=== PATIENT | male | born 1935 | race Caucasian/White ===

== ENCOUNTER 2017-09-22 09:40 | Inpatient (IN) | payer MEDICARE, OTHER ==
[2017-09-22 11:13] LABS: ABSOLUTE EOSINOPHILS # (AUTO) 0.2 10^3/uL (0.0-0.6); ABSOLUTE LYMPHOCYTES (AUTO) 0.9 10^3/uL (0.5-4.7); ABSOLUTE MONOCYTES (AUTO) 0.9 10^3/uL (0.1-1.4); ABSOLUTE NEUT (AUTO) 7.3 10^3/uL (1.7-8.2); BASOPHILS % (AUTO) 0.3 % (0-2); HEMATOCRIT 43.8 % (37.9-51.0); HEMOGLOBIN 14.4 g/dL (13.5-17.0); LYMPHOCYTES % (AUTO) 9.2 % (13-45); MEAN CORPUSCULAR HEMOGLOBIN 28.2 pg (27.0-33.4); MEAN CORPUSCULAR HGB CONC 32.8 g/dL (32.0-36.0); MEAN CORPUSCULAR VOLUME 86 fl (80-97); PLATELET COUNT 162 10^3/uL (150-450); RED CELL DISTRIBUTION WIDTH 15.6 % (11.5-14.0); SEGMENTED NEUTROPHILS % (AUTO) 78.5 % (42-78); TOTAL CELLS COUNTED % (AUTO) 100 %; WHITE BLOOD COUNT 9.3 10^3/uL (4.0-10.5)
--- NOTE | 2017-09-22 11:26 | RADIOLOGY REPORT (SQ) ---
EXAM DESCRIPTION: CT HEAD WITHOUT COMPLETED DATE/TIME: 09/22/2017 11:02 am REASON FOR STUDY: fall COMPARISON: None. TECHNIQUE: Axial images acquired through the brain without intravenous contrast. Images reviewed wi th bone, brain and subdural windows. Images stored on PACS. All CT scanners at this facility use dose modulation, iterative reconstruction, and/or weight based d osing when appropriate to reduce radiation dose to as low as reasonably achievable (ALARA). [facility]: Dose Right [facility]: CareDose [facility]: Dose Right [facility]: Teradose 4D [facility]: [place] RADIATION DOSE: CT Rad equipment meets quality standard of care and radiation dose reduction techniq ues were employed. CTDIvol: 64.6 mGy. DLP: 1163 mGy-cm. mGy. LIMITATIONS: None. FINDINGS: VENTRICLES: Normal size and contour. CEREBRUM: No masses. No hemorrhage. No midline shift. No evidence for acute infarction. Normal gra y/white matter differentiation. No areas of low density in the white matter. CEREBELLUM: No masses. No hemorrhage. No alteration of density. No evidence for acute infarction. EXTRAAXIAL SPACES: No fluid collections. No masses. ORBITS AND GLOBE: No intra- or extraconal masses. Post bilateral cataract surgery. CALVARIUM: No fracture. PARANASAL SINUSES: No fluid or mucosal thickening. SOFT TISSUES: No mass or hematoma. OTHER: No other significant finding. IMPRESSION: NORMAL BRAIN CT WITHOUT CONTRAST. EVIDENCE OF ACUTE STROKE: NO. COMMENT: Quality ID # [id number]: Final reports with documentation of one or more dose reduction techniques (e.g., Automated exposure control, adjustment of the mA and/or kV according to patient size, use of iterative reconstruction technique) TECHNICAL DOCUMENTATION: JOB ID: [id number] [employer]- All Rights Reserved
--- NOTE | 2017-09-22 11:28 | RADIOLOGY REPORT (SQ) ---
EXAM DESCRIPTION: CHEST PA/LAT COMPLETED DATE/TIME: 09/22/2017 11:20 am REASON FOR STUDY: fall COMPARISON: Chest films 02/21/2015, 03/05/2016 EXAM PARAMETERS: NUMBER OF VIEWS: two views TECHNIQUE: Digital Frontal and Lateral radiographic views of the chest acquired. RADIATION DOSE: NA LIMITATIONS: none FINDINGS: LUNGS AND PLEURA: No acute infiltrates. No pleural effusion. No pneumothorax. Stable pleural thickening over the left lower lateral chest. MEDIASTINUM AND HILAR STRUCTURES: No masses or contour abnormalities. Aortic stent graft anchors are present at the aortic root and near the great vessel origins. HEART AND VASCULAR STRUCTURES: Heart normal size. No evidence for failure. BONES: No acute findings. HARDWARE: None in the chest. OTHER: No other significant finding. IMPRESSION: No acute findings TECHNICAL DOCUMENTATION: JOB ID: [id number] [employer]- All Rights Reserved
[2017-09-22 11:29] LABS: ALANINE AMINOTRANSFERASE 24 U/L (21-72); ALBUMIN 3.4 g/dL (3.5-5.0); ALKALINE PHOSPHATASE 112 U/L (38-126); ANION GAP 11 (5-19); ASPARTATE AMINO TRANSFERASE 21 U/L (17-59); BILIRUBIN,DIRECT 0.3 mg/dL (0.0-0.4); BILIRUBIN,TOTAL 0.4 mg/dL (0.2-1.3); BLOOD UREA NITROGEN 58 mg/dL (7-20); CALCIUM 8.7 mg/dL (8.4-10.2); CARBON DIOXIDE 26 mmol/L (22-30); CHLORIDE 104 mmol/L (98-107); GLUCOSE 150 mg/dL (75-110); POTASSIUM 4.6 mmol/L (3.6-5.0); SODIUM 141.3 mmol/L (137-145)
--- NOTE | 2017-09-22 11:30 | RADIOLOGY REPORT (SQ) ---
EXAM DESCRIPTION: L SPINE WHOLE COMPLETED DATE/TIME: 09/22/2017 11:20 am REASON FOR STUDY: fall COMPARISON: Lumbar spine films 05/31/2016, 04/19/2016, 03/15/2016 NUMBER OF VIEWS: Five views including obliques. TECHNIQUE: AP, lateral, oblique, and sacral radiographic images acquired of the lumbar spine. LIMITATIONS: None. FINDINGS: MINERALIZATION: Osteopenic SEGMENTATION: Normal. No transitional anatomy. ALIGNMENT: 50% anterolisthesis of L5 over S1 VERTEBRAE: Maintained height. No fracture or worrisome bone lesion. DISCS: High-grade disc space loss of height at L5-S1 POSTERIOR ELEMENTS: Bilateral spondylolysis at L5 HARDWARE: None in the spine. Old ventral hernia repair periumbilical region PARASPINAL SOFT TISSUES: Normal. PELVIS: Not included in the field of view OTHER: No other significant finding. IMPRESSION: 50% anterolisthesis of L5 over S1, similar compared to prior studies. No acute fracture TECHNICAL DOCUMENTATION: JOB ID: [id number] [employer]- All Rights Reserved
[2017-09-22] MEDS ORDERED: NORMAL SALINE 1000 ML 1,000 ML IV ONE (12:40)
--- NOTE | 2017-09-22 12:58 | ER Document Report ---
ED General - General Chief Complaint: Fall Stated Complaint: FALL/BACK PAIN Time Seen by Provider: 09/22/17 09:52 Mode of Arrival: Medic Information source: Patient Notes: 81-year-old male presents with complaints of his. Patient notes every time he bends over or stands up he falls over. Patient denies any numbness or weakness admits to low back pain Patient has a history of COPD notes productive cough for the past 3 days with shortness of breath he is not on oxygen at home TRAVEL OUTSIDE OF THE [place] IN LAST 30 DAYS: No - HPI Onset: Other Onset/Duration: Sudden Quality of pain: Achy Severity: Mild Pain Level: 1 Associated symptoms: Productive cough, Shortness of breath, Weakness Exacerbated by: Standing Relieved by: Denies Similar symptoms previously: No Recently seen / treated by doctor: No - Related Data Allergies/Adverse Reactions: No Known Allergies Allergy (Verified 09/22/17 10:11) Home Medications: Current Home Medications Aspirin [Aspirin EC] 81 mg PO DAILY 09/22/17 [History] Citalopram Hydrobromide [Citalopram HBr] 10 mg PO DAILY 09/22/17 [History] Cyanocobalamin (Vitamin B-12) [Vitamin B-12 1000 mcg Tablet] 1,000 mcg PO DAILY 09/22/17 [History] Docusate Sodium [Colace 100 mg Capsule] 100 mg PO BID 09/22/17 [History] Finasteride [Proscar 5 mg Tablet] 5 mg PO DAILY 09/22/17 [History] Gabapentin [Neurontin 300 mg Capsule] 300 mg PO Q6 09/22/17 [History] Hydrocodone Bit/Acetaminophen [Hydrocodon-Acetaminophen 5-325] 1 tab PO Q6HP PRN 09/22/17 [History] Insulin Detemir [Levemir Flextouch] 34 unit SUBCUT BID 09/22/17 [History] Lisinopril [Prinivil 40 mg Tablet] 40 mg PO DAILY 09/22/17 [History] Metoprolol Succinate [Toprol XL 100 mg Tablet] 100 mg PO DAILY 09/22/17 [History ] Pantoprazole Sodium [Protonix] 40 mg PO DAILY 09/22/17 [History] Tamsulosin HCl [Flomax 0.4 mg Cap.sr] 0.4 mg PO BID 09/22/17 [History] Warfarin Sodium [Coumadin 4 mg Tablet] 8 mg PO MOTUWETHFR@0 09/22/17 [History ] Warfarin Sodium [Coumadin] 6 mg PO SUSA@0 09/22/17 [History] Past Medical History - Social History Smoking Status: Former Smoker Cigarette use (# per day): No Chew tobacco use (# tins/day): No Smoking Education Provided: No Frequency of alcohol use: None Drug Abuse: None Family History: Reviewed & Not Pertinent Patient has suicidal ideation: No Patient has homicidal ideation: No - Past Medical History Cardiac Medical History: Reports: Hx Atrial Fibrillation - coumadin, Hx Coronary Artery Disease, Hx Hypercholesterolemia, Hx Hypertension Pulmonary Medical History: Reports: Hx Bronchitis, Hx COPD, Hx Pneumonia Endocrine Medical History: Reports: Hx Diabetes Mellitus Type 2 Renal/ Medical History: Reports: Hx Benign Prostatic Hyperplasia. Denies: Hx Peritoneal Dialysis GI Medical History: Reports: Hx Gastroesophageal Reflux Disease Psychiatric Medical History: Denies: Hx Depression Past Surgical History: Reports: Hx Appendectomy, Hx Cardiac Catheterization, Hx Genitourinary Surgery - TURP, Hx Orthopedic Surgery - R Shoulder, Hx Tonsillectomy, Hx Vascular Surgery - AAA - Immunizations Hx Diphtheria, Pertussis, Tetanus Vaccination: Yes Hx Pneumococcal Vaccination: 09/15/12 Review of Systems - Review of Systems Notes: REVIEW OF SYSTEMS: CONSTITUTIONAL : Denies fever, chills, or sweats. Denies recent illness. EENT: Denies eye, ear, throat, or mouth pain or symptoms. Denies nasal or sinus congestion or discharge. Denies throat, tongue, or mouth swelling or difficulty swallowing. CARDIOVASCULAR: Denies chest pain. Denies palpitations or racing or irregular heart beat. Denies ankle edema. RESPIRATORY: Admits to cough GASTROINTESTINAL: Admits to back pain GENITOURINARY: Denies difficulty urinating, painful urination, burning, frequency, blood in urine, or discharge. MUSCULOSKELETAL: Denies back or neck pain or stiffness. Denies joint pain or swelling. SKIN: Denies rash, lesions or sores. HEMATOLOGIC : Denies easy bruising or bleeding. LYMPHATIC: Denies swollen, enlarged glands. NEUROLOGICAL: Admits to multiple full PSYCHIATRIC: Denies anxiety or stress. Denies depression, suicidal ideation, or homicidal ideation. ALL OTHER SYSTEMS REVIEWED AND NEGATIVE. Dictation was performed using [employer] recognition software PHYSICAL EXAMINATION: GENERAL: Well-appearing, well-nourished and in no acute distress. HEAD: Atraumatic, normocephalic. EYES: Pupils equal round and reactive to light, extraocular movements intact, sclera anicteric, conjunctiva are normal. ENT: Nares patent, oropharynx clear without exudates. Moist mucous membranes. NECK: Normal range of motion, supple without lymphadenopathy LUNGS: Coarse wheezing all throughout HEART: Regular rate and rhythm without murmurs ABDOMEN: Soft, nontender, nondistended abdomen. No guarding, no rebound. No masses appreciated. Musculoskeletal: Normal range of motion, no pitting or edema. No cyanosis. NEUROLOGICAL: Cranial nerves grossly intact. Normal speech, normal gait. Normal sensory, motor exams PSYCH: Normal mood, normal affect. SKIN: Multiple superficial abrasions bilateral knees Physical Exam - Vital signs Vitals: Temp Pulse Resp BP Pulse Ox 98.1 F 86 22 H 95/66 L 89 L 09/22/17 10:02 09/22/17 10:02 09/22/17 10:02 09/22/17 10:02 09/22/17 10:02 Course - Re-evaluation Re-evalutation: 09/22/17 12:57 Patient is noted to be in acute renal failure, creatinine is 2.15, I believe his multiple falls are due to dehydration, urinalysis is pending, his is also here and had recent diagnosis of the flu and was recently treated. I expect admission for the patient 09/22/17 19:19 Patient has been placed on nasal cannula as he continues to become hypoxic in the emergency department - Vital Signs Vital signs: Temp Pulse Resp BP Pulse Ox 98.1 F 86 18 106/75 94 09/22/17 10:02 09/22/17 10:02 09/22/17 18:01 09/22/17 18:01 09/22/17 18:01 - Laboratory Result Diagrams: 09/22/17 10:55 09/22/17 10:55 Laboratory results interpreted by me: 09/22/17 09/22/17 09/22/17 10:55 10:55 10:55 RDW 15.6 H Seg Neutrophils % 78.5 H Lymphocytes % 9.2 L PT INR APTT BUN 58 H Creatinine 2.14 H Est GFR ( Amer) 36 L Est GFR (Non-Af Amer) 30 L Glucose 150 H Magnesium 2.5 H Total Protein 6.0 L Albumin 3.4 L 09/22/17 10:55 RDW Seg Neutrophils % Lymphocytes % PT 66.0 H* INR 7.46 H* APTT 107.9 H BUN Creatinine Est GFR ( Amer) Est GFR (Non-Af Amer) Glucose Magnesium Total Protein Albumin - Diagnostic Test Radiology reviewed: Image reviewed, Reports reviewed Critical Care Note - Critical Care Note Total time excluding time spent on procedures (mins): 33 Comments: 33 minutes of critical care time spent in direct contact evaluating and reevaluating the patient, treating symptoms, reviewing labs and studies and speaking with family and consultants excluding any procedures Discharge - Discharge Clinical Impression: Hypoxemia Acute renal failure Qualifiers: Acute renal failure type: unspecified Qualified Code(s): N17.9 - Acute kidney failure, unspecified Falls Qualifiers: Encounter type: initial encounter Qualified Code(s): W19.XXXA - Unspecified fall, initial encounter Condition: Stable Disposition: ADMITTED INPATIENT Admitting Provider: Hospitalist Unit Admitted: Telemetry
[2017-09-22] MEDS ORDERED: LEVALBUTEROL HCL NEB 0.63 MG/3 ML AMPUL NEB PRN (13:20)
[2017-09-22] MEDS ORDERED: ONDANSETRON HCL INJ/PF 4 MG/2 ML SDV IV PRN (13:20)
[2017-09-22] MEDS ORDERED: NORMAL SALINE 1000 ML 1,000 ML IV PRN (13:20)
[2017-09-22] MEDS ORDERED: ONDANSETRON 4 MG TAB.RAPDIS PO PRN (13:20)
[2017-09-22 13:32] LABS: APPEARANCE,URINE CLEAR; BILIRUBIN,URINE NEGATIVE (NEGATIVE); COLOR,URINE YELLOW; GLUCOSE, URINE NEGATIVE (NEGATIVE); KETONES,URINE NEGATIVE (NEGATIVE); LEUKOCYTE ESTERASE,URINE NEGATIVE (NEGATIVE); NITRITE,URINE NEGATIVE (NEGATIVE); PROTEIN,URINE NEGATIVE (NEGATIVE); URINE SPECIFIC GRAVITY 1.019; UROBILINOGEN,URINE NEGATIVE mg/dL (<2.0)
[2017-09-22 13:57] LABS: PARTIAL THROMBOPLASTIN TIME 107.9 SEC (23.5-35.8)
[2017-09-22 13:58] LABS: A TYPE INFLUENZA AG NEGATIVE (NEGATIVE); B INFLUENZA AG NEGATIVE (NEGATIVE)
[2017-09-22 14:19] LABS: MAGNESIUM 2.5 mg/dL (1.6-2.3); PHOSPHORUS 3.8 mg/dL (2.5-4.5)
[2017-09-22 14:28] LABS: INTERNATIONAL RATION (INR) 7.46
--- NOTE | 2017-09-22 16:44 | EKG REPORT ---
SEVERITY:- OTHERWISE NORMAL ECG - SINUS RHYTHM LOW VOLTAGE IN FRONTAL LEADS : Confirmed by: Pako Ribeiro MD 22-Sep-2017 16:44:06
[2017-09-22] MEDS ORDERED: GLUCAGON,HUMAN RECOMB 1 MG INJ IM PRN (16:57)
[2017-09-22] MEDS ORDERED: DEXTROSE 40% GEL 15 GM TUBE PO PRN ×2 (16:57)
[2017-09-22] MEDS ORDERED: DEXTROSE 50%-WATER 25 GM/50 ML DISP.SYRIN IV PRN ×2 (16:57)
--- NOTE | 2017-09-22 17:22 | PDOC H&P ---
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 His was recently diagnosed with Influenza and was treated for it. No chest pain or dyspnea. Both his eyes have been red and itchy. Past Medical History Cardiac Medical History: Reports: Atrial Fibrillation - coumadin, Coronary Artery Disease, Hyperlipidema, Hypertension Pulmonary Medical History: Reports: Bronchitis, Chronic Obstructive Pulmonary Disease (COPD), Pneumonia Endocrine Medical History: Reports: Diabetes Mellitus Type 2 GI Medical History: Reports: Gastroesophageal Reflux Disease Psychiatric Medical History: Denies: Depression Past Surgical History Past Surgical History: Reports: Appendectomy, Cardiac Catheterization, Orthopedic Surgery - R Shoulder, Tonsillectomy, Vascular Surgery - AAA Social History Information Source: Patient Lives with: Spouse/Significant other Smoking Status: Former Smoker Frequency of Alcohol Use: None - Advance Directive Resuscitation Status: Full Code Family History Family History: Hypertension Parental Family History Reviewed: Yes Children Family History Reviewed: Yes Sibling(s) Family History Reviewed.: Yes Medication/Allergy Home Medications: Aspirin [Aspirin EC] 81 mg PO DAILY 09/22/17 Citalopram Hydrobromide [Citalopram HBr] 10 mg PO DAILY 09/22/17 Cyanocobalamin (Vitamin B-12) [Vitamin B-12 1000 mcg Tablet] 1,000 mcg PO DAILY 09/22/17 Docusate Sodium [Colace 100 mg Capsule] 100 mg PO BID 09/22/17 Finasteride [Proscar 5 mg Tablet] 5 mg PO DAILY 09/22/17 Gabapentin [Neurontin 300 mg Capsule] 300 mg PO Q6 09/22/17 Hydrocodone Bit/Acetaminophen [Hydrocodon-Acetaminophen 5-325] 1 tab PO Q6HP PRN 09/22/17 Insulin Detemir [Levemir Flextouch] 34 unit SUBCUT BID 09/22/17 Lisinopril [Prinivil 40 mg Tablet] 40 mg PO DAILY 09/22/17 Metoprolol Succinate [Toprol XL 100 mg Tablet] 100 mg PO DAILY 09/22/17 Pantoprazole Sodium [Protonix] 40 mg PO DAILY 09/22/17 Tamsulosin HCl [Flomax 0.4 mg Cap.sr] 0.4 mg PO BID 09/22/17 Warfarin Sodium [Coumadin 4 mg Tablet] 8 mg PO MOTUWETHFR@2200 09/22/17 Warfarin Sodium [Coumadin] 6 mg PO SUSA@2200 09/22/17 Allergies/Adverse Reactions: No Known Allergies Allergy (Verified 09/22/17 10:11) Review of Systems Constitutional: PRESENT: as per HPI. ABSENT: fever(s), headache(s) Eyes: PRESENT: other - itchy, red, discharge. ABSENT: visual disturbances Nose, Mouth, and Throat: PRESENT: sore throat Cardiovascular: ABSENT: chest pain, palpitations Respiratory: PRESENT: cough, sputum Gastrointestinal: ABSENT: coffee ground emesis, diarrhea, heartburn, nausea, vomiting Genitourinary: ABSENT: dysuria Musculoskeletal: ABSENT: deformity Integumentary: ABSENT: lesions Physical Exam Vital Signs: Temp Pulse Resp BP Pulse Ox 98.1 F 86 21 H 127/56 H 92 09/22/17 10:02 09/22/17 10:02 09/22/17 13:03 09/22/17 13:03 09/22/17 13:03 General appearance: PRESENT: no acute distress Eye exam: PRESENT: conjunctival injection, conjunctiva pink. ABSENT: scleral icterus Ear exam: PRESENT: normal external ear exam Mouth exam: PRESENT: moist Throat exam: PRESENT: post pharyngeal erythema Neck exam: ABSENT: JVD, tracheal deviation Respiratory exam: PRESENT: rhonchi, unlabored. ABSENT: accessory muscle use, crackles, wheezes Cardiovascular exam: PRESENT: RRR. ABSENT: tachycardia Pulses: PRESENT: normal carotid pulses GI/Abdominal exam: PRESENT: normal bowel sounds, soft. ABSENT: guarding, tenderness Rectal exam: PRESENT: deferred Neurological exam: PRESENT: alert, awake, oriented to person, oriented to place , oriented to time, oriented to situation Psychiatric exam: PRESENT: appropriate affect Results EKG Comments: NSR, normal QTc Impressions: Chest X-Ray 09/22/17 10:37 IMPRESSION: No acute findings Head CT 09/22/17 10:37 IMPRESSION: NORMAL BRAIN CT WITHOUT CONTRAST. EVIDENCE OF ACUTE STROKE: NO. Lumbar Spine X-Ray 09/22/17 10:37 IMPRESSION: 50% anterolisthesis of L5 over S1, similar compared to prior studies. No acute fracture Status: Image reviewed by me Assessment & Plan - Diagnosis (1) Acute bronchitis Is this a current diagnosis for this admission?: Yes Plan: Possible pneumonia. Start Levaquin. Would benefit from a repeat Chest Xray once hydrated. Flu screen negative but started on Tamiflu due to high incidence of false negatives and positive contact. Will get serum Influenza titers. Nebs prn (2) Acute renal failure Is this a current diagnosis for this admission?: Yes Plan: Hold HALIMA inhibitor. IV fluids. Monitor renal function and urine output. (3) Conjunctivitis Qualifiers: Conjunctivitis type: acute Is this a current diagnosis for this admission?: Yes Plan: Antibiotic eye drops (4) History of pulmonary embolism Is this a current diagnosis for this admission?: Yes (5) Coagulopathy Is this a current diagnosis for this admission?: Yes Plan: Coumadin on hold, no active bleeding. (6) Falls Is this a current diagnosis for this admission?: Yes Plan: Fall precautions, PT eval (7) Diabetes mellitus Qualifiers: Diabetes mellitus type: type 2 Is this a current diagnosis for this admission?: Yes Plan: Diabetic diet and Insulin sliding scale. Long acting insulin to be restarted according to POC glucose - Time Time Spent: 50 to 70 Minutes - Inpatient Certification Based on my medical assessment, after consideration of the patient's comorbidities, presenting symptoms, or acuity I expect that the services needed warrant INPATIENT care.: Yes Medical Necessity: Significant Comorbidiites Make Outpatient Treatment Too Risky , Need For IV Fluids, Need for IV Antibiotics, Risk of Complication if Not Cared For in Hospital - Plan Summary Plan Summary: Full Code.
[2017-09-22] MEDS ORDERED: LEVOFLOXACIN 500 MG/D5W RTU 500 MG/100 ML RTUPB IV ONE (18:00)
[2017-09-22] MEDS ORDERED: DOCUSATE SODIUM 100 MG CAPSULE PO SCH (18:00)
[2017-09-22 19:21] LABS: PROTHROMBIN TIME 62.6 SEC (11.4-15.4)
[2017-09-22 19:22] LABS: INTERNATIONAL RATION (INR) 6.96
[2017-09-22] MEDS: GABAPENTIN 300 MG CAPSULE PO SCH ×2 (21:35→23:31)
[2017-09-22] MEDS: TAMSULOSIN HCL 0.4 MG CAP.SR.24H PO SCH (21:35)
[2017-09-22] MEDS: FINASTERIDE 5 MG TABLET PO SCH (21:35)
[2017-09-22] MEDS: TOBRAMYCIN SULFATE/DEXAMETH OPH OINTMENT 3.5 GM OU SCH (21:38)
[2017-09-22] MEDS: INSULIN LISPRO 100 UNIT/ML 3 ML VIAL SUBCUT PRN (21:39)
[2017-09-22] MEDS: OSELTAMIVIR PHOSPHATE 75 MG CAPSULE PO SCH (22:45)
[2017-09-22] MEDS: TOBRAMYCIN SULFATE/DEXAMETH OPH SUSP 2.5 ML OU SCH (23:31)
[2017-09-23] MEDS: HYDROCODONE/ACETAMINOPHEN 5-325 MG TABLET PO PRN ×3 (05:10→21:37)
[2017-09-23] MEDS: GABAPENTIN 300 MG CAPSULE PO SCH ×4 (05:10→23:38)
[2017-09-23] MEDS: LANSOPRAZOLE 15 MG TAB.RAP.DR PO SCH (05:10)
[2017-09-23] MEDS: TOBRAMYCIN SULFATE/DEXAMETH OPH SUSP 2.5 ML OU SCH ×4 (05:10→23:39)
[2017-09-23] MEDS: [UNRECOGNIZED DRUG - OTHER] PO SCH (06:03)
[2017-09-23 06:04] LABS: ABSOLUTE BASOPHILS # (AUTO) 0.1 10^3/uL (0.0-0.2); ABSOLUTE EOSINOPHILS # (AUTO) 0.1 10^3/uL (0.0-0.6); ABSOLUTE LYMPHOCYTES (AUTO) 0.8 10^3/uL (0.5-4.7); ABSOLUTE MONOCYTES (AUTO) 0.9 10^3/uL (0.1-1.4); BASOPHILS % (AUTO) 0.7 % (0-2); EOSINOPHILS % (AUTO) 1.5 % (0-6); HEMATOCRIT 43.7 % (37.9-51.0); HEMOGLOBIN 14.3 g/dL (13.5-17.0); LYMPHOCYTES % (AUTO) 8.9 % (13-45); MEAN CORPUSCULAR HEMOGLOBIN 27.9 pg (27.0-33.4); MEAN CORPUSCULAR HGB CONC 32.6 g/dL (32.0-36.0); MEAN CORPUSCULAR VOLUME 85 fl (80-97); MONOCYTES % (AUTO) 10.3 % (3-13); PLATELET COUNT 140 10^3/uL (150-450); RED BLOOD COUNT 5.12 10^6/uL (4.35-5.55); RED CELL DISTRIBUTION WIDTH 15.2 % (11.5-14.0); SEGMENTED NEUTROPHILS % (AUTO) 78.6 % (42-78); TOTAL CELLS COUNTED % (AUTO) 100 %; WHITE BLOOD COUNT 8.9 10^3/uL (4.0-10.5)
[2017-09-23 06:17] LABS: ALANINE AMINOTRANSFERASE 25 U/L (21-72); ALBUMIN 3.5 g/dL (3.5-5.0); ALKALINE PHOSPHATASE 119 U/L (38-126); ANION GAP 14 (5-19); ASPARTATE AMINO TRANSFERASE 23 U/L (17-59); BILIRUBIN,DIRECT 0.3 mg/dL (0.0-0.4); BILIRUBIN,TOTAL 0.6 mg/dL (0.2-1.3); BLOOD UREA NITROGEN 40 mg/dL (7-20); CALCIUM 8.5 mg/dL (8.4-10.2); CARBON DIOXIDE 21 mmol/L (22-30); CHLORIDE 107 mmol/L (98-107); GLUCOSE 194 mg/dL (75-110); MAGNESIUM 2.1 mg/dL (1.6-2.3); PHOSPHORUS 2.2 mg/dL (2.5-4.5); POTASSIUM 5.3 mmol/L (3.6-5.0); SODIUM 141.7 mmol/L (137-145); TOTAL PROTEIN 6.1 g/dL (6.3-8.2)
[2017-09-23] MEDS ORDERED: (PENDING PHARMACY ID) (Citalopram Hydrobromide [Citalopram Hbr] 10 MG) PO SCH (10:00)
[2017-09-23] MEDS: METOPROLOL SUCCINATE 50 MG TAB.SR.24H PO SCH (10:17)
[2017-09-23] MEDS: DOCUSATE SODIUM 100 MG CAPSULE PO SCH (10:18)
[2017-09-23] MEDS: CITALOPRAM HYDROBROMIDE 20 MG TABLET PO SCH (10:18)
[2017-09-23] MEDS: TAMSULOSIN HCL 0.4 MG CAP.SR.24H PO SCH ×2 (10:19→18:06)
[2017-09-23] MEDS: OSELTAMIVIR PHOSPHATE 75 MG CAPSULE PO SCH ×2 (10:19→18:06)
[2017-09-23] MEDS: INSULIN LISPRO 100 UNIT/ML 3 ML VIAL SUBCUT PRN ×3 (10:27→21:37)
[2017-09-23] MEDS: ACETAMINOPHEN 325 MG TABLET PO PRN ×3 (10:28→23:38)
[2017-09-23] MEDS ORDERED: LEVOFLOXACIN 250 MG/D5W RTU 250 MG/50 ML RTUPB IV SCH (18:00)
--- NOTE | 2017-09-23 18:01 | PDOC PROGRESS REPORT ---
Subjective Progress Note for:: 09/23/17 Subjective:: Pt states that his breathing is better. Reason For Visit: DEHYDRATION POSSIBLE FLU,FALLS,WEAKNESS,ARF Physical Exam Vital Signs: Temp Pulse Resp BP Pulse Ox 98.0 F 74 20 123/65 93 09/23/17 16:17 09/23/17 16:17 09/23/17 16:17 09/23/17 16:17 09/23/17 16:17 Intake & Output 09/22/17 09/23/17 09/24/17 06:59 06:59 06:59 Intake Total 1506 473 Output Total 1200 575 Balance 306 -102 Weight 114.4 kg General appearance: PRESENT: no acute distress, well-developed, well-nourished Head exam: PRESENT: atraumatic, normocephalic Eye exam: PRESENT: conjunctiva pink, EOMI. ABSENT: scleral icterus Ear exam: PRESENT: normal external ear exam Mouth exam: PRESENT: moist, tongue midline Neck exam: ABSENT: carotid bruit, JVD, lymphadenopathy, thyromegaly Respiratory exam: PRESENT: other - diminished at bases, + Fair air movement, No wheezing. Cardiovascular exam: PRESENT: RRR. ABSENT: diastolic murmur, rubs, systolic murmur Pulses: PRESENT: normal dorsalis pedis pul Vascular exam: PRESENT: normal capillary refill GI/Abdominal exam: PRESENT: normal bowel sounds, soft. ABSENT: distended, guarding, mass, organolmegaly, rebound, tenderness Rectal exam: PRESENT: deferred Extremities exam: PRESENT: full ROM. ABSENT: calf tenderness, clubbing, pedal edema Musculoskeletal exam: PRESENT: full ROM Neurological exam: PRESENT: alert, awake, oriented to person, oriented to place , oriented to time, oriented to situation, CN II-XII grossly intact. ABSENT: motor sensory deficit Psychiatric exam: PRESENT: appropriate affect, normal mood. ABSENT: homicidal ideation, suicidal ideation Skin exam: PRESENT: dry, intact, warm. ABSENT: cyanosis, rash Results Laboratory Results: 09/23/17 05:40 09/23/17 05:40 09/23/17 09/23/17 09/23/17 05:40 05:40 05:40 WBC 8.9 RBC 5.12 Hgb 14.3 Hct 43.7 MCV 85 MCH 27.9 MCHC 32.6 RDW 15.2 H Plt Count 140 L Seg Neutrophils % 78.6 H Lymphocytes % 8.9 L Monocytes % 10.3 Eosinophils % 1.5 Basophils % 0.7 Absolute Neutrophils 7.0 Absolute Lymphocytes 0.8 Absolute Monocytes 0.9 Absolute Eosinophils 0.1 Absolute Basophils 0.1 Sodium 141.7 Potassium 5.3 H Chloride 107 Carbon Dioxide 21 L Anion Gap 14 BUN 40 H Creatinine 1.30 H Est GFR ( Amer) > 60 Est GFR (Non-Af Amer) 53 L Glucose 194 H Calcium 8.5 Phosphorus 2.2 L Magnesium 2.1 Total Bilirubin 0.6 AST 23 ALT 25 Alkaline Phosphatase 119 Total Protein 6.1 L Albumin 3.5 TSH 0.04 L 09/23/17 05:40 NT-Pro-B Natriuret Pep 1860 H Impressions: Chest X-Ray 09/22/17 10:37 IMPRESSION: No acute findings Head CT 09/22/17 10:37 IMPRESSION: NORMAL BRAIN CT WITHOUT CONTRAST. EVIDENCE OF ACUTE STROKE: NO. Lumbar Spine X-Ray 09/22/17 10:37 IMPRESSION: 50% anterolisthesis of L5 over S1, similar compared to prior studies. No acute fracture Assessment & Plan - Diagnosis (1) Acute bronchitis Is this a current diagnosis for this admission?: Yes Plan: will continue current treatment. (2) Acute renal failure Qualifiers: Acute renal failure type: unspecified Qualified Code(s): N17.9 - Acute kidney failure, unspecified Is this a current diagnosis for this admission?: Yes Plan: Resolved. Will discontinue IVFs. (3) Conjunctivitis Qualifiers: Conjunctivitis type: acute Is this a current diagnosis for this admission?: Yes Plan: Will continue Tobramycin/Dexamethason. (4) Falls Qualifiers: Encounter type: initial encounter Qualified Code(s): W19.XXXA - Unspecified fall, initial encounter Is this a current diagnosis for this admission?: Yes Plan: PT/OT (5) History of pulmonary embolism Is this a current diagnosis for this admission?: Yes Plan: Supportive care. (6) Diabetes mellitus Qualifiers: Diabetes mellitus type: type 2 Is this a current diagnosis for this admission?: Yes Plan: SSI (7) Flu Is this a current diagnosis for this admission?: Yes Plan: Flu proph: Tamiflu. Pt's was diagnosed with the Flu. - Time Time Spent with patient: 15-24 minutes
[2017-09-23] MEDS: FINASTERIDE 5 MG TABLET PO SCH (18:06)
--- NOTE | 2017-09-23 19:43 | XCELERA REPORT ---
[address] [address] Transthoracic Echocardiogram Report Name: CHRISTINA SANDERS JR Age: 81 yrs Gender: Male : 1935 Patient Status: Inpatient Patient Location: [address] [place] [address] Study Date: 09/23/2017 11:06 AM Height: 71 in Weight: 253 lb BSA: 2.3 m2 Procedure: A complete two-dimensional transthoracic echocardiogram was performed (2D, M-mode, spectral and color flow Doppler). The study was technically difficult with many images being suboptimal in quality. Reason For Study: Syncope, severe Ordering Physician: MARCUS DIAZ Performed By: Debbie Currie Interpretation Summary The study was technically difficult with many images being suboptimal in quality. The left ventricular ejection fraction is normal. There is mild concentric left ventricular hypertrophy. The left ventricle is grossly normal size. Doppler measurements suggest pseudonormalized left ventricular relaxation, which is associated with grade II/IV or mild to moderate diastolic dysfunction Wall motion cannot be accurately commented on, but no definite regional wall motion abnormalities noted. The right ventricle is mildly dilated. The right ventricular systolic function is normal. Borderline left atrial enlargement. The right atrium is mild to moderately dilated. There is a trace to mild amount of mitral regurgitation There is no mitral valve stenosis. There is a trace amount of aortic regurgitation There is mild aortic stenosis There is a trace or physiologic amount of tricuspid regurgitation Tricuspid regurgitation jet envelope not well defined to measure RV systolic pressure accurately. The aortic root is not well visualized. The inferior vena cava appeared normal and decreased > 50% with respiration (RAP 5-10 mmHg) There is no pericardial effusion. MMode/2D Measurements & Calculations RVDd: 3.2 cm LVIDd: 4.1 cm FS: 35.1 % Ao root diam: 2.6 cm IVSd: 1.2 cm LVIDs: 2.6 cm EDV(Teich): 72.6 ml LVPWd: 1.2 cm ESV(Teich): 25.5 ml Ao root area: 5.2 cm2 EF(Teich): 64.9 % LVOT diam: 2.0 cm LVOT area: 3.3 cm2 Doppler Measurements & Calculations MV E max meño: MV dec slope: Ao V2 max: LV V1 max P.1 cm/sec 507.6 cm/sec2 252.3 cm/sec 4.2 mmHg MV A max meño: MV dec time: Ao max PG: LV V1 mean P.9 cm/sec 0.31 sec 25.5 mmHg 1.9 mmHg MV E/A: 0.83 Ao V2 mean: LV V1 max: 176.0 cm/sec 102.5 cm/sec Ao mean PG: LV V1 mean: 13.8 mmHg 64.3 cm/sec Ao V2 VTI: 48.9 cmLV V1 VTI: TJ(I,D): 1.5 cm2 22.3 cm TJ(V,D): 1.3 cm2 SV(LVOT): 72.7 ml PA V2 max: 116.4 cm/sec PA max P.4 mmHg Left Ventricle The left ventricle is grossly normal size. There is mild concentric left ventricular hypertrophy. The left ventricular ejection fraction is normal. Doppler measurements suggest pseudonormalized left ventricular relaxation, which is associated with grade II/IV or mild to moderate diastolic dysfunction. Wall motion cannot be accurately commented on, but no definite regional wall motion abnormalities noted. Right Ventricle The right ventricle is mildly dilated. There is normal right ventricular wall thickness. The right ventricular systolic function is normal. Atria The right atrium is mild to moderately dilated. Borderline left atrial enlargement. Interarterial septum not well visualized and not well dopplered. Cannot comment on ASD/PFO presence. Mitral Valve There is mild to moderate mitral annular calcification. There is no mitral valve stenosis. There is a trace to mild amount of mitral regurgitation. Aortic Valve There is mild aortic stenosis. There is a trace amount of aortic regurgitation. There is a bioprosthetic aortic valve. Tricuspid Valve The tricuspid valve is not well visualized secondary to technical limitations. There is no tricuspid stenosis. There is a trace or physiologic amount of tricuspid regurgitation. Tricuspid regurgitation jet envelope not well defined to measure RV systolic pressure accurately. Pulmonic Valve The pulmonic valve is not well visualized. Great Vessels The aortic root is not well visualized. The inferior vena cava appeared normal and decreased > 50% with respiration (RAP 5-10 mmHg). Effusions There is no pericardial effusion. : JOE January Bandar Cote
[2017-09-23] MEDS: TOBRAMYCIN SULFATE/DEXAMETH OPH OINTMENT 3.5 GM OU SCH (21:45)
[2017-09-23 21:51] LABS: ANION GAP 9 (5-19); BLOOD UREA NITROGEN 34 mg/dL (7-20); CALCIUM 8.8 mg/dL (8.4-10.2); CARBON DIOXIDE 22 mmol/L (22-30); CHLORIDE 110 mmol/L (98-107); GLUCOSE 211 mg/dL (75-110); POTASSIUM 4.8 mmol/L (3.6-5.0); SODIUM 141.3 mmol/L (137-145)
[2017-09-23] MEDS ORDERED: HALOPERIDOL LACTATE INJ 5 MG/1 ML VIAL IV ONE (22:15)
[2017-09-24] MEDS: HYDROCODONE/ACETAMINOPHEN 5-325 MG TABLET PO PRN ×4 (03:30→23:30)
[2017-09-24 05:07] LABS: ABSOLUTE BASOPHILS # (AUTO) 0.1 10^3/uL (0.0-0.2); ABSOLUTE EOSINOPHILS # (AUTO) 0.3 10^3/uL (0.0-0.6); ABSOLUTE LYMPHOCYTES (AUTO) 1.3 10^3/uL (0.5-4.7); ABSOLUTE MONOCYTES (AUTO) 0.9 10^3/uL (0.1-1.4); ABSOLUTE NEUT (AUTO) 5.6 10^3/uL (1.7-8.2); BASOPHILS % (AUTO) 0.7 % (0-2); EOSINOPHILS % (AUTO) 3.2 % (0-6); HEMATOCRIT 40.3 % (37.9-51.0); HEMOGLOBIN 13.2 g/dL (13.5-17.0); LYMPHOCYTES % (AUTO) 15.5 % (13-45); MEAN CORPUSCULAR HEMOGLOBIN 27.8 pg (27.0-33.4); MEAN CORPUSCULAR HGB CONC 32.7 g/dL (32.0-36.0); MEAN CORPUSCULAR VOLUME 85 fl (80-97); MONOCYTES % (AUTO) 10.8 % (3-13); PLATELET COUNT 147 10^3/uL (150-450); RED BLOOD COUNT 4.74 10^6/uL (4.35-5.55); RED CELL DISTRIBUTION WIDTH 15.6 % (11.5-14.0); SEGMENTED NEUTROPHILS % (AUTO) 69.8 % (42-78); TOTAL CELLS COUNTED % (AUTO) 100 %; WHITE BLOOD COUNT 8.1 10^3/uL (4.0-10.5)
[2017-09-24 05:21] LABS: ANION GAP 11 (5-19); BLOOD UREA NITROGEN 28 mg/dL (7-20); CALCIUM 8.7 mg/dL (8.4-10.2); CARBON DIOXIDE 21 mmol/L (22-30); CHLORIDE 109 mmol/L (98-107); GLUCOSE 150 mg/dL (75-110); POTASSIUM 4.5 mmol/L (3.6-5.0); SODIUM 141.4 mmol/L (137-145)
[2017-09-24] MEDS: TOBRAMYCIN SULFATE/DEXAMETH OPH SUSP 2.5 ML OU SCH ×4 (05:31→17:34)
[2017-09-24] MEDS: LANSOPRAZOLE 15 MG TAB.RAP.DR PO SCH (05:31)
[2017-09-24] MEDS: GABAPENTIN 300 MG CAPSULE PO SCH ×4 (05:31→23:25)
[2017-09-24] MEDS: [UNRECOGNIZED DRUG - OTHER] PO SCH (05:31)
[2017-09-24] MEDS: METOPROLOL SUCCINATE 50 MG TAB.SR.24H PO SCH (09:22)
[2017-09-24] MEDS: CITALOPRAM HYDROBROMIDE 20 MG TABLET PO SCH (09:23)
[2017-09-24] MEDS: OSELTAMIVIR PHOSPHATE 75 MG CAPSULE PO SCH ×2 (09:23→17:38)
[2017-09-24] MEDS: TAMSULOSIN HCL 0.4 MG CAP.SR.24H PO SCH ×2 (09:25→17:33)
[2017-09-24] MEDS: DOCUSATE SODIUM 100 MG CAPSULE PO SCH (09:25)
[2017-09-24] MEDS ORDERED: METOPROLOL SUCCINATE 50 MG TAB.SR.24H PO ONE (14:35)
--- NOTE | 2017-09-24 14:36 | PDOC PROGRESS REPORT ---
Subjective Progress Note for:: 09/24/17 Subjective:: Pt states that he is feeling better. Pt states that he has been up urinating. Reason For Visit: DEHYDRATION POSSIBLE FLU,FALLS,WEAKNESS,ARF Physical Exam Vital Signs: Temp Pulse Resp BP Pulse Ox 98.6 F 84 18 159/96 H 94 09/24/17 11:55 09/24/17 13:45 09/24/17 13:45 09/24/17 11:55 09/24/17 13:45 Intake & Output 09/23/17 09/24/17 09/25/17 06:59 06:59 06:59 Intake Total 1506 4197 712 Output Total 1200 1375 250 Balance 306 2822 462 Weight 114.4 kg 115.1 kg General appearance: PRESENT: no acute distress, well-developed, well-nourished Head exam: PRESENT: atraumatic, normocephalic Eye exam: PRESENT: conjunctiva pink, EOMI. ABSENT: scleral icterus Ear exam: PRESENT: normal external ear exam Mouth exam: PRESENT: moist, tongue midline Neck exam: ABSENT: carotid bruit, JVD, lymphadenopathy, thyromegaly Respiratory exam: PRESENT: clear to auscultation dionisio. ABSENT: rales, rhonchi, wheezes Cardiovascular exam: PRESENT: irregular rhythm, tachycardia Pulses: PRESENT: normal dorsalis pedis pul Vascular exam: PRESENT: normal capillary refill GI/Abdominal exam: PRESENT: normal bowel sounds, soft. ABSENT: distended, guarding, mass, organolmegaly, rebound, tenderness Rectal exam: PRESENT: deferred Extremities exam: PRESENT: full ROM. ABSENT: calf tenderness, clubbing, pedal edema Musculoskeletal exam: PRESENT: full ROM Neurological exam: PRESENT: alert, awake, oriented to person, oriented to place , oriented to time, oriented to situation, CN II-XII grossly intact. ABSENT: motor sensory deficit Psychiatric exam: PRESENT: appropriate affect, normal mood. ABSENT: homicidal ideation, suicidal ideation Skin exam: PRESENT: dry, intact, warm. ABSENT: cyanosis, rash Results Laboratory Results: 09/24/17 04:34 09/24/17 04:34 09/23/17 09/23/17 09/24/17 21:25 21:25 04:34 WBC 8.1 RBC 4.74 Hgb 13.2 L Hct 40.3 MCV 85 MCH 27.8 MCHC 32.7 RDW 15.6 H Plt Count 147 L Seg Neutrophils % 69.8 Lymphocytes % 15.5 Monocytes % 10.8 Eosinophils % 3.2 Basophils % 0.7 Absolute Neutrophils 5.6 Absolute Lymphocytes 1.3 Absolute Monocytes 0.9 Absolute Eosinophils 0.3 Absolute Basophils 0.1 Sodium 141.3 Potassium 4.8 Chloride 110 H Carbon Dioxide 22 Anion Gap 9 BUN 34 H Creatinine 1.12 Est GFR ( Amer) > 60 Est GFR (Non-Af Amer) > 60 Glucose 211 H Calcium 8.8 Magnesium 2.0 Free T4 1.16 09/24/17 04:34 WBC RBC Hgb Hct MCV MCH MCHC RDW Plt Count Seg Neutrophils % Lymphocytes % Monocytes % Eosinophils % Basophils % Absolute Neutrophils Absolute Lymphocytes Absolute Monocytes Absolute Eosinophils Absolute Basophils Sodium 141.4 Potassium 4.5 Chloride 109 H Carbon Dioxide 21 L Anion Gap 11 BUN 28 H Creatinine 0.94 Est GFR ( Amer) > 60 Est GFR (Non-Af Amer) > 60 Glucose 150 H Calcium 8.7 Magnesium Free T4 09/23/17 05:40 NT-Pro-B Natriuret Pep 1860 H Impressions: Chest X-Ray 09/22/17 10:37 IMPRESSION: No acute findings Head CT 09/22/17 10:37 IMPRESSION: NORMAL BRAIN CT WITHOUT CONTRAST. EVIDENCE OF ACUTE STROKE: NO. Lumbar Spine X-Ray 09/22/17 10:37 IMPRESSION: 50% anterolisthesis of L5 over S1, similar compared to prior studies. No acute fracture Assessment & Plan - Diagnosis (1) Supratherapeutic INR Is this a current diagnosis for this admission?: Yes Plan: Coumadin held. INR ordered. Will continue to follow. No evidence of active bleeding. (2) Acute bronchitis Is this a current diagnosis for this admission?: Yes Plan: We will discontinue Levaquin. Chest x-ray does not demonstrate any evidence of infiltrate. Patient's was positive for flu and patient currently being treated for flu. Will repeat chest x-ray in a.m. (3) Acute renal failure Qualifiers: Acute renal failure type: unspecified Qualified Code(s): N17.9 - Acute kidney failure, unspecified Is this a current diagnosis for this admission?: Yes Plan: Resolved patient's renal function is back to baseline. We will discontinue IV fluids. (4) Conjunctivitis Qualifiers: Conjunctivitis type: acute Is this a current diagnosis for this admission?: Yes Plan: Will continue Tobramycin/Dexamethason. (5) Falls Qualifiers: Encounter type: initial encounter Qualified Code(s): W19.XXXA - Unspecified fall, initial encounter Is this a current diagnosis for this admission?: Yes Plan: PT/OT (6) History of pulmonary embolism Is this a current diagnosis for this admission?: Yes Plan: Supportive care. (7) Diabetes mellitus Qualifiers: Diabetes mellitus type: type 2 Is this a current diagnosis for this admission?: Yes Plan: SSI (8) Flu Is this a current diagnosis for this admission?: Yes Plan: Flu proph: Tamiflu. Pt's was diagnosed with the Flu. (9) Atrial fibrillation Qualifiers: Atrial fibrillation type: chronic Qualified Code(s): I48.2 - Chronic atrial fibrillation Is this a current diagnosis for this admission?: Yes Plan: Will increase metoprolol succinate to 150 mg PO qdaily. - Time Time Spent with patient: 15-24 minutes Anticipated discharge: Home
[2017-09-24 14:43] LABS: INTERNATIONAL RATION (INR) 2.73
[2017-09-24 14:44] LABS: PROTHROMBIN TIME 30.3 SEC (11.4-15.4)
--- NOTE | 2017-09-24 16:48 | RADIOLOGY REPORT (SQ) ---
EXAM DESCRIPTION: CHEST PA/LAT COMPLETED DATE/TIME: 09/24/2017 4:22 pm REASON FOR STUDY: cough COMPARISON: 09/22/2017. TECHNIQUE: Frontal and lateral radiographic views of the chest acquired. NUMBER OF VIEWS: Two view. LIMITATIONS: None. FINDINGS: LUNGS AND PLEURA: Mild areas of suspected scarring. Similar appearance to prior. No over t developing failure or pneumonia suggested. Postoperative changes related to the aorta. MEDIASTINUM AND HILAR STRUCTURES: Stable. HEART AND VASCULAR STRUCTURES: Heart normal size. No evidence for failure. BONES: No acute findings. HARDWARE: None in the chest. OTHER: No other significant finding. Two-view chest. IMPRESSION: Stable chest without acute cardiopulmonary disease suggested. TECHNICAL DOCUMENTATION: JOB ID: [id number] [employer]- All Rights Reserved
[2017-09-24] MEDS: INSULIN LISPRO 100 UNIT/ML 3 ML VIAL SUBCUT PRN ×2 (17:33→23:25)
[2017-09-24] MEDS: FINASTERIDE 5 MG TABLET PO SCH (17:34)
[2017-09-24] MEDS: TOBRAMYCIN SULFATE/DEXAMETH OPH OINTMENT 3.5 GM OU SCH (22:00)
[2017-09-25] MEDS: TOBRAMYCIN SULFATE/DEXAMETH OPH OINTMENT 3.5 GM OU SCH (04:05)
[2017-09-25] MEDS: HYDROCODONE/ACETAMINOPHEN 5-325 MG TABLET PO PRN (06:27)
[2017-09-25] MEDS: GABAPENTIN 300 MG CAPSULE PO SCH ×2 (06:28→13:06)
[2017-09-25] MEDS: LANSOPRAZOLE 15 MG TAB.RAP.DR PO SCH (06:28)
[2017-09-25 06:41] LABS: ABSOLUTE EOSINOPHILS # (AUTO) 0.2 10^3/uL (0.0-0.6); ABSOLUTE LYMPHOCYTES (AUTO) 1.4 10^3/uL (0.5-4.7); ABSOLUTE MONOCYTES (AUTO) 0.8 10^3/uL (0.1-1.4); ABSOLUTE NEUT (AUTO) 5.8 10^3/uL (1.7-8.2); BASOPHILS % (AUTO) 0.5 % (0-2); EOSINOPHILS % (AUTO) 2.7 % (0-6); HEMATOCRIT 40.9 % (37.9-51.0); HEMOGLOBIN 13.6 g/dL (13.5-17.0); LYMPHOCYTES % (AUTO) 16.7 % (13-45); MEAN CORPUSCULAR HGB CONC 33.3 g/dL (32.0-36.0); MEAN CORPUSCULAR VOLUME 84 fl (80-97); MONOCYTES % (AUTO) 9.2 % (3-13); PLATELET COUNT 170 10^3/uL (150-450); RED BLOOD COUNT 4.85 10^6/uL (4.35-5.55); RED CELL DISTRIBUTION WIDTH 15.3 % (11.5-14.0); SEGMENTED NEUTROPHILS % (AUTO) 70.9 % (42-78); TOTAL CELLS COUNTED % (AUTO) 100 %; WHITE BLOOD COUNT 8.2 10^3/uL (4.0-10.5)
[2017-09-25 06:52] LABS: ALANINE AMINOTRANSFERASE 22 U/L (21-72); ALKALINE PHOSPHATASE 114 U/L (38-126); ANION GAP 9 (5-19); ASPARTATE AMINO TRANSFERASE 16 U/L (17-59); BILIRUBIN,DIRECT 0.2 mg/dL (0.0-0.4); BILIRUBIN,TOTAL 0.7 mg/dL (0.2-1.3); BLOOD UREA NITROGEN 19 mg/dL (7-20); CARBON DIOXIDE 25 mmol/L (22-30); CHLORIDE 106 mmol/L (98-107); GLUCOSE 149 mg/dL (75-110); POTASSIUM 4.8 mmol/L (3.6-5.0); SODIUM 139.8 mmol/L (137-145); TOTAL PROTEIN 5.4 g/dL (6.3-8.2)
[2017-09-25] MEDS: [UNRECOGNIZED DRUG - OTHER] PO SCH (08:46)
[2017-09-25] MEDS: TOBRAMYCIN SULFATE/DEXAMETH OPH SUSP 2.5 ML OU SCH ×2 (08:52→13:07)
[2017-09-25] MEDS ORDERED: METOPROLOL SUCCINATE 50 MG TAB.SR.24H PO SCH (10:00)
[2017-09-25] MEDS: TAMSULOSIN HCL 0.4 MG CAP.SR.24H PO SCH (10:56)
[2017-09-25] MEDS: CITALOPRAM HYDROBROMIDE 20 MG TABLET PO SCH (10:57)
[2017-09-25] MEDS: DOCUSATE SODIUM 100 MG CAPSULE PO SCH (10:57)
[2017-09-25] MEDS: OSELTAMIVIR PHOSPHATE 75 MG CAPSULE PO SCH (11:02)
[2017-09-25 13:49] LABS: INTERNATIONAL RATION (INR) 1.97; PROTHROMBIN TIME 23.5 SEC (11.4-15.4)
[2017-09-25 13:50] VITALS: BP 148/67
--- NOTE | 2017-09-25 19:07 | PDOC DISCHARGE SUMMARY ---
General - Admit/Disc Date/PCP Admission Date/Primary Care Provider: 09/22/17 13:39 MISTY SANDERS MD Discharge Date: 09/25/17 - Discharge Diagnosis (1) Supratherapeutic INR Is this a current diagnosis for this admission?: Yes Summary: Resolved. (2) Acute bronchitis Is this a current diagnosis for this admission?: Yes Summary: Patient was initially placed on Levaquin but completed treatment dose here. Patient's was positive for the flu and patient was empirically treated for flu. 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 Patient's renal function is back to baseline. (4) Conjunctivitis Is this a current diagnosis for this admission?: Yes Summary: Patient will continue with current treatment. (5) Falls Is this a current diagnosis for this admission?: Yes Summary: Patient work with physical therapy PT and has done well. Patient will have home health for PT OT (6) History of pulmonary embolism Is this a current diagnosis for this admission?: Yes Summary: no additional treatment needed. (7) Diabetes mellitus Is this a current diagnosis for this admission?: Yes Summary: Continue home regimen (8) Flu Is this a current diagnosis for this admission?: Yes Summary: We will continue current treatment. (9) Atrial fibrillation Is this a current diagnosis for this admission?: Yes Summary: Patient's metoprolol dose was increased for better rate control. - Additional Information Resuscitation Status: Full Code Prescriptions: Metoprolol Succinate [Toprol Xl 50 mg Tab.sr] 150 mg PO DAILY #180 tab.sr.24h Oseltamivir Phosphate [Tamiflu 75 mg Capsule] 75 mg PO BID #4 capsule Home Medications: Aspirin [Aspirin EC] 81 mg PO DAILY 09/22/17 Citalopram Hydrobromide [Citalopram HBr] 10 mg PO DAILY 09/22/17 Cyanocobalamin (Vitamin B-12) [Vitamin B-12 1000 mcg Tablet] 1,000 mcg PO DAILY 09/22/17 Docusate Sodium [Colace 100 mg Capsule] 100 mg PO BID 09/22/17 Finasteride [Proscar 5 mg Tablet] 5 mg PO DAILY 09/22/17 Gabapentin [Neurontin 300 mg Capsule] 300 mg PO Q6 09/22/17 Hydrocodone Bit/Acetaminophen [Hydrocodon-Acetaminophen 5-325] 1 tab PO Q6HP PRN 09/22/17 Insulin Detemir [Levemir Flextouch] 34 unit SUBCUT BID 09/22/17 Lisinopril [Prinivil 40 mg Tablet] 40 mg PO DAILY 09/22/17 Pantoprazole Sodium [Protonix] 40 mg PO DAILY 09/22/17 Tamsulosin HCl [Flomax 0.4 mg Cap.sr] 0.4 mg PO BID 09/22/17 Warfarin Sodium [Coumadin 4 mg Tablet] 8 mg PO MOTUWETHFR@0 09/22/17 Warfarin Sodium [Coumadin] 6 mg PO SUSA@219909/22/17 Metoprolol Succinate [Toprol Xl 50 mg Tab.sr] 150 mg PO DAILY #180 tab.sr.24h Oseltamivir Phosphate [Tamiflu 75 mg Capsule] 75 mg PO BID #4 capsule 09/25/17 History of Present Illness Patient complains of: Fall History of Present Illness: CHRISTINA SANDERS JR is a 81 year old male resents to our facility after falling at home. Patient reported that he felt weak. Patient also reported that he had a sore throat runny nose and cough. Patient reported that his was treated for flu Hospital Course Hospital Course: Patient is 81-year-old gentleman was admitted to our facility for acute bronchitis. Patient was empirically treated for flu due to his being positive for flu. Patient was given breathing treatments and started on antibiotics however patient demonstrated significant improvement throughout hospitalization. Patient's antibiotics were discontinued. Patient was noted to develop A. fib with RVR and therefore patient's metoprolol dose was increased to 150 mg p.o. twice daily. Patient's rate was better controlled and heart rate at time of discharge was ranging in the 70s to low 80s. Patient worked with PT OT and demonstrated stable gait. However patient was arranged for home health with PT OT. Physical Exam Vital Signs: Temp Pulse Resp BP Pulse Ox 98.2 F 78 18 148/67 H 93 09/25/17 13:43 09/25/17 13:43 09/25/17 13:43 09/25/17 13:43 09/25/17 13:43 Intake & Output 09/24/17 09/25/17 09/26/17 06:59 06:59 06:59 Intake Total 4197 2039 Output Total 1375 1525 Balance 2822 514 Weight 115.1 kg 114 kg General appearance: PRESENT: no acute distress, well-developed, well-nourished Head exam: PRESENT: atraumatic, normocephalic Eye exam: PRESENT: conjunctiva pink, EOMI. ABSENT: scleral icterus Ear exam: PRESENT: normal external ear exam Mouth exam: PRESENT: moist, tongue midline Neck exam: ABSENT: carotid bruit, JVD, lymphadenopathy, thyromegaly Respiratory exam: PRESENT: accessory muscle use, rhonchi. ABSENT: rales, wheezes Cardiovascular exam: PRESENT: irregular rhythm. ABSENT: diastolic murmur, rubs , systolic murmur Pulses: PRESENT: normal dorsalis pedis pul Vascular exam: PRESENT: normal capillary refill GI/Abdominal exam: PRESENT: normal bowel sounds, soft. ABSENT: distended, guarding, mass, organolmegaly, rebound, tenderness Rectal exam: PRESENT: deferred Extremities exam: PRESENT: full ROM. ABSENT: calf tenderness, clubbing, pedal edema Musculoskeletal exam: PRESENT: full ROM Neurological exam: PRESENT: alert, awake, oriented to person, oriented to place , oriented to time, oriented to situation, CN II-XII grossly intact. ABSENT: motor sensory deficit Psychiatric exam: PRESENT: appropriate affect, normal mood. ABSENT: homicidal ideation, suicidal ideation Skin exam: PRESENT: dry, intact, warm. ABSENT: cyanosis, rash Results Laboratory Results: 09/25/17 05:44 09/25/17 05:44 09/25/17 09/25/17 05:44 05:44 WBC 8.2 RBC 4.85 Hgb 13.6 Hct 40.9 MCV 84 MCH 28.0 MCHC 33.3 RDW 15.3 H Plt Count 170 Seg Neutrophils % 70.9 Lymphocytes % 16.7 Monocytes % 9.2 Eosinophils % 2.7 Basophils % 0.5 Absolute Neutrophils 5.8 Absolute Lymphocytes 1.4 Absolute Monocytes 0.8 Absolute Eosinophils 0.2 Absolute Basophils 0.0 Sodium 139.8 Potassium 4.8 Chloride 106 Carbon Dioxide 25 Anion Gap 9 BUN 19 Creatinine 0.87 Est GFR ( Amer) > 60 Est GFR (Non-Af Amer) > 60 Glucose 149 H Calcium 9.0 Total Bilirubin 0.7 AST 16 L ALT 22 Alkaline Phosphatase 114 Total Protein 5.4 L Albumin 3.0 L 09/23/17 05:40 NT-Pro-B Natriuret Pep 1860 H Impressions: Head CT 09/22/17 10:37 IMPRESSION: NORMAL BRAIN CT WITHOUT CONTRAST. EVIDENCE OF ACUTE STROKE: NO. Lumbar Spine X-Ray 09/22/17 10:37 IMPRESSION: 50% anterolisthesis of L5 over S1, similar compared to prior studies. No acute fracture Chest X-Ray 09/24/17 00:00 IMPRESSION: Stable chest without acute cardiopulmonary disease suggested. Plan Time Spent: Greater than 30 Minutes - 34 mins
[2017-09-26 11:26] LABS: INFLUENZA B AB (SERUM) CF 1:16 (Neg:<1:8)
== END 2017-09-25 14:42 | disposition home or self-care (01) | DRG 683 ==
LOC: ER 09:40 → EH 13:39 → 3W 19:59
PROVIDERS: ADMIT Internal Medicine; ATTEND Internal Medicine
DX: N17.9 Acute kidney failure, unspecified (principal); J44.0 Chronic obstructive pulmonary disease with (acute) lower respiratory infection; E86.0 Dehydration; J20.9 Acute bronchitis, unspecified; N18.2 Chronic kidney disease, stage 2 (mild); R79.1 Abnormal coagulation profile; F10.21 Alcohol dependence, in remission; Z86.711 Personal history of pulmonary embolism; I48.91 Unspecified atrial fibrillation; I12.9 Hypertensive chronic kidney disease with stage 1 through stage 4 chronic kidney disease, or unspecified chronic kidney disease; E11.22 Type 2 diabetes mellitus with diabetic chronic kidney disease; E78.5 Hyperlipidemia, unspecified; N40.0 Benign prostatic hyperplasia without lower urinary tract symptoms; I25.10 Atherosclerotic heart disease of native coronary artery without angina pectoris; Z20.828 Contact with and (suspected) exposure to other viral communicable diseases; H10.33 Unspecified acute conjunctivitis, bilateral; K21.9 Gastro-esophageal reflux disease without esophagitis; Z91.81 History of falling; Z79.02 Long term (current) use of antithrombotics/antiplatelets; Z87.891 Personal history of nicotine dependence; Z82.49 Family history of ischemic heart disease and other diseases of the circulatory system; Z79.4 Long term (current) use of insulin; Z95.2 Presence of prosthetic heart valve
CPT/HCPCS: 36415; 70450; 71046; 72110; 80048; 80053; 81001; 82962; 83036; 83735; 83880; 84100; 84439; 84443; 85025; 85610; 85730; 86710; 87040; 87804; 93005; 93010; 93306; 96360; 99291; G8978-GP; G8979-GP; G8987-GO; G8988-GO; G8989-GO; J1815; J1956; J3490; J7030

== ENCOUNTER 2017-12-10 10:47 | Emergency (ER) | payer MEDICARE, OTHER ==
[2017-12-10] MEDS ORDERED: ASPIRIN 81 MG TABLET, CHEWABLE PO ONE ×2 (12:02→17:38)
--- NOTE | 2017-12-10 12:05 | ER Document Report ---
ED General - General TRAVEL OUTSIDE OF THE [place] IN LAST 30 DAYS: No - HPI Onset: Just prior to arrival <PRUDENCE GARCIA - Last Filed: 12/10/17 16:12> <SHAY KLEIN - Last Filed: 12/10/17 21:24> <CLARISSA MEYERS - Last Filed: 12/11/17 06:13> <ADAMS JONES - Last Filed: 12/11/17 09:33> <SOPHY GARCIA - Last Filed: 12/11/17 14:55> - General Chief Complaint: Other Stated Complaint: HEART CONCERN Time Seen by Provider: 12/10/17 11:08 Notes: History of complain-82 years old male with a history of coronary artery disease , status post stent. As well as aortic valvotomy. Uncontrolled diabetes, presents today with general malaise and episode of diffuse sweating and weakness which kind of subsided by the time he came to the ER. Denies any precordial pain left arm numbness tingling sensation nausea vomiting palpitation or diaphoresis. REVIEW OF SYSTEMS: CONSTITUTIONAL : Denies fever, chills, or sweats. Denies recent illness. EENT: Denies eye, ear, throat, or mouth pain or symptoms. Denies nasal or sinus congestion or discharge. Denies throat, tongue, or mouth swelling or difficulty swallowing. CARDIOVASCULAR: Denies chest pain. Denies palpitations or racing or irregular heart beat. Denies ankle edema. RESPIRATORY: Denies cough, cold, or chest congestion. Denies shortness of breath, difficulty breathing, or wheezing. GASTROINTESTINAL: Denies abdominal pain or distention. Denies nausea, vomiting , or diarrhea. Denies blood in vomitus, stools, or per rectum. Denies black, tarry stools. Denies constipation. GENITOURINARY: Denies difficulty urinating, painful urination, burning, frequency, blood in urine, or discharge. MUSCULOSKELETAL: Denies back or neck pain or stiffness. Denies joint pain or swelling. SKIN: Denies rash, lesions or sores. HEMATOLOGIC : Denies easy bruising or bleeding. LYMPHATIC: Denies swollen, enlarged glands. NEUROLOGICAL: Denies confusion or altered mental status. Denies passing out or loss of consciousness. Denies dizziness or lightheadedness. Denies headache. Denies weakness or paralysis or loss of use of either side. Denies problems with gait or speech. Denies sensory loss, numbness, or tingling. Denies seizures. PSYCHIATRIC: Denies anxiety or stress. Denies depression, suicidal ideation, or homicidal ideation. ALL OTHER SYSTEMS REVIEWED AND NEGATIVE. Dictation was performed using [employer] voice recognition software PHYSICAL EXAMINATION: GENERAL: Well-appearing, well-nourished and in no acute distress. HEAD: Atraumatic, normocephalic. EYES: Pupils equal round and reactive to light, extraocular movements intact, sclera anicteric, conjunctiva are normal. ENT: Nares patent, oropharynx clear without exudates. Moist mucous membranes. NECK: Normal range of motion, supple without lymphadenopathy LUNGS: Breath sounds clear to auscultation bilaterally and equal. No wheezes rales or rhonchi. HEART: Regular rate and rhythm without murmurs ABDOMEN: Soft, nontender, nondistended abdomen. No guarding, no rebound. No masses appreciated. Musculoskeletal: Normal range of motion, no pitting or edema. No cyanosis. NEUROLOGICAL: Cranial nerves grossly intact. Normal speech, normal gait. Normal sensory, motor exams PSYCH: Normal mood, normal affect. SKIN: Warm, Dry, normal turgor, no rashes or lesions noted. (PRUDENCE GARCIA) - Related Data Allergies/Adverse Reactions: No Known Allergies Allergy (Verified 12/10/17 11:05) Past Medical History - Social History Smoking Status: Never Smoker Chew tobacco use (# tins/day): No Frequency of alcohol use: None Drug Abuse: None Family History: Reviewed & Not Pertinent Patient has suicidal ideation: No Patient has homicidal ideation: No - Past Medical History Cardiac Medical History: Reports: Hx Atrial Fibrillation - coumadin, Hx Coronary Artery Disease, Hx Hypercholesterolemia, Hx Hypertension Pulmonary Medical History: Reports: Hx Bronchitis, Hx COPD, Hx Pneumonia Endocrine Medical History: Reports: Hx Diabetes Mellitus Type 2 Renal/ Medical History: Reports: Hx Benign Prostatic Hyperplasia. Denies: Hx Peritoneal Dialysis GI Medical History: Reports: Hx Gastroesophageal Reflux Disease Psychiatric Medical History: Denies: Hx Depression Past Surgical History: Reports: Hx Appendectomy, Hx Cardiac Catheterization, Hx Genitourinary Surgery - TURP, Hx Orthopedic Surgery - R Shoulder, Hx Tonsillectomy, Hx Vascular Surgery - AAA - Immunizations Hx Diphtheria, Pertussis, Tetanus Vaccination: Yes Hx Pneumococcal Vaccination: 09/15/12 <FAWNPonchoPRUDENCE - Last Filed: 12/10/17 16:12> Review of Systems <SANYA GARCIANELY - Last Filed: 12/10/17 16:12> <SHAY KLEIN - Last Filed: 12/10/17 21:24> <CLARISSA MEYERS - Last Filed: 12/11/17 06:13> <ADAMS JONES - Last Filed: 12/11/17 09:33> <SOPHY GARCIA - Last Filed: 12/11/17 14:55> - Review of Systems Notes: As per history of complain (ANAISAIAHPonchoKAIISAIAH) - Vital signs Vitals: Resp Pulse Ox 19 96 12/10/17 10:54 12/10/17 10:54 Course - Laboratory Result Diagrams: 12/10/17 12:45 12/10/17 12:45 - Diagnostic Test Radiology reviewed: Reports reviewed - Chest x-ray reported by radiologist as unremarkable - EKG Interpretation by [facility] EKG shows normal: Sinus rhythm Rate: Normal Rhythm: NSR - Normal sinus rhythm at the rate of 98 bpm normal axis no acute ST elevation ST depression T-wave inversion noted. Normal cardiogram <SANYA GARCIAFANISAIAH - Last Filed: 12/10/17 16:12> - Laboratory Result Diagrams: 12/10/17 12:45 12/10/17 12:45 <SHAY KLEIN - Last Filed: 12/10/17 21:24> - Laboratory Result Diagrams: 12/10/17 12:45 12/10/17 12:45 <CLARISSA MEYERS - Last Filed: 12/11/17 06:13> - Laboratory Result Diagrams: 12/10/17 12:45 12/10/17 12:45 <ADAMS JONES - Last Filed: 12/11/17 09:33> - Laboratory Result Diagrams: 12/10/17 12:45 12/10/17 12:45 <SOPHY GARCIA - Last Filed: 12/11/17 14:55> - Re-evaluation Re-evalutation: 12/10/17 18:54 Took over the patient after noticing a troponin rise. Consulted Dr. Bhat from [facility], discussed administering the patient 25 mg of Metoprolol and 80 mg of Lipitor per her request. The patient has already been given aspirin, we will not give heparin due to the INR levels levels being therapeutic. (SHAY KLEIN) 12/11/17 06:13 I reevaluated the patient. He continues to have no pain and says he feels well. I have noticed that his blood pressure started to creep up. I have ordered hydrochlorothiazide for him to have this morning to help stabilize his blood pressure. I have informed the nurse of this so she can given medication. Patient continues to be medically stable for transfer. (CLARISSA MEYERS) Patient continues to be asymptomatic in the emergency department denies any chest pain or shortness of breath at this time. Awaiting transfer to [facility] for further level of care. 12/10/17 23:13 12/10/17 23:46 We discussed case with transfer center. Patient is currently on a waiting list at this time. Patient is asymptomatic in the emergency department. She states if patient were to develop into STEMI that they would have immediate except as otherwise patient is to be transferred likely tomorrow morning. Patient does have therapeutic INR at this time. I asked discussed case with metal engraver that is nutrition assistant pending conversation at this time. 12/10/17 23:[address] Summers at [facility]. ([employer] nutrition assistant, part of team accepting patient) He stated that after 2 troponins unless patient is symptomatic there is no further troponins that are necessary. He agreed that patient is therapeutic with his warfarin and should continue his daily warfarin regimen otherwise no need for further anti-coagulation. He also stated that aspirin one time that is already been provided is all as needed. He recommended if patient were to become asymptomatic then at that time he would need a repeat EKG to ensure no STEMI otherwise not necessary to repeat EKGs if patient remains asymptomatic. He also recommended metoprolol 25 mg once a day as well as 80 mg of Lipitor daily. Patient is already on 100 mg of Lopressor will continue his daily regiment as well as increase his 40 mg a day of Lipitor to 80 mg at this time. Transfer is still pending at this time. 12/11/17 00:09 (ADAMS JONES) 12/11/17 14:54 Patient's course throughout the day has been essentially unremarkable. Remains pain-free. Most of his home medications have been reordered. He is on a diabetic diet, is receiving his basal home insulin. I did speak with [facility] transfer line who indicated the patient is the first on the list for transfer and the expected discharges to happen in the early afternoon with bed availability soon thereafter. (SOPHY GARCIA) - Vital Signs Vital signs: Temp Pulse Resp BP Pulse Ox 98.1 F 21 H 188/122 H 94 12/11/17 07:04 12/11/17 12:53 12/11/17 12:53 12/11/17 12:53 - Laboratory Laboratory results interpreted by me: 12/10/17 12/10/17 12/10/17 12:45 12:45 17:49 RBC 5.66 H RDW 15.8 H PT 32.2 H APTT 38.9 H Glucose 224 H POC Glucose Total Protein 5.9 L Albumin 3.3 L 12/11/17 12/11/17 11:10 13:11 RBC RDW PT APTT Glucose POC Glucose 247 H 233 H Total Protein Albumin Discharge <PRUDENCE GARCIA - Last Filed: 12/10/17 16:12> <SHAY KLEIN - Last Filed: 12/10/17 21:24> <CLARISSA MEYERS - Last Filed: 12/11/17 06:13> <ADAMS JONES - Last Filed: 12/11/17 09:33> <SOPHY GARCIA - Last Filed: 12/11/17 14:55> - Discharge Clinical Impression: NSTEMI (non-ST elevated myocardial infarction) Condition: Fair Disposition: Tertiary-Other Scribe Attestation: 12/11/17 09:34 I personally performed the services described in the documentation, reviewed and edited the documentation which was dictated to the scribe in my presence, and it accurately records my words and actions. (ADAMS JONES) Scribe Documentation - Scribe Written by Scribe:: Isabella Lerner, 12/10/2017 09:25 acting as scribe for :: Ramses <SHAY KLEIN - Last Filed: 12/10/17 21:24>
--- NOTE | 2017-12-10 12:40 | RADIOLOGY REPORT (SQ) ---
EXAM DESCRIPTION: CHEST SINGLE VIEW COMPLETED DATE/TIME: 12/10/2017 12:24 pm REASON FOR STUDY: Chest pain COMPARISON: Chest films 09/24/2017, 09/22/2017 CT chest 05/12/2014 EXAM PARAMETERS: NUMBER OF VIEWS: One view. TECHNIQUE: Single frontal radiographic view of the chest acquired. RADIATION DOSE: NA LIMITATIONS: AP lordotic portable film FINDINGS: LUNGS AND PLEURA: No acute infiltrates. No pleural effusion. No pneumothorax. Upper lob es are hyperlucent from obstructive disease. Stable left lateral pleural thickening MEDIASTINUM AND HILAR STRUCTURES: No masses. Contour normal. HEART AND VASCULAR STRUCTURES: Short segment proximal descending thoracic aorta stent graft BONES: No acute findings. HARDWARE: None in the chest. OTHER: No other significant finding. IMPRESSION: No acute changes TECHNICAL DOCUMENTATION: JOB ID: [id number] [employer]- All Rights Reserved Reading location - IP/workstation name: [email or web address]
[2017-12-10 12:56] LABS: ABSOLUTE EOSINOPHILS # (AUTO) 0.2 10^3/uL (0.0-0.6); ABSOLUTE LYMPHOCYTES (AUTO) 1.2 10^3/uL (0.5-4.7); ABSOLUTE MONOCYTES (AUTO) 0.6 10^3/uL (0.1-1.4); ABSOLUTE NEUT (AUTO) 6.5 10^3/uL (1.7-8.2); BASOPHILS % (AUTO) 0.5 % (0-2); HEMATOCRIT 48.2 % (37.9-51.0); HEMOGLOBIN 15.7 g/dL (13.5-17.0); LYMPHOCYTES % (AUTO) 14.2 % (13-45); MEAN CORPUSCULAR HEMOGLOBIN 27.7 pg (27.0-33.4); MEAN CORPUSCULAR HGB CONC 32.5 g/dL (32.0-36.0); MEAN CORPUSCULAR VOLUME 85 fl (80-97); MONOCYTES % (AUTO) 6.8 % (3-13); PLATELET COUNT 169 10^3/uL (150-450); RED BLOOD COUNT 5.66 10^6/uL (4.35-5.55); RED CELL DISTRIBUTION WIDTH 15.8 % (11.5-14.0); SEGMENTED NEUTROPHILS % (AUTO) 76.5 % (42-78); TOTAL CELLS COUNTED % (AUTO) 100 %; WHITE BLOOD COUNT 8.4 10^3/uL (4.0-10.5)
[2017-12-10 13:25] LABS: ALANINE AMINOTRANSFERASE 29 U/L (21-72); ALBUMIN 3.3 g/dL (3.5-5.0); ALKALINE PHOSPHATASE 93 U/L (38-126); ANION GAP 9 (5-19); ASPARTATE AMINO TRANSFERASE 18 U/L (17-59); BILIRUBIN,DIRECT 0.3 mg/dL (0.0-0.4); BILIRUBIN,TOTAL 0.5 mg/dL (0.2-1.3); BLOOD UREA NITROGEN 20 mg/dL (7-20); CARBON DIOXIDE 27 mmol/L (22-30); CHLORIDE 107 mmol/L (98-107); CREATINE KINASE 83 U/L (55-170); GLUCOSE 224 mg/dL (75-110); POTASSIUM 4.1 mmol/L (3.6-5.0); SODIUM 142.6 mmol/L (137-145); TOTAL PROTEIN 5.9 g/dL (6.3-8.2)
[2017-12-10 13:35] LABS: CREATINE KINASE MB 3.46 ng/mL (<4.55); TROPONIN I 0.27 ng/mL
--- NOTE | 2017-12-10 14:35 | EKG REPORT ---
SEVERITY:- OTHERWISE NORMAL ECG - SINUS TACHYCARDIA ATRIAL PREMATURE COMPLEX : Confirmed by: Pako Ribeiro MD 10-Dec-2017 14:35:00
[2017-12-10 18:24] LABS: INTERNATIONAL RATION (INR) 2.96; PARTIAL THROMBOPLASTIN TIME 38.9 SEC (23.5-35.8); PROTHROMBIN TIME 32.2 SEC (11.4-15.4)
[2017-12-10] MEDS ORDERED: ATORVASTATIN CALCIUM 80 MG TABLET PO ONE (18:50)
[2017-12-10] MEDS ORDERED: METOPROLOL TARTRATE 25 MG TABLET PO ONE (18:51)
[2017-12-11] MEDS ORDERED: WARFARIN SODIUM 3 MG TABLET PO SCH
[2017-12-11] MEDS ORDERED: WARFARIN SODIUM 3 MG TABLET ONE (01:25)
[2017-12-11] MEDS ORDERED: HYDROCHLOROTHIAZIDE 25 MG TABLET PO ONE (06:12)
--- NOTE | 2017-12-11 07:45 | EKG REPORT ---
SEVERITY:- NORMAL ECG - SINUS RHYTHM : Confirmed by: Pako Ribeiro MD 11-Dec-2017 07:44:06
[2017-12-11] MEDS ORDERED: LISINOPRIL 10 MG TABLET PO SCH (12:00)
[2017-12-11] MEDS ORDERED: METOPROLOL SUCCINATE 50 MG TAB.SR.24H PO SCH (12:00)
[2017-12-11] MEDS ORDERED: POTASSIUM CHLORIDE 10 MEQ TABLET.SA PO SCH (12:00)
[2017-12-11] MEDS ORDERED: ASPIRIN 81 MG TABLET, ENT COATED PO SCH (12:00)
[2017-12-11] MEDS: INSULIN LISPRO 100 UNIT/ML 3 ML VIAL SUBCUT SCH ×2 (12:10→16:32)
[2017-12-11] MEDS: GABAPENTIN 300 MG CAPSULE PO SCH ×2 (13:34→18:05)
[2017-12-11] MEDS ORDERED: HYDROCODONE/ACETAMINOPHEN 5-325 MG TABLET PO SCH (14:15)
[2017-12-11] MEDS ORDERED: FINASTERIDE 5 MG TABLET PO SCH (18:00)
[2017-12-11] MEDS ORDERED: LANSOPRAZOLE 30 MG TAB.RAP.DR PO SCH (18:00)
[2017-12-11] MEDS ORDERED: FLUTICASONE/SALMETEROL DISKUS 250-50 MCG/DOSE IH SCH (18:00)
[2017-12-11] MEDS ORDERED: TAMSULOSIN HCL 0.4 MG CAP.SR.24H PO SCH ×2 (18:00→22:00)
[2017-12-11 18:50] VITALS: BP 141/70
[2017-12-11] MEDS ORDERED: ATORVASTATIN CALCIUM 80 MG TABLET PO SCH (22:00)
[2017-12-12] MEDS ORDERED: LANSOPRAZOLE 30 MG TAB.RAP.DR PO SCH (06:00)
[2017-12-12] MEDS ORDERED: INSULIN DETEMIR 100 UNIT/ML 3 ML PEN SUBCUT SCH (08:00)
== END 2017-12-11 18:21 | disposition short-term general hospital (02) ==
LOC: ER 10:47
DX: I21.4 Non-ST elevation (NSTEMI) myocardial infarction (principal); R53.81 Other malaise; R61 Generalized hyperhidrosis; E11.9 Type 2 diabetes mellitus without complications; R53.1 Weakness; I48.91 Unspecified atrial fibrillation; Z79.01 Long term (current) use of anticoagulants; I25.10 Atherosclerotic heart disease of native coronary artery without angina pectoris; I10 Essential (primary) hypertension; J44.9 Chronic obstructive pulmonary disease, unspecified; Z79.4 Long term (current) use of insulin
CPT/HCPCS: 93005; 36415; 82553; 82962; 82550; 85025; 85610; 85730; 80053; 84484; 71045; 93010; A9270 ×11; J1815; J3490

== ENCOUNTER 2018-04-30 14:00 | Emergency (ER) | payer MEDICARE ==
--- NOTE | 2018-04-30 14:20 | ER Document Report ---
ED Fall - General Information source: Patient TRAVEL OUTSIDE OF THE [place] IN LAST 30 DAYS: No <SHANNON BAUM - Last Filed: 05/01/18 00:21> <ANNE MARIE STEWART - Last Filed: 05/01/18 00:26> - General Stated Complaint: FALL/KNEE PAIN Time Seen by Provider: 04/30/18 14:06 Notes: 82 y.o male with COPD, HTN, DM, Afib, GERD and benign prostatic hyperplasia presents to the ED s/p fall yesterday with an injury to his RT knee. Pt is on Warfarin. [place] where people had to help him back up. Pt denies any hit to the head during the fall and denies any dizziness since the fall. Pt also notes an injury to his LT elbow but denies any pain with movement to his LUE. Pt denies being able to walk and bear weight to his RLE since the fall due to his knee feeling as if it were to give out. Pt's PCP is Dr. Franklyn Brown. He reports a recent cardiac ablation on 04/14/[address] Holden at [facility]. He denies any hx of HLD. (SHANNON BAUM) - Related data Allergies/Adverse Reactions: No Known Allergies Allergy (Verified 12/10/17 11:05) Past Medical History - General Information source: Patient - Social History Smoking Status: Never Smoker Chew tobacco use (# tins/day): No Frequency of alcohol use: None Drug Abuse: None Family History: Reviewed & Not Pertinent - Past Medical History Cardiac Medical History: Reports: Hx Atrial Fibrillation - coumadin, Hx Coronary Artery Disease, Hx Hypercholesterolemia, Hx Hypertension Pulmonary Medical History: Reports: Hx Bronchitis, Hx COPD, Hx Pneumonia Endocrine Medical History: Reports: Hx Diabetes Mellitus Type 2 Renal/ Medical History: Reports: Hx Benign Prostatic Hyperplasia. Denies: Hx Peritoneal Dialysis GI Medical History: Reports: Hx Gastroesophageal Reflux Disease Past Surgical History: Reports: Hx Appendectomy, Hx Cardiac Catheterization, Hx Genitourinary Surgery - TURP, Hx Orthopedic Surgery - R Shoulder, Hx Tonsillectomy, Hx Vascular Surgery - AAA - Immunizations Hx Diphtheria, Pertussis, Tetanus Vaccination: Yes Hx Pneumococcal Vaccination: 09/15/12 <SHANNON BAUM - Last Filed: 05/01/18 00:21> Review of Systems - Review of Systems Constitutional: No symptoms reported EENT: No symptoms reported Cardiovascular: No symptoms reported Respiratory: No symptoms reported Gastrointestinal: No symptoms reported Genitourinary: No symptoms reported Male Genitourinary: No symptoms reported Musculoskeletal: See HPI, Other - RT knee pain Skin: See HPI, Other - abrasion to LT elbow and RT knee Hematologic/Lymphatic: No symptoms reported Neurological/Psychological: See HPI, Other - denies hit to head or any dizziness since fall -: Yes All other systems reviewed and negative <SHANNON BAUM - Last Filed: 05/01/18 00:21> Physical Exam <SHANNON BAUM - Last Filed: 05/01/18 00:21> <ANNE MARIE STEWART - Last Filed: 05/01/18 00:26> - Vital signs Vitals: Resp Pulse Ox 19 92 04/30/18 14:16 04/30/18 14:16 - Notes Notes: PHYSICAL EXAM GENERAL: Alert, interacts well. No acute distress. HEAD: Normocephalic, atraumatic. EYES: Pupils equal, round, and reactive to light. Extraocular movements intact. ENT: Oral mucosa moist, tongue midline. NECK: Full range of motion. Supple. Trachea midline. LUNGS: Clear to auscultation bilaterally, no wheezes, rales, or rhonchi. No respiratory distress. HEART: Regular rate and rhythm. No murmurs, gallops, or rubs. ABDOMEN: Soft, non-tender. Non-distended. Bowel sounds present in all 4 quadrants. No guarding, rebound, or rigidity. EXTREMITIES: LUE including the LT elbow with full ROM. 4 inch abrasion to the LT olecranon and just above the olecranon with swollen bursa. Tender to palpation on the LT olecranon, non tender laterally. 5/5 muscle strength to the LUE. No ecchymosis to RT foot, 2+ pitting edema up to just below the knee. No tenderness to RT hip. RT knee tender to palpate. RT knee grossly swollen just above and over the top of patella, ecchymotic over the patella. non tender to the popliteal fossa. No medial or lateral ligamentous laxity. Negative posterior and anterior drawer test. Small amount of crepitus when knee is flexed. No tenderness along joint line medially or laterally but area around the patella is very swollen and taut. Radial and dorsalis pedis pulses 2/4 bilaterally. Pt moves all other extremities spontaneously. No cyanosis. NEUROLOGICAL: Alert and oriented x3. Normal speech. Neurovascularly intact. PSYCH: Normal affect, normal mood. SKIN: Warm, dry. (SHANNON BAUM) Course <SHANNON BAUM - Last Filed: 05/01/18 00:21> <ANNE MARIE STEWART - Last Filed: 05/01/18 00:26> - Re-evaluation Re-evalutation: 04/30/18 15:11 No indication for x-ray of the elbow as he is minimally tender and has full range of motion and full strength. Right knee has a transverse nondisplaced patellar fracture on x-ray. Discussed with Dr. quiroz, he should call the office for follow-up tomorrow, agrees with placing him on crutches and in a knee immobilizer. Already has [facility], discharged home. (ANNE MARIE STEWART) - Vital Signs Vital signs: Temp Pulse Resp BP Pulse Ox 98.0 F 89 17 124/80 90 L 04/30/18 16:30 04/30/18 16:30 04/30/18 16:30 04/30/18 16:30 04/30/18 16:30 Procedures - Immobilization Right Knee Pre-Proc Neuro Vasc Exam: Normal Immobilizer type: Knee immobilizer Performed by: PCT Post-Proc Neuro Vasc Exam: Normal, Unchanged from pre-exam Alignment checked and good: Yes <ANNE MARIE STEWART - Last Filed: 05/01/18 00:26> Discharge <SHANNON BAUM - Last Filed: 05/01/18 00:21> <ANNE MARIE STEWART - Last Filed: 05/01/18 00:26> - Discharge Clinical Impression: Patellar fracture Qualifiers: Encounter type: initial encounter Fracture type: closed Fracture morphology: transverse Fracture alignment: nondisplaced Laterality: right Qualified Code(s) : S82.034A - Nondisplaced transverse fracture of right patella, initial encounter for closed fracture Condition: Stable Disposition: HOME, SELF-CARE Instructions: Fractured Patella ([facility]), Knee Immobilizing Splint ([facility]) Referrals: EDUARDO OCAMPO, [ACTIVE STAFF] - Follow up tomorrow (call tomorrow to arrange follow-up for next week) Scribe Attestation: 05/01/18 00:26 I personally performed the services described in the documentation, reviewed and edited the documentation which was dictated to the scribe in my presence, and it accurately records my words and actions. (ANNE MARIE STEWART) Scribe Documentation - Scribe Written by Isabella:: Isabella Mckeon 04/30/18 1421 acting as scribe for :: Kit <SHANNON BAUM - Last Filed: 05/01/18 00:21>
--- NOTE | 2018-04-30 15:01 | RADIOLOGY REPORT (SQ) ---
EXAM DESCRIPTION: KNEE RIGHT 4 VIEWS COMPLETED DATE/TIME: 04/30/2018 2:50 pm REASON FOR STUDY: fall, swollen COMPARISON: None. NUMBER OF VIEWS: Four views. TECHNIQUE: AP, lateral, and both oblique radiographic images acquired of the right knee. LIMITATIONS: None. FINDINGS: MINERALIZATION: Normal. BONES: Nondisplaced transverse patellar body fracture. No dislocation. No worrisome bone lesions. JOINT: Large effusion. SOFT TISSUES: Moderate soft tissue swelling. No radio-opaque foreign body. OTHER: No other significant finding. IMPRESSION: Nondisplaced transverse patellar body fracture. TECHNICAL DOCUMENTATION: JOB ID: [id number] [employer]- All Rights Reserved Reading location - IP/workstation name: [email or web address]
[2018-04-30 16:49] VITALS: BP 124/80
== END 2018-04-30 16:51 | disposition home or self-care (01) ==
LOC: ER 14:00
DX: S82.034A Nondisplaced transverse fracture of right patella, initial encounter for closed fracture (principal); W01.0XXA Fall on same level from slipping, tripping and stumbling without subsequent striking against object, initial encounter; Y92.481 Parking lot as the place of occurrence of the external cause; J44.9 Chronic obstructive pulmonary disease, unspecified; E11.9 Type 2 diabetes mellitus without complications; I48.91 Unspecified atrial fibrillation; K21.9 Gastro-esophageal reflux disease without esophagitis
CPT/HCPCS: 99284; 73564; L1830

== ENCOUNTER 2019-01-05 01:29 | Emergency (ER) | payer MEDICARE, OTHER ==
--- NOTE | 2019-01-05 01:38 | ER Document Report ---
ED General - General Chief Complaint: Fall Stated Complaint: FALL Time Seen by Provider: 01/05/19 01:38 Primary Care Provider: MISTY SANDERS MD [Primary Care Provider] - Follow up in 3-5 days AYSHA CAPONE MD [ACTIVE STAFF] - Follow up in 3-5 days Notes: Patient is a 83-year-old male with diabetes mellitus that presents to the emergency department for chief complaint of fall and low back pain. Patient states that he got up to go to the bathroom, and was walking towards the bathroom, and his legs seem to give out on him, he felt slightly lightheaded, but did not pass out. He states his legs just gave out. He is on Lovenox currently, for pulmonary embolism treatment which is had in the past. He is adamant that he did not hit his head, he states he landed on his buttocks, and is now complaining of some low back pain. He has had laminectomy surgeries in the past on his lower back. He denies any numbness, tingling or weakness in his lower extremities at this time. Denies any loss of bowel or bladder function, denies any saddle anesthesia or paresthesias. He denies having any chest pain, shortness of breath or difficulty breathing. He currently rates the pain in his lower back as a 2 out of 10 describes as an ache. Past Medical History: Diabetes mellitus, PE, GI bleeding, peptic ulcer disease, aortic stenosis status post TAVR Past Surgical History: Upper endoscopy, TAVR Social History: Denies tobacco, alcohol or drug use. Family History: Reviewed and noncontributory for presenting illness Allergies: Reviewed, see documented allergy list. REVIEW OF SYSTEMS: Other than noted above, the 12 point review of systems was reviewed with the patient and were negative, all pertinent findings are included in the HPI. PHYSICAL EXAMINATION: Vital signs reviewed, nursing noted reviewed. GENERAL: Elderly male, no acute distress HEAD: Atraumatic, normocephalic. EYES: Eyes appear normal, extraocular movements intact, sclera anicteric, conjunctiva are normal. PERRLA ENT: nares patent, oropharynx clear without exudates. Moist mucous membranes. NECK: Normal range of motion, supple without lymphadenopathy, no midline tenderness LUNGS: Breath sounds clear to auscultation bilaterally and equal. No wheezes rales or rhonchi. HEART: Regular rate and rhythm without murmurs ABDOMEN: Soft, nontender, normoactive bowel sounds. No rebound, guarding, or rigidity. No masses appreciated. EXTREMITIES: There is a minor skin abrasion to the right, mild tenderness to palpation, no obvious deformity or crepitus noted, otherwise, good range of motion, no pitting or edema. Back: Mild tenderness to palpation to the paraspinal muscles of the lumbar spine, no step-off or deformity noted to the thoracic or lumbar spine. NEUROLOGICAL: No focal neurological deficits. Moves all extremities spontaneously Motor and sensory grossly intact on exam. PSYCH: Normal mood, normal affect. SKIN: Warm, Dry, normal turgor, no rashes or lesions noted on exposed skin TRAVEL OUTSIDE OF THE [place] IN LAST 30 DAYS: No - Related Data Allergies/Adverse Reactions: No Known Allergies Allergy (Verified 12/10/17 11:05) Past Medical History - Social History Smoking Status: Former Smoker Chew tobacco use (# tins/day): No Frequency of alcohol use: None Drug Abuse: None Family History: Reviewed & Not Pertinent Patient has suicidal ideation: No Patient has homicidal ideation: No - Past Medical History Cardiac Medical History: Reports: Hx Atrial Fibrillation - coumadin, Hx Coronary Artery Disease, Hx Hypercholesterolemia, Hx Hypertension Pulmonary Medical History: Reports: Hx Bronchitis, Hx COPD, Hx Pneumonia Endocrine Medical History: Reports: Hx Diabetes Mellitus Type 2 Renal/ Medical History: Reports: Hx Benign Prostatic Hyperplasia. Denies: Hx Peritoneal Dialysis GI Medical History: Reports: Hx Gastroesophageal Reflux Disease Past Surgical History: Reports: Hx Appendectomy, Hx Cardiac Catheterization, Hx Cardiac Surgery, Hx Genitourinary Surgery - TURP, Hx Orthopedic Surgery - R Shoulder, Hx Tonsillectomy, Hx Vascular Surgery - AAA - Immunizations Hx Diphtheria, Pertussis, Tetanus Vaccination: Yes Hx Pneumococcal Vaccination: 09/15/12 Physical Exam - Vital signs Vitals: Temp Pulse Resp BP 97.5 F 105 H 18 108/54 L 01/05/19 01:33 01/05/19 01:33 01/05/19 01:33 01/05/19 01:33 Course - Re-evaluation Re-evalutation: Patient seen and examined vital signs reviewed. Laboratory data and/or imaging were ordered as appropriate for the patient's presenting symptoms and complaint, with consideration of any critical or life threatening conditions that may be associated with their obtained history and exam as noted above. Patient was treated with Dwarf initially, but was still having some pain, therefore was given IM fentanyl, which did seem to help his pain more, he is still having pain, may repeat evaluation about half hour later, is therefore given additional 50 mcg of IM fentanyl. Patient was noted to have a glucose that was relatively low at 65, which may have led to the patient feeling slightly weak and led to his fall, he was given juice, his glucose did come up quite nicely. His x-rays of his lumbar spine did reveal possible slight endplate compression deformity of L3, I discussed this with the patient and the patient's , as he would not likely be a surgical candidate at this time, giv en its mild degree, and his history of pulmonary embolisms, and requiring to be on anticoagulation for essentially indefinite amount of time. They agreed with this, if mentioned to them the pain control is the main focus, and limiting excessive flexion or extension, they are agreeable to this plan of care, will switch the patient from Dwarf to oxycodone which she has done in the past when he had a prior fracture and has improved him. The patient was re-evaluated and was stable, will help assist the patient get home Evaluation was most consistent with compression fracture of the lumbar spine, fall, hypoglycemia Results were discussed with the patient at this point, after careful considera tion I feel that that patient can be discharged from the emergency department, the patient was educated treatments and reasons to return to the emergency department based on their presumed diagnosis as noted above, they were advised to followup with a primary care physician in 2-3 days. Patient was agreeable to plan of care. *Note is created using voice recognition software and may contain spelling, syntax or grammatical errors. Laboratory 01/05/19 01/05/19 01/05/19 01:48 01:48 01:48 WBC 11.4 H RBC 5.60 H Hgb 15.0 Hct 45.5 MCV 81 MCH 26.8 L MCHC 33.0 RDW 15.7 H Plt Count 248 Total Counted 100 Seg Neutrophils % Not Reportable Seg Neuts % (Manual) 77 Lymphocytes % Not Reportable Lymphocytes % (Manual) 8 L Atypical Lymphs % 5 Monocytes % Not Reportable Monocytes % (Manual) 9 Eosinophils % Not Reportable Eosinophils % (Manual) 1 Basophils % Not Reportable Basophils % (Manual) 0 Absolute Neutrophils Not Reportable Abs Neuts (Manual) 8.8 H Absolute Lymphocytes Not Reportable Abs Lymphs (Manual) 1.5 Absolute Monocytes Not Reportable Abs Monocytes (Manual) 1.0 Absolute Eosinophils Not Reportable Absolute Eos (Manual) 0.1 Absolute Basophils Not Reportable Abs Basophils (Manual) 0.0 Toxic Granulation 1+ Platelet Comment ADEQUATE Poikilocytosis SLIGHT Anisocytosis SLIGHT Tear Drop Cells SLIGHT Ovalocytes SLIGHT PT 23.9 H INR 2.02 Sodium 139.1 Potassium 3.6 Chloride 103 Carbon Dioxide 27 Anion Gap 9 BUN 19 Creatinine 1.02 Est GFR ( Amer) > 60 Est GFR (Non-Af Amer) > 60 Glucose 65 L POC Glucose Calcium 9.7 01/05/19 03:06 WBC RBC Hgb Hct MCV MCH MCHC RDW Plt Count Total Counted Seg Neutrophils % Seg Neuts % (Manual) Lymphocytes % Lymphocytes % (Manual) Atypical Lymphs % Monocytes % Monocytes % (Manual) Eosinophils % Eosinophils % (Manual) Basophils % Basophils % (Manual) Absolute Neutrophils Abs Neuts (Manual) Absolute Lymphocytes Abs Lymphs (Manual) Absolute Monocytes Abs Monocytes (Manual) Absolute Eosinophils Absolute Eos (Manual) Absolute Basophils Abs Basophils (Manual) Toxic Granulation Platelet Comment Poikilocytosis Anisocytosis Tear Drop Cells Ovalocytes PT INR Sodium Potassium Chloride Carbon Dioxide Anion Gap BUN Creatinine Est GFR ( Amer) Est GFR (Non-Af Amer) Glucose POC Glucose 175 H Calcium Lumbar Spine X-Ray 01/05/19 01:45 IMPRESSION: 1. Slight cortical irregularity of the inferior endplate of L3 raising a question of acute fracture, consider CT follow-up. 2. Stable grade 2 spondylolisthesis at L5-S1. - Vital Signs Vital signs: Temp Pulse Resp BP Pulse Ox 97.5 F 105 H 18 108/54 L 01/05/19 01:33 01/05/19 01:33 01/05/19 01:33 01/05/19 01:33 - Laboratory Result Diagrams: 01/05/19 01:48 01/05/19 01:48 Laboratory results interpreted by me: 01/05/19 01/05/19 01/05/19 01:48 01:48 01:48 WBC 11.4 H RBC 5.60 H MCH 26.8 L RDW 15.7 H Lymphocytes % (Manual) 8 L Abs Neuts (Manual) 8.8 H PT 23.9 H Glucose 65 L POC Glucose 01/05/19 03:06 WBC RBC MCH RDW Lymphocytes % (Manual) Abs Neuts (Manual) PT Glucose POC Glucose 175 H Discharge - Discharge Clinical Impression: Compression fracture Fall Qualifiers: Encounter type: initial encounter Qualified Code(s): W19.XXXA - Unspecified fall, initial encounter Back pain Qualifiers: Back pain location: low back pain Chronicity: acute Back pain laterality: bilateral Sciatica presence: unspecified whether sciatica present Qualified Code(s): M54.5 - Low back pain Condition: Stable Disposition: HOME, SELF-CARE Instructions: Compression Fracture of the Spine ([facility]) Additional Instructions: Please stop taking your Dwarf, and you can start taking the Percocet that is been prescribed, to help with your back pain. Please follow-up with your orthopedic surgeon, I do not think you will need surgery, but he may need physical therapy going forward. And they can help you that this up, you can also go through your primary care physician. Prescriptions: Oxycodone HCl/Acetaminophen [Percocet 7.5-325 mg Tablet] 1 each PO Q8H PRN #20 tablet PRN Reason: back pain Referrals: MISTY SANDERS MD [Primary Care Provider] - Follow up in 3-5 days AYSHA CAPONE MD [ACTIVE STAFF] - Follow up in 3-5 days
[2019-01-05] MEDS ORDERED: HYDROCODONE/ACETAMINOPHEN 5-325 MG TABLET PO ONE (01:46)
[2019-01-05 02:11] LABS: HEMATOCRIT 45.5 % (37.9-51.0); MEAN CORPUSCULAR HEMOGLOBIN 26.8 pg (27.0-33.4); MEAN CORPUSCULAR VOLUME 81 fl (80-97); PLATELET COUNT 248 10^3/uL (150-450); RED CELL DISTRIBUTION WIDTH 15.7 % (11.5-14.0); WHITE BLOOD COUNT 11.4 10^3/uL (4.0-10.5)
[2019-01-05 02:22] LABS: ANION GAP 9 (5-19); BLOOD UREA NITROGEN 19 mg/dL (7-20); CALCIUM 9.7 mg/dL (8.4-10.2); CARBON DIOXIDE 27 mmol/L (22-30); CHLORIDE 103 mmol/L (98-107); POTASSIUM 3.6 mmol/L (3.6-5.0); SODIUM 139.1 mmol/L (137-145)
[2019-01-05 02:23] LABS: ABSOLUTE LYMPHOCYTES# (MANUAL) 1.5 10^3/uL (0.5-4.7); ABSOLUTE NEUTROPHILS# (MANUAL) 8.8 10^3/uL (1.7-8.2); BASOPHILS % (MANUAL) 0 % (0-2); EOSINOPHILS % (MANUAL) 1 % (0-6); LYMPHOCYTES % (MANUAL) 8 % (13-45); MONOCYTES % (MANUAL) 9 % (3-13); SEGMENTED NEUTROPHILS % (MAN) 77 % (42-78); TOTAL CELLS COUNTED 100
[2019-01-05 02:24] LABS: GLUCOSE 65 mg/dL (75-110)
[2019-01-05 02:25] LABS: ANISOCYTOSIS SLIGHT; OVALOCYTES SLIGHT; PLATELET COMMENT ADEQUATE; POIKILOCYTOSIS SLIGHT; TEAR DROP CELLS SLIGHT; TOXIC GRANULATION 1+
[2019-01-05] MEDS ORDERED: FENTANYL CITRATE INJ/PF 100 MCG/2 ML AMPUL IM ONE ×2 (02:32→03:28)
[2019-01-05 02:59] LABS: INTERNATIONAL RATION (INR) 2.02; PROTHROMBIN TIME 23.9 SEC (11.4-15.4)
--- NOTE | 2019-01-05 03:17 | RADIOLOGY REPORT (SQ) ---
Lumbar spine five view on 01/05/2019 at 2:01 AM CLINICAL INDICATION: Low back pain after fall COMPARISON: 09/22/2017 FINDINGS: Vascular calcifications are noted. There is again noted grade 2 spondylolisthesis at L5-S1 with retrolisthesis of S1 in relation to L5 that is likely related to bilateral pars defects of L5. Lumbar spine is otherwise well aligned. On one view there is new slight cortical irregularity of the inferior endplate of L3 could represent an acute fracture. Consider CT follow-up. No other evidence of fracture is noted. IMPRESSION: 1. Slight cortical irregularity of the inferior endplate of L3 raising a question of acute fracture, consider CT follow-up. 2. Stable grade 2 spondylolisthesis at L5-S1.
[2019-01-05 04:44] VITALS: BP 110/76
== END 2019-01-05 04:43 | disposition home or self-care (01) ==
LOC: ER 01:29
DX: M48.56XA Collapsed vertebra, not elsewhere classified, lumbar region, initial encounter for fracture (principal); M54.5 Low back pain; W19.XXXA Unspecified fall, initial encounter; I48.91 Unspecified atrial fibrillation; I25.10 Atherosclerotic heart disease of native coronary artery without angina pectoris; E78.00 Pure hypercholesterolemia, unspecified; I10 Essential (primary) hypertension; E11.9 Type 2 diabetes mellitus without complications; J44.9 Chronic obstructive pulmonary disease, unspecified; Z79.01 Long term (current) use of anticoagulants
CPT/HCPCS: 99284; 96372; 36415; 82962; 85025; 85610; 80048; 72110; J3010; A9270

== ENCOUNTER 2019-01-12 07:05 | Inpatient (IN) | payer MEDICARE, OTHER ==
--- NOTE | 2019-01-12 07:22 | ER Document Report ---
ED GI/ - General Stated Complaint: GROIN PAIN Time Seen by Provider: 01/12/19 07:12 Primary Care Provider: MISTY SANDERS MD [Primary Care Provider] - Follow up as needed Notes: 83-year-old male to the emergency department complaining of pain in the right groin area. Radiates down into the right testicle. Patient does not have an appendix. States that he currently has a blood clot and on Coumadin. Pain is been present for the last 2 days but is getting worse. Mostly in the right inguinal area and radiating to the right testicle. Denies any hematuria. TRAVEL OUTSIDE OF THE [place] IN LAST 30 DAYS: No - HPI Patient complains to provider of: Abdominal pain, Groin pain Onset: Yesterday Timing/Duration: Gradual, Constant Quality of pain: Achy Severity at maximum: Moderate Severity in ED: Moderate Pain Level: 3 Location: RLQ, Right testicle Associated symptoms: None - Related Data Allergies/Adverse Reactions: No Known Allergies Allergy (Verified 12/10/17 11:05) Past Medical History - General Information source: Patient - Social History Smoking Status: Never Smoker Frequency of alcohol use: None Drug Abuse: None Family History: Reviewed & Not Pertinent - Past Medical History Cardiac Medical History: Reports: Hx Atrial Fibrillation - coumadin, Hx Coronary Artery Disease, Hx Hypercholesterolemia, Hx Hypertension Pulmonary Medical History: Reports: Hx Bronchitis, Hx COPD, Hx Pneumonia Endocrine Medical History: Reports: Hx Diabetes Mellitus Type 2 Renal/ Medical History: Reports: Hx Benign Prostatic Hyperplasia. Denies: Hx Peritoneal Dialysis GI Medical History: Reports: Hx Gastroesophageal Reflux Disease Past Surgical History: Reports: Hx Appendectomy, Hx Cardiac Catheterization, Hx Cardiac Surgery, Hx Genitourinary Surgery - TURP, Hx Orthopedic Surgery - R Shoulder, Hx Tonsillectomy, Hx Vascular Surgery - AAA - Immunizations Hx Diphtheria, Pertussis, Tetanus Vaccination: Yes Hx Pneumococcal Vaccination: 09/15/12 Review of Systems - Review of Systems Notes: Constitutional: denies: Chills, Diaphoresis, Fever, Malaise, Weakness EENT: denies: Eye discharge, Blurred vision, Tearing, Double vision, Nose congestion, Nose discharge, Throat swelling, Mouth pain Cardiovascular: denies: Palpitations, Heart racing, Orthopnea, Dyspnea, Chest pain Respiratory: denies: Cough, Hurts to breathe, Wheezing, Shortness of breath Gastrointestinal: Complaining of right lower quadrant/right groin pain radiating to testicle. No nausea or vomiting. No diarrhea. No blood in stool. No black tarry stools. Genitourinary: denies: Burning, Dysuria, Discharge, Frequency, Flank pain, Hematuria no pain in the testicles. Pain does seem to radiate from the groin down to the testicle Musculoskeletal: denies: Joint pain, Joint swelling, Muscle pain, Muscle stiffness, back pain Hematologic/Lymphatic: denies: Anemia, Easy bleeding, Easy bruising, Blood clots Neurological/Psychological: denies: Confusion, Dementia, Depression, Loss of consciousness Skin: No lesions, no masses, no skin breakdown, no abscesses Physical Exam - Vital signs Vitals: Pulse Resp BP Pulse Ox 97 18 163/145 H 96 01/12/19 07:19 01/12/19 07:19 01/12/19 07:19 01/12/19 07:19 Interpretation: Normal - General General appearance: Appears well, Alert - HEENT Head: Normocephalic, Atraumatic Eyes: Normal Pupils: PERRL - Respiratory Respiratory status: No respiratory distress Chest status: Nontender Breath sounds: Normal Chest palpation: Normal - Cardiovascular Rhythm: Regular Heart sounds: Normal auscultation Murmur: No - Abdominal Inspection: Normal Distension: No distension Bowel sounds: Normal Tenderness: Tender - Mild tenderness to palpation in the right inguinal region. No palpable hernia. No obvious abdominal wall defect. Organomegaly: No organomegaly - Genitourinary Inspection: Normal Tenderness: Nontender Cremasteric reflex: Normal Scrotum: Normal - Back Back: Normal, Nontender - Extremities General upper extremity: Normal inspection, Nontender, Normal color, Normal ROM, Normal temperature General lower extremity: Normal inspection, Nontender, Normal color, Normal ROM, Normal temperature, Normal weight bearing. No: Thomas's sign - Neurological Neuro grossly intact: Yes Cognition: Normal Orientation: AAOx4 Excel Coma Scale Eye Opening: Spontaneous Excel Coma Scale Verbal: Oriented Excel Coma Scale Motor: Obeys Commands Brian Coma Scale Total: 15 Speech: Normal Motor strength normal: LUE, RUE, LLE, RLE Sensory: Normal - Psychological Associated symptoms: Normal affect, Normal mood - Skin Skin Temperature: Warm Skin Moisture: Dry Skin Color: Normal Course - Re-evaluation Re-evalutation: 01/12/19 10:46 Laboratory 01/12/19 01/12/19 01/12/19 07:45 07:45 07:45 WBC 6.1 RBC 4.91 Hgb 13.2 L Hct 40.3 MCV 82 MCH 26.8 L MCHC 32.6 RDW 16.1 H Plt Count 245 Total Counted 100 Seg Neutrophils % Not Reportable Seg Neuts % (Manual) 70 Lymphocytes % Not Reportable Lymphocytes % (Manual) 15 Atypical Lymphs % 1 Monocytes % Not Reportable Monocytes % (Manual) 7 Eosinophils % Not Reportable Eosinophils % (Manual) 5 Basophils % Not Reportable Basophils % (Manual) 0 Metamyelocytes % 1 H Promyelocytes % 1 H Absolute Neutrophils Not Reportable Abs Neuts (Manual) 4.4 Absolute Lymphocytes Not Reportable Abs Lymphs (Manual) 1.0 Absolute Monocytes Not Reportable Abs Monocytes (Manual) 0.4 Absolute Eosinophils Not Reportable Absolute Eos (Manual) 0.3 Absolute Basophils Not Reportable Abs Basophils (Manual) 0.0 Toxic Vacuolation PRESENT Platelet Comment ADEQUATE Polychromasia 1+ Poikilocytosis SLIGHT Anisocytosis 1+ Tear Drop Cells SLIGHT Ovalocytes SLIGHT PT 35.6 H INR 3.36 APTT 67.7 H Sodium 140.1 Potassium 4.6 Chloride 104 Carbon Dioxide 28 Anion Gap 8 BUN 32 H Creatinine 1.21 Est GFR ( Amer) > 60 Est GFR (Non-Af Amer) 57 L Glucose 247 H Calcium 8.7 Total Bilirubin 0.5 Direct Bilirubin 0.2 Neonat Total Bilirubin Not Reportable Neonat Direct Bilirubin Not Reportable Neonat Indirect Bili Not Reportable AST 20 ALT 20 L Alkaline Phosphatase 119 Total Protein 6.3 Albumin 3.3 L Lipase 543.6 H Urine Color Urine Appearance Urine pH Ur Specific [place] Urine Protein Urine Glucose (UA) Urine Ketones Urine Blood Urine Nitrite Urine Bilirubin Urine Urobilinogen Ur Leukocyte Esterase Urine WBC (Auto) Urine RBC (Auto) U Hyaline Cast (Auto) Squamous Epi Cells Auto Urine Mucus (Auto) Urine Ascorbic Acid 01/12/19 08:25 WBC RBC Hgb Hct MCV MCH MCHC RDW Plt Count Total Counted Seg Neutrophils % Seg Neuts % (Manual) Lymphocytes % Lymphocytes % (Manual) Atypical Lymphs % Monocytes % Monocytes % (Manual) Eosinophils % Eosinophils % (Manual) Basophils % Basophils % (Manual) Metamyelocytes % Promyelocytes % Absolute Neutrophils Abs Neuts (Manual) Absolute Lymphocytes Abs Lymphs (Manual) Absolute Monocytes Abs Monocytes (Manual) Absolute Eosinophils Absolute Eos (Manual) Absolute Basophils Abs Basophils (Manual) Toxic Vacuolation Platelet Comment Polychromasia Poikilocytosis Anisocytosis Tear Drop Cells Ovalocytes PT INR APTT Sodium Potassium Chloride Carbon Dioxide Anion Gap BUN Creatinine Est GFR ( Amer) Est GFR (Non-Af Amer) Glucose Calcium Total Bilirubin Direct Bilirubin Neonat Total Bilirubin Neonat Direct Bilirubin Neonat Indirect Bili AST ALT Alkaline Phosphatase Total Protein Albumin Lipase Urine Color YELLOW Urine Appearance CLEAR Urine pH 5.0 Ur Specific [place] 1.017 Urine Protein NEGATIVE Urine Glucose (UA) >=500 H Urine Ketones NEGATIVE Urine Blood NEGATIVE Urine Nitrite NEGATIVE Urine Bilirubin NEGATIVE Urine Urobilinogen 2.0 H Ur Leukocyte Esterase NEGATIVE Urine WBC (Auto) 0 Urine RBC (Auto) 0 U Hyaline Cast (Auto) 4 Squamous Epi Cells Auto <1 Urine Mucus (Auto) RARE Urine Ascorbic Acid NEGATIVE Abdomen/Pelvis CT 01/12/19 07:21 IMPRESSION: 1. There are low attenuated areas within the right lower lobe pulmonary artery segmental-subsegmental branches, suggesting emboli. The patient has a known history of pulmonary emboli. 2. Acute-subacute compression fracture involving the L3 vertebra, this finding likely correlates to the plain film lumbar spine study dated 01/05/2019. No evidence of retropulsion into the spinal canal. The right psoas muscle is larger in size than the left and is slightly heterogenous in appearance. These findings raise the question of possible right psoas muscle hematoma. Correlation suggested and additional imaging(MRI and or CT Lumbar spine) may be helpful if clinically indicated. 3. Bilateral renal cysts, a few have CT numbers slightly above water range, may represent complex cysts. Correlation with renal ultrasound. 4. 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 5. Additional findings, please see above. This is a very complicated medical patient with a subacute ugly looking fracture at L3 causing a iliopsoas hematoma. Unable to get patient's pain under control and uncomfortable sending home with his elderly . Will consult with medicine for admission to the hospital for pain management and possible anesthesia/pain medicine consult.. Patient more likely would benefit from a kyphoplasty and possible epidural but his INR is too elevated at this time so will need to be consulted as to the best course of action. - Vital Signs Vital signs: Temp Pulse Resp BP Pulse Ox 98.4 F 97 17 149/91 H 87 L 01/12/19 07:57 01/12/19 07:19 01/12/19 10:01 01/12/19 10:01 01/12/19 10:01 - Laboratory Result Diagrams: 01/12/19 07:45 01/12/19 07:45 Laboratory results interpreted by me: 01/12/19 01/12/19 01/12/19 07:45 07:45 07:45 Hgb 13.2 L MCH 26.8 L RDW 16.1 H Metamyelocytes % 1 H Promyelocytes % 1 H PT 35.6 H APTT 67.7 H BUN 32 H Est GFR (Non-Af Amer) 57 L Glucose 247 H ALT 20 L Albumin 3.3 L Lipase 543.6 H Urine Glucose (UA) Urine Urobilinogen 01/12/19 08:25 Hgb MCH RDW Metamyelocytes % Promyelocytes % PT APTT BUN Est GFR (Non-Af Amer) Glucose ALT Albumin Lipase Urine Glucose (UA) >=500 H Urine Urobilinogen 2.0 H Discharge - Discharge Clinical Impression: Intractable pain Compression fracture of L3 vertebra Qualifiers: Encounter type: initial encounter Fracture type: closed Qualified Code(s): S32.030A - Wedge compression fracture of third lumbar vertebra, initial encounter for closed fracture Iliopsoas muscle hematoma Qualifiers: Encounter type: initial encounter Laterality: right Qualified Code(s): S70.11XA - Contusion of right thigh, initial encounter Condition: Good Disposition: ADMITTED INPATIENT Admitting Provider: Kelsie (Hospitalist) Unit Admitted: Telemetry Referrals: MISTY SANDERS MD [Primary Care Provider] - Follow up as needed
[2019-01-12] MEDS ORDERED: KETOROLAC TROMETHAMINE INJ/PF 30 MG/1 ML SDV IV ONE (07:40)
[2019-01-12] MEDS ORDERED: MORPHINE SULFATE 10 MG/ML INJ IV PRN (07:41)
[2019-01-12 08:00] LABS: INTERNATIONAL RATION (INR) 3.36; PROTHROMBIN TIME 35.6 SEC (11.4-15.4)
[2019-01-12 08:02] LABS: PARTIAL THROMBOPLASTIN TIME 67.7 SEC (23.5-35.8)
[2019-01-12 08:09] LABS: HEMATOCRIT 40.3 % (37.9-51.0); HEMOGLOBIN 13.2 g/dL (13.5-17.0); MEAN CORPUSCULAR HEMOGLOBIN 26.8 pg (27.0-33.4); MEAN CORPUSCULAR HGB CONC 32.6 g/dL (32.0-36.0); MEAN CORPUSCULAR VOLUME 82 fl (80-97); PLATELET COUNT 245 10^3/uL (150-450); RED BLOOD COUNT 4.91 10^6/uL (4.35-5.55); RED CELL DISTRIBUTION WIDTH 16.1 % (11.5-14.0); WHITE BLOOD COUNT 6.1 10^3/uL (4.0-10.5)
[2019-01-12 08:12] LABS: ALANINE AMINOTRANSFERASE 20 U/L (21-72); ALBUMIN 3.3 g/dL (3.5-5.0); ALKALINE PHOSPHATASE 119 U/L (38-126); ANION GAP 8 (5-19); ASPARTATE AMINO TRANSFERASE 20 U/L (17-59); BILIRUBIN,DIRECT 0.2 mg/dL (0.0-0.4); BILIRUBIN,TOTAL 0.5 mg/dL (0.2-1.3); BLOOD UREA NITROGEN 32 mg/dL (7-20); CALCIUM 8.7 mg/dL (8.4-10.2); CARBON DIOXIDE 28 mmol/L (22-30); CHLORIDE 104 mmol/L (98-107); GLUCOSE 247 mg/dL (75-110); LIPASE 543.6 U/L (23-300); POTASSIUM 4.6 mmol/L (3.6-5.0); SODIUM 140.1 mmol/L (137-145); TOTAL PROTEIN 6.3 g/dL (6.3-8.2)
[2019-01-12 08:39] LABS: APPEARANCE,URINE CLEAR; BILIRUBIN,URINE NEGATIVE (NEGATIVE); COLOR,URINE YELLOW; GLUCOSE, URINE >=500 mg/dL (NEGATIVE); KETONES,URINE NEGATIVE (NEGATIVE); LEUKOCYTE ESTERASE,URINE NEGATIVE (NEGATIVE); NITRITE,URINE NEGATIVE (NEGATIVE); PROTEIN,URINE NEGATIVE (NEGATIVE); URINE SPECIFIC GRAVITY 1.017
[2019-01-12 08:44] LABS: ABSOLUTE MONOCYTES # (MANUAL) 0.4 10^3/uL (0.1-1.4); ABSOLUTE NEUTROPHILS# (MANUAL) 4.4 10^3/uL (1.7-8.2); BASOPHILS % (MANUAL) 0 % (0-2); EOSINOPHILS % (MANUAL) 5 % (0-6); LYMPHOCYTES % (MANUAL) 15 % (13-45); METAMYELOCYTES % (MANUAL) 1 % (0); MONOCYTES % (MANUAL) 7 % (3-13); SEGMENTED NEUTROPHILS % (MAN) 70 % (42-78); TOTAL CELLS COUNTED 100
[2019-01-12 08:46] LABS: ANISOCYTOSIS 1+; OVALOCYTES SLIGHT; POIKILOCYTOSIS SLIGHT; POLYCHROMASIA 1+; TEAR DROP CELLS SLIGHT; TOXIC VACUOLATION PRESENT
[2019-01-12 08:47] LABS: PLATELET COMMENT ADEQUATE; PROMYELOCYTES % (MANUAL) 1 % (0)
[2019-01-12] MEDS ORDERED: ONDANSETRON HCL INJ/PF 4 MG/2 ML SDV IV ONE (08:47)
--- NOTE | 2019-01-12 10:02 | RADIOLOGY REPORT (SQ) ---
EXAM DESCRIPTION: CT ABD/PELVIS WITH IV ONLY COMPLETED DATE/TIME: 01/12/2019 9:20 am REASON FOR STUDY: right groin pain COMPARISON: Lumbar spine examination dated 01/05/2019. TECHNIQUE: CT scan of the abdomen and pelvis performed using helical scanning technique with dynamic intravenous contrast injection. No oral contrast. Images reviewed with lung, soft tissue, and bone windows. Reconstructed coronal and sagittal MPR images reviewed. Delayed images for evaluation of the urinary system also acquired. All images stored on PACS. All CT scanners at this facility use dose modulation, iterative reconstruction, and/or weight based d osing when appropriate to reduce radiation dose to as low as reasonably achievable (ALARA). [facility]: Dose Right [facility]: CareDose [facility]: Dose Right [facility]: Teradose 4D [facility]: Food52 CONTRAST TYPE AND DOSE: contrast/concentration: Isovue 350.00 mg/ml; Total Contrast Delivered: 100.0 ml; Total Saline Delivered: 70.0 ml RENAL FUNCTION: Cyst. A few of the cysts have CT numbers slightly above water range which may be on a low BUN=19 RADIATION DOSE: CT Rad equipment meets quality standard of care and radiation dose reduction techniq ues were employed. CTDIvol: 18.9 - 20.4 mGy. DLP: 2203 mGy-cm.. LIMITATIONS: None. FINDINGS: LOWER CHEST: Low attenuated areas are suggested in the right lower lobe segmental -subseg mental pulmonary artery suggesting pulmonary emboli. The patient has a known history of pulmonary em boli. Emphysematous changes in the visualized lungs and scarring/ fibrosis in the lower lobes. LIVER: Normal size. No masses. No dilated ducts. The hepatic and portal veins are patent. SPLEEN: Normal size. No focal lesions. PANCREAS: No masses. No significant calcifications. No adjacent inflammation or peripancreatic fluid collections. Pancreatic duct not dilated. GALLBLADDER: No identified stones by CT criteria. No inflammatory changes to suggest cholecystitis. ADRENAL GLANDS: No significant masses or asymmetry. RIGHT KIDNEY AND URETER: Right renal cysts, a few have CT numbers slightly above water range and may represent complex cysts. Lobulated contour to the right kidney may be related to prior inflammatory changes versus lobulation. No significant calcifications. No hydronephrosis or hydroureter. LEFT KIDNEY AND URETER: Left renal cysts. A 1.4 cm hypoattenuated lesion medial aspect of the mid l ower pole of the kidney, with CT numbers slightly above water range, may represent a complex cyst. L obulated contour to the left kidney, may be related prior inflammatory changes versus lobulatio n. No significant calcifications. No hydronephrosis or hydroureter. AORTA AND VESSELS: Atherosclerotic changes involving the abdominal aorta and branch vessels. Mild l ow attenuated its soft tissue density at the aortic bifurcation an adjacent to the right common iliac artery maybe related to chronic dissection with atherosclerotic changes, and or possible post surgic al changes. 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 RETROPERITONEUM: No retroperitoneal adenopathy, hemorrhage or masses. BOWEL AND PERITONEAL CAVITY: No masses or inflammatory changes. No free fluid or peritoneal masses. APPENDIX: Prior appendectomy. PELVIS: No mass. No free fluid. Normal bladder. ABDOMINAL WALL: Prior ventral abdominal wall hernia repair to the right of the midline. Small fat c ontaining umbilical hernia. BONES: Compression fracture involving the L3 vertebra, these findings may be related to acute-subacu te fracture. No evidence of retropulsion into the spinal canal. The right psoas muscle is is slight ly heterogenous in appearance and larger in size than the left. Considerations for these findings in cludes hematoma. Mild linear soft tissue stranding in the adjacent subcutaneous tissues may be on an inflammatory basis. Grade 2-3 anterolisthesis of L5 on S1. 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 Post surgical changes also i dentified at L5-S1 and bone graft changes left iliac bone. OTHER: A 2.5 cm nodule in the anterior subcutaneous tissues of the right mid lower abdomen, in the v icinity of the prior hernia repair. These findings may be related to post surgical changes. IMPRESSION: 1. There are low attenuated areas within the right lower lobe pulmonary artery segmenta l-subsegmental branches, suggesting emboli. The patient has a known history of pulmonary emboli. 2. Acute-subacute compression fracture involving the L3 vertebra, this finding likely correlates to the plain film lumbar spine study dated 01/05/2019. No evidence of retropulsion into the spinal canal . The right psoas muscle is larger in size than the left and is slightly heterogenous in appearance. These findings raise the question of possible right psoas muscle hematoma. Correlation suggested a nd additional imaging(MRI and or CT Lumbar spine) may be helpful if clinically indicated. 3. Bilateral renal cysts, a few have CT numbers slightly above water range, may represent complex cy sts. Correlation with renal ultrasound. 4. 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 5. Additional findings, please see above. COMMENT: 1. The results of this examination were discussed with emergency department provider on at 09:49 hours. TECHNICAL DOCUMENTATION: JOB ID: [id number] Quality ID # [id number]: Final reports with documentation of one or more dose reduction techniques (e.g., Au tomated exposure control, adjustment of the mA and/or kV according to patient size, use of iterative reconstruction technique) 2010 [employer]- All Rights Reserved Reading location - IP/workstation name: [email or web address]
[2019-01-12] MEDS ORDERED: HYDROMORPHONE HCL INJ/PF 2 MG/ML AMPULE IV ONE (10:44)
[2019-01-12] MEDS ORDERED: DEXTROSE 40% GEL 15 GM TUBE PO PRN ×2 (12:30)
[2019-01-12] MEDS ORDERED: DEXTROSE 50%-WATER 25 GM/50 ML DISP.SYRIN IV PRN ×2 (12:30)
[2019-01-12] MEDS ORDERED: GLUCAGON,HUMAN RECOMB 1 MG INJ IM PRN (12:30)
[2019-01-12] MEDS: HYDROMORPHONE HCL INJ/PF 2 MG/ML AMPULE IV PRN (15:42)
[2019-01-12] MEDS: SUCRALFATE 1 GM TABLET PO SCH ×2 (17:42→22:41)
[2019-01-12] MEDS: INSULIN LISPRO 100 UNIT/ML 3 ML VIAL SUBCUT SCH (18:59)
[2019-01-12] MEDS: GABAPENTIN 300 MG CAPSULE PO SCH (18:59)
[2019-01-12] MEDS: DOCUSATE SODIUM 100 MG CAPSULE PO SCH (18:59)
[2019-01-12] MEDS: INSULIN REG, HUMAN 100 UNIT/ML 3 ML VIAL (PYX) SUBCUT SCH ×2 (18:59→22:41)
[2019-01-12] MEDS: OXYCODONE-ACETAMINOPHEN 5-325 MG TABLET PO PRN (22:40)
[2019-01-13] MEDS: GABAPENTIN 300 MG CAPSULE PO SCH ×4 (03:33→17:56)
--- NOTE | 2019-01-13 07:02 | PDOC H&P ---
History of Present Illness Admission Date/PCP: 01/12/19 11:04 MISTY SANDERS MD Patient complains of: Acute worsening of back pain radiating to the right groin History of Present Illness: CHRISTINA SANDERS JR is a 83 year old male Past Medical History Cardiac Medical History: Reports: Atrial Fibrillation - coumadin, Coronary Artery Disease, Hyperlipidema, Hypertension Pulmonary Medical History: Reports: Bronchitis, Chronic Obstructive Pulmonary Disease (COPD), Pneumonia Neurological Medical History: Reports: Other - Diabetic neuropathy Endocrine Medical History: Reports: Diabetes Mellitus Type 2 Renal/ Medical History: Reports: Other - Renal cysts Renal/ History Note: Prostatic hypertrophy GI Medical History: Reports: Gastroesophageal Reflux Disease Psychiatric Medical History: Reports: Depression Hematology: Reports: Other - Coagulopathy with numerous DVTs/PEs Past Surgical History Past Surgical History: Reports: Appendectomy, Cardiac Catheterization, Orthopedic Surgery - R Shoulder, Tonsillectomy, Vascular Surgery - AAA Social History Information Source: Patient - And spouse Lives with: Spouse/Significant other Smoking Status: Never Smoker Frequency of Alcohol Use: None Hx Recreational Drug Use: No Hx Prescription Drug Abuse: No - Advance Directive Resuscitation Status: Do Not Resuscitate Surrogate healthcare decision maker:: The patient has a living well. He believes that is on record at [facility]. Family History Parental Family History Reviewed: Yes Children Family History Reviewed: Yes Sibling(s) Family History Reviewed.: Yes Medication/Allergy Home Medications: Cyanocobalamin (Vitamin B-12) [Vitamin B-12] 1,000 mcg PO DAILY 12/11/17 Docusate Sodium 100 mg PO Q12 12/11/17 Ergocalciferol (Vitamin D2) [Vitamin D2] 50,000 unit PO TH 12/11/17 Exenatide Microspheres [Bydureon Pen] 2 mg SQ FR 12/11/17 Finasteride 5 mg PO DAILY 12/11/17 Gabapentin 300 mg PO QID 12/11/17 Insulin Aspart [Novolog Flexpen] 18 unit SUBCUT TID 12/11/17 Insulin Detemir [Levemir Flextouch] 46 unit SQ QAM 12/11/17 Magnesium Oxide [Magnesium] 400 mg PO DAILY 12/11/17 Pantoprazole Sodium 40 mg PO DAILY 12/11/17 Tamsulosin HCl [Flomax 0.4 mg Cap.sr] 0.4 mg PO DAILY 12/11/17 Insulin Detemir [Levemir] 39 unit SQ QPM 01/12/19 Warfarin Sodium [Coumadin 3 mg Tablet] 3 mg PO ASDIR PRN 01/12/19 Warfarin Sodium [Coumadin] 6 mg PO DAILY 01/12/19 Allergies/Adverse Reactions: No Known Allergies Allergy (Verified 12/10/17 11:05) Review of Systems Constitutional: PRESENT: as per HPI Eyes: ABSENT: visual disturbances Ears: ABSENT: hearing changes Nose, Mouth, and Throat: ABSENT: mouth pain, sore throat Cardiovascular: PRESENT: edema - Mild. ABSENT: chest pain, palpitations Respiratory: ABSENT: cough, dyspnea, hemoptysis Gastrointestinal: PRESENT: nausea. ABSENT: abdominal pain, coffee ground emesis, constipation, diarrhea, hematemesis, hematochezia, melena Genitourinary: ABSENT: dysuria, hematuria Musculoskeletal: PRESENT: back pain Integumentary: ABSENT: diaphoresis, lesions, rash Neurological: PRESENT: abnormal gait - Secondary to pain. ABSENT: confusion, focal weakness, syncope, tingling, vertigo Psychiatric: ABSENT: anxiety, depression, hallucinations Endocrine: ABSENT: cold intolerance, heat intolerance Physical Exam Vital Signs: Temp Pulse Resp BP Pulse Ox 98.4 F 97 25 H 159/103 H 87 L 01/12/19 07:57 01/12/19 07:19 01/12/19 11:01 01/12/19 11:01 01/12/19 11:01 Intake & Output 01/11/19 01/12/19 01/13/19 06:59 06:59 06:59 Weight 109.09 kg General appearance: PRESENT: cooperative, severe distress - Moderate to severe pain, well-developed Eye exam: PRESENT: conjunctiva pink, EOMI. ABSENT: scleral icterus Ear exam: PRESENT: normal external ear exam Mouth exam: PRESENT: dry mucosa, tongue midline Neck exam: ABSENT: carotid bruit, JVD, lymphadenopathy Respiratory exam: PRESENT: chest wall tenderness, symmetrical, unlabored. ABSE NT: accessory muscle use, rales, rhonchi, wheezes Cardiovascular exam: PRESENT: RRR, +S1, +S2 Pulses: PRESENT: normal radial pulses, normal dorsalis pedis pul GI/Abdominal exam: PRESENT: normal bowel sounds, soft. ABSENT: distended, guarding, tenderness Rectal exam: PRESENT: deferred Gentrourinary exam: ABSENT: erythema, scrotal swelling Extremities exam: PRESENT: pedal edema. ABSENT: calf tenderness Musculoskeletal exam: PRESENT: normal inspection Neurological exam: PRESENT: alert, awake, oriented to person, oriented to place, oriented to time, oriented to situation, CN II-XII grossly intact Psychiatric exam: PRESENT: appropriate affect - Affect reflects his discomfort. ABSENT: agitated, anxious Focused psych exam: ABSENT: delusional, restlessness Skin exam: ABSENT: normal color - Chronic lower extremity pigment deposition from edema Results Laboratory Results: 01/12/19 07:45 01/12/19 07:45 01/12/19 01/12/19 01/12/19 07:45 07:45 08:25 WBC 6.1 RBC 4.91 Hgb 13.2 L Hct 40.3 MCV 82 MCH 26.8 L MCHC 32.6 RDW 16.1 H Plt Count 245 Seg Neutrophils % Not Reportable Lymphocytes % Not Reportable Monocytes % Not Reportable Eosinophils % Not Reportable Basophils % Not Reportable Absolute Neutrophils Not Reportable Absolute Lymphocytes Not Reportable Absolute Monocytes Not Reportable Absolute Eosinophils Not Reportable Absolute Basophils Not Reportable Sodium 140.1 Potassium 4.6 Chloride 104 Carbon Dioxide 28 Anion Gap 8 BUN 32 H Creatinine 1.21 Est GFR ( Amer) > 60 Est GFR (Non-Af Amer) 57 L Glucose 247 H Calcium 8.7 Total Bilirubin 0.5 AST 20 ALT 20 L Alkaline Phosphatase 119 Total Protein 6.3 Albumin 3.3 L Lipase 543.6 H Urine Color YELLOW Urine Appearance CLEAR Urine pH 5.0 Ur Specific [place] 1.017 Urine Protein NEGATIVE Urine Glucose (UA) >=500 H Urine Ketones NEGATIVE Urine Blood NEGATIVE Urine Nitrite NEGATIVE Ur Leukocyte Esterase NEGATIVE Urine WBC (Auto) 0 Urine RBC (Auto) 0 Impressions: Abdomen/Pelvis CT 01/12/19 07:21 IMPRESSION: 1. There are low attenuated areas within the right lower lobe pulmonary artery segmental-subsegmental branches, suggesting emboli. The patient has a known history of pulmonary emboli. 2. Acute-subacute compression fracture involving the L3 vertebra, this finding likely correlates to the plain film lumbar spine study dated 01/05/2019. No evidence of retropulsion into the spinal canal. The right psoas muscle is larger in size than the left and is slightly heterogenous in appearance. These findings raise the question of possible right psoas muscle hematoma. Correlation suggested and additional imaging(MRI and or CT Lumbar spine) may be helpful if clinically indicated. 3. Bilateral renal cysts, a few have CT numbers slightly above water range, may represent complex cysts. Correlation with renal ultrasound. 4. 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 5. Additional findings, please see above. Assessment and Plan - Diagnosis (1) Compression fracture of L3 vertebra Qualifiers: Encounter type: initial encounter Fracture type: closed Qualified C ode(s): S32.030A - Wedge compression fracture of third lumbar vertebra, initial encounter for closed fracture Is this a current diagnosis for this admission?: Yes Plan: The patient was diagnosed with an L3 compression fracture on January 05. He is now having pain radiating into the right groin. He is likely having nerve compression from the compression fracture versus psoas muscle swelling from the hematoma. He already has an appointment with his orthopedist next week. Unfortunately he has a loop recorder in place and so he would not be a candidate for an MRI study. For now we will use oral and IV pain medications. I an ticipate discharged home with pain management until he sees his orthopedist. (2) Iliopsoas muscle hematoma Qualifiers: Encounter type: initial encounter Laterality: right Qualified Code(s): S70.11XA - Contusion of right thigh, initial encounter Is this a current diagnosis for this admission?: Yes Plan: The patient is on warfarin for hypercoagulable state with multiple DVTs/PEs in the past. He most recently was diagnosed December 25 with another PE. This makes 6 episodes. His INR was supratherapeutic and we will hold his warfarin because of the hematoma. He did have a CT scan with contrast yesterday and so a repeat this morning would be hard on the kidneys. We will watch his hemoglobin to see if in fact there is increased loss from hematoma formation. (3) Intractable pain Is this a current diagnosis for this admission?: Yes Plan: This is more likely from the compression fracture although the combination of the psoas muscle hematoma and compression fracture with radiating pain are both considerable etiologies. Pain management as above. I will refrain from a pain management consultation at this point as he is scheduled to see his orthopedist. (4) Diabetes mellitus Qualifiers: Diabetes mellitus type: type 2 Diabetes mellitus complication status: with neurologic complications Is this a current diagnosis for this admission?: Yes Plan: His appetite has been poor. I will leave his Lantus unchanged (he uses Levemir at home) and he also takes bydureon injections every Friday. He was taking a fixed dose of NovoLog with meals however his appetite is poor and so we will substitute a sliding scale instead. (5) History of pulmonary embolism Is this a current diagnosis for this admission?: Yes Plan: He has been worked up for his hypercoagulable state. I did explain that we need to hold the warfarin at least until we are confident there is no more bleeding into the psoas muscle. This should be a few days. We will check an INR as well. (6) Diabetic neuropathy associated with type 2 diabetes mellitus Qualifiers: Diabetes mellitus complication detail: diabetic polyneuropathy Qualified Code(s): E11.42 - Type 2 diabetes mellitus with diabetic polyneuropathy Is this a current diagnosis for this admission?: Yes Plan: Continue gabapentin at this time. - Time Time Spent with patient: 70 minutes Time Spent with patient: 35 or more minutes Medications reviewed and adjusted accordingly: Yes Anticipated discharge: Home Within: within 48 hours
[2019-01-13] MEDS ORDERED: INSULIN GLARGINE,HUM.REC.ANLOG 1,000 UNIT/10 ML VIAL SUBCUT SCH ×2 (08:00→18:30)
[2019-01-13] MEDS ORDERED: INSULIN DETEMIR 46 UNIT SQ SCH (08:15)
[2019-01-13] MEDS: PANTOPRAZOLE SODIUM 40 MG TABLET.DR PO SCH (08:17)
[2019-01-13] MEDS: TAMSULOSIN HCL 0.4 MG CAP.SR.24H PO SCH (08:24)
[2019-01-13] MEDS: SUCRALFATE 1 GM TABLET PO SCH ×4 (08:24→21:46)
[2019-01-13] MEDS: INSULIN REG, HUMAN 100 UNIT/ML 3 ML VIAL (PYX) SUBCUT SCH ×4 (08:24→21:48)
[2019-01-13] MEDS: INSULIN LISPRO 100 UNIT/ML 3 ML VIAL SUBCUT SCH ×4 (08:25→19:25)
[2019-01-13] MEDS: HYDROMORPHONE HCL INJ/PF 2 MG/ML AMPULE IV PRN (08:36)
[2019-01-13 08:48] LABS: ABSOLUTE EOSINOPHILS # (AUTO) 0.1 10^3/uL (0.0-0.6); ABSOLUTE LYMPHOCYTES (AUTO) 1.1 10^3/uL (0.5-4.7); ABSOLUTE MONOCYTES (AUTO) 0.8 10^3/uL (0.1-1.4); ABSOLUTE NEUT (AUTO) 7.2 10^3/uL (1.7-8.2); BASOPHILS % (AUTO) 0.4 % (0-2); HEMATOCRIT 40.5 % (37.9-51.0); HEMOGLOBIN 13.1 g/dL (13.5-17.0); LYMPHOCYTES % (AUTO) 12.2 % (13-45); MEAN CORPUSCULAR HEMOGLOBIN 26.7 pg (27.0-33.4); MEAN CORPUSCULAR HGB CONC 32.4 g/dL (32.0-36.0); MEAN CORPUSCULAR VOLUME 83 fl (80-97); MONOCYTES % (AUTO) 8.9 % (3-13); PLATELET COUNT 267 10^3/uL (150-450); RED CELL DISTRIBUTION WIDTH 16.1 % (11.5-14.0); SEGMENTED NEUTROPHILS % (AUTO) 77.5 % (42-78); TOTAL CELLS COUNTED % (AUTO) 100 %; WHITE BLOOD COUNT 9.3 10^3/uL (4.0-10.5)
[2019-01-13 08:58] LABS: INTERNATIONAL RATION (INR) 3.15; PROTHROMBIN TIME 33.8 SEC (11.4-15.4)
[2019-01-13 09:12] LABS: ALANINE AMINOTRANSFERASE 17 U/L (21-72); ALBUMIN 3.3 g/dL (3.5-5.0); ALKALINE PHOSPHATASE 136 U/L (38-126); ANION GAP 12 (5-19); ASPARTATE AMINO TRANSFERASE 14 U/L (17-59); BILIRUBIN,DIRECT 0.3 mg/dL (0.0-0.4); BILIRUBIN,TOTAL 0.8 mg/dL (0.2-1.3); BLOOD UREA NITROGEN 25 mg/dL (7-20); CALCIUM 9.1 mg/dL (8.4-10.2); CARBON DIOXIDE 27 mmol/L (22-30); CHLORIDE 102 mmol/L (98-107); GLUCOSE 177 mg/dL (75-110); POTASSIUM 4.9 mmol/L (3.6-5.0); SODIUM 140.8 mmol/L (137-145); TOTAL PROTEIN 5.9 g/dL (6.3-8.2)
[2019-01-13] MEDS: INSULIN GLARGINE,HUM.REC.ANLOG 1,000 UNIT/10 ML VIAL SUBCUT SCH ×2 (09:21→17:51)
[2019-01-13] MEDS ORDERED: TAMSULOSIN HCL 0.4 MG CAP.SR.24H PO SCH (10:00)
[2019-01-13] MEDS ORDERED: (PENDING PHARMACY ID) (Magnesium Oxide [Magnesium] 400 MG) PO SCH (10:00)
[2019-01-13] MEDS ORDERED: INSULIN ASPART 18 UNIT SUBCUT SCH (10:00)
[2019-01-13] MEDS ORDERED: DOCUSATE SODIUM 100 MG CAPSULE PO SCH (10:00)
[2019-01-13] MEDS ORDERED: GABAPENTIN 300 MG CAPSULE PO SCH (10:00)
[2019-01-13] MEDS ORDERED: PANTOPRAZOLE SODIUM 40 MG TABLET.DR PO SCH (10:00)
[2019-01-13] MEDS ORDERED: FINASTERIDE 5 MG TABLET PO SCH (10:00)
[2019-01-13] MEDS: DOCUSATE SODIUM 100 MG CAPSULE PO SCH ×2 (10:01→17:56)
[2019-01-13] MEDS: FINASTERIDE 5 MG TABLET PO SCH (10:01)
[2019-01-13] MEDS: MAGNESIUM OXIDE 400 MG TABLET PO SCH (10:01)
[2019-01-13] MEDS: ESCITALOPRAM OXALATE 10 MG TABLET PO SCH (10:01)
[2019-01-13] MEDS: CYANOCOBALAMIN (VITAMIN B-12) 1,000 MCG TABLET PO SCH (10:01)
[2019-01-13] MEDS: OXYCODONE-ACETAMINOPHEN 5-325 MG TABLET PO PRN ×3 (10:12→21:47)
--- NOTE | 2019-01-13 11:10 | Physician Advisory Note ---
Physician Advisor ProgressNote .: [facility] I have reviewed [facility] medical record for this patient. Physician Advisor Statement: Status: Medicare pt w/intractable pain from L3 comp fx + ileopsoas hematoma on coumadin that is supratherapeutic. Appropriately started as Obs. - Has needed IV morphine x1 & prn IV Dilaudid 2x so far since arrival, on top of Percocets prn. After 1MN of hospital care, pt still over-anticoag'd (high risk for cont'd bleeding) tho' Hgb essentially same so far. - If pt continuing to need ongoing hospital level care & monitoring for 2nd MN tonight, can document reasons & approp'ly change to Inpt status. THx, CK
[2019-01-13] MEDS ORDERED: DIPHENHYDRAMINE HCL 50 MG/ML VIAL IV PRN (13:08)
--- NOTE | 2019-01-13 13:08 | PDOC PROGRESS REPORT ---
Subjective Progress Note for:: 01/13/19 Subjective:: 83-year-old male with multiple medical problems including atrial fibrillation, pulmonary embolism, back surgeries admitted for excruciating pain secondary to a L3 compression fracture and so he has muscle bleed. INR is 3.35 the time of admission Coumadin on hold. Repeat PT/INR this morning is 3.15. Patient is still complaining of severe pain. He has difficulty coming out of the bed. Physical therapy done the recommendation is patient may need to go to a rehab facility to gain his strength back. As per the family is not coming out of the bed for the last several days. Pain scale at the time of examination 4 x 10. He is requiring Dilaudid and p.o. Percocet on as-needed basis. Reason For Visit: INTRACTIBLE BACK PAIN FROM ILIOPSOAS HEMATOMA Physical Exam Vital Signs: Temp Pulse Resp BP Pulse Ox 98.6 F 59 L 17 100/41 L 95 01/13/19 08:34 01/13/19 08:34 01/13/19 08:34 01/13/19 08:34 01/13/19 08:34 Intake & Output 01/12/19 01/13/19 01/14/19 06:59 06:59 06:59 Intake Total 240 Output Total 200 Balance 40 Weight 111.9 kg General appearance: PRESENT: severe distress, well-developed Head exam: PRESENT: atraumatic Eye exam: PRESENT: PERRLA Mouth exam: PRESENT: moist, tongue midline Teeth exam: PRESENT: poor dentation Respiratory exam: PRESENT: clear to auscultation dionisio. ABSENT: rales, rhonchi, wheezes Cardiovascular exam: PRESENT: irregular rhythm, tachycardia GI/Abdominal exam: PRESENT: normal bowel sounds, soft. ABSENT: distended, guarding, mass, organolmegaly, rebound, tenderness Rectal exam: PRESENT: deferred Extremities exam: PRESENT: full ROM. ABSENT: calf tenderness, clubbing, pedal edema Neurological exam: PRESENT: alert, awake, oriented to person, oriented to place, oriented to time, oriented to situation, CN II-XII grossly intact. ABSENT: motor sensory deficit Psychiatric exam: PRESENT: appropriate affect, normal mood. ABSENT: homicidal ideation, suicidal ideation Results Laboratory Results: 01/13/19 07:59 01/13/19 07:59 01/13/19 01/13/1901/13/19 07:59 07:59 07:59 WBC 9.3 RBC 4.90 Hgb 13.1 L Hct 40.5 MCV 83 MCH 26.7 L MCHC 32.4 RDW 16.1 H Plt Count 267 Seg Neutrophils % 77.5 Lymphocytes % 12.2 L Monocytes % 8.9 Eosinophils % 1.0 Basophils % 0.4 Absolute Neutrophils 7.2 Absolute Lymphocytes 1.1 Absolute Monocytes 0.8 Absolute Eosinophils 0.1 Absolute Basophils 0.0 Sodium 140.8 Potassium 4.9 Chloride 102 Carbon Dioxide 27 Anion Gap 12 BUN 25 H Creatinine 1.11 Est GFR ( Amer) > 60 Est GFR (Non-Af Amer) > 60 Glucose 177 H Calcium 9.1 Magnesium 2.2 Total Bilirubin 0.8 AST 14 L ALT 17 L Alkaline Phosphatase 136 H Total Protein 5.9 L Albumin 3.3 L Lipase 287.7 Impressions: Abdomen/Pelvis CT 01/12/19 07:21 IMPRESSION: 1. There are low attenuated areas within the right lower lobe pulmonary artery segmental-subsegmental branches, suggesting emboli. The patient has a known history of pulmonary emboli. 2. Acute-subacute compression fracture involving the L3 vertebra, this finding likely correlates to the plain film lumbar spine study dated 01/05/2019. No evidence of retropulsion into the spinal canal. The right psoas muscle is larger in size than the left and is slightly heterogenous in appearance. These findings raise the question of possible right psoas muscle hematoma. Correlation suggested and additional imaging(MRI and or CT Lumbar spine) may be helpful if clinically indicated. 3. Bilateral renal cysts, a few have CT numbers slightly above water range, may represent complex cysts. Correlation with renal ultrasound. 4. 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 5. Additional findings, please see above. Assessment and Plan - Diagnosis (1) Compression fracture of L3 vertebra Qualifiers: Encounter type: initial encounter Fracture type: closed Qualified Code(s): S32.030A - Wedge compression fracture of third lumbar vertebra, initial encounter for closed fracture Is this a current diagnosis for this admission?: Yes Plan: The patient was diagnosed with an L3 compression fracture on January 05. He is now having pain radiating into the right groin. He is likely having nerve compression from the compression fracture versus psoas muscle swelling from the hematoma. He already has an appointment with his orthopedist next week. Unfortunately he has a loop recorder in place and so he would not be a candidate for an MRI study. For now we will use oral and IV pain medications. I anticipate discharged home with pain management until he sees his orthopedist. 01/13/2019-patient is admitted with L3 comfort and fracture and severe pain. Pain is radiating down the right groin. CT scan also found to have psoas muscle bleed. INR is 3.15. Will check PT/INR tomorrow. to Continue IV Dilaudid and p.o. Percocet. Physical therapy consult was done the recommendation is patient may need to go to a rehab facility. admission status was changed from observation to inpatient. (2) Diabetic neuropathy associated with type 2 diabetes mellitus Qualifiers: Diabetes mellitus complication detail: diabetic polyneuropathy Qualified Code(s): E11.42 - Type 2 diabetes mellitus with diabetic polyneuropathy Is this a current diagnosis for this admission?: Yes Plan: Continue gabapentin at this time. 01/13/2019-patient's latest blood sugar is 177. Patient has type 2 diabetes mellitus. On insulin sliding scale. For diabetic neuropathy is receiving gabapentin. Still complaining of pain in both lower legs. 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 He most recently was diagnosed December 25 with another PE. This makes 6 episodes. His INR was supratherapeutic and we will hold his warfarin because of the hematoma. He did have a CT scan with contrast yesterday and so a repeat this morning would be hard on the kidneys. We will watch his hemoglobin to see if in fact there is increased loss from hematoma formation. 01/13/2019-patient's INR is 3.35 and admission found to have so he has muscle bleed repeat INR today is 3.15 to hold Coumadin for tonight and recheck PT/INR tomorrow. hemoGlobin is stable around 13. (4) Intractable pain Is this a current diagnosis for this admission?: Yes Plan: This is more likely from the compression fracture although the combination of the psoas muscle hematoma and compression fracture with radiating pain are both considerable etiologies. Pain management as above. I will refrain from a pain management consultation at this point as he is scheduled to see his orthopedist. 01/13/2019-patient is severe pain pain scale according to him is 4 to 6 x 10 now most likely secondary to C3 compression fracture as well as muscle bleed he is also complaining of radiation of the pain in to the rt groin. (5) Atrial fibrillation Qualifiers: Atrial fibrillation type: chronic Qualified Code(s): I48.2 - Chronic atrial fibrillation Is this a current diagnosis for this admission?: No Plan: 01/13/2019-patient has history of atrial fibrillation on Coumadin which was on hold INR today is 3.15 to recheck PT/INR tomorrow. (6) History of pulmonary embolism Is this a current diagnosis for this admission?: Yes Plan: He has been worked up for his hypercoagulable state. I did explain that we need to hold the warfarin at least until we are confident there is no more bleeding into the psoas muscle. This should be a few days. We will check an INR as well. 01/13/2019-patient is given the history of a has 6 pulmonary embolisms before. INR is 3.15 which is going to be hold today to recheck check PT/INR tomorrow. - Time Time Spent with patient: 25-34 minutes Medications reviewed and adjusted accordingly: Yes Anticipated discharge: SNF - Inpatient Certification Based on my medical assessment, after consideration of the patient's comorbidities, presenting symptoms, or acuity I expect that the services needed warrant INPATIENT care.: Yes I certify that my determination is in accordance with my understanding of Medicare's requirements for reasonable and necessary INPATIENT services [42 CFR 412.3e].: Yes
[2019-01-13] MEDS ORDERED: INSULIN DETEMIR SQ SCH (18:00)
[2019-01-14] MEDS: GABAPENTIN 300 MG CAPSULE PO SCH ×5 (04:45→23:44)
[2019-01-14] MEDS: OXYCODONE-ACETAMINOPHEN 5-325 MG TABLET PO PRN ×3 (04:46→17:12)
[2019-01-14 05:25] LABS: ABSOLUTE EOSINOPHILS # (AUTO) 0.3 10^3/uL (0.0-0.6); ABSOLUTE LYMPHOCYTES (AUTO) 1.3 10^3/uL (0.5-4.7); ABSOLUTE MONOCYTES (AUTO) 0.8 10^3/uL (0.1-1.4); ABSOLUTE NEUT (AUTO) 5.6 10^3/uL (1.7-8.2); BASOPHILS % (AUTO) 0.5 % (0-2); EOSINOPHILS % (AUTO) 3.7 % (0-6); HEMATOCRIT 36.3 % (37.9-51.0); MEAN CORPUSCULAR HGB CONC 32.9 g/dL (32.0-36.0); MEAN CORPUSCULAR VOLUME 82 fl (80-97); MONOCYTES % (AUTO) 10.4 % (3-13); PLATELET COUNT 231 10^3/uL (150-450); RED BLOOD COUNT 4.42 10^6/uL (4.35-5.55); RED CELL DISTRIBUTION WIDTH 15.5 % (11.5-14.0); SEGMENTED NEUTROPHILS % (AUTO) 69.4 % (42-78); TOTAL CELLS COUNTED % (AUTO) 100 %; WHITE BLOOD COUNT 8.1 10^3/uL (4.0-10.5)
[2019-01-14 05:31] LABS: INTERNATIONAL RATION (INR) 3.03; PROTHROMBIN TIME 32.8 SEC (11.4-15.4)
[2019-01-14 05:46] LABS: ALANINE AMINOTRANSFERASE 16 U/L (21-72); ALKALINE PHOSPHATASE 128 U/L (38-126); ANION GAP 11 (5-19); ASPARTATE AMINO TRANSFERASE 25 U/L (17-59); BILIRUBIN,DIRECT 0.3 mg/dL (0.0-0.4); BILIRUBIN,TOTAL 0.6 mg/dL (0.2-1.3); BLOOD UREA NITROGEN 35 mg/dL (7-20); CALCIUM 8.7 mg/dL (8.4-10.2); CARBON DIOXIDE 26 mmol/L (22-30); CHLORIDE 99 mmol/L (98-107); GLUCOSE 180 mg/dL (75-110); POTASSIUM 4.9 mmol/L (3.6-5.0); SODIUM 135.6 mmol/L (137-145); TOTAL PROTEIN 5.7 g/dL (6.3-8.2)
[2019-01-14] MEDS: PANTOPRAZOLE SODIUM 40 MG TABLET.DR PO SCH (06:37)
[2019-01-14] MEDS ORDERED: INSULIN GLARGINE,HUM.REC.ANLOG 1,000 UNIT/10 ML VIAL SUBCUT SCH (08:00)
[2019-01-14] MEDS: TAMSULOSIN HCL 0.4 MG CAP.SR.24H PO SCH (08:21)
[2019-01-14] MEDS: INSULIN LISPRO 100 UNIT/ML 3 ML VIAL SUBCUT SCH ×3 (08:21→17:09)
[2019-01-14] MEDS: SUCRALFATE 1 GM TABLET PO SCH ×4 (08:21→21:17)
[2019-01-14] MEDS: INSULIN REG, HUMAN 100 UNIT/ML 3 ML VIAL (PYX) SUBCUT SCH ×4 (08:22→21:50)
[2019-01-14] MEDS: HYDROMORPHONE HCL INJ/PF 2 MG/ML AMPULE IV PRN ×2 (08:30→12:39)
[2019-01-14] MEDS: MAGNESIUM OXIDE 400 MG TABLET PO SCH (10:04)
[2019-01-14] MEDS: DOCUSATE SODIUM 100 MG CAPSULE PO SCH ×2 (10:05→17:12)
[2019-01-14] MEDS: ESCITALOPRAM OXALATE 10 MG TABLET PO SCH (10:05)
[2019-01-14] MEDS: CYANOCOBALAMIN (VITAMIN B-12) 1,000 MCG TABLET PO SCH (10:05)
[2019-01-14] MEDS: ERGOCALCIFEROL (VITAMIN D2) 50000 UNIT (1.25 MG) CAPSULE PO SCH (10:05)
[2019-01-14] MEDS: FINASTERIDE 5 MG TABLET PO SCH (10:05)
--- NOTE | 2019-01-14 11:51 | PDOC PROGRESS REPORT ---
Subjective Progress Note for:: 01/14/19 Subjective:: 83-year-old male with multiple medical problems including atrial fibrillation, pulmonary embolism, back surgeries admitted for excruciating pain secondary to a L3 compression fracture and so he has muscle bleed. INR is 3.35 the time of admission Coumadin on hold. Repeat PT/INR this morning is 3.15. Patient is still complaining of severe pain. He has difficulty coming out of the bed. Physical therapy done the recommendation is patient may need to go to a rehab facility to gain his strength back. As per the family is not coming out of the bed for the last several days. Pain scale at the time of examination 4 x 10. He is requiring Dilaudid and p.o. Percocet on as-needed basis. 01/[id number]-tuid-old male admitted for severe back pain intractable back pain recently found to have L3 compression fracture he still in severe pain he has difficulty in getting out of the bed ambulating PT consult OT consult was requested states she cannot take care of him at home right now they prefer him to go to a rehab facility for further management once he got his strength back plan is to go home from there. No acute events in the last 24 hours. Patient is afebrile. Reason For Visit: 13 COMPRESSION FRACTURE AND PSOAS MUSCLE HEMATOMA Physical Exam Vital Signs: Temp Pulse Resp BP Pulse Ox 97.7 F 107 H 18 114/89 H 95 01/14/19 07:48 01/14/19 07:48 01/14/19 07:48 01/14/19 07:48 01/14/19 07:48 Intake & Output 01/13/19 01/14/19 01/15/19 06:59 06:59 06:59 Intake Total 240 1570 Output Total 200 1390 Balance 40 180 Weight 111.9 kg 112.2 kg General appearance: PRESENT: mild distress, well-developed Head exam: PRESENT: atraumatic Eye exam: PRESENT: PERRLA Mouth exam: PRESENT: moist, tongue midline Neck exam: ABSENT: carotid bruit, JVD, lymphadenopathy, thyromegaly Respiratory exam: PRESENT: decreased breath sounds Cardiovascular exam: PRESENT: irregular rhythm, systolic murmur, tachycardia GI/Abdominal exam: PRESENT: normal bowel sounds, soft. ABSENT: distended, guarding, mass, organolmegaly, rebound, tenderness Rectal exam: PRESENT: deferred Extremities exam: PRESENT: full ROM. ABSENT: calf tenderness, clubbing, pedal edema Neurological exam: PRESENT: alert, awake, oriented to person, oriented to place, oriented to time, oriented to situation, CN II-XII grossly intact. ABSENT: motor sensory deficit Psychiatric exam: PRESENT: appropriate affect, normal mood. ABSENT: homicidal ideation, suicidal ideation Results Laboratory Results: 01/14/19 05:00 01/14/19 05:00 01/14/19 01/14/19 05:00 05:00 WBC 8.1 RBC 4.42 Hgb 12.0 L Hct 36.3 L MCV 82 MCH 27.0 MCHC 32.9 RDW 15.5 H Plt Count 231 Seg Neutrophils % 69.4 Lymphocytes % 16.0 Monocytes % 10.4 Eosinophils % 3.7 Basophils % 0.5 Absolute Neutrophils 5.6 Absolute Lymphocytes 1.3 Absolute Monocytes 0.8 Absolute Eosinophils 0.3 Absolute Basophils 0.0 Sodium 135.6 L Potassium 4.9 Chloride 99 Carbon Dioxide 26 Anion Gap 11 BUN 35 H Creatinine 1.51 H Est GFR ( Amer) 54 L Est GFR (Non-Af Amer) 44 L Glucose 180 H Calcium 8.7 Magnesium 2.3 Total Bilirubin 0.6 AST 25 ALT 16 L Alkaline Phosphatase 128 H Total Protein 5.7 L Albumin 3.0 L Impressions: Abdomen/Pelvis CT 01/12/19 07:21 IMPRESSION: 1. There are low attenuated areas within the right lower lobe pulmonary artery segmental-subsegmental branches, suggesting emboli. The patient has a known history of pulmonary emboli. 2. Acute-subacute compression fracture involving the L3 vertebra, this finding likely correlates to the plain film lumbar spine study dated 01/05/2019. No evidence of retropulsion into the spinal canal. The right psoas muscle is larger in size than the left and is slightly heterogenous in appearance. These findings raise the question of possible right psoas muscle hematoma. Correlation suggested and additional imaging(MRI and or CT Lumbar spine) may be helpful if clinically indicated. 3. Bilateral renal cysts, a few have CT numbers slightly above water range, may represent complex cysts. Correlation with renal ultrasound. 4. 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 5. Additional findings, please see above. Assessment and Plan - Diagnosis (1) Compression fracture of L3 vertebra Qualifiers: Encounter type: initial encounter Fracture type: closed Qualified Co de(s): S32.030A - Wedge compression fracture of third lumbar vertebra, initial encounter for closed fracture Is this a current diagnosis for this admission?: Yes Plan: The patient was diagnosed with an L3 compression fracture on January 05. He is now having pain radiating into the right groin. He is likely having nerve compression from the compression fracture versus psoas muscle swelling from the hematoma. He already has an appointment with his orthopedist next week. Unfortunately he has a loop recorder in place and so he would not be a candidate for an MRI study. For now we will use oral and IV pain medications. I ant dominic discharged home with pain management until he sees his orthopedist. 01/13/2019-patient is admitted with L3 comPRESSION fracture and severe pain. Pain is radiating down the right groin. CT scan also found to have psoas muscle bleed. INR is 3.15. Will check PT/INR tomorrow. to Continue IV Dilaudid and p.o. Percocet. Physical therapy consult was done the recommendation is patient may need to go to a rehab facility. admission status was changed from observation to inpatient. 01/[id number]-qgwy-old male with multiple medical problems admitted for L3 compression fracture associated with severe pain. He followed up with pain management as an outpatient the recommendation is conservative management. Patient has pain scale 5/10 today, difficulty in getting out of the bed and maintaining his balance and inability to walk. PT OT consult was requested social services coordinator consult was requested for placement. (2) Diabetic neuropathy associated with type 2 diabetes mellitus Qualifiers: Diabetes mellitus complication detail: diabetic polyneuropathy Qualified Code(s): E11.42 - Type 2 diabetes mellitus with diabetic polyneuropathy Is this a current diagnosis for this admission?: Yes Plan: Continue gabapentin at this time. 01/13/2019-patient's latest blood sugar is 177. Patient has type 2 diabetes mellitus. On insulin sliding scale. For diabetic neuropathy is receiving gabapentin. Still complaining of pain in both lower legs. 01/14/2019-patient latest blood sugar is 171. History of type 2 diabetes mellitus. He is on insulin sliding scale before meals and at bedtime. Receiving gabapentin for diabetic peripheral neuropathy. 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 He most recently was diagnosed December 25 with another PE. This makes 6 episodes. His INR was supratherapeutic and we will hold his warfarin because of the hematoma. He did have a CT scan with contrast yesterday and so a repeat this morning would be hard on the kidneys. We will watch his hemoglobin to see if in fact there is increased loss from hematoma formation. 01/13/2019-patient's INR is 3.35 and admission found to have so he has muscle bleed repeat INR today is 3.15 to hold Coumadin for tonight and recheck PT/INR tomorrow. hemoGlobin is stable around 13. 01/14/2019-patient admitted with soleus muscle hematoma. Acute blood loss anemia is unlikely. Hemoglobin today is 12. INR today is 3.03. Coumadin is on hold. TO Check PT/INR tomorrow again. (4) Intractable pain Is this a current diagnosis for this admission?: Yes Plan: This is more likely from the compression fracture although the combination of the psoas muscle hematoma and compression fracture with radiating pain are both considerable etiologies. Pain management as above. I will refrain from a pain management consultation at this point as he is scheduled to see his orthopedist. 01/13/2019-patient is severe pain pain scale according to him is 4 to 6 x 10 now most likely secondary to C3 compression fracture as well as muscle bleed he is also complaining of radiation of the pain in to the rt groin. 01/14/2019-patient has intractable pain is receiving IV Dilaudid and p.o. Percocet on as-needed basis pain scale this morning is 4 - 5 / 10. Worsening pain with mobility. Patient benefits from placement in rehab. (5) Atrial fibrillation Qualifiers: Atrial fibrillation type: chronic Qualified Code(s): I48.2 - Chronic atrial fibrillation Is this a current diagnosis for this admission?: No Plan: 01/13/2019-patient has history of atrial fibrillation on Coumadin which was on hold INR today is 3.15 to recheck PT/INR tomorrow. 01/14/2019-patient has history of atrial fibrillation on Coumadin. INR today is 3.03. To hold Coumadin for today and to recheck PT/INR tomorrow. If the INR is between 2-3 plan is to restart on Coumadin. (6) History of pulmonary embolism Is this a current diagnosis for this admission?: Yes (7) Obesity (BMI 30.0-34.9) Is this a current diagnosis for this admission?: No Plan: 01/14/2019-patient BMI is more than 33. Diet exercise weight loss discussed with the patient. Dietary consult was requested. - Time Time Spent with patient: 15-24 minutes Medications reviewed and adjusted accordingly: Yes Anticipated discharge: SNF
[2019-01-14] MEDS: INSULIN GLARGINE,HUM.REC.ANLOG 1,000 UNIT/10 ML VIAL SUBCUT SCH (17:10)
[2019-01-15] MEDS: GABAPENTIN 300 MG CAPSULE PO SCH ×3 (05:18→17:15)
[2019-01-15] MEDS: PANTOPRAZOLE SODIUM 40 MG TABLET.DR PO SCH (05:18)
[2019-01-15 05:33] LABS: ABSOLUTE EOSINOPHILS # (AUTO) 0.4 10^3/uL (0.0-0.6); ABSOLUTE LYMPHOCYTES (AUTO) 0.7 10^3/uL (0.5-4.7); ABSOLUTE MONOCYTES (AUTO) 0.8 10^3/uL (0.1-1.4); ABSOLUTE NEUT (AUTO) 6.1 10^3/uL (1.7-8.2); BASOPHILS % (AUTO) 0.4 % (0-2); EOSINOPHILS % (AUTO) 4.7 % (0-6); HEMATOCRIT 37.6 % (37.9-51.0); HEMOGLOBIN 12.2 g/dL (13.5-17.0); LYMPHOCYTES % (AUTO) 8.9 % (13-45); MEAN CORPUSCULAR HEMOGLOBIN 26.9 pg (27.0-33.4); MEAN CORPUSCULAR HGB CONC 32.5 g/dL (32.0-36.0); MEAN CORPUSCULAR VOLUME 83 fl (80-97); MONOCYTES % (AUTO) 10.3 % (3-13); PLATELET COUNT 249 10^3/uL (150-450); RED BLOOD COUNT 4.54 10^6/uL (4.35-5.55); RED CELL DISTRIBUTION WIDTH 15.4 % (11.5-14.0); SEGMENTED NEUTROPHILS % (AUTO) 75.7 % (42-78); TOTAL CELLS COUNTED % (AUTO) 100 %; WHITE BLOOD COUNT 8.1 10^3/uL (4.0-10.5)
[2019-01-15 05:45] LABS: INTERNATIONAL RATION (INR) 1.65; PROTHROMBIN TIME 20.3 SEC (11.4-15.4)
[2019-01-15 05:53] LABS: ALANINE AMINOTRANSFERASE 22 U/L (21-72); ALBUMIN 3.3 g/dL (3.5-5.0); ALKALINE PHOSPHATASE 163 U/L (38-126); ANION GAP 9 (5-19); ASPARTATE AMINO TRANSFERASE 24 U/L (17-59); BILIRUBIN,DIRECT 0.4 mg/dL (0.0-0.4); BILIRUBIN,TOTAL 0.6 mg/dL (0.2-1.3); BLOOD UREA NITROGEN 39 mg/dL (7-20); CALCIUM 8.9 mg/dL (8.4-10.2); CARBON DIOXIDE 27 mmol/L (22-30); CHLORIDE 99 mmol/L (98-107); GLUCOSE 202 mg/dL (75-110); POTASSIUM 5.3 mmol/L (3.6-5.0); SODIUM 134.6 mmol/L (137-145); TOTAL PROTEIN 6.1 g/dL (6.3-8.2)
[2019-01-15] MEDS ORDERED: (PENDING PHARMACY ID) (Exenatide Microspheres [Bydureon Pen] 2 MG) SQ SCH (08:05)
[2019-01-15] MEDS: TAMSULOSIN HCL 0.4 MG CAP.SR.24H PO SCH (08:29)
[2019-01-15] MEDS: OXYCODONE-ACETAMINOPHEN 5-325 MG TABLET PO PRN ×3 (08:29→21:21)
[2019-01-15] MEDS: SUCRALFATE 1 GM TABLET PO SCH ×4 (08:30→21:21)
[2019-01-15] MEDS: INSULIN GLARGINE,HUM.REC.ANLOG 1,000 UNIT/10 ML VIAL SUBCUT SCH ×2 (08:30→17:15)
[2019-01-15] MEDS: INSULIN REG, HUMAN 100 UNIT/ML 3 ML VIAL (PYX) SUBCUT SCH ×4 (08:31→22:56)
[2019-01-15] MEDS: INSULIN LISPRO 100 UNIT/ML 3 ML VIAL SUBCUT SCH ×3 (08:31→16:46)
[2019-01-15] MEDS: ESCITALOPRAM OXALATE 10 MG TABLET PO SCH (10:29)
[2019-01-15] MEDS: MAGNESIUM OXIDE 400 MG TABLET PO SCH (10:29)
[2019-01-15] MEDS: HYDROMORPHONE HCL INJ/PF 2 MG/ML AMPULE IV PRN ×2 (10:29→22:59)
[2019-01-15] MEDS: FINASTERIDE 5 MG TABLET PO SCH (10:29)
[2019-01-15] MEDS: DOCUSATE SODIUM 100 MG CAPSULE PO SCH ×2 (10:29→17:15)
[2019-01-15] MEDS: CYANOCOBALAMIN (VITAMIN B-12) 1,000 MCG TABLET PO SCH (10:29)
[2019-01-15] MEDS ORDERED: SODIUM POLYSTYRENE SULFONATE 15 GM/60 ML PO ONE (12:00)
[2019-01-16] MEDS: GABAPENTIN 300 MG CAPSULE PO SCH ×5 (00:29→23:05)
[2019-01-16 05:08] LABS: HEMATOCRIT 35.2 % (37.9-51.0); HEMOGLOBIN 11.4 g/dL (13.5-17.0); MEAN CORPUSCULAR HEMOGLOBIN 26.8 pg (27.0-33.4); MEAN CORPUSCULAR HGB CONC 32.5 g/dL (32.0-36.0); MEAN CORPUSCULAR VOLUME 82 fl (80-97); PLATELET COUNT 240 10^3/uL (150-450); RED BLOOD COUNT 4.28 10^6/uL (4.35-5.55); RED CELL DISTRIBUTION WIDTH 15.4 % (11.5-14.0); WHITE BLOOD COUNT 7.5 10^3/uL (4.0-10.5)
[2019-01-16 05:28] LABS: ALANINE AMINOTRANSFERASE 17 U/L (21-72); ALKALINE PHOSPHATASE 157 U/L (38-126); ANION GAP 9 (5-19); ASPARTATE AMINO TRANSFERASE 20 U/L (17-59); BILIRUBIN,DIRECT 0.3 mg/dL (0.0-0.4); BILIRUBIN,TOTAL 0.6 mg/dL (0.2-1.3); BLOOD UREA NITROGEN 40 mg/dL (7-20); CALCIUM 8.4 mg/dL (8.4-10.2); CARBON DIOXIDE 29 mmol/L (22-30); CHLORIDE 100 mmol/L (98-107); GLUCOSE 162 mg/dL (75-110); POTASSIUM 4.4 mmol/L (3.6-5.0); SODIUM 138.3 mmol/L (137-145); TOTAL PROTEIN 5.7 g/dL (6.3-8.2)
[2019-01-16] MEDS: PANTOPRAZOLE SODIUM 40 MG TABLET.DR PO SCH (05:46)
[2019-01-16] MEDS: OXYCODONE-ACETAMINOPHEN 5-325 MG TABLET PO PRN ×2 (05:46→23:05)
[2019-01-16 06:16] LABS: ABSOLUTE MONOCYTES # (MANUAL) 0.3 10^3/uL (0.1-1.4); ABSOLUTE NEUTROPHILS# (MANUAL) 5.7 10^3/uL (1.7-8.2); BASOPHILS % (MANUAL) 0 % (0-2); EOSINOPHILS % (MANUAL) 7 % (0-6); LYMPHOCYTES % (MANUAL) 13 % (13-45); MONOCYTES % (MANUAL) 4 % (3-13); SEGMENTED NEUTROPHILS % (MAN) 76 % (42-78); TOTAL CELLS COUNTED 100
[2019-01-16 06:17] LABS: ANISOCYTOSIS 1+; POIKILOCYTOSIS 1+; TOXIC GRANULATION SLIGHT
[2019-01-16 06:18] LABS: OVALOCYTES 1+; PLATELET COMMENT ADEQUATE; TEAR DROP CELLS SLIGHT
[2019-01-16] MEDS: INSULIN REG, HUMAN 100 UNIT/ML 3 ML VIAL (PYX) SUBCUT SCH ×4 (08:03→23:07)
[2019-01-16] MEDS: INSULIN LISPRO 100 UNIT/ML 3 ML VIAL SUBCUT SCH ×3 (08:59→17:04)
[2019-01-16] MEDS: CYANOCOBALAMIN (VITAMIN B-12) 1,000 MCG TABLET PO SCH (09:05)
[2019-01-16] MEDS: DOCUSATE SODIUM 100 MG CAPSULE PO SCH ×2 (09:05→17:10)
[2019-01-16] MEDS: ESCITALOPRAM OXALATE 10 MG TABLET PO SCH (09:05)
[2019-01-16] MEDS: FINASTERIDE 5 MG TABLET PO SCH (09:06)
[2019-01-16] MEDS: MAGNESIUM OXIDE 400 MG TABLET PO SCH (09:06)
[2019-01-16] MEDS: SUCRALFATE 1 GM TABLET PO SCH ×4 (09:06→23:05)
[2019-01-16] MEDS: INSULIN GLARGINE,HUM.REC.ANLOG 1,000 UNIT/10 ML VIAL SUBCUT SCH ×2 (09:06→18:13)
[2019-01-16] MEDS: TAMSULOSIN HCL 0.4 MG CAP.SR.24H PO SCH (09:06)
[2019-01-16] MEDS: HYDROMORPHONE HCL INJ/PF 2 MG/ML AMPULE IV PRN (10:41)
--- NOTE | 2019-01-16 11:45 | PDOC PROGRESS REPORT ---
Subjective Progress Note for:: 01/16/19 Subjective:: 83-year-old male with multiple medical problems including atrial fibrillation, pulmonary embolism, back surgeries admitted for excruciating pain secondary to a L3 compression fracture and so he has muscle bleed. INR is 3.35 the time of admission Coumadin on hold. Repeat PT/INR this morning is 3.15. Patient is still complaining of severe pain. He has difficulty coming out of the bed. Physical therapy done the recommendation is patient may need to go to a rehab facility to gain his strength back. As per the family is not coming out of the bed for the last several days. Pain scale at the time of examination 4 x 10. He is requiring Dilaudid and p.o. Percocet on as-needed basis. 01/14/[id number]-xayr-old male admitted for severe back pain intractable back pain recently found to have L3 compression fracture he still in severe pain he has difficulty in getting out of the bed ambulating PT consult OT consult was requested states she cannot take care of him at home right now they prefer him to go to a rehab facility for further management once he got his strength back plan is to go home from there. No acute events in the last 24 hours. Patient is afebrile. 01/16/2019-patient is comfortably in the bed eating sandwich. No complaints. Patient is waiting for placement. Reason For Visit: 13 COMPRESSION FRACTURE AND PSOAS MUSCLE HEMATOMA Physical Exam Vital Signs: Temp Pulse Resp BP Pulse Ox 98.1 F 89 18 131/68 H 93 01/16/19 08:56 01/16/19 08:56 01/16/19 08:56 01/16/19 08:56 01/16/19 08:56 Intake & Output 01/15/19 01/16/19 01/17/19 06:59 06:59 06:59 Intake Total 753 909 Output Total 550 200 Balance 203 709 Weight 113.2 kg 113.6 kg General appearance: PRESENT: no acute distress, obese Head exam: PRESENT: atraumatic Eye exam: PRESENT: PERRLA Teeth exam: PRESENT: poor dentation Neck exam: ABSENT: carotid bruit, JVD, lymphadenopathy, thyromegaly Respiratory exam: PRESENT: decreased breath sounds Cardiovascular exam: PRESENT: irregular rhythm, systolic murmur, tachycardia GI/Abdominal exam: PRESENT: normal bowel sounds, soft. ABSENT: distended, guarding, mass, organolmegaly, rebound, tenderness Rectal exam: PRESENT: deferred Extremities exam: PRESENT: full ROM. ABSENT: calf tenderness, clubbing, pedal edema Neurological exam: PRESENT: alert, awake, oriented to person, oriented to place, oriented to time, oriented to situation, CN II-XII grossly intact. ABSENT: motor sensory deficit Psychiatric exam: PRESENT: appropriate affect, normal mood. ABSENT: homicidal ideation, suicidal ideation Results Laboratory Results: 01/16/19 04:03 01/16/19 04:03 01/16/19 01/16/19 04:03 04:03 WBC 7.5 RBC 4.28 L Hgb 11.4 L Hct 35.2 L MCV 82 MCH 26.8 L MCHC 32.5 RDW 15.4 H Plt Count 240 Seg Neutrophils % Not Reportable Lymphocytes % Not Reportable Monocytes % Not Reportable Eosinophils % Not Reportable Basophils % Not Reportable Absolute Neutrophils Not Reportable Absolute Lymphocytes Not Reportable Absolute Monocytes Not Reportable Absolute Eosinophils Not Reportable Absolute Basophils Not Reportable Sodium 138.3 Potassium 4.4 Chloride 100 Carbon Dioxide 29 Anion Gap 9 BUN 40 H Creatinine 1.61 H Est GFR ( Amer) 50 L Est GFR (Non-Af Amer) 41 L Glucose 162 H Calcium 8.4 Magnesium 2.6 H Total Bilirubin 0.6 AST 20 ALT 17 L Alkaline Phosphatase 157 H Total Protein 5.7 L Albumin 3.0 L Impressions: Abdomen/Pelvis CT 01/12/19 07:21 IMPRESSION: 1. There are low attenuated areas within the right lower lobe pulmonary artery segmental-subsegmental branches, suggesting emboli. The patient has a known history of pulmonary emboli. 2. Acute-subacute compression fracture involving the L3 vertebra, this finding likely correlates to the plain film lumbar spine study dated 01/05/2019. No evidence of retropulsion into the spinal canal. The right psoas muscle is larger in size than the left and is slightly heterogenous in appearance. These findings raise the question of possible right psoas muscle hematoma. Correlation suggested and additional imaging(MRI and or CT Lumbar spine) may be helpful if clinically indicated. 3. Bilateral renal cysts, a few have CT numbers slightly above water range, may represent complex cysts. Correlation with renal ultrasound. 4. 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 5. Additional findings, please see above. Assessment and Plan - Diagnosis (1) Compression fracture of L3 vertebra Qualifiers: Encounter type: initial encounter Qualified Code(s): S32.030A - Wedge compr ession fracture of third lumbar vertebra, initial encounter for closed fracture Is this a current diagnosis for this admission?: Yes Plan: The patient was diagnosed with an L3 compression fracture on January 05. He is now having pain radiating into the right groin. He is likely having nerve compression from the compression fracture versus psoas muscle swelling from the hematoma. He already has an appointment with his orthopedist next week. Unfortunately he has a loop recorder in place and so he would not be a candidate for an MRI study. For now we will use oral and IV pain medications. I anticipate discharged home with pain management until he sees his orthopedist. 01/13/2019-patient is admitted with L3 comPRESSION fracture and severe pain. Pain is radiating down the right groin. CT scan also found to have psoas muscle bleed. INR is 3.15. Will check PT/INR tomorrow. to Continue IV Dilaudid and p.o. Percocet. Physical therapy consult was done the recommendation is patient may need to go to a rehab facility. admission status was changed from observation to inpatient. 01/14/[id number]-pbxt-old male with multiple medical problems admitted for L3 compression fracture associated with severe pain. He followed up with pain management as an outpatient the recommendation is conservative management. Patient has pain scale 5/10 today, difficulty in getting out of the bed and maintaining his balance and inability to walk. PT OT consult was requested social director consult was requested for placement. 01/16/[id number]-asqa-old male admitted with L3 compression fracture and severe intractable pain. PT consult OT consult was requested consult supply planner was placed waiting for placement. Pain is relatively controlled. (2) Diabetic neuropathy associated with type 2 diabetes mellitus Qualifiers: Diabetes mellitus complication detail: diabetic polyneuropathy Qualified Code(s): E11.42 - Type 2 diabetes mellitus with diabetic polyneuropathy Is this a current diagnosis for this admission?: Yes Plan: Continue gabapentin at this time. 01/13/2019-patient's latest blood sugar is 177. Patient has type 2 diabetes mellitus. On insulin sliding scale. For diabetic neuropathy is receiving salina pentin. Still complaining of pain in both lower legs. 01/14/2019-patient latest blood sugar is 171. History of type 2 diabetes mellitus. He is on insulin sliding scale before meals and at bedtime. Receiving gabapentin for diabetic peripheral neuropathy. 01/16/2019-patient blood sugar today is 139. Stable. Presently on insulin sliding scale. Patient is receiving gabapentin for peripheral neuropathy. 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 He most recently was diagnosed December 25 with another PE. This makes 6 episodes. His INR was supratherapeutic and we will hold his warfarin because of the hematoma. He did have a CT scan with contrast yesterday and so a repeat this morning would be hard on the kidneys. We will watch his hemoglobin to see if in fact there is increased loss from hematoma formation. 01/13/2019-patient's INR is 3.35 and admission found to have so he has muscle bleed repeat INR today is 3.15 to hold Coumadin for tonight and recheck PT/INR tomorrow. hemoGlobin is stable around 13. 01/14/2019-patient admitted with psoas muscle hematoma. Acute blood loss anemia is unlikely. Hemoglobin today is 12. INR today is 3.03. Coumadin is on hold. TO Check PT/INR tomorrow again. 01/15/2019-patient admitted with the sciatic muscle hematoma. Hemoglobin is around 11.4. Stable. INR yesterday is 1.65. Plan to restart on Coumadin from today. (4) Intractable pain Is this a current diagnosis for this admission?: Yes Plan: This is more likely from the compression fracture although the combination of the psoas muscle hematoma and compression fracture with radiating pain are both considerable etiologies. Pain management as above. I will refrain from a pain management consultation at this point as he is scheduled to see his orthopedist. 01/13/2019-patient is severe pain pain scale according to him is 4 to 6 x 10 now most likely secondary to C3 compression fracture as well as muscle bleed he is also complaining of radiation of the pain in to the rt groin. 01/14/2019-patient has intractable pain is receiving IV Dilaudid and p.o. Percocet on as-needed basis pain scale this morning is 4 - 5 / 10. Worsening pain with mobility. Patient benefits from placement in rehab. 01/16/2019-patient is admitted with intractable pain he is receiving as needed IV Dilaudid and p.o. Percocet as needed basis. Plan is to continue the present management. (5) Atrial fibrillation Qualifiers: Atrial fibrillation type: chronic Qualified Code(s): I48.2 - Chronic atrial fibrillation Is this a current diagnosis for this admission?: No Plan: 01/13/2019-patient has history of atrial fibrillation on Coumadin which was on hold INR today is 3.15 to recheck PT/INR tomorrow. 01/14/2019-patient has history of atrial fibrillation on Coumadin. INR today is 3.03. To hold Coumadin for today and to recheck PT/INR tomorrow. If the INR is between 2-3 plan is to restart on Coumadin. 01/16/2019-patient has history of atrial fibrillation on Coumadin INR yesterday is 1.65. Patient is also admitted with psoas muscle hematoma. Plan is to restart on Coumadin at a lower dose. (6) History of pulmonary embolism Is this a current diagnosis for this admission?: Yes Plan: He has been worked up for his hypercoagulable state. I did explain that we need to hold the warfarin at least until we are confident there is no more bleeding into the psoas muscle. This should be a few days. We will check an INR as well. 01/13/2019-patient is given the history of a has 6 pulmonary embolisms before. INR is 3.15 which is going to be hold today to recheck check PT/INR tomorrow. 01/16/2019-patient has history of pulmonary embolism. INR is 1.65. Plan to restart on Coumadin today. To check PT/INR on daily basis. (7) Obesity (BMI 30.0-34.9) Is this a current diagnosis for this admission?: No - Time Time Spent with patient: 25-34 minutes Medications reviewed and adjusted accordingly: Yes Anticipated discharge: SNF
[2019-01-16] MEDS: NORMAL SALINE 1000 ML 1,000 ML IV PRN (11:55)
--- NOTE | 2019-01-16 12:32 | PDOC PROGRESS REPORT ---
Subjective Progress Note for:: 01/15/19 Subjective:: 83-year-old male with multiple medical problems including atrial fibrillation, pulmonary embolism, back surgeries admitted for excruciating pain secondary to a L3 compression fracture and so he has muscle bleed. INR is 3.35 the time of admission Coumadin on hold. Repeat PT/INR this morning is 3.15. Patient is still complaining of severe pain. He has difficulty coming out of the bed. Physical therapy done the recommendation is patient may need to go to a rehab facility to gain his strength back. As per the family is not coming out of the bed for the last several days. Pain scale at the time of examination 4 x 10. He is requiring Dilaudid and p.o. Percocet on as-needed basis. 01/14/[id number]-zxdb-old male admitted for severe back pain intractable back pain recently found to have L3 compression fracture he still in severe pain he has difficulty in getting out of the bed ambulating PT consult OT consult was requested states she cannot take care of him at home right now they prefer him to go to a rehab facility for further management once he got his strength back plan is to go home from there. No acute events in the last 24 hours. Patient is afebrile. 01/15/2019-patient is comfortably in the bed, not in distress, doing well. Reason For Visit: 13 COMPRESSION FRACTURE AND PSOAS MUSCLE HEMATOMA Physical Exam Vital Signs: Temp Pulse Resp BP Pulse Ox 98.1 F 89 18 131/68 H 93 01/16/19 08:56 01/16/19 08:56 01/16/19 08:56 01/16/19 08:56 01/16/19 08:56 Intake & Output 01/15/19 01/16/19 01/17/19 06:59 06:59 06:59 Intake Total 753 909 Output Total 550 200 Balance 203 709 Weight 113.2 kg 113.6 kg General appearance: PRESENT: no acute distress Head exam: PRESENT: atraumatic Eye exam: PRESENT: PERRLA Mouth exam: PRESENT: moist, tongue midline Neck exam: ABSENT: carotid bruit, JVD, lymphadenopathy, thyromegaly Respiratory exam: PRESENT: clear to auscultation dionisio. ABSENT: rales, rhonchi, wheezes Cardiovascular exam: PRESENT: RRR. ABSENT: diastolic murmur, rubs, systolic murmur GI/Abdominal exam: PRESENT: normal bowel sounds, soft. ABSENT: distended, guarding, mass, organolmegaly, rebound, tenderness Rectal exam: PRESENT: deferred Neurological exam: PRESENT: alert, awake, oriented to person, oriented to place, oriented to time, oriented to situation, CN II-XII grossly intact. ABSENT: motor sensory deficit Psychiatric exam: PRESENT: appropriate affect, normal mood. ABSENT: homicidal ideation, suicidal ideation Results Laboratory Results: 01/16/19 04:03 01/16/19 04:03 01/16/19 01/16/19 04:03 04:03 WBC 7.5 RBC 4.28 L Hgb 11.4 L Hct 35.2 L MCV 82 MCH 26.8 L MCHC 32.5 RDW 15.4 H Plt Count 240 Seg Neutrophils % Not Reportable Lymphocytes % Not Reportable Monocytes % Not Reportable Eosinophils % Not Reportable Basophils % Not Reportable Absolute Neutrophils Not Reportable Absolute Lymphocytes Not Reportable Absolute Monocytes Not Reportable Absolute Eosinophils Not Reportable Absolute Basophils Not Reportable Sodium 138.3 Potassium 4.4 Chloride 100 Carbon Dioxide 29 Anion Gap 9 BUN 40 H Creatinine 1.61 H Est GFR ( Amer) 50 L Est GFR (Non-Af Amer) 41 L Glucose 162 H Calcium 8.4 Magnesium 2.6 H Total Bilirubin 0.6 AST 20 ALT 17 L Alkaline Phosphatase 157 H Total Protein 5.7 L Albumin 3.0 L Impressions: Abdomen/Pelvis CT 01/12/19 07:21 IMPRESSION: 1. There are low attenuated areas within the right lower lobe pulmonary artery segmental-subsegmental branches, suggesting emboli. The patient has a known history of pulmonary emboli. 2. Acute-subacute compression fracture involving the L3 vertebra, this finding likely correlates to the plain film lumbar spine study dated 01/05/2019. No evidence of retropulsion into the spinal canal. The right psoas muscle is larger in size than the left and is slightly heterogenous in appearance. These findings raise the question of possible right psoas muscle hematoma. Correlation suggested and additional imaging(MRI and or CT Lumbar spine) may be helpful if clinically indicated. 3. Bilateral renal cysts, a few have CT numbers slightly above water range, may represent complex cysts. Correlation with renal ultrasound. 4. 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 5. Additional findings, please see above. Assessment and Plan - Diagnosis (1) Compression fracture of L3 vertebra Qualifiers: Encounter type: initial encounter Qualified Code(s): S32.030A - Wedge compression fracture of third lumbar vertebra, initial encounter for closed fracture Is this a current diagnosis for this admission?: Yes Plan: The patient was diagnosed with an L3 compression fracture on January 05. He is now having pain radiating into the right groin. He is likely having nerve compression from the compression fracture versus psoas muscle swelling from the hematoma. He already has an appointment with his orthopedist next week. Un fortunately he has a loop recorder in place and so he would not be a candidate for an MRI study. For now we will use oral and IV pain medications. I anticipate discharged home with pain management until he sees his orthopedist. 01/13/2019-patient is admitted with L3 comPRESSION fracture and severe pain. Pain is radiating down the right groin. CT scan also found to have psoas muscle bleed. INR is 3.15. Will check PT/INR tomorrow. to Continue IV Dilaudid and p.o. Percocet. Physical therapy consult was done the recommendation is patient may need to go to a rehab facility. admission status was changed from observation to inpatient. 01/14/[id number]-tcog-old male with multiple medical problems admitted for L3 compression fracture associated with severe pain. He followed up with pain management as an outpatient the recommendation is conservative management. Patient has pain scale 5/10 today, difficulty in getting out of the bed and maintaining his balance and inability to walk. PT OT consult was requested transition social worker consult was requested for placement. 01/15/[id number]-znsa-old male admitted with L3 compression fracture and severe intractable pain. Pain is better controlled. Patient is waiting for placement. (2) Diabetic neuropathy associated with type 2 diabetes mellitus Qualifiers: Diabetes mellitus complication detail: diabetic polyneuropathy Qualified Code(s): E11.42 - Type 2 diabetes mellitus with diabetic polyneuropathy Is this a current diagnosis for this admission?: Yes Plan: Continue gabapentin at this time. 01/13/2019-patient's latest blood sugar is 177. Patient has type 2 diabetes mellitus. On insulin sliding scale. For diabetic neuropathy is receiving gabapentin. Still complaining of pain in both lower legs. 01/14/2019-patient latest blood sugar is 171. History of type 2 diabetes mellitus. He is on insulin sliding scale before meals and at bedtime. Receiving gabapentin for diabetic peripheral neuropathy. 01/15/2019-patient blood sugar today is 110. Stable. Plan is to continue the present management. 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 He most recently was diagnosed December 25 with another PE. This makes 6 episodes. His INR was supratherapeutic and we will hold his warfarin because of the hematoma. He did have a CT scan with contrast yesterday and so a repeat this morning would be hard on the kidneys. We will watch his hemoglobin to see if in fact there is increased loss from hematoma formation. 01/13/2019-patient's INR is 3.35 and admission found to have so he has muscle bleed repeat INR today is 3.15 to hold Coumadin for tonight and recheck PT/INR tomorrow. hemoGlobin is stable around 13. 01/14/2019-patient admitted with psoas muscle hematoma. Acute blood loss anemia is unlikely. Hemoglobin today is 12. INR today is 3.03. Coumadin is on hold. TO Check PT/INR tomorrow again. 01/15/2019-patient admitted with the psoa muscle hematoma. Hemoglobin is around 11.4. Stable. INR 1.65. To check PT/INR tomorrow. Hemoglobin. (4) Intractable pain Is this a current diagnosis for this admission?: Yes Plan: This is more likely from the compression fracture although the combination of the psoas muscle hematoma and compression fracture with radiating pain are both considerable etiologies. Pain management as above. I will refrain from a pain management consultation at this point as he is scheduled to see his orthopedist. 01/13/2019-patient is severe pain pain scale according to him is 4 to 6 x 10 now most likely secondary to C3 compression fracture as well as muscle bleed he is also complaining of radiation of the pain in to the rt groin. 01/14/2019-patient has intractable pain is receiving IV Dilaudid and p.o. Percocet on as-needed basis pain scale this morning is 4 - 5 / 10. Worsening pain with mobility. Patient benefits from placement in rehab. 01/15/2019-patient is admitted with intractable pain he is receiving as needed IV Dilaudid and p.o. Percocet as needed basis. Plan is to continue the present management. (5) Atrial fibrillation Qualifiers: Atrial fibrillation type: chronic Qualified Code(s): I48.2 - Chronic atrial fibrillation Is this a current diagnosis for this admission?: No Plan: 01/13/2019-patient has history of atrial fibrillation on Coumadin which was on hold INR today is 3.15 to recheck PT/INR tomorrow. 01/14/2019-patient has history of atrial fibrillation on Coumadin. INR today is 3.03. To hold Coumadin for today and to recheck PT/INR tomorrow. If the INR is between 2-3 plan is to restart on Coumadin. 01/15/2019-patient has history of atrial fibrillation on Coumadin INR is 1.65. Patient is also admitted with psoas muscle hematoma. (6) History of pulmonary embolism Is this a current diagnosis for this admission?: Yes Plan: He has been worked up for his hypercoagulable state. I did explain that we need to hold the warfarin at least until we are confident there is no more bleeding into the psoas muscle. This should be a few days. We will check an INR as well. 01/13/2019-patient is given the history of a has 6 pulmonary embolisms before. I NR is 3.15 which is going to be hold today to recheck check PT/INR tomorrow. 01/15/2019-patient has history of pulmonary embolism. INR is 1.65. Plan to restart on Coumadin am. To check PT/INR on daily basis. (7) Obesity (BMI 30.0-34.9) Is this a current diagnosis for this admission?: No - Time Time Spent with patient: 25-34 minutes Medications reviewed and adjusted accordingly: Yes Anticipated discharge: SNF
[2019-01-16 12:42] LABS: ABSOLUTE BASOPHILS # (AUTO) 0.1 10^3/uL (0.0-0.2); ABSOLUTE EOSINOPHILS # (AUTO) 0.5 10^3/uL (0.0-0.6); ABSOLUTE LYMPHOCYTES (AUTO) 1.1 10^3/uL (0.5-4.7); ABSOLUTE MONOCYTES (AUTO) 0.7 10^3/uL (0.1-1.4); BASOPHILS % (AUTO) 0.9 % (0-2); EOSINOPHILS % (AUTO) 7.9 % (0-6); HEMATOCRIT 36.2 % (37.9-51.0); HEMOGLOBIN 11.7 g/dL (13.5-17.0); LYMPHOCYTES % (AUTO) 17.7 % (13-45); MEAN CORPUSCULAR HEMOGLOBIN 26.7 pg (27.0-33.4); MEAN CORPUSCULAR HGB CONC 32.4 g/dL (32.0-36.0); MEAN CORPUSCULAR VOLUME 83 fl (80-97); MONOCYTES % (AUTO) 10.9 % (3-13); PLATELET COUNT 236 10^3/uL (150-450); RED BLOOD COUNT 4.39 10^6/uL (4.35-5.55); RED CELL DISTRIBUTION WIDTH 15.6 % (11.5-14.0); SEGMENTED NEUTROPHILS % (AUTO) 62.6 % (42-78); TOTAL CELLS COUNTED % (AUTO) 100 %; WHITE BLOOD COUNT 6.3 10^3/uL (4.0-10.5)
[2019-01-16 12:52] LABS: INTERNATIONAL RATION (INR) 1.22
[2019-01-16 13:02] LABS: ALANINE AMINOTRANSFERASE 24 U/L (21-72); ALKALINE PHOSPHATASE 169 U/L (38-126); ANION GAP 12 (5-19); ASPARTATE AMINO TRANSFERASE 18 U/L (17-59); BILIRUBIN,DIRECT 0.3 mg/dL (0.0-0.4); BILIRUBIN,TOTAL 0.7 mg/dL (0.2-1.3); BLOOD UREA NITROGEN 36 mg/dL (7-20); CALCIUM 8.4 mg/dL (8.4-10.2); CARBON DIOXIDE 27 mmol/L (22-30); CHLORIDE 100 mmol/L (98-107); GLUCOSE 224 mg/dL (75-110); POTASSIUM 4.1 mmol/L (3.6-5.0); TOTAL PROTEIN 5.8 g/dL (6.3-8.2)
[2019-01-16] MEDS: WARFARIN SODIUM 4 MG TABLET PO SCH (23:06)
[2019-01-17] MEDS: HYDROMORPHONE HCL INJ/PF 2 MG/ML AMPULE IV PRN ×3 (01:07→18:44)
[2019-01-17] MEDS: NORMAL SALINE 1000 ML 1,000 ML IV PRN ×2 (01:21→17:03)
[2019-01-17 05:01] LABS: ABSOLUTE EOSINOPHILS # (AUTO) 0.4 10^3/uL (0.0-0.6); ABSOLUTE LYMPHOCYTES (AUTO) 1.1 10^3/uL (0.5-4.7); ABSOLUTE MONOCYTES (AUTO) 0.7 10^3/uL (0.1-1.4); ABSOLUTE NEUT (AUTO) 4.5 10^3/uL (1.7-8.2); BASOPHILS % (AUTO) 0.5 % (0-2); HEMATOCRIT 34.2 % (37.9-51.0); HEMOGLOBIN 10.9 g/dL (13.5-17.0); LYMPHOCYTES % (AUTO) 16.3 % (13-45); MEAN CORPUSCULAR HEMOGLOBIN 26.5 pg (27.0-33.4); MEAN CORPUSCULAR HGB CONC 31.9 g/dL (32.0-36.0); MEAN CORPUSCULAR VOLUME 83 fl (80-97); MONOCYTES % (AUTO) 10.6 % (3-13); PLATELET COUNT 240 10^3/uL (150-450); RED BLOOD COUNT 4.12 10^6/uL (4.35-5.55); RED CELL DISTRIBUTION WIDTH 15.6 % (11.5-14.0); SEGMENTED NEUTROPHILS % (AUTO) 66.6 % (42-78); TOTAL CELLS COUNTED % (AUTO) 100 %; WHITE BLOOD COUNT 6.7 10^3/uL (4.0-10.5)
[2019-01-17 05:06] LABS: PROTHROMBIN TIME 14.7 SEC (11.4-15.4)
[2019-01-17] MEDS: OXYCODONE-ACETAMINOPHEN 5-325 MG TABLET PO PRN ×3 (05:19→22:23)
[2019-01-17] MEDS: GABAPENTIN 300 MG CAPSULE PO SCH ×4 (05:19→23:30)
[2019-01-17] MEDS: PANTOPRAZOLE SODIUM 40 MG TABLET.DR PO SCH (05:19)
[2019-01-17 05:32] LABS: ALANINE AMINOTRANSFERASE 18 U/L (21-72); ALBUMIN 2.6 g/dL (3.5-5.0); ALKALINE PHOSPHATASE 149 U/L (38-126); ANION GAP 7 (5-19); ASPARTATE AMINO TRANSFERASE 14 U/L (17-59); BILIRUBIN,DIRECT 0.2 mg/dL (0.0-0.4); BILIRUBIN,TOTAL 0.4 mg/dL (0.2-1.3); BLOOD UREA NITROGEN 40 mg/dL (7-20); CALCIUM 8.2 mg/dL (8.4-10.2); CARBON DIOXIDE 28 mmol/L (22-30); CHLORIDE 102 mmol/L (98-107); GLUCOSE 326 mg/dL (75-110); POTASSIUM 4.8 mmol/L (3.6-5.0); TOTAL PROTEIN 5.2 g/dL (6.3-8.2)
[2019-01-17] MEDS: INSULIN REG, HUMAN 100 UNIT/ML 3 ML VIAL (PYX) SUBCUT SCH ×4 (08:52→22:24)
[2019-01-17] MEDS: INSULIN GLARGINE,HUM.REC.ANLOG 1,000 UNIT/10 ML VIAL SUBCUT SCH ×2 (08:53→18:43)
[2019-01-17] MEDS: SUCRALFATE 1 GM TABLET PO SCH ×4 (08:53→22:24)
[2019-01-17] MEDS: TAMSULOSIN HCL 0.4 MG CAP.SR.24H PO SCH (08:53)
[2019-01-17] MEDS: INSULIN LISPRO 100 UNIT/ML 3 ML VIAL SUBCUT SCH ×3 (09:15→16:43)
[2019-01-17] MEDS: DOCUSATE SODIUM 100 MG CAPSULE PO SCH ×2 (10:46→17:02)
[2019-01-17] MEDS: FINASTERIDE 5 MG TABLET PO SCH (10:46)
[2019-01-17] MEDS: CYANOCOBALAMIN (VITAMIN B-12) 1,000 MCG TABLET PO SCH (10:46)
[2019-01-17] MEDS: ESCITALOPRAM OXALATE 10 MG TABLET PO SCH (10:46)
[2019-01-17] MEDS: MAGNESIUM OXIDE 400 MG TABLET PO SCH (10:50)
--- NOTE | 2019-01-17 13:57 | PDOC PROGRESS REPORT ---
Subjective Progress Note for:: 01/17/19 Subjective:: 83-year-old male with multiple medical problems including atrial fibrillation, pulmonary embolism, back surgeries admitted for excruciating pain secondary to a L3 compression fracture and so he has muscle bleed. INR is 3.35 the time of admission Coumadin on hold. Repeat PT/INR this morning is 3.15. Patient is still complaining of severe pain. He has difficulty coming out of the bed. Physical therapy done the recommendation is patient may need to go to a rehab facility to gain his strength back. As per the family is not coming out of the bed for the last several days. Pain scale at the time of examination 4 x 10. He is requiring Dilaudid and p.o. Percocet on as-needed basis. 01/14/[id number]-uczy-old male admitted for severe back pain intractable back pain recently found to have L3 compression fracture he still in severe pain he has difficulty in getting out of the bed ambulating PT consult OT consult was requested states she cannot take care of him at home right now they prefer him to go to a rehab facility for further management once he got his strength back plan is to go home from there. No acute events in the last 24 hours. Patient is afebrile. 01/15/2019-patient is comfortably in the bed, not in distress, doing well. 01/17/2019-patient is comfortably in the chair communicating well. Complains of occasional groin pain especially in the right side. No other complaints. Reason For Visit: 13 COMPRESSION FRACTURE AND PSOAS MUSCLE HEMATOMA Physical Exam Vital Signs: Temp Pulse Resp BP Pulse Ox 97.5 F 89 18 171/81 H 99 01/17/19 08:57 01/17/19 08:57 01/17/19 08:57 01/17/19 08:57 01/17/19 08:57 Intake & Output 01/16/19 01/17/19 01/18/19 06:59 06:59 06:59 Intake Total 909 1500 Output Total 200 1050 Balance 709 450 Weight 113.6 kg 110 kg General appearance: PRESENT: no acute distress, morbidly obese Head exam: PRESENT: atraumatic Eye exam: PRESENT: PERRLA Neck exam: ABSENT: carotid bruit, JVD, lymphadenopathy, thyromegaly Respiratory exam: PRESENT: decreased breath sounds Cardiovascular exam: PRESENT: RRR. ABSENT: diastolic murmur, rubs, systolic murmur GI/Abdominal exam: PRESENT: normal bowel sounds, other Rectal exam: PRESENT: deferred Extremities exam: PRESENT: full ROM. ABSENT: calf tenderness, clubbing, pedal edema Neurological exam: PRESENT: alert, awake, oriented to person, oriented to place, oriented to time, oriented to situation, CN II-XII grossly intact. ABSENT: motor sensory deficit Psychiatric exam: PRESENT: appropriate affect, normal mood. ABSENT: homicidal ideation, suicidal ideation Results Laboratory Results: 01/17/19 04:26 01/17/19 04:26 01/17/19 01/17/19 04:26 04:26 WBC 6.7 RBC 4.12 L Hgb 10.9 L Hct 34.2 L MCV 83 MCH 26.5 L MCHC 31.9 L RDW 15.6 H Plt Count 240 Seg Neutrophils % 66.6 Lymphocytes % 16.3 Monocytes % 10.6 Eosinophils % 6.0 Basophils % 0.5 Absolute Neutrophils 4.5 Absolute Lymphocytes 1.1 Absolute Monocytes 0.7 Absolute Eosinophils 0.4 Absolute Basophils 0.0 Sodium 137.0 Potassium 4.8 Chloride 102 Carbon Dioxide 28 Anion Gap 7 BUN 40 H Creatinine 1.40 H Est GFR ( Amer) 59 L Est GFR (Non-Af Amer) 48 L Glucose 326 H Calcium 8.2 L Magnesium 2.5 H Total Bilirubin 0.4 AST 14 L ALT 18 L Alkaline Phosphatase 149 H Total Protein 5.2 L Albumin 2.6 L Impressions: Abdomen/Pelvis CT 01/12/19 07:21 IMPRESSION: 1. There are low attenuated areas within the right lower lobe pulmonary artery segmental-subsegmental branches, suggesting emboli. The patient has a known history of pulmonary emboli. 2. Acute-subacute compression fracture involving the L3 vertebra, this finding likely correlates to the plain film lumbar spine study dated 01/05/2019. No evidence of retropulsion into the spinal canal. The right psoas muscle is larger in size than the left and is slightly heterogenous in appearance. These findings raise the question of possible right psoas muscle hematoma. Correlation suggested and additional imaging(MRI and or CT Lumbar spine) may be helpful if clinically indicated. 3. Bilateral renal cysts, a few have CT numbers slightly above water range, may represent complex cysts. Correlation with renal ultrasound. 4. 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 5. Additional findings, please see above. Assessment and Plan - Diagnosis (1) Compression fracture of L3 vertebra Qualifiers: Encounter type: initial encounter Qualified Code(s): S32.030A - Wedge compression fracture of third lumbar vertebra, initial encounter for closed fracture Is this a current diagnosis for this admission?: Yes Plan: The patient was diagnosed with an L3 compression fracture on January 05. He is now having pain radiating into the right groin. He is likely having nerve compression from the compression fracture versus psoas muscle swelling from the hematoma. He already has an appointment with his orthopedist next week. Unfortunately he has a loop recorder in place and so he would not be a candidate for an MRI study. For now we will use oral and IV pain medications. I anticipate discharged home with pain management until he sees his orthopedist. 01/13/2019-patient is admitted with L3 comPRESSION fracture and severe pain. Pain is radiating down the right groin. CT scan also found to have psoas muscle bleed. INR is 3.15. Will check PT/INR tomorrow. to Continue IV Dilaudid and p.o. Percocet. Physical therapy consult was done the recommendation is patient may need to go to a rehab facility. admission status was changed from observation to inpatient. 01/14/[id number]-yzuy-old male with multiple medical problems admitted for L3 compression fracture associated with severe pain. He followed up with pain m anagement as an outpatient the recommendation is conservative management. Patient has pain scale 5/10 today, difficulty in getting out of the bed and maintaining his balance and inability to walk. PT OT consult was requested family welfare social work professor consult was requested for placement. 01/15/[id number]-uijr-old male admitted with L3 compression fracture and severe intractable pain. Pain is better controlled. Patient is waiting for placement. 01/17/2019-patient is admitted with a pre-compression fracture and intractable pain PT OT consult was requested waiting for bed placement. (2) Diabetic neuropathy associated with type 2 diabetes mellitus Qualifiers: Diabetes mellitus complication detail: diabetic polyneuropathy Qualified Code(s): E11.42 - Type 2 diabetes mellitus with diabetic polyneuropathy Is this a current diagnosis for this admission?: Yes Plan: Continue gabapentin at this time. 01/13/2019-patient's latest blood sugar is 177. Patient has type 2 diabetes mellitus. On insulin sliding scale. For diabetic neuropathy is receiving gabapentin. Still complaining of pain in both lower legs. 01/14/2019-patient latest blood sugar is 171. History of type 2 diabetes m jose. He is on insulin sliding scale before meals and at bedtime. Receiving gabapentin for diabetic peripheral neuropathy. 01/15/2019-patient blood sugar today is 110. Stable. Plan is to continue the present management.\ 01/17/2019-patient blood sugar this morning is 290 he is on lot insulin h emoglobin A1c is 11. Presently on Lantus 30 units twice a day and 15 units of AC. dietary consult was requested diet compliant with medications as discussed. 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 He most recently was diagnosed December 25 with another PE. This makes 6 episodes. His INR was supratherapeutic and we will hold his warfarin because of the hematoma. He did have a CT scan with contrast yesterday and so a repeat this morning would be hard on the kidneys. We will watch his hemoglobin to see if in fact there is increased loss from hematoma formation. 01/13/2019-patient's INR is 3.35 and admission found to have so he has muscle bleed repeat INR today is 3.15 to hold Coumadin for tonight and recheck PT/INR tomorrow. hemoGlobin is stable around 13. 01/14/2019-patient admitted with psoas muscle hematoma. Acute blood loss anemia is unlikely. Hemoglobin today is 12. INR today is 3.03. Coumadin is on hold. TO Check PT/INR tomorrow again. 01/15/2019-patient admitted with the psoa muscle hematoma. Hemoglobin is around 11.4. Stable. INR 1.65. To check PT/INR tomorrow. Hemoglobin. 01/17/2019-patient came in with fast muscle hematoma his INR is elevated at the time of admission INR this morning is 1.1. He was restarted on warfarin 4 mg p.o. nightly. (4) Intractable pain Is this a current diagnosis for this admission?: Yes Plan: This is more likely from the compression fracture although the combination of the psoas muscle hematoma and compression fracture with radiating pain are both considerable etiologies. Pain management as above. I will refrain from a pain management consultation at this point as he is scheduled to see his orthopedist. 01/13/2019-patient is severe pain pain scale according to him is 4 to 6 x 10 now most likely secondary to C3 compression fracture as well as muscle bleed he is also complaining of radiation of the pain in to the rt groin. 01/14/2019-patient has intractable pain is receiving IV Dilaudid and p.o. Percocet on as-needed basis pain scale this morning is 4 - 5 / 10. Worsening pain with mobility. Patient benefits from placement in rehab. 01/15/2019-patient is admitted with intractable pain he is receiving as needed IV Dilaudid and p.o. Percocet as needed basis. Plan is to continue the present management. 01/17/2019-patient admitted with intractable pain receiving IV Dilaudid and Percocet as needed basis. This morning is complaining of pain in the right groin area. Other than that he is doing well. (5) Atrial fibrillation Qualifiers: Atrial fibrillation type: chronic Qualified Code(s): I48.2 - Chronic atrial fibrillation Is this a current diagnosis for this admission?: No Plan: 01/13/2019-patient has history of atrial fibrillation on Coumadin which was on hold INR today is 3.15 to recheck PT/INR tomorrow. 01/14/2019-patient has history of atrial fibrillation on Coumadin. INR today is 3.03. To hold Coumadin for today and to recheck PT/INR tomorrow. If the INR is between 2-3 plan is to restart on Coumadin. 01/15/2019-patient has history of atrial fibrillation on Coumadin INR is 1.65. Patient is also admitted with psoas muscle hematoma. 01/17/2019-patient has history of atrial fibrillation on Coumadin 4 mg p.o. nightly INR today is 1.1. plan to check PT/INR tomorrow. (6) History of pulmonary embolism Is this a current diagnosis for this admission?: Yes (7) Obesity (BMI 30.0-34.9) Is this a current diagnosis for this admission?: No - Time Time Spent with patient: 15-24 minutes Medications reviewed and adjusted accordingly: Yes Anticipated discharge: SNF
[2019-01-17] MEDS: WARFARIN SODIUM 4 MG TABLET PO SCH (22:23)
[2019-01-18] MEDS: NORMAL SALINE 1000 ML 1,000 ML IV PRN (05:55)
[2019-01-18] MEDS: PANTOPRAZOLE SODIUM 40 MG TABLET.DR PO SCH (05:55)
[2019-01-18] MEDS: GABAPENTIN 300 MG CAPSULE PO SCH ×3 (05:55→17:20)
[2019-01-18] MEDS: HYDROMORPHONE HCL INJ/PF 2 MG/ML AMPULE IV PRN (05:55)
[2019-01-18 06:40] LABS: HEMATOCRIT 35.2 % (37.9-51.0); HEMOGLOBIN 11.4 g/dL (13.5-17.0); MEAN CORPUSCULAR HEMOGLOBIN 26.8 pg (27.0-33.4); MEAN CORPUSCULAR HGB CONC 32.5 g/dL (32.0-36.0); MEAN CORPUSCULAR VOLUME 83 fl (80-97); PLATELET COUNT 233 10^3/uL (150-450); RED BLOOD COUNT 4.27 10^6/uL (4.35-5.55); RED CELL DISTRIBUTION WIDTH 15.6 % (11.5-14.0); WHITE BLOOD COUNT 6.7 10^3/uL (4.0-10.5)
[2019-01-18 06:42] LABS: INTERNATIONAL RATION (INR) 1.06; PROTHROMBIN TIME 14.3 SEC (11.4-15.4)
[2019-01-18 06:53] LABS: ALANINE AMINOTRANSFERASE 20 U/L (21-72); ALBUMIN 2.8 g/dL (3.5-5.0); ALKALINE PHOSPHATASE 163 U/L (38-126); ANION GAP 11 (5-19); ASPARTATE AMINO TRANSFERASE 14 U/L (17-59); BILIRUBIN,DIRECT 0.3 mg/dL (0.0-0.4); BILIRUBIN,TOTAL 0.6 mg/dL (0.2-1.3); BLOOD UREA NITROGEN 38 mg/dL (7-20); CALCIUM 8.5 mg/dL (8.4-10.2); CARBON DIOXIDE 28 mmol/L (22-30); CHLORIDE 104 mmol/L (98-107); GLUCOSE 116 mg/dL (75-110); POTASSIUM 4.7 mmol/L (3.6-5.0); SODIUM 142.7 mmol/L (137-145); TOTAL PROTEIN 5.5 g/dL (6.3-8.2)
[2019-01-18 07:08] LABS: ABSOLUTE LYMPHOCYTES# (MANUAL) 1.2 10^3/uL (0.5-4.7); ABSOLUTE MONOCYTES # (MANUAL) 0.4 10^3/uL (0.1-1.4); ABSOLUTE NEUTROPHILS# (MANUAL) 4.5 10^3/uL (1.7-8.2); BASOPHILS % (MANUAL) 1 % (0-2); EOSINOPHILS % (MANUAL) 8 % (0-6); LYMPHOCYTES % (MANUAL) 18 % (13-45); MONOCYTES % (MANUAL) 6 % (3-13); SEGMENTED NEUTROPHILS % (MAN) 64 % (42-78); TOTAL CELLS COUNTED 100
[2019-01-18 07:09] LABS: PLATELET COMMENT ADEQUATE
[2019-01-18 07:11] LABS: ANISOCYTOSIS SLIGHT; HYPOCHROMASIA SLIGHT; POIKILOCYTOSIS SLIGHT; POLYCHROMASIA SLIGHT
[2019-01-18 07:15] LABS: METAMYELOCYTES % (MANUAL) 1 % (0); MYELOCYTES % (MANUAL) 2 % (0)
[2019-01-18] MEDS: INSULIN REG, HUMAN 100 UNIT/ML 3 ML VIAL (PYX) SUBCUT SCH ×4 (08:19→22:44)
[2019-01-18] MEDS: INSULIN LISPRO 100 UNIT/ML 3 ML VIAL SUBCUT SCH ×3 (08:19→17:20)
[2019-01-18 08:51] LABS: APPEARANCE,URINE SLIGHTLY-CLOUDY; BILIRUBIN,URINE NEGATIVE (NEGATIVE); COLOR,URINE YELLOW; GLUCOSE, URINE NEGATIVE (NEGATIVE); KETONES,URINE NEGATIVE (NEGATIVE); LEUKOCYTE ESTERASE,URINE LARGE (NEGATIVE); NITRITE,URINE NEGATIVE (NEGATIVE); PROTEIN,URINE NEGATIVE (NEGATIVE); UROBILINOGEN,URINE NEGATIVE mg/dL (<2.0)
[2019-01-18] MEDS: OXYCODONE-ACETAMINOPHEN 5-325 MG TABLET PO PRN (09:29)
[2019-01-18] MEDS: DOCUSATE SODIUM 100 MG CAPSULE PO SCH ×2 (09:29→17:20)
[2019-01-18] MEDS: TAMSULOSIN HCL 0.4 MG CAP.SR.24H PO SCH (09:30)
[2019-01-18] MEDS: MAGNESIUM OXIDE 400 MG TABLET PO SCH (09:30)
[2019-01-18] MEDS: CYANOCOBALAMIN (VITAMIN B-12) 1,000 MCG TABLET PO SCH (09:30)
[2019-01-18] MEDS: ESCITALOPRAM OXALATE 10 MG TABLET PO SCH (09:30)
[2019-01-18] MEDS: SUCRALFATE 1 GM TABLET PO SCH ×4 (09:30→22:43)
[2019-01-18] MEDS: FINASTERIDE 5 MG TABLET PO SCH (09:30)
[2019-01-18] MEDS: INSULIN GLARGINE,HUM.REC.ANLOG 1,000 UNIT/10 ML VIAL SUBCUT SCH ×2 (09:31→18:43)
[2019-01-18 12:59] LABS: PATH REVIEW PATHOLOGIST REVIEWED
--- NOTE | 2019-01-18 13:25 | PDOC PROGRESS REPORT ---
Subjective Progress Note for:: 01/18/19 Subjective:: 83-year-old male with multiple medical problems including atrial fibrillation, pulmonary embolism, back surgeries admitted for excruciating pain secondary to a L3 compression fracture and so he has muscle bleed. INR is 3.35 the time of admission Coumadin on hold. Repeat PT/INR this morning is 3.15. Patient is still complaining of severe pain. He has difficulty coming out of the bed. Physical therapy done the recommendation is patient may need to go to a rehab facility to gain his strength back. As per the family is not coming out of the bed for the last several days. Pain scale at the time of examination 4 x 10. He is requiring Dilaudid and p.o. Percocet on as-needed basis. 01/14/[id number]-zcux-old male admitted for severe back pain intractable back pain recently found to have L3 compression fracture he still in severe pain he has difficulty in getting out of the bed ambulating PT consult OT consult was requested states she cannot take care of him at home right now they prefer him to go to a rehab facility for further management once he got his strength back plan is to go home from there. No acute events in the last 24 hours. Patient is afebrile. 01/15/2019-patient is comfortably in the bed, not in distress, doing well. 01/17/2019-patient is comfortably in the chair communicating well. Complains of occasional groin pain especially in the right side. No other complaints. 01/18/2019-patient is comfortable in the bed eating his lunch. is saying patient's chest was congested and patient is in mild shortness of breath. No acute events in the last 24 hours patient is afebrile. Waiting for placement. Reason For Visit: 13 COMPRESSION FRACTURE AND PSOAS MUSCLE HEMATOMA Physical Exam Vital Signs: Temp Pulse Resp BP Pulse Ox 97.9 F 87 16 151/81 H 96 01/18/19 07:08 01/18/19 07:08 01/18/19 07:08 01/18/19 07:08 01/18/19 07:08 Intake & Output 01/17/19 01/18/19 01/19/19 06:59 06:59 06:59 Intake Total 1500 2465 Output Total 1050 900 Balance 450 1565 Weight 110 kg 111.2 kg General appearance: PRESENT: no acute distress, obese Head exam: PRESENT: atraumatic Eye exam: PRESENT: PERRLA Mouth exam: PRESENT: moist, tongue midline Neck exam: ABSENT: carotid bruit, JVD, lymphadenopathy, thyromegaly Respiratory exam: PRESENT: accessory muscle use Cardiovascular exam: PRESENT: RRR, tachycardia. ABSENT: diastolic murmur, rubs, systolic murmur GI/Abdominal exam: PRESENT: normal bowel sounds, soft. ABSENT: distended, guarding, mass, organolmegaly, rebound, tenderness Rectal exam: PRESENT: deferred Extremities exam: PRESENT: full ROM. ABSENT: calf tenderness, clubbing, pedal edema Neurological exam: PRESENT: alert, awake, oriented to person, oriented to place, oriented to time, oriented to situation, CN II-XII grossly intact. ABSENT: motor sensory deficit Psychiatric exam: PRESENT: appropriate affect, normal mood. ABSENT: homicidal ideation, suicidal ideation Results Laboratory Results: 01/18/19 06:00 01/18/19 06:00 01/18/19 01/18/19 01/18/19 06:00 06:00 08:35 WBC 6.7 RBC 4.27 L Hgb 11.4 L Hct 35.2 L MCV 83 MCH 26.8 L MCHC 32.5 RDW 15.6 H Plt Count 233 Seg Neutrophils % Not Reportable Lymphocytes % Not Reportable Monocytes % Not Reportable Eosinophils % Not Reportable Basophils % Not Reportable Absolute Neutrophils Not Reportable Absolute Lymphocytes Not Reportable Absolute Monocytes Not Reportable Absolute Eosinophils Not Reportable Absolute Basophils Not Reportable Sodium 142.7 Potassium 4.7 Chloride 104 Carbon Dioxide 28 Anion Gap 11 BUN 38 H Creatinine 1.41 H Est GFR ( Amer) 58 L Est GFR (Non-Af Amer) 48 L Glucose 116 H Calcium 8.5 Magnesium 2.4 H Total Bilirubin 0.6 AST 14 L ALT 20 L Alkaline Phosphatase 163 H Total Protein 5.5 L Albumin 2.8 L Urine Color YELLOW Urine Appearance SLIGHTLY-CLOUDY Urine pH 5.0 Ur Specific [place] 1.010 Urine Protein NEGATIVE Urine Glucose (UA) NEGATIVE Urine Ketones NEGATIVE Urine Blood NEGATIVE Urine Nitrite NEGATIVE Ur Leukocyte Esterase LARGE H Urine WBC (Auto) 30 Urine RBC (Auto) 1 Impressions: Abdomen/Pelvis CT 01/12/19 07:21 IMPRESSION: 1. There are low attenuated areas within the right lower lobe pulmonary artery segmental-subsegmental branches, suggesting emboli. The patient has a known history of pulmonary emboli. 2. Acute-subacute compression fracture involving the L3 vertebra, this finding likely correlates to the plain film lumbar spine study dated 01/05/2019. No evidence of retropulsion into the spinal canal. The right psoas muscle is larger in size than the left and is slightly heterogenous in appearance. These findings raise the question of possible right psoas muscle hematoma. Correlation suggested and additional imaging(MRI and or CT Lumbar spine) may be helpful if clinically indicated. 3. Bilateral renal cysts, a few have CT numbers slightly above water range, may represent complex cysts. Correlation with renal ultrasound. 4. 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 5. Additional findings, please see above. Assessment and Plan - Diagnosis (1) Compression fracture of L3 vertebra Qualifiers: Encounter type: initial encounter Qualified Code(s): S32.030A - Wedge compression fracture of third lumbar vertebra, initial encounter for closed fracture Is this a current diagnosis for this admission?: Yes Plan: The patient was diagnosed with an L3 compression fracture on January 05. He is now having pain radiating into the right groin. He is likely having nerve compression from the compression fracture versus psoas muscle swelling from the hematoma. He already has an appointment with his orthopedist next week. Unfortunately he has a loop recorder in place and so he would not be a candidate for an MRI study. For now we will use oral and IV pain medications. I anticipate discharged home with pain management until he sees his orthopedist. 01/13/2019-patient is admitted with L3 comPRESSION fracture and severe pain. Pain is radiating down the right groin. CT scan also found to have psoas muscle bleed. INR is 3.15. Will check PT/INR tomorrow. to Continue IV Dilaudid and p.o. Percocet. Physical therapy consult was done the recommendation is patient may need to go to a rehab facility. admission status was changed from observ ation to inpatient. 01/14/[id number]-yfgg-old male with multiple medical problems admitted for L3 compre ssion fracture associated with severe pain. He followed up with pain management as an outpatient the recommendation is conservative management. Patient has pain scale 5/10 today, difficulty in getting out of the bed and maintaining his balance and inability to walk. PT OT consult was requested social problems specialist consult was requested for placement. 01/15/[id number]-kyxw-old male admitted with L3 compression fracture and severe intractable pain. Pain is better controlled. Patient is waiting for placement. 01/17/2019-patient is admitted with a pre-compression fracture and intractable pain PT OT consult was requested waiting for bed placement. 01/18/2019-patient admitted with compression fracture of the L3 vertebra. Waiting for placement. PT OT consult was done. (2) Diabetic neuropathy associated with type 2 diabetes mellitus Qualifiers: Diabetes mellitus complication detail: diabetic polyneuropathy Qualified Code(s): E11.42 - Type 2 diabetes mellitus with diabetic polyneuropathy Is this a current diagnosis for this admission?: Yes Plan: Continue gabapentin at this time. 01/13/2019-patient's latest blood sugar is 177. Patient has type 2 diabetes mellitus. On insulin sliding scale. For diabetic neuropathy is receiving gabapentin. Still complaining of pain in both lower legs. 01/14/2019-patient latest blood sugar is 171. History of type 2 diabetes mellitus . He is on insulin sliding scale before meals and at bedtime. Receiving gabapentin for diabetic peripheral neuropathy. 01/15/2019-patient blood sugar today is 110. Stable. Plan is to continue the p resent management.\ 01/17/2019-patient blood sugar this morning is 290 he is on lot insulin hemoglob in A1c is 11. Presently on Lantus 30 units twice a day and 15 units of AC. dietary consult was requested diet compliant with medications as discussed. 01/18/2019-patient became hypoglycemic this morning blood sugar is 60 his morning dose of insulin on hold. Hemoglobin A1c is 11 incompetence with diet was advised dietary consult was also in place. 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 He most recently was diagnosed December 25 with another PE. This makes 6 episodes. His INR was supratherapeutic and we will hold his warfarin because of the hematoma. He did have a CT scan with contrast yesterday and so a repeat this morning would be hard on the kidneys. We will watch his hemoglobin to see if in fact there is increased loss from hematoma formation. 01/13/2019-patient's INR is 3.35 and admission found to have so he has muscle bleed repeat INR today is 3.15 to hold Coumadin for tonight and recheck PT/INR tomorrow. hemoGlobin is stable around 13. 01/14/2019-patient admitted with psoas muscle hematoma. Acute blood loss anemia is unlikely. Hemoglobin today is 12. INR today is 3.03. Coumadin is on hold. TO Check PT/INR tomorrow again. 01/15/2019-patient admitted with the psoa muscle hematoma. Hemoglobin is around 11.4. Stable. INR 1.65. To check PT/INR tomorrow. Hemoglobin. 01/17/2019-patient came in with psoas muscle hematoma his INR is elevated at the time of admission INR this morning is 1.1. He was restarted on warfarin 4 mg p.o. nightly. 01/18/2019-patient admitted with so he has muscle hematoma. He is on Coumadin at home for pulmonary embolism and atrial fibrillation. His INR this morning is 1.06. Presently on Coumadin 4 mg p.o. nightly. Plan is to recheck his PT/INR tomorrow. (4) Intractable pain Is this a current diagnosis for this admission?: Yes Plan: This is more likely from the compression fracture although the combination of the psoas muscle hematoma and compression fracture with radiating pain are both considerable etiologies. Pain management as above. I will refrain from a pain management consultation at this point as he is scheduled to see his orthopedist. 01/13/2019-patient is severe pain pain scale according to him is 4 to 6 x 10 now m ost likely secondary to C3 compression fracture as well as muscle bleed he is also complaining of radiation of the pain in to the rt groin. 01/14/2019-patient has intractable pain is receiving IV Dilaudid and p.o. Percocet on as-needed basis pain scale this morning is 4 - 5 / 10. Worsening pain with mobility. Patient benefits from placement in rehab. 01/15/2019-patient is admitted with intractable pain he is receiving as needed IV Dilaudid and p.o. Percocet as needed basis. Plan is to continue the present management. 01/17/2019-patient admitted with intractable pain receiving IV Dilaudid and Percocet as needed basis. This morning is complaining of pain in the right groin area. Other than that he is doing well. 01/18/2019-patient admitted with intractable pain secondary to L3 compression fracture. Presently on IV Dilaudid on Percocet on as-needed basis. Pain is relatively controlled. Patient is waiting for placement. (5) Atrial fibrillation Qualifiers: Atrial fibrillation type: chronic Qualified Code(s): I48.2 - Chronic atrial fibrillation Is this a current diagnosis for this admission?: No Plan: 01/13/2019-patient has history of atrial fibrillation on Coumadin which was on hold INR today is 3.15 to recheck PT/INR tomorrow. 01/14/2019-patient has history of atrial fibrillation on Coumadin. INR today is 3.03. To hold Coumadin for today and to recheck PT/INR tomorrow. If the INR is between 2-3 plan is to restart on Coumadin. 01/15/2019-patient has history of atrial fibrillation on Coumadin INR is 1.65. Patient is also admitted with psoas muscle hematoma. 01/17/2019-patient has history of atrial fibrillation on Coumadin 4 mg p.o. nightly INR today is 1.1. plan to check PT/INR tomorrow. 01/18/2019-patient has history of atrial fibrillation, pulmonary embolism. Presently on Coumadin 4 mg p.o. nightly and INR is 1.06. To check PT/INR tomorr ow. (6) History of pulmonary embolism Is this a current diagnosis for this admission?: Yes (7) Obesity (BMI 30.0-34.9) Is this a current diagnosis for this admission?: No - Time Time Spent with patient: 25-34 minutes Medications reviewed and adjusted accordingly: Yes Anticipated discharge: SNF
[2019-01-18] MEDS: WARFARIN SODIUM 4 MG TABLET PO SCH (22:44)
[2019-01-19] MEDS: GABAPENTIN 300 MG CAPSULE PO SCH ×5 (00:21→23:33)
[2019-01-19] MEDS: OXYCODONE-ACETAMINOPHEN 5-325 MG TABLET PO PRN ×2 (03:09→13:28)
[2019-01-19] MEDS: PANTOPRAZOLE SODIUM 40 MG TABLET.DR PO SCH (06:22)
[2019-01-19] MEDS: INSULIN REG, HUMAN 100 UNIT/ML 3 ML VIAL (PYX) SUBCUT SCH ×4 (08:47→21:24)
[2019-01-19] MEDS: INSULIN LISPRO 100 UNIT/ML 3 ML VIAL SUBCUT SCH ×3 (08:47→17:41)
[2019-01-19 09:28] LABS: ABSOLUTE BASOPHILS # (AUTO) 0.1 10^3/uL (0.0-0.2); ABSOLUTE EOSINOPHILS # (AUTO) 0.4 10^3/uL (0.0-0.6); ABSOLUTE LYMPHOCYTES (AUTO) 1.3 10^3/uL (0.5-4.7); ABSOLUTE MONOCYTES (AUTO) 0.7 10^3/uL (0.1-1.4); ABSOLUTE NEUT (AUTO) 6.7 10^3/uL (1.7-8.2); BASOPHILS % (AUTO) 1.1 % (0-2); EOSINOPHILS % (AUTO) 4.9 % (0-6); HEMATOCRIT 38.5 % (37.9-51.0); HEMOGLOBIN 12.3 g/dL (13.5-17.0); LYMPHOCYTES % (AUTO) 14.5 % (13-45); MEAN CORPUSCULAR HEMOGLOBIN 26.5 pg (27.0-33.4); MEAN CORPUSCULAR VOLUME 83 fl (80-97); MONOCYTES % (AUTO) 7.3 % (3-13); PLATELET COUNT 233 10^3/uL (150-450); RED BLOOD COUNT 4.64 10^6/uL (4.35-5.55); RED CELL DISTRIBUTION WIDTH 15.4 % (11.5-14.0); SEGMENTED NEUTROPHILS % (AUTO) 72.2 % (42-78); TOTAL CELLS COUNTED % (AUTO) 100 %; WHITE BLOOD COUNT 9.2 10^3/uL (4.0-10.5)
[2019-01-19] MEDS: FINASTERIDE 5 MG TABLET PO SCH (09:31)
[2019-01-19] MEDS: TAMSULOSIN HCL 0.4 MG CAP.SR.24H PO SCH (09:31)
[2019-01-19] MEDS: MAGNESIUM OXIDE 400 MG TABLET PO SCH (09:31)
[2019-01-19] MEDS: ESCITALOPRAM OXALATE 10 MG TABLET PO SCH (09:31)
[2019-01-19] MEDS: SUCRALFATE 1 GM TABLET PO SCH ×4 (09:31→21:24)
[2019-01-19] MEDS: INSULIN GLARGINE,HUM.REC.ANLOG 1,000 UNIT/10 ML VIAL SUBCUT SCH ×2 (09:31→17:35)
[2019-01-19] MEDS: DOCUSATE SODIUM 100 MG CAPSULE PO SCH ×2 (09:31→17:34)
[2019-01-19] MEDS: CYANOCOBALAMIN (VITAMIN B-12) 1,000 MCG TABLET PO SCH (09:31)
[2019-01-19] MEDS: HYDROMORPHONE HCL INJ/PF 2 MG/ML AMPULE IV PRN (09:32)
[2019-01-19 09:56] LABS: ALANINE AMINOTRANSFERASE 23 U/L (21-72); ALBUMIN 3.1 g/dL (3.5-5.0); ALKALINE PHOSPHATASE 200 U/L (38-126); ANION GAP 11 (5-19); ASPARTATE AMINO TRANSFERASE 30 U/L (17-59); BILIRUBIN,DIRECT 0.4 mg/dL (0.0-0.4); BILIRUBIN,TOTAL 0.7 mg/dL (0.2-1.3); BLOOD UREA NITROGEN 40 mg/dL (7-20); CALCIUM 9.1 mg/dL (8.4-10.2); CARBON DIOXIDE 25 mmol/L (22-30); CHLORIDE 106 mmol/L (98-107); GLUCOSE 111 mg/dL (75-110); POTASSIUM 4.6 mmol/L (3.6-5.0); TOTAL PROTEIN 5.9 g/dL (6.3-8.2)
[2019-01-19 10:06] LABS: INTERNATIONAL RATION (INR) 1.07; PROTHROMBIN TIME 14.5 SEC (11.4-15.4)
--- NOTE | 2019-01-19 11:46 | PDOC TRANSFER SUMMARY ---
General - Admit/Disc Date/PCP Admission Date/Primary Care Provider: 01/13/19 12:54 MISTY SANDERS MD Discharge Date: 01/19/19 - Discharge Diagnosis (1) Compression fracture of L3 vertebra Is this a current diagnosis for this admission?: Yes Summary: The patient was diagnosed with an L3 compression fracture on January 05. He is now having pain radiating into the right groin. He is likely having nerve compression from the compression fracture versus psoas muscle swelling from the hematoma. He already has an appointment with his orthopedist next week. Unfortunately he has a loop recorder in place and so he would not be a candidate for an MRI study. For now we will use oral and IV pain medications. I anticipate discharged home with pain management until he sees his orthopedist. 01/13/2019-patient is admitted with L3 comPRESSION fracture and severe pain. Pain is radiating down the right groin. CT scan also found to have psoas muscle bleed. INR is 3.15. Will check PT/INR tomorrow. to Continue IV Dilaudid and p.o. Percocet. Physical therapy consult was done the recommendation is patient may need to go to a rehab facility. admission status was changed from obs ervation to inpatient. 01/14/[id number]-zmpn-old male with multiple medical problems admitted for L3 com pression fracture associated with severe pain. He followed up with pain management as an outpatient the recommendation is conservative management. Patient has pain scale 5/10 today, difficulty in getting out of the bed and maintaining his balance and inability to walk. PT OT consult was requested dialysis social worker consult was requested for placement. 01/15/[id number]-ybsx-old male admitted with L3 compression fracture and severe intractable pain. Pain is better controlled. Patient is waiting for placement. 01/17/2019-patient is admitted with a pre-compression fracture and intractable pain PT OT consult was requested waiting for bed placement. 01/18/2019-patient admitted with compression fracture of the L3 vertebra. Waiting for placement. PT OT consult was done. 01/19/[id number]-qado-old male with multiple medical problems admitted for L3 compression fracture he has this fracture couple of weeks prior to this admission came to the emergency room with severe back pain and pain radiating to the right groin. Pain is relatively well controlled. Because of the pain he has a difficulty in ambulation getting out of the bed getting out of the chair. PT OT consult was done during the hospital stay the recommendation is short-term skilled facility placement. Patient going to [facility] today. (2) Diabetic neuropathy associated with type 2 diabetes mellitus Is this a current diagnosis for this admission?: Yes Summary: Continue gabapentin at this time. 01/13/2019-patient's latest blood sugar is 177. Patient has type 2 diabetes mellitus. On insulin sliding scale. For diabetic neuropathy is receiving gabapentin. Still complaining of pain in both lower legs. 01/14/2019-patient latest blood sugar is 171. History of type 2 diabetes mellitus. He is on insulin sliding scale before meals and at bedtime. Rece iving gabapentin for diabetic peripheral neuropathy. 01/15/2019-patient blood sugar today is 110. Stable. Plan is to continue the present management.\ 01/17/2019-patient blood sugar this morning is 290 he is on lot insulin hemoglobin A1c is 11. Presently on Lantus 30 units twice a day and 15 units of AC. dietary consult was requested diet compliant with medications as discussed. 01/18/2019-patient became hypoglycemic this morning blood sugar is 60 his morning dose of insulin on hold. Hemoglobin A1c is 11 incompetence with diet was advised dietary consult was also in place. 03/2019-patient has history of type 2 diabetes mellitus hemoglobin A1c came back at 11. He has widely fluctuating blood sugars in the hospital. Patient is going to be discharged on insulin sliding scale and Lantus 20 units q am and 30 units q pm and 10 units ac . Dietary consult was provided here in the hospital diet exercise weight loss advised during the hospital stay. (3) Iliopsoas muscle hematoma Is this a current diagnosis for this admission?: Yes Summary: 01/19/2019-patient came in with excruciating pain CT scan at the time of admission she also has muscle hematoma Coumadin was on hold for several days. Coumadin was restarted at lower dose of 4 mg nightly 3 days ago today's INR is 1.07. Recommendation is to check PT/INR twice a week for at least 2 weeks. (4) Intractable pain Is this a current diagnosis for this admission?: Yes Summary: This is more likely from the compression fracture although the combination of the psoas muscle hematoma and compression fracture with radiating pain are both considerable etiologies. Pain management as above. I will refrain from a pain management consultation at this point as he is scheduled to see his orthopedist. 01/13/2019-patient is severe pain pain scale according to him is 4 to 6 x 10 now most likely secondary to C3 compression fracture as well as muscle bleed he is also complaining of radiation of the pain in to the rt groin. 01/14/2019-patient has intractable pain is receiving IV Dilaudid and p.o. Percocet on as-needed basis pain scale this morning is 4 - 5 / 10. Worsening pain with mobility. Patient benefits from placement in rehab. 01/15/2019-patient is admitted with intractable pain he is receiving as needed IV Dilaudid and p.o. Percocet as needed basis. Plan is to continue the present management. 01/17/2019-patient admitted with intractable pain receiving IV Dilaudid and Percocet as needed basis. This morning is complaining of pain in the right groin area. Other than that he is doing well. 01/18/2019-patient admitted with intractable pain secondary to L3 compression fracture. Presently on IV Dilaudid on Percocet on as-needed basis. Pain is relatively controlled. Patient is waiting for placement. 01/19/2019-patient admitted with intractable pain secondary to C3 compression fracture and so he has some muscle hematoma. He is receiving Percocets every 4 as needed for pain. Plan is to continue the pain management to rehab facility. Script was written for Percocets. (5) Atrial fibrillation Is this a current diagnosis for this admission?: No Summary: 01/13/2019-patient has history of atrial fibrillation on Coumadin which was on hold INR today is 3.15 to recheck PT/INR tomorrow. 01/14/2019-patient has history of atrial fibrillation on Coumadin. INR today is 3.03. To hold Coumadin for today and to recheck PT/INR tomorrow. If the INR is between 2-3 plan is to restart on Coumadin. 01/15/2019-patient has history of atrial fibrillation on Coumadin INR is 1.65. Patient is also admitted with psoas muscle hematoma. 01/17/2019-patient has history of atrial fibrillation on Coumadin 4 mg p.o. nightly INR today is 1.1. plan to check PT/INR tomorrow. 01/18/2019-patient has history of atrial fibrillation, pulmonary embolism. Presently on Coumadin 4 mg p.o. nightly and INR is 1.06. To check PT/INR tomorrow. 01/19/2019-patient has history of atrial fibrillation, pulmonary embolism. Presently on Coumadin 4 mg p.o. nightly at bedtime INR this morning is 1.07. Recommendation is to check PT/INR twice a week for the next 2 weeks. (6) History of pulmonary embolism Is this a current diagnosis for this admission?: Yes (7) Obesity (BMI 30.0-34.9) Is this a current diagnosis for this admission?: No - Additional Information Resuscitation Status: Do Not Resuscitate Discharge Diet: Diabetic Discharge Activity: Activity As Tolerated Prescriptions: Oxycodone HCl/Acetaminophen [Percocet 5-325 mg Tablet] 2 tab PO Q4HP PRN #20 tablet PRN Reason: Home Medications: Cyanocobalamin (Vitamin B-12) [Vitamin B-12] 1,000 mcg PO DAILY 12/11/17 Docusate Sodium 100 mg PO Q12 12/11/17 Ergocalciferol (Vitamin D2) [Vitamin D2] 50,000 unit PO TH 12/11/17 Exenatide Microspheres [Bydureon Pen] 2 mg SQ FR 12/11/17 Finasteride 5 mg PO DAILY 12/11/17 Gabapentin 300 mg PO QID 12/11/17 Magnesium Oxide [Magnesium] 400 mg PO DAILY 12/11/17 Tamsulosin HCl [Flomax 0.4 mg Cap.sr] 0.4 mg PO DAILY 12/11/17 Finasteride [Proscar 5 mg Tablet] 5 mg PO DAILY tablet 01/19/19 Insulin Glargine,Hum.rec.anlog [Lantus Insulin 100 Unit/1 ml 10 ml] 20 unit SUBCUT QAM unit 01/19/19 Insulin Glargine,Hum.rec.anlog [Lantus Insulin 100 Unit/1 ml 10 ml] 30 unit SUBCUT QPM unit 01/19/19 Insulin Lispro [Humalog Insulin (Lispro) 100 unit/mL] 10 unit SUBCUT AC unit 01/19/19 Insulin Regular, Human [Humulin R (Reg) Insulin 100 unit/mL] 0 - 12 unit SUBCUT ACHS unit 01/19/19 Oxycodone HCl/Acetaminophen [Percocet 5-325 mg Tablet] 2 tab PO Q4HP PRN #20 tablet 01/19/19 Pantoprazole Sodium [Protonix [address] Tablet] 40 mg PO Q6AM tablet.dr 01/19/19 Sucralfate [Carafate 1 gm Tablet] 1 gm PO ACHS tablet 01/19/19 Tamsulosin HCl [Flomax 0.4 mg Cap.sr] 0.4 mg PO QAM cap.sr.24h 01/19/19 Warfarin Sodium [Coumadin 4 mg Tablet] 4 mg PO QHS tablet 01/19/19 History of Present Illness Admission Date/PCP: 01/13/19 12:54 MISTY SANDERS MD History of Present Illness: CHRISTINA SANDERS JR is a 83 year old male with history of diabetes mellitus, C3 compression fracture, hypertension obesity pulmonary embolism, atrial fibrillation came to the emergency room with excruciating pain in the back radiating to the right groin. During the evaluation found to have serious muscle hematoma. Patient was admitted for pain management and for coagulopathy. During the hospital stay PT OT consult was requested the recommendation is for [facility] facility placement. Physical Exam Vital Signs: Temp Pulse Resp BP Pulse Ox 98.0 F 104 H 18 139/94 H 90 L 01/19/19 08:15 01/19/19 08:15 01/19/19 08:15 01/19/19 08:15 01/19/19 08:15 Intake & Output 01/18/19 01/19/19 01/20/19 06:59 06:59 06:59 Intake Total 2465 948 Output Total 900 Balance 1565 948 Weight 111.2 kg General appearance: PRESENT: no acute distress, obese Head exam: PRESENT: atraumatic Eye exam: PRESENT: PERRLA Mouth exam: PRESENT: moist, tongue midline Teeth exam: PRESENT: poor dentation Neck exam: ABSENT: carotid bruit, JVD, lymphadenopathy, thyromegaly Respiratory exam: PRESENT: clear to auscultation dionisio. ABSENT: rales, rhonchi, wheezes Cardiovascular exam: PRESENT: irregular rhythm, systolic murmur, tachycardia GI/Abdominal exam: PRESENT: normal bowel sounds, soft. ABSENT: distended, guarding, mass, organolmegaly, rebound, tenderness Rectal exam: PRESENT: deferred Extremities exam: PRESENT: full ROM. ABSENT: calf tenderness, clubbing, pedal edema Neurological exam: PRESENT: alert, awake, oriented to person, oriented to place, oriented to time, oriented to situation, CN II-XII grossly intact. ABSENT: motor sensory deficit Psychiatric exam: PRESENT: appropriate affect, normal mood. ABSENT: homicidal ideation, suicidal ideation Results Laboratory Results: 01/19/19 08:43 01/19/19 08:43 01/19/19 01/19/19 08:43 08:43 WBC 9.2 RBC 4.64 Hgb 12.3 L Hct 38.5 MCV 83 MCH 26.5 L MCHC 32.0 RDW 15.4 H Plt Count 233 Seg Neutrophils % 72.2 Lymphocytes % 14.5 Monocytes % 7.3 Eosinophils % 4.9 Basophils % 1.1 Absolute Neutrophils 6.7 Absolute Lymphocytes 1.3 Absolute Monocytes 0.7 Absolute Eosinophils 0.4 Absolute Basophils 0.1 Sodium 142.0 Potassium 4.6 Chloride 106 Carbon Dioxide 25 Anion Gap 11 BUN 40 H Creatinine 1.31 H Est GFR ( Amer) > 60 Est GFR (Non-Af Amer) 52 L Glucose 111 H Calcium 9.1 Magnesium 2.4 H Total Bilirubin 0.7 AST 30 ALT 23 Alkaline Phosphatase 200 H Total Protein 5.9 L Albumin 3.1 L Impressions: Abdomen/Pelvis CT 01/12/19 07:21 IMPRESSION: 1. There are low attenuated areas within the right lower lobe pulmonary artery segmental-subsegmental branches, suggesting emboli. The patient has a known history of pulmonary emboli. 2. Acute-subacute compression fracture involving the L3 vertebra, this finding likely correlates to the plain film lumbar spine study dated 01/05/2019. No evidence of retropulsion into the spinal canal. The right psoas muscle is larger in size than the left and is slightly heterogenous in appearance. These findings raise the question of possible right psoas muscle hematoma. Isha elation suggested and additional imaging(MRI and or CT Lumbar spine) may be helpful if clinically indicated. 3. Bilateral renal cysts, a few have CT numbers slightly above water range, may represent complex cysts. Correlation with renal ultrasound. 4. 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 5. Additional findings, please see above. Transfer Plan - Time Spent with Patient Time spent with patient: Greater than 30 Minutes Qualifiers - * PATIENT BEING DISCHARGED WITH ANY OF THE FOLLOWING DIAGNOSIS: No VTE patient discharged on overlapping Therapy?: No Acute Heart Failure Is this a Heart Failure Patient?: No Plan Discharge Plan: Patient is going to [facility] today. Time Spent: Greater than 30 Minutes
[2019-01-19] MEDS ORDERED: FUROSEMIDE INJ/PF 40 MG/4 ML SDV ONE (19:01)
[2019-01-19] MEDS ORDERED: METOPROLOL TARTRATE PF/INJ 5 MG/5 ML SDV IV ONE (19:55)
[2019-01-19] MEDS ORDERED: ENOXAPARIN SODIUM INJ 100 MG/1 ML DISP.SYRIN SUBCUT ONE (20:00)
[2019-01-19] MEDS ORDERED: FUROSEMIDE INJ/PF 40 MG/4 ML SDV IV ONE (20:00)
[2019-01-19 20:24] LABS: ANION GAP 12 (5-19); BLOOD UREA NITROGEN 46 mg/dL (7-20); CALCIUM 9.3 mg/dL (8.4-10.2); CARBON DIOXIDE 25 mmol/L (22-30); CHLORIDE 105 mmol/L (98-107); GLUCOSE 252 mg/dL (75-110); POTASSIUM 4.3 mmol/L (3.6-5.0); SODIUM 141.9 mmol/L (137-145)
[2019-01-19 20:34] LABS: CREATINE KINASE MB 1.71 ng/mL (<4.55); TROPONIN I 0.055 ng/mL
[2019-01-19] MEDS: WARFARIN SODIUM 4 MG TABLET PO SCH (21:24)
[2019-01-19] MEDS: METOPROLOL TARTRATE PF/INJ 5 MG/5 ML SDV IV PRN (21:24)
--- NOTE | 2019-01-19 22:12 | RADIOLOGY REPORT (SQ) ---
EXAM DESCRIPTION: CT CHEST ANGIOGRAPHY WITHOUT THEN WITH IV CONTRAST COMPLETED DATE/TME: 01/19/2019 00:00 CLINICAL HISTORY: 83 years, Male, shortnss of breath COMPARISON: 05/12/2014 CTA TECHNIQUE: 675 Images stored on PACS. All CT scanners at this facility use dose modulation, iterative reconstruction, and/or weight based dosing when appropriate to reduce radiation dose to as low as reasonably achievable (ALARA). Axial images with coronal and sagittal MIPS reconstructions [facility]: Dose Right [facility]: CareDose [facility]: Dose Right [facility]: Teradose 4D [facility]: [employer] LIMITATIONS: None. FINDINGS: Stable enlargement of the thyroid gland. Filling defect associated with left upper and left lower lobe arterial segments consistent with pulmonary embolus. While portions of the lower filling defect in the left lung base are chronic, other findings are new.. No large or central pulmonary most. There is also filling defect involving right lower lobe secondary arterial branches. Negative for thoracic aortic aneurysm or dissection. No mediastinal or hilar adenopathy. Coronary artery calcification. Limited evaluation of the upper abdomen is unremarkable. Osseous structures are grossly intact. No pneumothorax. Moderate emphysematous changes. Nodular density in the right upper lobe/apex, measuring 9.1 mm. This could reflect scarring. Neoplasm is not excluded. Minor subsegmental atelectasis in each lung base, with stable areas of bronchiectasis in the posterior right lung base and adjacent pleural thickening.. IMPRESSION: Findings positive for pulmonary emboli, as above. Emboli associated with left lower lobe arterial segments are chronic, however new areas of filling defect/new PE involving left upper lobe and right lower lobe segments. No large or central pulmonary most. Stable emphysematous changes. Stable bronchiectasis right lung base. New spiculated nodule in the right upper lobe/apex for which neoplasm is not excluded. Consider further assessment with PET/CT. TECHNICAL DOCUMENTATION: Quality ID # [id number]: Final reports with documentation of one or more dose reduction techniques (e.g., Automated exposure control, adjustment of the mA and/or kV according to patient size, use of iterative reconstruction technique) copyright 2010 [employer]- All Rights Reserved
[2019-01-19] MEDS: ACETAMINOPHEN 325 MG TABLET PO PRN (23:34)
[2019-01-20 02:34] LABS: CREATINE KINASE MB 2.61 ng/mL (<4.55); TROPONIN I 0.472 ng/mL
[2019-01-20] MEDS ORDERED: ASPIRIN 325 MG TABLET, ENT COATED PO ONE (03:10)
[2019-01-20] MEDS ORDERED: ASPIRIN 325 MG TABLET PO ONE (03:15)
[2019-01-20] MEDS: GABAPENTIN 300 MG CAPSULE PO SCH ×4 (05:26→23:00)
[2019-01-20] MEDS: PANTOPRAZOLE SODIUM 40 MG TABLET.DR PO SCH (05:26)
[2019-01-20 07:39] LABS: HEMATOCRIT 35.9 % (37.9-51.0); HEMOGLOBIN 11.6 g/dL (13.5-17.0); MEAN CORPUSCULAR HEMOGLOBIN 26.7 pg (27.0-33.4); MEAN CORPUSCULAR HGB CONC 32.3 g/dL (32.0-36.0); MEAN CORPUSCULAR VOLUME 83 fl (80-97); PLATELET COUNT 217 10^3/uL (150-450); RED BLOOD COUNT 4.34 10^6/uL (4.35-5.55); RED CELL DISTRIBUTION WIDTH 15.9 % (11.5-14.0); WHITE BLOOD COUNT 8.8 10^3/uL (4.0-10.5)
[2019-01-20 07:50] LABS: INTERNATIONAL RATION (INR) 1.08; PROTHROMBIN TIME 14.6 SEC (11.4-15.4)
[2019-01-20] MEDS: INSULIN REG, HUMAN 100 UNIT/ML 3 ML VIAL (PYX) SUBCUT SCH ×4 (08:00→21:53)
[2019-01-20 08:09] LABS: ALANINE AMINOTRANSFERASE 20 U/L (21-72); ALKALINE PHOSPHATASE 210 U/L (38-126); ANION GAP 10 (5-19); ASPARTATE AMINO TRANSFERASE 24 U/L (17-59); BILIRUBIN,DIRECT 0.3 mg/dL (0.0-0.4); BILIRUBIN,TOTAL 0.6 mg/dL (0.2-1.3); BLOOD UREA NITROGEN 49 mg/dL (7-20); CARBON DIOXIDE 26 mmol/L (22-30); CHLORIDE 107 mmol/L (98-107); CREATINE KINASE 232 U/L (55-170); GLUCOSE 130 mg/dL (75-110); SODIUM 143.4 mmol/L (137-145); TOTAL PROTEIN 5.7 g/dL (6.3-8.2)
[2019-01-20 08:14] LABS: CREATINE KINASE MB 2.97 ng/mL (<4.55)
[2019-01-20 08:27] LABS: TROPONIN I 0.732 ng/mL
[2019-01-20 08:31] LABS: ABSOLUTE LYMPHOCYTES# (MANUAL) 1.1 10^3/uL (0.5-4.7); ABSOLUTE MONOCYTES # (MANUAL) 0.3 10^3/uL (0.1-1.4); BASOPHILS % (MANUAL) 0 % (0-2); EOSINOPHILS % (MANUAL) 5 % (0-6); LYMPHOCYTES % (MANUAL) 7 % (13-45); MONOCYTES % (MANUAL) 3 % (3-13); SEGMENTED NEUTROPHILS % (MAN) 80 % (42-78); TOTAL CELLS COUNTED 100
[2019-01-20] MEDS: LEVALBUTEROL HCL NEB 1.25 MG/3 ML AMPUL NEB PRN (08:48)
[2019-01-20 08:49] LABS: OVALOCYTES SLIGHT; PLATELET COMMENT ADEQUATE; POLYCHROMASIA SLIGHT
[2019-01-20] MEDS: SUCRALFATE 1 GM TABLET PO SCH ×4 (08:52→21:14)
[2019-01-20] MEDS: INSULIN GLARGINE,HUM.REC.ANLOG 1,000 UNIT/10 ML VIAL SUBCUT SCH ×2 (08:52→19:28)
[2019-01-20] MEDS: TAMSULOSIN HCL 0.4 MG CAP.SR.24H PO SCH (08:52)
[2019-01-20] MEDS: INSULIN LISPRO 100 UNIT/ML 3 ML VIAL SUBCUT SCH ×3 (08:53→16:04)
[2019-01-20] MEDS: ACETAMINOPHEN 325 MG TABLET PO PRN (08:58)
--- NOTE | 2019-01-20 09:27 | EKG REPORT ---
SEVERITY:- ABNORMAL ECG - SINUS RHYTHM ABNRM R PROG, CONSIDER ASMI OR LEAD PLACEMENT : Confirmed by: Angie Vera MD 20-Jan-2019 09:26:43
[2019-01-20] MEDS: DOCUSATE SODIUM 100 MG CAPSULE PO SCH ×2 (10:13→18:14)
[2019-01-20] MEDS: ESCITALOPRAM OXALATE 10 MG TABLET PO SCH (10:13)
[2019-01-20] MEDS: FINASTERIDE 5 MG TABLET PO SCH (10:13)
[2019-01-20] MEDS: CYANOCOBALAMIN (VITAMIN B-12) 1,000 MCG TABLET PO SCH (10:13)
[2019-01-20] MEDS: ENOXAPARIN SODIUM INJ 120 MG/0.8 ML DISP.SYRIN SUBCUT SCH ×2 (10:14→21:14)
[2019-01-20] MEDS: HYDROCODONE/ACETAMINOPHEN 7.5-325 MG TABLET PO PRN ×2 (13:16→18:13)
--- NOTE | 2019-01-20 16:54 | PDOC PROGRESS REPORT ---
Subjective Progress Note for:: 01/20/19 Subjective:: The patient is an 83-year-old male with a complicated past medical history including atrial fibrillation, hypercoagulable state, multiple pulmonary embolisms, aortic aneurysm status post repair, heart valve replacement, COPD, INOCENCIA, insulin-dependent diabetes mellitus, diastolic CHF, hypertension, and back pain related to he recent L3 compression fracture who was admitted who was admitted 01/12/2019 for intractable back pain with plans to be discharged to SNF 01/19/2019. Unfortunately, while preparing to discharge via ambulance service he was found to be in acute respiratory failure with hypoxia. Follow-up CTA of the chest demonstrated new left-sided pulmonary embolus. Patient is seen on afternoon rounds while his is present. He was found resting in bed comfortably on supplemental oxygen via nasal cannula at 5 L/min. He is not normally home O2 dependent. Patient's reports that he received pain medication proximally 45 minutes ago and is now sound asleep; she requests that I do not wake him. She provided a review of the patient's past medical history and recent HPI. She reports that the ultimate goal is for the patient to receive adequate pain control, physical therapy at SNF, and then return to home where he lives independently with her. At baseline, patient ambulates with a walker has periods of slight forgetfulness but no true concerns for dementia, and is independent of ADLs. ROS is limited secondary to patient's participation. All of the patient's 's questions were answered to the best my ability. She was encouraged to ask nursing to contact me should the patient waking wish to see me today. No concerns per nursing. Reason For Visit: 13 COMPRESSION FRACTURE AND PSOAS MUSCLE HEMATOMA Physical Exam Vital Signs: Temp Pulse Resp BP Pulse Ox 97.4 F 109 H 22 H 99/64 L 96 01/20/19 14:38 01/20/19 14:38 01/20/19 14:38 01/20/19 14:38 01/20/19 14:38 Intake & Output 01/19/19 01/20/19 01/21/19 06:59 06:59 06:59 Intake Total 948 240 Output Total 0 Balance 948 240 Weight 115 kg General appearance: PRESENT: no acute distress, obese, well-developed, well-nourished Head exam: PRESENT: atraumatic, normocephalic Eye exam: PRESENT: conjunctiva pink, EOMI, PERRLA. ABSENT: scleral icterus Ear exam: PRESENT: normal external ear exam Mouth exam: PRESENT: moist, tongue midline Neck exam: ABSENT: carotid bruit, JVD, lymphadenopathy, thyromegaly Respiratory exam: PRESENT: decreased breath sounds - bibasilar, rhonchi, symmetrical, unlabored. ABSENT: rales, wheezes Cardiovascular exam: PRESENT: RRR, +S1, +S2, systolic murmur. ABSENT: diastolic murmur, rubs Pulses: PRESENT: normal dorsalis pedis pul Vascular exam: PRESENT: normal capillary refill GI/Abdominal exam: PRESENT: normal bowel sounds, soft. ABSENT: distended, guarding, mass, organolmegaly, rebound, tenderness Rectal exam: PRESENT: deferred Extremities exam: PRESENT: full ROM, tenderness - lumbar back pain. ABSENT: calf tenderness, clubbing, pedal edema Neurological exam: PRESENT: other - Sleeping soundly; pt's asks not to wake Skin exam: PRESENT: dry, intact, warm. ABSENT: cyanosis, rash Results Laboratory Results: 01/20/19 06:35 01/20/19 06:35 01/19/19 01/20/19 01/20/19 19:45 06:35 06:35 WBC 8.8 RBC 4.34 L Hgb 11.6 L Hct 35.9 L MCV 83 MCH 26.7 L MCHC 32.3 RDW 15.9 H Plt Count 217 Seg Neutrophils % Not Reportable Lymphocytes % Not Reportable Monocytes % Not Reportable Eosinophils % Not Reportable Basophils % Not Reportable Absolute Neutrophils Not Reportable Absolute Lymphocytes Not Reportable Absolute Monocytes Not Reportable Absolute Eosinophils Not Reportable Absolute Basophils Not Reportable Sodium 141.9 143.4 Potassium 4.3 5.0 Chloride 105 107 Carbon Dioxide 25 26 Anion Gap 12 10 BUN 46 H 49 H Creatinine 1.61 H 1.64 H Est GFR ( Amer) 50 L 49 L Est GFR (Non-Af Amer) 41 L 40 L Glucose 252 H 130 H Calcium 9.3 9.0 Magnesium 2.5 H 2.5 H Total Bilirubin 0.6 AST 24 ALT 20 L Alkaline Phosphatase 210 H Total Protein 5.7 L Albumin 3.0 L 01/19/19 01/19/19 01/20/19 19:45 19:45 01:40 Creatine Kinase 394 H 279 H CK-MB (CK-2) 1.71 Troponin I 0.055 NT-Pro-B Natriuret Pep 857 H 01/20/19 01/20/19 01/20/19 01:40 06:35 06:35 Creatine Kinase 232 H CK-MB (CK-2) 2.61 2.97 Troponin I 0.472 0.732 NT-Pro-B Natriuret Pep Impressions: Abdomen/Pelvis CT 01/12/19 07:21 IMPRESSION: 1. There are low attenuated areas within the right lower lobe pulmonary artery segmental-subsegmental branches, suggesting emboli. The patient has a known history of pulmonary emboli. 2. Acute-subacute compression fracture involving the L3 vertebra, this finding likely correlates to the plain film lumbar spine study dated 01/05/2019. No evidence of retropulsion into the spinal canal. The right psoas muscle is larger in size than the left and is slightly heterogenous in appearance. These findings raise the question of possible right psoas muscle hematoma. Correlation suggested and additional imaging(MRI and or CT Lumbar spine) may be helpful if clinically indicated. 3. Bilateral renal cysts, a few have CT numbers slightly above water range, may represent complex cysts. Correlation with renal ultrasound. 4. 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 5. Additional findings, please see above. Chest/Abdomen CTA 01/19/19 00:00 IMPRESSION: Findings positive for pulmonary emboli, as above. Emboli associated with left lower lobe arterial segments are chronic, however new areas of filling defect/new PE involving left upper lobe and right lower lobe segments. No large or central pulmonary most. Stable emphysematous changes. Stable bronchiectasis right lung base. New spiculated nodule in the right upper lobe/apex for which neoplasm is not excluded. Consider further assessment with PET/CT. TECHNICAL DOCUMENTATION: Quality ID # [id number]: Final reports with documentation of one or more dose reduction techniques (e.g., Automated exposure control, adjustment of the mA and/or kV according to patient size, use of iterative reconstruction technique) copyright 2010 [employer]- All Rights Reserved Assessment and Plan - Diagnosis (1) Acute and chronic respiratory failure with hypoxia Is this a current diagnosis for this admission?: Yes Plan: Multifactorial; primarily related to pulmonary embolus in setting of COPD and INOCENCIA. Patient's reports the patient was diagnosed with pulmonary embolus ap proximately 1 week prior to admission. CTA chest (01/19/2019) demonstrates acute and subacute pulmonary embolus; stable emphysema changes, stable bronchiectasis of the right lung base, and a new spicu lated nodule to the right upper lobe/apex for which neoplasm cannot be excluded. The patient is upgraded to CU on continuous cardiac telemetry. He is provided supplemental oxygen as needed to maintain saturation >89%. He declines BiPAP support secondary to severe claustrophobia. He is provided scheduled and as needed nebulizer treatments. Incentive spirometer and flutter valve to bedside. (2) Pulmonary embolism Qualifiers: Chronicity: acute Is this a current diagnosis for this admission?: Yes Plan: The patient utilizes Coumadin therapy chronically for atrial fibrillation and history of pulmonary embolus. Unfortunately, upon admission he was found to have a psoas muscle hematoma and supratherapeutic INR. His Coumadin was placed on hold at that time. At discharge, his Coumadin was resumed; however, prior to leaving the building the patient developed acute respiratory failure with hypoxia and was found to have a new left upper and lower pulmonary embolus. He is placed on full dose Lovenox twice daily for bridge therapy. Concurrent Coumadin; currently 4 mg nightly. PT/INR daily. The patient's reports that they have had stream difficulty in obtaining therapeutic INR. She reports that he has had full hematology work-up in the past and has been told he is not a candidate for Eliquis/Xarelto (r/t heart valve). Remaining management as above. (3) COPD (chronic obstructive pulmonary disease) Qualifiers: COPD type: unspecified COPD Qualified Code(s): J44.9 - Chronic obstructive pulmonary disease, unspecified Is this a current diagnosis for this admission?: Yes Plan: Not in exacerbation at this time. Patient's reports Hx. of COPD. CTA Chest confirms chronic emphysematous changes. No indications for in antibiotics or steroid therapy at this time. Remaining management as above. (4) Subtherapeutic anticoagulation Is this a current diagnosis for this admission?: Yes Plan: Patient's INR is currently 1.08. On admission he had a supratherapeutic INR of 3.36 with psoas muscle hematoma. His coumadin was placed on hold and resumed yesterday. Unfortunately, he developed an acute PE. Patient is placed on Lovenox with bridge to therapeutic Coumadin. Continue Coumadin 4 mg nightly. Daily PT/INR. We will continue to adjust Coumadin necessary to reach therapeutic goal 2-3 (5) Atrial fibrillation Qualifiers: Atrial fibrillation type: chronic Qualified Code(s): I48.2 - Chronic atrial fibrillation Is this a current diagnosis for this admission?: Yes Plan: Patient with history PAF. EKG demonstrates he is currently in sinus rhythm. Lovenox/Coumadin as above. Does not require rate/rhythm control medications (not on home beta yaneth or calcium channel) (6) GERD (gastroesophageal reflux disease) Is this a current diagnosis for this admission?: Yes Plan: Continue home dose Protonix and Carafate. (7) Diabetes Qualifiers: Diabetes mellitus mcfp insulin use: with mcfp use Diabetes mellitus complication detail: with nephropathy Is this a current diagnosis for this admission?: Yes Plan: Consistent carb diet. Lantus 20 units in the morning, 30 units every afternoon. Humalog 10 units with meals. Accu-Cheks before meals and at bedtime with Humalog for sliding scale coverage. Hypoglycemia protocol. (8) Compression fracture of L3 vertebra Qualifiers: Encounter type: initial encounter Is this a current diagnosis for this admission?: Yes Plan: The patient was diagnosed with an L3 compression fracture on January 05. He is now having pain radiating into the right leg. Found to have psoas muscle hematoma. Continue home dose [place]. Nonpharmacological interventions for pain (repositioning, heat). We will consult Dr. Tam. PT/OT consultation. (9) Iliopsoas muscle hematoma Qualifiers: Encounter type: initial encounter Laterality: right Qualified Code(s): S70.11XA - Contusion of right thigh, initial encounter Is this a current diagnosis for this admission?: Yes Plan: Patient was admitted with psoas muscle hematoma. He also was noted to have a supratherapeutic INR and so his Coumadin therapy was placed on hold. Have resumed Coumadin secondary to recurrent pulmonary embolus. Home dose [place], nonpharmacological interventions for comfort. Dr. Tam is consulted. (10) Intractable pain Is this a current diagnosis for this admission?: Yes Plan: T [place] and Tylenol for discomfort. Nonpharmacological interventions. [facility] pain management is consulted. (11) Obesity (BMI 30.0-34.9) Is this a current diagnosis for this admission?: No Plan: Cardiac/consistent carb diet. Dietary discretion is advised. (12) DEYVI (acute kidney injury) Is this a current diagnosis for this admission?: Yes Plan: The patient was admitted with a creatinine of 1.21; elevated to 1.64 today. BUN is increased from 25-49. He is noted to be somewhat tachycardic and hypotensive today (heart rate 109, blood pressure 99/64); of note he does have a new pulmonary embolus. Patient's weight is increased from 109 kg to 115. Unfortunately, urine output is not well documented. We will provide gentle IV fluids. Monitor closely for evidence of fluid volume overload. Avoid nephrotoxic medications as able. Daily chemistries. (13) Elevated troponin Is this a current diagnosis for this admission?: Yes Plan: Discussed w/ Dr. Hendricks today; elevated troponin is secondary to demand ischemia. EKG demonstrated NSR w/o ST segment changes. Patient is chest pain free. Continue to monitor on cardiac telemetry. Anticoagulation as above. Monitor for evidence of acute CHF exacerbation - Time Time Spent with patient: 35 or more minutes Medications reviewed and adjusted accordingly: Yes Anticipated discharge: SNF - Bed offer at [facility] Within: within 72 hours - Inpatient Certification Based on my medical assessment, after consideration of the patient's comorbidities, presenting symptoms, or acuity I expect that the services needed warrant INPATIENT care.: Yes I certify that my determination is in accordance with my understanding of Medicare's requirements for reasonable and necessary INPATIENT services [42 CFR 412.3e].: Yes Medical Necessity: Failure to Improve With Outpatient Therapy, Significant Comorbidiites Make Outpatient Treatment Too Risky, Need Close Monitoring Due to Risk of Patient Decompensation, Need For IV Fluids, Need For Continuous Telemetry Monitoring, Need for Pain Control, Risk of Complication if Not Cared For in Hospital
[2019-01-20] MEDS: NORMAL SALINE 1000 ML 1,000 ML IV PRN (18:14)
[2019-01-20] MEDS: MAGNESIUM OXIDE 400 MG TABLET PO SCH (19:28)
[2019-01-20] MEDS: IPRATROPIUM/ALBUTEROL 0.5-2.5 MG/3 ML AMPUL NEB SCH (20:15)
[2019-01-20] MEDS: WARFARIN SODIUM 4 MG TABLET PO SCH (21:14)
[2019-01-21] MEDS: NORMAL SALINE 1000 ML 1,000 ML IV PRN ×3 (02:11→17:43)
[2019-01-21] MEDS: HYDROCODONE/ACETAMINOPHEN 7.5-325 MG TABLET PO PRN ×3 (03:16→16:16)
[2019-01-21] MEDS: PANTOPRAZOLE SODIUM 40 MG TABLET.DR PO SCH (05:11)
[2019-01-21] MEDS: GABAPENTIN 300 MG CAPSULE PO SCH ×4 (05:11→23:30)
[2019-01-21] MEDS: IPRATROPIUM/ALBUTEROL 0.5-2.5 MG/3 ML AMPUL NEB SCH ×2 (08:17→20:43)
[2019-01-21] MEDS: INSULIN REG, HUMAN 100 UNIT/ML 3 ML VIAL (PYX) SUBCUT SCH ×4 (09:08→21:10)
[2019-01-21] MEDS: ENOXAPARIN SODIUM INJ 120 MG/0.8 ML DISP.SYRIN SUBCUT SCH ×2 (09:18→21:10)
[2019-01-21] MEDS: SUCRALFATE 1 GM TABLET PO SCH ×4 (09:19→21:10)
[2019-01-21] MEDS: ESCITALOPRAM OXALATE 10 MG TABLET PO SCH (09:19)
[2019-01-21] MEDS: DOCUSATE SODIUM 100 MG CAPSULE PO SCH ×2 (09:19→17:48)
[2019-01-21] MEDS: TAMSULOSIN HCL 0.4 MG CAP.SR.24H PO SCH (09:19)
[2019-01-21] MEDS: MAGNESIUM OXIDE 400 MG TABLET PO SCH (09:20)
[2019-01-21] MEDS: ERGOCALCIFEROL (VITAMIN D2) 50000 UNIT (1.25 MG) CAPSULE PO SCH (09:20)
[2019-01-21] MEDS: CYANOCOBALAMIN (VITAMIN B-12) 1,000 MCG TABLET PO SCH (09:20)
[2019-01-21] MEDS: FINASTERIDE 5 MG TABLET PO SCH (09:20)
[2019-01-21] MEDS: INSULIN LISPRO 100 UNIT/ML 3 ML VIAL SUBCUT SCH ×3 (09:21→16:16)
[2019-01-21] MEDS: INSULIN GLARGINE,HUM.REC.ANLOG 1,000 UNIT/10 ML VIAL SUBCUT SCH ×2 (09:21→17:47)
[2019-01-21] MEDS: LIDOCAINE 5% (700 MG) TRANSDERMAL ADH..PATCH TP SCH (11:04)
[2019-01-21 11:53] LABS: HEMATOCRIT 35.6 % (37.9-51.0); HEMOGLOBIN 11.4 g/dL (13.5-17.0); MEAN CORPUSCULAR HEMOGLOBIN 26.5 pg (27.0-33.4); MEAN CORPUSCULAR HGB CONC 31.9 g/dL (32.0-36.0); MEAN CORPUSCULAR VOLUME 83 fl (80-97); PLATELET COUNT 227 10^3/uL (150-450); RED BLOOD COUNT 4.28 10^6/uL (4.35-5.55); RED CELL DISTRIBUTION WIDTH 15.9 % (11.5-14.0); WHITE BLOOD COUNT 10.3 10^3/uL (4.0-10.5)
[2019-01-21 11:57] LABS: PROTHROMBIN TIME 17.9 SEC (11.4-15.4)
[2019-01-21 12:12] LABS: ANION GAP 10 (5-19); BLOOD UREA NITROGEN 56 mg/dL (7-20); CALCIUM 8.6 mg/dL (8.4-10.2); CARBON DIOXIDE 24 mmol/L (22-30); CHLORIDE 107 mmol/L (98-107); GLUCOSE 195 mg/dL (75-110); POTASSIUM 4.6 mmol/L (3.6-5.0); SODIUM 141.1 mmol/L (137-145)
--- NOTE | 2019-01-21 15:46 | PDOC PROGRESS REPORT ---
Subjective Progress Note for:: 01/21/19 Subjective:: The patient is an 83-year-old male with a complicated past medical history including atrial fibrillation, hypercoagulable state, multiple pulmonary embolisms, aortic aneurysm status post repair, heart valve replacement, COPD, INOCENCIA, insulin-dependent diabetes mellitus, diastolic CHF, hypertension, and back pain related to he recent L3 compression fracture who was admitted who was admitted 01/12/2019 for intractable back pain with plans to be discharged to SNF 01/19/2019. Unfortunately, while preparing to discharge via ambulance service he was found to be in acute respiratory failure with hypoxia. Follow-up CTA of the chest demonstrated new left-sided pulmonary embolus. Patient is seen on morning rounds. He is noted to be awake, alert and orientated to self, place, and situation. He was found resting in bed comfortably on supplemental oxygen via nasal cannula at 5 L/min. He is not normally home O2 dependent. He reports that his pain is well controlled at present; received [place] about 40 minutes ago. He has no other questions or concerns at this time. ROS is limited secondary to patient's participation. He denies fever, chills, chest pain, palpitations, orthopnea, cough, abdominal pain, nausea vomiting and diarrhea. He does endorse slight dyspnea while at rest and occasional wheezing. No concerns per nursing. Reason For Visit: 13 COMPRESSION FRACTURE AND PSOAS MUSCLE HEMATOMA Physical Exam Vital Signs: Temp Pulse Resp BP Pulse Ox 98.0 F 110 H 18 101/74 92 01/21/19 11:33 01/21/19 11:33 01/21/19 11:33 01/21/19 11:33 01/21/19 11:33 Intake & Output 01/20/19 01/21/19 01/22/19 06:59 06:59 06:59 Intake Total 240 2362 919 Output Total 0 Balance 240 2362 919 Weight 115 kg 117.6 kg General appearance: PRESENT: no acute distress, hard of hearing, obese, well- developed, well-nourished Head exam: PRESENT: atraumatic, normocephalic Eye exam: PRESENT: conjunctiva pink, EOMI, PERRLA. ABSENT: scleral icterus Mouth exam: PRESENT: moist, tongue midline Neck exam: ABSENT: carotid bruit, JVD, lymphadenopathy, thyromegaly Respiratory exam: PRESENT: decreased breath sounds - Bibasilar, symmetrical, unlabored, wheezes - Slight right-sided expiratory wheeze. ABSENT: rales, rhonchi Cardiovascular exam: PRESENT: RRR, +S1, +S2, systolic murmur. ABSENT: diastolic murmur, rubs Pulses: PRESENT: normal dorsalis pedis pul Vascular exam: PRESENT: normal capillary refill GI/Abdominal exam: PRESENT: normal bowel sounds, soft. ABSENT: distended, guarding, mass, organolmegaly, rebound, tenderness Rectal exam: PRESENT: deferred Extremities exam: PRESENT: full ROM. ABSENT: calf tenderness, clubbing, pedal edema Musculoskeletal exam: PRESENT: tenderness - Lumbar back pain Neurological exam: PRESENT: alert, awake, oriented to person, oriented to place, oriented to situation, CN II-XII grossly intact. ABSENT: motor sensory deficit Psychiatric exam: PRESENT: appropriate affect, normal mood. ABSENT: homicidal ideation, suicidal ideation Skin exam: PRESENT: dry, intact, warm. ABSENT: cyanosis, rash Results Laboratory Results: 01/21/19 11:23 01/21/19 11:23 01/21/19 01/21/19 11:23 11:23 WBC 10.3 RBC 4.28 L Hgb 11.4 L Hct 35.6 L MCV 83 MCH 26.5 L MCHC 31.9 L RDW 15.9 H Plt Count 227 Sodium 141.1 Potassium 4.6 Chloride 107 Carbon Dioxide 24 Anion Gap 10 BUN 56 H Creatinine 1.83 H Est GFR ( Amer) 43 L Est GFR (Non-Af Amer) 36 L Glucose 195 H Calcium 8.6 01/19/19 01/19/19 01/20/19 19:45 19:45 01:40 Creatine Kinase 394 H 279 H CK-MB (CK-2) 1.71 Troponin I 0.055 NT-Pro-B Natriuret Pep 857 H 01/20/19 01/20/19 01/20/19 01:40 06:35 06:35 Creatine Kinase 232 H CK-MB (CK-2) 2.61 2.97 Troponin I 0.472 0.732 NT-Pro-B Natriuret Pep Impressions: Abdomen/Pelvis CT 01/12/19 07:21 IMPRESSION: 1. There are low attenuated areas within the right lower lobe pulmonary artery segmental-subsegmental branches, suggesting emboli. The patient has a known history of pulmonary emboli. 2. Acute-subacute compression fracture involving the L3 vertebra, this finding likely correlates to the plain film lumbar spine study dated 01/05/2019. No evidence of retropulsion into the spinal canal. The right psoas muscle is larger in size than the left and is slightly heterogenous in appearance. These findings raise the question of possible right psoas muscle hematoma. Correlat ion suggested and additional imaging(MRI and or CT Lumbar spine) may be helpful if clinically indicated. 3. Bilateral renal cysts, a few have CT numbers slightly above water range, may represent complex cysts. Correlation with renal ultrasound. 4. 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 5. Additional findings, please see above. Chest/Abdomen CTA 01/19/19 00:00 IMPRESSION: Findings positive for pulmonary emboli, as above. Emboli associated with left lower lobe arterial segments are chronic, however new areas of filling defect/new PE involving left upper lobe and right lower lobe segments. No large or central pulmonary most. Stable emphysematous changes. Stable bronchiectasis right lung base. New spiculated nodule in the right upper lobe/apex for which neoplasm is not excluded. Consider further assessment with PET/CT. TECHNICAL DOCUMENTATION: Quality ID # [id number]: Final reports with documentation of one or more dose reduction techniques (e.g., Automated exposure control, adjustment of the mA and/or kV according to patient size, use of iterative reconstruction technique) copyright 2011 [employer]- All Rights Reserved Assessment and Plan - Diagnosis (1) Acute and chronic respiratory failure with hypoxia Is this a current diagnosis for this admission?: Yes Plan: Multifactorial; primarily related to pulmonary embolus in setting of COPD and INOCENCIA. Patient's reports the patient was diagnosed with pulmonary embolus approximately 1 week prior to admission. CTA chest (01/19/2019) demonstrates acute and subacute pulmonary embolus; stable emphysema changes, stable bronchiectasis of the right lung base, and a new spiculated nodule to the right upper lobe/apex for which neoplasm cannot be excl uded. The patient is upgraded to IMCU on continuous cardiac telemetry. He is provided supplemental oxygen as needed to maintain saturation >89%. He declines BiPAP support secondary to severe claustrophobia. He is provided scheduled and as needed nebulizer treatments. Incentive spirometer and flutter valve to bedside. (2) Pulmonary embolism Qualifiers: Chronicity: acute Is this a current diagnosis for this admission?: Yes Plan: The patient utilizes Coumadin therapy chronically for atrial fibrillation and history of pulmonary embolus. Unfortunately, upon admission he was found to have a psoas muscle hematoma and supratherapeutic INR. His Coumadin was placed on hold at that time. At discharge, his Coumadin was resumed; however, prior to leaving the building the patient developed acute respiratory failure with hypoxia and was found to have a new left upper and lower pulmonary embolus. He is placed on full dose Lovenox twice daily for bridge therapy. Concurrent Coumadin; currently 4 mg nightly. PT/INR daily. The patient's reports that they have had stream difficulty in obtaining th erapeutic INR. She reports that he has had full hematology work-up in the past and has been told he is not a candidate for Eliquis/Xarelto (r/t heart valve). Remaining management as above. (3) COPD (chronic obstructive pulmonary disease) Qualifiers: COPD type: unspecified COPD Qualified Code(s): J44.9 - Chronic obstructive pulmonary disease, unspecified Is this a current diagnosis for this admission?: Yes Plan: Not in exacerbation at this time. Patient's reports Hx. of COPD. CTA Chest confirms chronic emphysematous changes. No indications for in antibiotics or steroid therapy at this time. Remaining management as above. (4) Subtherapeutic anticoagulation Is this a current diagnosis for this admission?: Yes Plan: INR 1.08-> 1.40 On admission he had a supratherapeutic INR of 3.36 with psoas muscle hematoma. His coumadin was placed on hold and resumed 01/19/19. Unfortunately, he developed an acute PE. Patient is placed on Lovenox with bridge to therapeutic Coumadin. Continue Coumadin 4 mg nightly. Daily PT/INR. We will continue to adjust Coumadin necessary to reach therapeutic goal 2-3 (5) Atrial fibrillation Qualifiers: Atrial fibrillation type: chronic Qualified Code(s): I48.2 - Chronic atrial fibrillation Is this a current diagnosis for this admission?: Yes Plan: Patient with history PAF. EKG demonstrates he is currently in sinus rhythm. Lovenox/Coumadin as above. Does not require rate/rhythm control medications (not on home beta yaneth or c alcium channel) (6) GERD (gastroesophageal reflux disease) Is this a current diagnosis for this admission?: Yes Plan: Continue home dose Protonix and Carafate. (7) Diabetes Qualifiers: Diabetes mellitus alf insulin use: with alf use Diabetes mellitus complication detail: with nephropathy Is this a current diagnosis for this admission?: Yes Plan: Consistent carb diet. Lantus 20 units in the morning, 30 units every afternoon. Humalog 10 units with meals. Accu-Cheks before meals and at bedtime with Humalog for sliding scale coverage. Hypoglycemia protocol. (8) Compression fracture of L3 vertebra Qualifiers: Encounter type: initial encounter Is this a current diagnosis for this admission?: Yes Plan: The patient was diagnosed with an L3 compression fracture on January 05. He is now having pain radiating into the right leg. Found to have psoas muscle hematoma. Continue home dose [place]. Nonpharmacological interventions for pain (repositioning, heat). Consult pain managment; discussed with Dr. Cuellar today. Unfortunately, the patient's chronic anticoagulation and frequent PEs precludes him from kyphoplasty. Recommended continued conservative management with [place], Tylenol, and Lidoderm patches. PT/OT consultation. (9) Iliopsoas muscle hematoma Qualifiers: Encounter type: initial encounter Laterality: right Qualified Code(s): S70.11XA - Contusion of right thigh, initial encounter Is this a current diagnosis for this admission?: Yes Plan: Patient was admitted with psoas muscle hematoma. He also was noted to have a supratherapeutic INR and so his Coumadin therapy was placed on hold. Have resumed Coumadin secondary to recurrent pulmonary embolus. Home dose [place], nonpharmacological interventions for comfort. Pain management consulted; recommend conservative management with [place], Tylenol, heat, Lidoderm patches. (10) Intractable pain Is this a current diagnosis for this admission?: Yes Plan: [place] and Tylenol for discomfort. Trial Lidoderm patches. Nonpharmacological interventions. [place] pain management is consulted. (11) Obesity (BMI 30.0-34.9) Is this a current diagnosis for this admission?: No Plan: Cardiac/consistent carb diet. Dietary discretion is advised. (12) DEYVI (acute kidney injury) Is this a current diagnosis for this admission?: Yes Plan: The patient was admitted with a creatinine of 1.21; elevated to 1.83 today. BUN is increased from 25-56. He is noted to be somewhat tachycardic and hypotensive today (heart rate 109, blood pressure 99/64); of note he does have a new pulmonary embolus. Patient's weight is increased from 109 kg to 115. Unfortunately, urine output is not well documented. We will provide gentle IV fluids. Monitor closely for evidence of fluid volume overload. Avoid nephrotoxic medications as able. Daily weights and strict I&O's. Daily chemistries. (13) Elevated troponin Is this a current diagnosis for this admission?: Yes Plan: Discussed w/ Dr. Hendricks today; elevated troponin is secondary to demand ischemia. EKG demonstrated NSR w/o ST segment changes. Patient is chest pain free. Continue to monitor on cardiac telemetry. Anticoagulation as above. Monitor for evidence of acute CHF exacerbation - Time Time Spent with patient: 25-34 minutes Medications reviewed and adjusted accordingly: Yes Anticipated discharge: SNF Within: within 72 hours
[2019-01-21] MEDS: WARFARIN SODIUM 4 MG TABLET PO SCH (21:10)
[2019-01-21] MEDS: PHARMACY COMMUNICATION ORDER MC SCH (21:11)
[2019-01-21] MEDS ORDERED: DILTIAZEM HCL INJ 25 MG/5 ML VIAL ONE (23:48)
[2019-01-21] MEDS ORDERED: DILTIAZEM HCL/D5W 125 MG/125 ML RTUINJ IV ONE (23:51)
[2019-01-22] MEDS ORDERED: DILTIAZEM HCL/D5W 125 MG/125 ML RTUINJ IV PRN (00:07)
[2019-01-22] MEDS ORDERED: DILTIAZEM HCL INJ 25 MG/5 ML VIAL IV ONE (00:15)
[2019-01-22] MEDS ORDERED: NORMAL SALINE 1000 ML 1,000 ML IV ONE (00:15)
[2019-01-22] MEDS: HYDROCODONE/ACETAMINOPHEN 7.5-325 MG TABLET PO PRN ×2 (00:44→08:37)
[2019-01-22] MEDS: METOPROLOL TARTRATE PF/INJ 5 MG/5 ML SDV IV PRN (00:56)
[2019-01-22] MEDS: NORMAL SALINE 1000 ML 1,000 ML IV PRN (01:03)
[2019-01-22] MEDS: GABAPENTIN 300 MG CAPSULE PO SCH ×4 (05:19→23:56)
[2019-01-22] MEDS: PANTOPRAZOLE SODIUM 40 MG TABLET.DR PO SCH (05:19)
[2019-01-22 07:20] LABS: HEMATOCRIT 34.7 % (37.9-51.0); MEAN CORPUSCULAR HEMOGLOBIN 26.6 pg (27.0-33.4); MEAN CORPUSCULAR HGB CONC 31.6 g/dL (32.0-36.0); MEAN CORPUSCULAR VOLUME 84 fl (80-97); PLATELET COUNT 210 10^3/uL (150-450); RED BLOOD COUNT 4.13 10^6/uL (4.35-5.55); RED CELL DISTRIBUTION WIDTH 16.1 % (11.5-14.0); WHITE BLOOD COUNT 10.5 10^3/uL (4.0-10.5)
[2019-01-22 07:23] LABS: INTERNATIONAL RATION (INR) 1.46; PROTHROMBIN TIME 18.5 SEC (11.4-15.4)
[2019-01-22 07:38] LABS: ANION GAP 11 (5-19); BLOOD UREA NITROGEN 53 mg/dL (7-20); CALCIUM 8.5 mg/dL (8.4-10.2); CARBON DIOXIDE 20 mmol/L (22-30); CHLORIDE 109 mmol/L (98-107); GLUCOSE 142 mg/dL (75-110); POTASSIUM 5.2 mmol/L (3.6-5.0); SODIUM 139.5 mmol/L (137-145)
[2019-01-22] MEDS: IPRATROPIUM/ALBUTEROL 0.5-2.5 MG/3 ML AMPUL NEB SCH ×2 (08:07→20:12)
[2019-01-22] MEDS: INSULIN REG, HUMAN 100 UNIT/ML 3 ML VIAL (PYX) SUBCUT SCH ×4 (08:33→22:04)
[2019-01-22] MEDS: SUCRALFATE 1 GM TABLET PO SCH ×4 (08:33→22:00)
[2019-01-22] MEDS: INSULIN LISPRO 100 UNIT/ML 3 ML VIAL SUBCUT SCH ×3 (08:33→16:43)
[2019-01-22] MEDS: TAMSULOSIN HCL 0.4 MG CAP.SR.24H PO SCH (08:34)
[2019-01-22] MEDS: LIDOCAINE 5% (700 MG) TRANSDERMAL ADH..PATCH TP SCH (09:18)
[2019-01-22] MEDS: CYANOCOBALAMIN (VITAMIN B-12) 1,000 MCG TABLET PO SCH (09:18)
[2019-01-22] MEDS: DOCUSATE SODIUM 100 MG CAPSULE PO SCH ×2 (09:18→17:08)
[2019-01-22] MEDS: ESCITALOPRAM OXALATE 10 MG TABLET PO SCH (09:18)
[2019-01-22] MEDS: FINASTERIDE 5 MG TABLET PO SCH (09:18)
[2019-01-22] MEDS: MAGNESIUM OXIDE 400 MG TABLET PO SCH (09:19)
[2019-01-22] MEDS: ENOXAPARIN SODIUM INJ 120 MG/0.8 ML DISP.SYRIN SUBCUT SCH ×2 (09:19→22:41)
[2019-01-22] MEDS: INSULIN GLARGINE,HUM.REC.ANLOG 1,000 UNIT/10 ML VIAL SUBCUT SCH ×2 (09:19→17:08)
[2019-01-22] MEDS ORDERED: METOPROLOL TARTRATE 25 MG TABLET PO SCH ×2 (10:00→22:00)
[2019-01-22] MEDS ORDERED: DILTIAZEM HCL 30 MG TABLET PO SCH (12:00)
[2019-01-22 13:24] LABS: PROTHROMBIN TIME 19.8 SEC (11.4-15.4)
[2019-01-22 13:33] LABS: ARTERIAL BLOOD FIO2 5L; ARTERIAL BLOOD H2CO3 1.21 mmol/L (1.05-1.35); ARTERIAL BLOOD HCO3 19.8 mmol/L (20-24); ARTERIAL BLOOD O2 SATURATION 91.6 % (94-98); ARTERIAL BLOOD PCO2 40.1 mmHg (35-45); ARTERIAL BLOOD PH 7.31 (7.35-7.45); ARTERIAL BLOOD PO2 66.6 mmHg (80-100); ARTERIAL BLOOD TOTAL CO2 21.1 mmol/L (23-27)
[2019-01-22 13:34] LABS: HEMATOCRIT 34.2 % (37.9-51.0); HEMOGLOBIN 10.8 g/dL (13.5-17.0); MEAN CORPUSCULAR HEMOGLOBIN 26.5 pg (27.0-33.4); MEAN CORPUSCULAR HGB CONC 31.6 g/dL (32.0-36.0); MEAN CORPUSCULAR VOLUME 84 fl (80-97); PLATELET COUNT 236 10^3/uL (150-450); RED BLOOD COUNT 4.08 10^6/uL (4.35-5.55); WHITE BLOOD COUNT 10.4 10^3/uL (4.0-10.5)
[2019-01-22] MEDS ORDERED: FUROSEMIDE INJ/PF 20 MG/2 ML SDV IV ONE (13:39)
[2019-01-22 14:00] LABS: ANION GAP 11 (5-19); BLOOD UREA NITROGEN 57 mg/dL (7-20); CALCIUM 8.7 mg/dL (8.4-10.2); CARBON DIOXIDE 21 mmol/L (22-30); CHLORIDE 108 mmol/L (98-107); GLUCOSE 145 mg/dL (75-110); POTASSIUM 5.3 mmol/L (3.6-5.0); SODIUM 139.7 mmol/L (137-145)
--- NOTE | 2019-01-22 14:08 | RADIOLOGY REPORT (SQ) ---
EXAM DESCRIPTION: CHEST SINGLE VIEW COMPLETED DATE/TIME: 01/22/2019 1:54 pm REASON FOR STUDY: hypoxia, tachypnea COMPARISON: 09/24/2017 TECHNIQUE: Single frontal radiographic view of the chest acquired. NUMBER OF VIEWS: One view. LIMITATIONS: None. FINDINGS: LUNGS AND PLEURA: No pneumothorax. No consolidation or pleural effusion. Similar left bas ilar pleural thickening. MEDIASTINUM AND HILAR STRUCTURES: Stable. HEART AND VASCULAR STRUCTURES: Stable. BONES: No acute findings. HARDWARE: Aortic stents. OTHER: No other significant finding. IMPRESSION: NO ACUTE FINDINGS. TECHNICAL DOCUMENTATION: JOB ID: [id number] [place]-72 2010 [employer]- All Rights Reserved Reading location - IP/workstation name: Expert
[2019-01-22] MEDS ORDERED: DEXTROSE 5%-WATER 250 ML with NOREPINEPHRINE BITARTRATE 4 MG IV PRN ×2 (14:12)
[2019-01-22 14:19] LABS: TROPONIN I 0.293 ng/mL
[2019-01-22 16:45] LABS: APPEARANCE,URINE CLOUDY; BILIRUBIN,URINE NEGATIVE (NEGATIVE); COLOR,URINE YELLOW; GLUCOSE, URINE NEGATIVE (NEGATIVE); KETONES,URINE NEGATIVE (NEGATIVE); LEUKOCYTE ESTERASE,URINE LARGE (NEGATIVE); NITRITE,URINE NEGATIVE (NEGATIVE); PROTEIN,URINE NEGATIVE (NEGATIVE); URINE SPECIFIC GRAVITY 1.015; UROBILINOGEN,URINE NEGATIVE mg/dL (<2.0)
--- NOTE | 2019-01-22 16:51 | PDOC PROGRESS REPORT ---
Subjective Progress Note for:: 01/22/19 Subjective:: The patient is an 83-year-old male with a complicated past medical history including atrial fibrillation, hypercoagulable state, multiple pulmonary embolisms, aortic aneurysm status post repair, heart valve replacement, COPD, INOCENCIA, insulin-dependent diabetes mellitus, diastolic CHF, hypertension, and back pain related to he recent L3 compression fracture who was admitted who was admitted 01/12/2019 for intractable back pain with plans to be discharged to SNF 01/19/2019. Unfortunately, while preparing to discharge via ambulance service he was found to be in acute respiratory failure with hypoxia. Follow-up CTA of the chest demonstrated new left-sided pulmonary embolus. Patient is seen on morning rounds. He is noted to be awake, alert and orientated to self, place, and situation. He was found resting in bed comfortably on supplemental oxygen via nasal cannula at 6 L/min. He is not normally home O2 dependent. He reports that his pain is was not well controlled overnight and had a very difficult time getting comfortable. He asks to have his dose increased. His primary complaint is discomfort to his right groin. He also reports a slight increase in dyspnea and productive cough today. He denies fever, chills, chest pain, palpitations, orthopnea, abdominal pain, nausea vomiting and diarrhea. The patient was seen again this afternoon after call from nursing; patient has increased work of breathing and increased oxygen requirement. He is also noted to be hypotensive with blood pressures primarily 90/50. Patient is noted to have evidence of fluid volume overload; +3 pitting edema bilateral lower extremities, rhonchi, bibasilar crackles, increased work of breathing, proBNP elevated to 14 K, fortunately troponin has trended down,. Chest x-ray is negative for acute findings, however when personally reviewed by myself and Dr. Hart, there is some questionable increased vascular congestion especially to the left middle field. Patient is upgraded to ICU where he can receive pressor support if required while being diuresed with IV Lasix. Reason For Visit: 13 COMPRESSION FRACTURE AND PSOAS MUSCLE HEMATOMA Physical Exam Vital Signs: Temp Pulse Resp BP Pulse Ox 97.3 F 96 24 H 116/85 96 01/22/19 08:12 01/22/19 08:12 01/22/19 08:12 01/22/19 08:12 01/22/19 08:12 Intake & Output 01/21/19 01/22/19 01/23/19 06:59 06:59 06:59 Intake Total 2362 4211 Balance 2362 4211 Weight 117.6 kg 121.9 kg General appearance: PRESENT: no acute distress, cooperative, hard of hearing, obese, well-developed, well-nourished Head exam: PRESENT: atraumatic, normocephalic Eye exam: PRESENT: conjunctiva pink, EOMI, PERRLA. ABSENT: scleral icterus Mouth exam: PRESENT: moist, tongue midline Neck exam: ABSENT: carotid bruit, JVD, lymphadenopathy, thyromegaly Respiratory exam: PRESENT: crackles, rhonchi, symmetrical, tachypnea, unlabored. ABSENT: rales, wheezes Cardiovascular exam: PRESENT: RRR, +S1, +S2, systolic murmur. ABSENT: diastolic murmur, rubs Pulses: PRESENT: normal dorsalis pedis pul Vascular exam: PRESENT: normal capillary refill GI/Abdominal exam: PRESENT: normal bowel sounds, soft. ABSENT: distended, guarding, mass, organolmegaly, rebound, tenderness Rectal exam: PRESENT: deferred Extremities exam: PRESENT: full ROM, +2 edema - Pitting BLE. ABSENT: calf tenderness, clubbing, pedal edema Neurological exam: PRESENT: alert, awake, oriented to person, oriented to place, oriented to time, oriented to situation, CN II-XII grossly intact. ABSENT: motor sensory deficit Psychiatric exam: PRESENT: appropriate affect, normal mood. ABSENT: homicidal ideation, suicidal ideation Skin exam: PRESENT: dry, intact, warm. ABSENT: cyanosis, rash Results Laboratory Results: 01/22/19 06:34 01/22/19 06:34 01/21/19 01/21/19 01/22/19 11:23 11:23 06:34 WBC 10.3 10.5 RBC 4.28 L 4.13 L Hgb 11.4 L 11.0 L Hct 35.6 L 34.7 L MCV 83 84 MCH 26.5 L 26.6 L MCHC 31.9 L 31.6 L RDW 15.9 H 16.1 H Plt Count 227 210 Sodium 141.1 Potassium 4.6 Chloride 107 Carbon Dioxide 24 Anion Gap 10 BUN 56 H Creatinine 1.83 H Est GFR ( Amer) 43 L Est GFR (Non-Af Amer) 36 L Glucose 195 H Calcium 8.6 01/22/19 06:34 WBC RBC Hgb Hct MCV MCH MCHC RDW Plt Count Sodium 139.5 Potassium 5.2 H Chloride 109 H Carbon Dioxide 20 L Anion Gap 11 BUN 53 H Creatinine 1.81 H Est GFR ( Amer) 44 L Est GFR (Non-Af Amer) 36 L Glucose 142 H Calcium 8.5 01/19/19 01/19/19 01/20/19 19:45 19:45 01:40 Creatine Kinase 394 H 279 H CK-MB (CK-2) 1.71 Troponin I 0.055 NT-Pro-B Natriuret Pep 857 H 01/20/19 01/20/19 01/20/19 01:40 06:35 06:35 Creatine Kinase 232 H CK-MB (CK-2) 2.61 2.97 Troponin I 0.472 0.732 NT-Pro-B Natriuret Pep Impressions: Abdomen/Pelvis CT 01/12/19 07:21 IMPRESSION: 1. There are low attenuated areas within the right lower lobe pulmonary artery segmental-subsegmental branches, suggesting emboli. The patient has a known history of pulmonary emboli. 2. Acute-subacute compression fracture involving the L3 vertebra, this finding likely correlates to the plain film lumbar spine study dated 01/05/2019. No evidence of retropulsion into the spinal canal. The right psoas muscle is larger in size than the left and is slightly heterogenous in appearance. These findings raise the question of possible right psoas muscle hematoma. Correlation suggested and additional imaging(MRI and or CT Lumbar spine) may be helpful if clinically indicated. 3. Bilateral renal cysts, a few have CT numbers slightly above water range, may represent complex cysts. Correlation with renal ultrasound. 4. 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 5. Additional findings, please see above. Chest/Abdomen CTA 01/19/19 00:00 IMPRESSION: Findings positive for pulmonary emboli, as above. Emboli associated with left lower lobe arterial segments are chronic, however new areas of filling defect/new PE involving left upper lobe and right lower lobe segments. No large or central pulmonary most. Stable emphysematous changes. Stable bronchiectasis right lung base. New spiculated nodule in the right upper lobe/apex for which neoplasm is not excluded. Consider further assessment with PET/CT. TECHNICAL DOCUMENTATION: Quality ID # [id number]: Final reports with documentation of one or more dose reduction techniques (e.g., Automated exposure control, adjustment of the mA and/or kV according to patient size, use of iterative reconstruction technique) copyright 2011 [employer]- All Rights Reserved Assessment and Plan - Diagnosis (1) Acute and chronic respiratory failure with hypoxia Is this a current diagnosis for this admission?: Yes Plan: Multifactorial; primarily related to pulmonary embolus in setting of COPD and INOCENCIA. Patient's reports the patient was diagnosed with pulmonary embolus approximately 1 week prior to admission. CTA chest (01/19/2019) demonstrates acute and subacute pulmonary embolus; stable emphysema changes, stable bronchiectasis of the right lung base, and a new spiculated nodule to the right upper lobe/apex for which neoplasm cannot be excluded. ABG demonstrates metabolic acidosis with hypoxia. Patient has been upgraded to ICU secondary to hypotension and CHF exacerbation. He is provided supplemental oxygen as needed to maintain saturation >89%. Now trialing high flow nasal cannula; agreeable to BiPAP support if necessary. Patient does confirm that he is a DNR/DNI. He is provided scheduled and as needed nebulizer treatments. Incentive spirometer and flutter valve to bedside. (2) Pulmonary embolism Qualifiers: Chronicity: acute Is this a current diagnosis for this admission?: Yes Plan: The patient utilizes Coumadin therapy chronically for atrial fibrillation and history of pulmonary embolus. Unfortunately, upon admission he was found to have a psoas muscle hematoma and supratherapeutic INR. His Coumadin was placed on hold at that time. At discharge, his Coumadin was resumed; however, prior to leaving the building the patient developed acute respiratory failure with hypoxia and was found to have a new left upper and lower pulmonary embolus. He is placed on full dose Lovenox twice daily for bridge therapy. Concurrent Coumadin; currently 4 mg nightly. PT/INR daily. The patient's reports that they have had stream difficulty in obtaining therapeutic INR. She reports that he has had full hematology work-up in the past and has been told he is not a candidate for Eliquis/Xarelto. Remaining management as above. (3) COPD (chronic obstructive pulmonary disease) Qualifiers: COPD type: unspecified COPD Qualified Code(s): J44.9 - Chronic obstructive pulmonary disease, unspecified Is this a current diagnosis for this admission?: Yes Plan: Not in exacerbation at this time. Patient's reports Hx. of COPD. CTA Chest confirms chronic emphysematous changes. No indications for in antibiotics or steroid therapy at this time. Mucinex twice daily. Remaining management as above. (4) Subtherapeutic anticoagulation Is this a current diagnosis for this admission?: Yes Plan: INR 1.08-> 1.40-> 1.60 On admission he had a supratherapeutic INR of 3.36 with psoas muscle hematoma. His coumadin was placed on hold and resumed 01/19/19. Unfortunately, he developed an acute PE. Patient is placed on Lovenox with bridge to therapeutic Coumadin. Continue Coumadin 4 mg nightly. Daily PT/INR. We will continue to adjust Coumadin necessary to reach therapeutic goal 2-3 (patient with history of PAF and multiple pulmonary embolus. His heart valve is bovine) (5) Atrial fibrillation Qualifiers: Atrial fibrillation type: chronic Qualified Code(s): I48.2 - Chronic atrial fibrillation Is this a current diagnosis for this admission?: Yes Plan: Patient with history PAF. Underwent cardiac ablation in March 2018. EKG demonstrates he is currently in sinus rhythm. Patient did have an episode of atrial fibrillation with RVR last night; briefly on diltiazem drip. Patient is currently sinus rhythm and rate controlled with metoprolol p.o. every 12 hours. Lovenox/Coumadin as above. (6) GERD (gastroesophageal reflux disease) Is this a current diagnosis for this admission?: Yes Plan: Continue home dose Protonix and Carafate. (7) Diabetes Qualifiers: Diabetes mellitus watermelon inspector insulin use: with watermelon inspector use Diabetes mellitus complication detail: with nephropathy Is this a current diagnosis for this admission?: Yes Plan: Consistent carb diet. Lantus 20 units in the morning, 30 units every afternoon. Humalog 10 units with meals. Accu-Cheks before meals and at bedtime with Humalog for sliding scale coverage. Hypoglycemia protocol. (8) Compression fracture of L3 vertebra Qualifiers: Encounter type: initial encounter Is this a current diagnosis for this admission?: Yes Plan: The patient was diagnosed with an L3 compression fracture on January 05. He is now having pain radiating into the right leg. Found to have psoas muscle hematoma. Continue [place]. Nonpharmacological interventions for pain (repositioning, heat). Consult pain managment; discussed with Dr. Cuellar yesterday. Unfortunately, the patient's chronic anticoagulation and frequent PEs precludes him from k yphoplasty. Recommended continued conservative management with [place], Tylenol, and Lidoderm patches. PT/OT consultation. (9) Iliopsoas muscle hematoma Qualifiers: Encounter type: initial encounter Laterality: right Qualified Code(s): S70.11XA - Contusion of right thigh, initial encounter Is this a current diagnosis for this admission?: Yes Plan: Patient was admitted with psoas muscle hematoma. He also was noted to have a supratherapeutic INR and so his Coumadin therapy was placed on hold. Have resumed Coumadin secondary to recurrent pulmonary embolus. Home dose [place], nonpharmacological interventions for comfort. Pain management consulted; recommend conservative management with [place], Tylenol, heat, Lidoderm patches. (10) Intractable pain Is this a current diagnosis for this admission?: Yes Plan: [place] and Tylenol for discomfort. Trial Lidoderm patches. Nonpharmacological interventions. [place] pain management is consulted. (11) Obesity (BMI 30.0-34.9) Is this a current diagnosis for this admission?: No Plan: Cardiac/consistent carb diet. Dietary discretion is advised. (12) DEYVI (acute kidney injury) Is this a current diagnosis for this admission?: Yes Plan: The patient was admitted with a creatinine of 1.21; elevated to 1.83 today. BUN is increased from 25-57. He is noted to be somewhat tachycardic and hypotensive today (heart rate 109, blood pressure 99/64); of note he does have a new pulmonary embolus. Patient's weight is increased from 109 kg to 121.9 Unfortunately, urine output is not well documented. We will optimize cardiac function. Avoid nephrotoxic medications as able. Daily weights and strict I&O's. Daily chemistries. (13) Elevated troponin Is this a current diagnosis for this admission?: Yes Plan: Trending down. 0.055-> 0.732-> 0.293 Discussed w/ Dr. Hendricks; elevated troponin is secondary to demand ischemia. EKG demonstrated NSR w/o ST segment changes. Patient is chest pain free. Continue to monitor on cardiac telemetry. Anticoagulation as above. Monitor for evidence of acute CHF exacerbation (14) Acute exacerbation of CHF (congestive heart failure) Qualifiers: Heart failure type: unspecified Qualified Code(s): I50.9 - Heart failure, unspecified Is this a current diagnosis for this admission?: Yes Plan: She with evidence of fluid volume overload today. He is noted to be tachypnea, with bibasilar crackles, rhonchi, increased oxygen demand, hypotension, and pitting edema. Echocardiogram from 2017 reveals normal LVEF with mild to moderate diastolic dysfunction. Patient is admitted with multiple pulmonary emboli; concern for right-sided heart failure. Troponin is trending down. proBNP is elevated to 14,200. Echocardiogram pending. Patient is upgraded to ICU. He is placed on IV furosemide 20 mg every 6 hours. Sly-Synephrine titration for blood pressure support. Salas catheter. Strict I&O's, daily weights. - Time Time Spent with patient: 35 or more minutes Medications reviewed and adjusted accordingly: Yes Anticipated discharge: SNF Within: within 72 hours
[2019-01-22] MEDS: GUAIFENESIN 600 MG TABLET.SA PO SCH (22:00)
[2019-01-22] MEDS ORDERED: WARFARIN SODIUM 4 MG TABLET PO SCH (22:00)
[2019-01-22] MEDS: FUROSEMIDE INJ/PF 20 MG/2 ML SDV IV SCH (22:01)
[2019-01-22] MEDS: WARFARIN SODIUM 4 MG TABLET PO SCH (22:01)
[2019-01-22] MEDS: PHARMACY COMMUNICATION ORDER MC SCH (22:04)
[2019-01-22] MEDS ORDERED: ENOXAPARIN SODIUM INJ 120 MG/0.8 ML DISP.SYRIN SUBCUT ONE (22:18)
--- NOTE | 2019-01-22 22:34 | EKG REPORT ---
SEVERITY:- BORDERLINE ECG - SINUS RHYTHM BORDERLINE RIGHT AXIS DEVIATION LOW VOLTAGE THROUGHOUT : Confirmed by: Angie Vera MD 22-Jan-2019 22:32:55
[2019-01-23] MEDS: INSULIN LISPRO 100 UNIT/ML 3 ML VIAL SUBCUT SCH ×4 (01:11→16:53)
[2019-01-23 03:49] LABS: HEMATOCRIT 35.3 % (37.9-51.0); HEMOGLOBIN 11.4 g/dL (13.5-17.0); MEAN CORPUSCULAR HEMOGLOBIN 26.8 pg (27.0-33.4); MEAN CORPUSCULAR HGB CONC 32.3 g/dL (32.0-36.0); MEAN CORPUSCULAR VOLUME 83 fl (80-97); PLATELET COUNT 230 10^3/uL (150-450); RED BLOOD COUNT 4.25 10^6/uL (4.35-5.55); WHITE BLOOD COUNT 10.1 10^3/uL (4.0-10.5)
[2019-01-23 03:57] LABS: INTERNATIONAL RATION (INR) 1.89; PROTHROMBIN TIME 22.6 SEC (11.4-15.4)
[2019-01-23 04:14] LABS: ANION GAP 12 (5-19); BLOOD UREA NITROGEN 56 mg/dL (7-20); CALCIUM 8.8 mg/dL (8.4-10.2); CARBON DIOXIDE 22 mmol/L (22-30); CHLORIDE 110 mmol/L (98-107); POTASSIUM 4.5 mmol/L (3.6-5.0); SODIUM 143.5 mmol/L (137-145)
[2019-01-23 04:18] LABS: GLUCOSE 69 mg/dL (75-110)
[2019-01-23] MEDS: GABAPENTIN 300 MG CAPSULE PO SCH ×3 (05:46→18:39)
[2019-01-23] MEDS: PANTOPRAZOLE SODIUM 40 MG TABLET.DR PO SCH (05:46)
[2019-01-23] MEDS: FUROSEMIDE INJ/PF 20 MG/2 ML SDV IV SCH ×3 (05:46→21:17)
[2019-01-23] MEDS: METOPROLOL TARTRATE PF/INJ 5 MG/5 ML SDV IV PRN (07:26)
[2019-01-23] MEDS: HYDROCODONE/ACETAMINOPHEN 10-325 MG TABLET PO PRN ×2 (07:26→13:12)
[2019-01-23] MEDS: INSULIN REG, HUMAN 100 UNIT/ML 3 ML VIAL (PYX) SUBCUT SCH ×4 (08:30→22:13)
[2019-01-23] MEDS: IPRATROPIUM/ALBUTEROL 0.5-2.5 MG/3 ML AMPUL NEB SCH ×2 (08:32→20:51)
--- NOTE | 2019-01-23 09:05 | PDOC PROGRESS REPORT ---
Subjective Progress Note for:: 01/23/19 Subjective:: The patient is an 83-year-old male with a complicated PMH of AFIB, hypercoagulable state, multiple pulmonary embolisms, aortic aneurysm s/p repair, heart valve replacement, COPD, INOCENCIA, IDDM, diastolic CHF, HTN and back pain related to recent L3 compression fracture who was admitted 01/12/2019 for intractable back pain. Plans to be discharged to SNF 01/19/2019. Unfortunately, while preparing to discharge he was found to be in acute respiratory failure with hypoxia. CTA of the chest demonstrated new left upper lobe and right lower lobe PE. The patient was seen this morning on rounds, he is resting comfortably in bed on high flow nasal cannula. The patient endorses dyspnea during the interview when he is engaged in conversation. His SPO2 is noted to drop from 92% to 89% while talking. The patient continues to receive scheduled IV lasix for his pulmonary vascular congestion seen on CXR. Awaiting ECHOcardiogram results to assess for R heart strain as a result of new PE. Lower extremity +2 pitting edema noted on exam, crackles heard bilaterally. Brief episode of SVT this morning. Plan to increase metoprolol from 12.5mg BID to 25mg PO BID. Continue scheduled IV lasix. Will downgrade to IMCU today since patient did not require vasopressors and his BP has remain WNL. Reason For Visit: 13 COMPRESSION FRACTURE AND PSOAS MUSCLE HEMATOMA Physical Exam Vital Signs: Temp Pulse Resp BP Pulse Ox 99.7 F 102 H 30 H 151/82 H 91 L 01/23/19 08:00 01/23/19 08:00 01/23/19 08:00 01/23/19 08:00 01/23/19 08:00 Intake & Output 01/22/19 01/23/19 01/24/19 06:59 06:59 06:59 Intake Total 4211 1349 500 Output Total 2994 155 Balance 7161 -8527 -841 Weight 121.9 kg 116.5 kg General appearance: PRESENT: well-developed, well-nourished Head exam: PRESENT: atraumatic Eye exam: PRESENT: conjunctiva pink, PERRLA Mouth exam: PRESENT: dry mucosa, tongue midline Neck exam: PRESENT: full ROM Respiratory exam: PRESENT: crackles, symmetrical. ABSENT: unlabored - mild dyspnea when talking. needing to pause between sentences to catch his breath, wheezes Cardiovascular exam: PRESENT: tachycardia Pulses: PRESENT: normal radial pulses, +1 pedal pulses bilateral Vascular exam: PRESENT: normal capillary refill GI/Abdominal exam: PRESENT: soft. ABSENT: distended, tenderness Rectal exam: PRESENT: deferred Gentrourinary exam: PRESENT: indwelling catheter Extremities exam: PRESENT: full ROM Musculoskeletal exam: PRESENT: full ROM Neurological exam: PRESENT: alert, awake, oriented to person, oriented to place, oriented to time, oriented to situation Psychiatric exam: PRESENT: appropriate affect Skin exam: PRESENT: dry, intact, normal color Results Laboratory Results: 01/23/19 03:35 01/23/19 03:35 01/22/19 01/22/19 01/22/19 12:45 13:20 13:20 WBC RBC Hgb Hct MCV MCH MCHC RDW Plt Count Carbonic Acid Cancelled 1.21 HCO3/H2CO3 Ratio Cancelled 16:1 ABG pH Cancelled 7.31 L ABG pCO2 Cancelled 40.1 ABG pO2 Cancelled 66.6 L ABG HCO3 Cancelled 19.8 L ABG O2 Saturation Cancelled 91.6 L ABG Base Excess Cancelled -6.0 FiO2 Cancelled 5L Sodium 139.7 Potassium 5.3 H Chloride 108 H Carbon Dioxide 21 L Anion Gap 11 BUN 57 H Creatinine 1.83 H Est GFR ( Amer) 43 L Est GFR (Non-Af Amer) 36 L Glucose 145 H Calcium 8.7 Urine Color Urine Appearance Urine pH Ur Specific [place] Urine Protein Urine Glucose (UA) Urine Ketones Urine Blood Urine Nitrite Ur Leukocyte Esterase Urine WBC (Auto) Urine RBC (Auto) 01/22/19 01/22/19 01/23/19 13:20 16:00 03:35 WBC 10.4 10.1 RBC 4.08 L 4.25 L Hgb 10.8 L 11.4 L Hct 34.2 L 35.3 L MCV 84 83 MCH 26.5 L 26.8 L MCHC 31.6 L 32.3 RDW 16.0 H 16.0 H Plt Count 236 230 Carbonic Acid HCO3/H2CO3 Ratio ABG pH ABG pCO2 ABG pO2 ABG HCO3 ABG O2 Saturation ABG Base Excess FiO2 Sodium Potassium Chloride Carbon Dioxide Anion Gap BUN Creatinine Est GFR ( Amer) Est GFR (Non-Af Amer) Glucose Calcium Urine Color YELLOW Urine Appearance CLOUDY Urine pH 5.0 Ur Specific [place] 1.015 Urine Protein NEGATIVE Urine Glucose (UA) NEGATIVE Urine Ketones NEGATIVE Urine Blood NEGATIVE Urine Nitrite NEGATIVE Ur Leukocyte Esterase LARGE H Urine WBC (Auto) 131 Urine RBC (Auto) 1 01/23/19 03:35 WBC RBC Hgb Hct MCV MCH MCHC RDW Plt Count Carbonic Acid HCO3/H2CO3 Ratio ABG pH ABG pCO2 ABG pO2 ABG HCO3 ABG O2 Saturation ABG Base Excess FiO2 Sodium 143.5 Potassium 4.5 Chloride 110 H Carbon Dioxide 22 Anion Gap 12 BUN 56 H Creatinine 1.58 H Est GFR ( Amer) 51 L Est GFR (Non-Af Amer) 42 L Glucose 69 L Calcium 8.8 Urine Color Urine Appearance Urine pH Ur Specific [place] Urine Protein Urine Glucose (UA) Urine Ketones Urine Blood Urine Nitrite Ur Leukocyte Esterase Urine WBC (Auto) Urine RBC (Auto) 01/19/19 01/19/19 01/20/19 19:45 19:45 01:40 Creatine Kinase 394 H 279 H CK-MB (CK-2) 1.71 Troponin I 0.055 NT-Pro-B Natriuret Pep 857 H 01/20/19 01/20/19 01/20/19 01:40 06:35 06:35 Creatine Kinase 232 H CK-MB (CK-2) 2.61 2.97 Troponin I 0.472 0.732 NT-Pro-B Natriuret Pep 01/22/19 01/23/19 13:20 03:35 Creatine Kinase CK-MB (CK-2) Troponin I 0.293 NT-Pro-B Natriuret Pep 04625 H 46860 H Impressions: Abdomen/Pelvis CT 01/12/19 07:21 IMPRESSION: 1. There are low attenuated areas within the right lower lobe pulmonary artery segmental-subsegmental branches, suggesting emboli. The patient has a known history of pulmonary emboli. 2. Acute-subacute compression fracture involving the L3 vertebra, this finding likely correlates to the plain film lumbar spine study dated 01/05/2019. No evidence of retropulsion into the spinal canal. The right psoas muscle is larger in size than the left and is slightly heterogenous in appearance. These findings raise the question of possible right psoas muscle hematoma. Correlation suggested and additional imaging(MRI and or CT Lumbar spine) may be helpful if clinically indicated. 3. Bilateral renal cysts, a few have CT numbers slightly above water range, may represent complex cysts. Correlation with renal ultrasound. 4. 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 5. Additional findings, please see above. Chest/Abdomen CTA 01/19/19 00:00 IMPRESSION: Findings positive for pulmonary emboli, as above. Emboli associated with left lower lobe arterial segments are chronic, however new areas of filling defect/new PE involving left upper lobe and right lower lobe segments. No large or central pulmonary most. Stable emphysematous changes. Stable bronchiectasis right lung base. New spiculated nodule in the right upper lobe/apex for which neoplasm is not excluded. Consider further assessment with PET/CT. TECHNICAL DOCUMENTATION: Quality ID # [id number]: Final reports with documentation of one or more dose reduction techniques (e.g., Automated exposure control, adjustment of the mA and/or kV according to patient size, use of iterative reconstruction technique) copyright 2011 [employer]- All Rights Reserved Chest X-Ray 01/22/19 00:00 IMPRESSION: NO ACUTE FINDINGS. Status: Imported from PACS Assessment and Plan - Diagnosis (1) Acute and chronic respiratory failure with hypoxia Is this a current diagnosis for this admission?: Yes Plan: Multifactorial; primarily related to pulmonary embolus in setting of COPD and INOCENCIA. Patient's reports the patient was diagnosed with pulmonary embolus approximately 1 week prior to admission. CTA chest (01/19/2019) demonstrates acute and subacute pulmonary embolus; stable emphysema changes, stable bronchiectasis of the right lung base, and a new spiculated nodule to the right upper lobe/apex for which neoplasm cannot be excluded. He is provided supplemental oxygen as needed to maintain saturation >89%. Requiring high flow nasal cannula; agreeable to BiPAP support if necessary. Patient does confirm that he is a DNR/DNI. He is provided scheduled and as needed nebulizer treatments. Incentive spirometer and flutter valve to bedside. (2) Pulmonary embolism Qualifiers: Chronicity: acute Is this a current diagnosis for this admission?: Yes Plan: The patient utilizes Coumadin therapy chronically for atrial fibrillation and history of pulmonary embolus. Unfortunately, upon admission he was found to have a psoas muscle hematoma and supratherapeutic INR. His Coumadin was placed on hold at that time. At discharge, his Coumadin was resumed; however, prior to leaving the building the patient developed acute respiratory failure with hypoxia and was found to have a new left upper and lower pulmonary embolus. He is placed on full dose Lovenox twice daily for bridge therapy. Concurrent Coumadin; currently 4 mg nightly. PT/INR daily. The patient's reports that they have had extreme difficulty in obtaining therapeutic INR. She reports that he has had full hematology work-up in the past and has been told he is not a candidate for Eliquis/Xarelto. Remaining management as above. (3) DEYVI (acute kidney injury) Is this a current diagnosis for this admission?: Yes Plan: The patient was admitted with a creatinine of 1.21; elevated to 1.58 today. BUN is increased from 25-57. Patient's weight is increased from 109 kg to 121.9 Unfortunately, urine output is not well documented. We will optimize cardiac function. Avoid nephrotoxic medications as able. Daily weights and strict I&O's. Daily chemistries. (4) Acute exacerbation of CHF (congestive heart failure) Qualifiers: Heart failure type: unspecified Qualified Code(s): I50.9 - Heart failure, unspecified Is this a current diagnosis for this admission?: Yes Plan: With evidence of fluid volume overload today. Increased oxygen demand and +2 pitting edema. Echocardiogram from 2017 reveals normal LVEF with mild to moderate diastolic dysfunction. Patient is admitted with multiple pulmonary emboli; concern for right-sided hea rt failure. Troponin is trending down. proBNP is elevated to 14,200. Echocardiogram pending. Stabilized overnight, can downgrade to IMCU today Continue IV furosemide 20 mg every 6 hours. Strict I&O's, daily weights. (5) COPD (chronic obstructive pulmonary disease) Qualifiers: COPD type: unspecified COPD Qualified Code(s): J44.9 - Chronic obstructive pulmonary disease, unspecified Is this a current diagnosis for this admission?: Yes Plan: Not in exacerbation at this time. Patient's reports Hx. of COPD. CTA Chest confirms chronic emphysematous changes. No indications for in antibiotics or steroid therapy at this time. Mucinex twice daily. Remaining management as above. (6) Compression fracture of L3 vertebra Qualifiers: Encounter type: initial encounter Is this a current diagnosis for this admission?: Yes Plan: The patient was diagnosed with an L3 compression fracture on January 05. He is now having pain radiating into the right leg. Found to have psoas muscle hematoma. Continue [place]. Nonpharmacological interventions for pain (repositioning, heat). Consult pain managment; discussed with Dr. Cuellar. Unfortunately, the patient's chronic anticoagulation and frequent PEs precludes him from kyphoplasty. Recommended continued conservative management with [place], Tylenol, and Lidoderm patches. PT/OT consultation. (7) Diabetes Qualifiers: Diabetes mellitus termite control servicer insulin use: with termite control servicer use Diabetes mellitus complication detail: with nephropathy Is this a current diagnosis for this admission?: Yes Plan: Consistent carb diet. Lantus 20 units in the morning, 30 units every afternoon. Humalog 10 units with meals. Accu-Cheks before meals and at bedtime with Humalog for sliding scale coverage. Hypoglycemia protocol. (8) Elevated troponin Is this a current diagnosis for this admission?: Yes Plan: 0.055-> 0.732-> 0.293 no longer trending Discussed w/ Dr. Hendricks; elevated troponin is secondary to demand ischemia. EKG demonstrated NSR w/o ST segment changes. Patient is chest pain free. (9) GERD (gastroesophageal reflux disease) Is this a current diagnosis for this admission?: Yes Plan: Continue home dose Protonix and Carafate. (10) Iliopsoas muscle hematoma Qualifiers: Encounter type: initial encounter Laterality: right Qualified Code(s): S70.11XA - Contusion of right thigh, initial encounter Is this a current diagnosis for this admission?: Yes Plan: Patient was admitted with psoas muscle hematoma. He also was noted to have a supratherapeutic INR and so his Coumadin therapy was placed on hold. Have resumed Coumadin secondary to recurrent pulmonary embolus. Home dose [place], nonpharmacological interventions for comfort. Pain management consulted; recommend conservative management with [place], Tylenol, heat, Lidoderm patches. (11) Intractable pain Is this a current diagnosis for this admission?: Yes Plan: [place] and Tylenol for discomfort. Trial Lidoderm patches. Nonpharmacological interventions. [place] pain management is consulted. (12) Obesity (BMI 30.0-34.9) Is this a current diagnosis for this admission?: No Plan: Cardiac/consistent carb diet. Dietary discretion is advised. (13) Subtherapeutic anticoagulation Is this a current diagnosis for this admission?: Yes Plan: INR 1.08-> 1.40-> 1.60-> 1.8 On admission he had a supratherapeutic INR of 3.36 with psoas muscle hematoma. His coumadin was placed on hold and resumed 01/19/19. Unfortunately, he developed an acute PE. Patient is placed on Lovenox with bridge to therapeutic Coumadin. Continue Coumadin 4 mg nightly. Daily PT/INR. We will continue to adjust Coumadin necessary to reach therapeutic goal 2-3 (patient with history of PAF and multiple pulmonary embolus. (Bovine heart valve) (14) Atrial fibrillation Qualifiers: Atrial fibrillation type: chronic Qualified Code(s): I48.2 - Chronic atrial fibrillation Is this a current diagnosis for this admission?: No Plan: Patient with history of PAF. Underwent cardiac ablation in March 2018 EKG currently representing NSR Episode of atrial fibrillation with RVR 2 days ago, briefly on diltiazem drip, started on p.o. metoprolol 12.5mg twice daily Nursing staff reports episode of SVT overnight, increased metoprolol to 25 mg twice daily - Time Time Spent with patient: 25-34 minutes Medications reviewed and adjusted accordingly: Yes Anticipated discharge: SNF Within: Other - when stabilized - Inpatient Certification Based on my medical assessment, after consideration of the patient's comorbidities, presenting symptoms, or acuity I expect that the services needed warrant INPATIENT care.: Yes I certify that my determination is in accordance with my understanding of Medicare's requirements for reasonable and necessary INPATIENT services [42 CFR 412.3e].: Yes Medical Necessity: Need Close Monitoring Due to Risk of Patient Decompensation, Need For Continuous Telemetry Monitoring, Risk of Complication if Not Cared For in Hospital
[2019-01-23] MEDS: DOCUSATE SODIUM 100 MG CAPSULE PO SCH ×2 (09:33→18:39)
[2019-01-23] MEDS: METOPROLOL TARTRATE 25 MG TABLET PO SCH ×2 (09:33→21:17)
[2019-01-23] MEDS: TAMSULOSIN HCL 0.4 MG CAP.SR.24H PO SCH (09:33)
[2019-01-23] MEDS: ESCITALOPRAM OXALATE 10 MG TABLET PO SCH (09:33)
[2019-01-23] MEDS: GUAIFENESIN 600 MG TABLET.SA PO SCH ×2 (09:33→21:17)
[2019-01-23] MEDS: SUCRALFATE 1 GM TABLET PO SCH ×4 (09:33→21:16)
[2019-01-23] MEDS: MAGNESIUM OXIDE 400 MG TABLET PO SCH (09:33)
[2019-01-23] MEDS: FINASTERIDE 5 MG TABLET PO SCH (09:33)
[2019-01-23] MEDS: INSULIN GLARGINE,HUM.REC.ANLOG 1,000 UNIT/10 ML VIAL SUBCUT SCH ×2 (09:43→18:39)
[2019-01-23] MEDS: ENOXAPARIN SODIUM INJ 120 MG/0.8 ML DISP.SYRIN SUBCUT SCH ×2 (10:10→21:17)
[2019-01-23] MEDS: LIDOCAINE 5% (700 MG) TRANSDERMAL ADH..PATCH TP SCH (10:10)
[2019-01-23] MEDS: CYANOCOBALAMIN (VITAMIN B-12) 1,000 MCG TABLET PO SCH (11:48)
[2019-01-23] MEDS: LEVALBUTEROL HCL NEB 1.25 MG/3 ML AMPUL NEB PRN (17:28)
[2019-01-23] MEDS: WARFARIN SODIUM 4 MG TABLET PO SCH (21:16)
[2019-01-23] MEDS: PHARMACY COMMUNICATION ORDER MC SCH (22:24)
[2019-01-24] MEDS: GABAPENTIN 300 MG CAPSULE PO SCH ×4 (00:01→17:03)
[2019-01-24 04:55] LABS: HEMATOCRIT 33.8 % (37.9-51.0); MEAN CORPUSCULAR HGB CONC 32.6 g/dL (32.0-36.0); MEAN CORPUSCULAR VOLUME 83 fl (80-97); PLATELET COUNT 231 10^3/uL (150-450); RED BLOOD COUNT 4.08 10^6/uL (4.35-5.55); RED CELL DISTRIBUTION WIDTH 15.9 % (11.5-14.0); WHITE BLOOD COUNT 8.7 10^3/uL (4.0-10.5)
[2019-01-24 05:03] LABS: INTERNATIONAL RATION (INR) 2.21; PROTHROMBIN TIME 25.6 SEC (11.4-15.4)
[2019-01-24] MEDS: HYDROCODONE/ACETAMINOPHEN 10-325 MG TABLET PO PRN ×3 (05:10→17:03)
[2019-01-24] MEDS: FUROSEMIDE INJ/PF 20 MG/2 ML SDV IV SCH ×3 (05:10→22:45)
[2019-01-24] MEDS: PANTOPRAZOLE SODIUM 40 MG TABLET.DR PO SCH (05:10)
[2019-01-24 05:26] LABS: ALANINE AMINOTRANSFERASE 16 U/L (21-72); ALBUMIN 2.7 g/dL (3.5-5.0); ALKALINE PHOSPHATASE 187 U/L (38-126); ANION GAP 12 (5-19); ASPARTATE AMINO TRANSFERASE 15 U/L (17-59); BILIRUBIN,DIRECT 0.3 mg/dL (0.0-0.4); BILIRUBIN,TOTAL 0.5 mg/dL (0.2-1.3); BLOOD UREA NITROGEN 56 mg/dL (7-20); CALCIUM 8.5 mg/dL (8.4-10.2); CARBON DIOXIDE 24 mmol/L (22-30); CHLORIDE 107 mmol/L (98-107); GLUCOSE 130 mg/dL (75-110); POTASSIUM 4.4 mmol/L (3.6-5.0); SODIUM 142.5 mmol/L (137-145); TOTAL PROTEIN 5.3 g/dL (6.3-8.2)
[2019-01-24] MEDS: INSULIN LISPRO 100 UNIT/ML 3 ML VIAL SUBCUT SCH ×3 (08:10→17:00)
[2019-01-24] MEDS: TAMSULOSIN HCL 0.4 MG CAP.SR.24H PO SCH (08:10)
[2019-01-24] MEDS: INSULIN GLARGINE,HUM.REC.ANLOG 1,000 UNIT/10 ML VIAL SUBCUT SCH ×2 (08:10→18:20)
[2019-01-24] MEDS: SUCRALFATE 1 GM TABLET PO SCH ×4 (08:10→22:44)
[2019-01-24] MEDS: INSULIN REG, HUMAN 100 UNIT/ML 3 ML VIAL (PYX) SUBCUT SCH ×4 (08:11→21:28)
[2019-01-24] MEDS: IPRATROPIUM/ALBUTEROL 0.5-2.5 MG/3 ML AMPUL NEB SCH ×2 (08:52→20:59)
[2019-01-24] MEDS: MAGNESIUM OXIDE 400 MG TABLET PO SCH (09:43)
[2019-01-24] MEDS: DOCUSATE SODIUM 100 MG CAPSULE PO SCH ×2 (09:43→18:20)
[2019-01-24] MEDS: ACETAMINOPHEN 325 MG TABLET PO PRN (09:43)
[2019-01-24] MEDS: ESCITALOPRAM OXALATE 10 MG TABLET PO SCH (09:43)
[2019-01-24] MEDS: METOPROLOL TARTRATE 25 MG TABLET PO SCH ×2 (09:43→22:44)
[2019-01-24] MEDS: GUAIFENESIN 600 MG TABLET.SA PO SCH ×2 (09:43→22:44)
[2019-01-24] MEDS: FINASTERIDE 5 MG TABLET PO SCH (09:43)
[2019-01-24] MEDS: CYANOCOBALAMIN (VITAMIN B-12) 1,000 MCG TABLET PO SCH (09:43)
[2019-01-24] MEDS: ENOXAPARIN SODIUM INJ 120 MG/0.8 ML DISP.SYRIN SUBCUT SCH (09:44)
[2019-01-24] MEDS: LIDOCAINE 5% (700 MG) TRANSDERMAL ADH..PATCH TP SCH (10:04)
--- NOTE | 2019-01-24 13:46 | PDOC PROGRESS REPORT ---
Subjective Progress Note for:: 01/24/19 Subjective:: The patient is an 83-year-old male with a complicated PMH of AFIB, hypercoagulable state, multiple pulmonary embolisms, aortic aneurysm s/p repair, heart valve replacement, COPD, INOCENCIA, IDDM, diastolic CHF, HTN and back pain related to recent L3 compression fracture who was admitted 01/12/2019 for intractable back pain. Plans to be discharged to SNF 01/19/2019. Unfortunately, while preparing to discharge he was found to be in acute respiratory failure with hypoxia. CTA of the chest demonstrated new left upper lobe and right lower lobe PE. The patient was seen this morning on rounds, he is resting comfortably in bed on high flow nasal cannula. The patient states he "feels better" today. Laboratory studies show an overall improvement - lowered BNP (12k->10k), decreasing Creatinine (1.58->1.52), and therapeutic INR (2.2). ECHOcardiogram results to assess for R heart strain as a result of new PE. Lower extremity +1-2 pitting edema noted on exam, lungs clear bilaterally. Continue scheduled IV lasix. Attempt to wean high flow nasal cannula Reason For Visit: 13 COMPRESSION FRACTURE AND PSOAS MUSCLE HEMATOMA Physical Exam Vital Signs: Temp Pulse Resp BP Pulse Ox 98.1 F 100 18 127/64 H 94 01/24/19 07:22 01/24/19 08:52 01/24/19 08:52 01/24/19 07:22 01/24/19 08:52 Pulse Oximeter Continuous Start: 01/24/19 0 8:36 Freq: RTQ4 Status: Active Protocol: Document 01/24/19 08:52 [facility] (Rec: 01/24/19 09:49 [facility] [id number]) Pulse Oximetry Assessment Oxygen Saturation (92-100) 93 Oxygen Flow Rate (L/min) 30 Oxygen Delivery Method Nasal Cannula Fraction of Inspired Oxygen (FIO2) 60 Equipment Usage Equipment in Use Continuous SpO2 Machine # -- Intake & Output 01/23/19 01/24/19 01/25/19 06:59 06:59 06:59 Intake Total 1349 976 Output Total 0734 0162 Balance -2779 -1704 Weight 116.5 kg 114.6 kg General appearance: PRESENT: well-developed, well-nourished Eye exam: PRESENT: conjunctiva pink, PERRLA Mouth exam: PRESENT: moist, tongue midline Neck exam: PRESENT: full ROM Respiratory exam: PRESENT: symmetrical, unlabored, other - COARSE LUNG SOUNDS - BILATERALLY. REQUIRING HIGH FLOW NC. ABSENT: crackles, rhonchi, wheezes Cardiovascular exam: PRESENT: RRR Pulses: PRESENT: normal radial pulses, +1 pedal pulses bilateral Vascular exam: PRESENT: normal capillary refill GI/Abdominal exam: PRESENT: normal bowel sounds, soft. ABSENT: distended, tenderness Rectal exam: PRESENT: deferred Extremities exam: PRESENT: full ROM, pedal edema Musculoskeletal exam: PRESENT: ambulatory - WITH WALKER, full ROM Neurological exam: PRESENT: alert, awake, oriented to person, oriented to place, oriented to time, oriented to situation Psychiatric exam: PRESENT: appropriate affect Skin exam: PRESENT: dry, intact, normal color Results Laboratory Results: 01/24/19 04:35 01/24/19 04:35 01/24/19 01/24/19 04:35 04:35 WBC 8.7 RBC 4.08 L Hgb 11.0 L Hct 33.8 L MCV 83 MCH 27.0 MCHC 32.6 RDW 15.9 H Plt Count 231 Sodium 142.5 Potassium 4.4 Chloride 107 Carbon Dioxide 24 Anion Gap 12 BUN 56 H Creatinine 1.52 H Est GFR ( Amer) 53 L Est GFR (Non-Af Amer) 44 L Glucose 130 H Calcium 8.5 Total Bilirubin 0.5 AST 15 L ALT 16 L Alkaline Phosphatase 187 H Total Protein 5.3 L Albumin 2.7 L 01/19/19 01/19/19 01/20/19 19:45 19:45 01:40 Creatine Kinase 394 H 279 H CK-MB (CK-2) 1.71 Troponin I 0.055 NT-Pro-B Natriuret Pep 857 H 01/20/19 01/20/19 01/20/19 01:40 06:35 06:35 Creatine Kinase 232 H CK-MB (CK-2) 2.61 2.97 Troponin I 0.472 0.732 NT-Pro-B Natriuret Pep 01/22/19 01/23/19 01/24/19 13:20 03:35 04:35 Creatine Kinase CK-MB (CK-2) Troponin I 0.293 NT-Pro-B Natriuret Pep 92073 H 21682 H 33636 H Impressions: Abdomen/Pelvis CT 01/12/19 07:21 IMPRESSION: 1. There are low attenuated areas within the right lower lobe pulmonary artery segmental-subsegmental branches, suggesting emboli. The patient has a known history of pulmonary emboli. 2. Acute-subacute compression fracture involving the L3 vertebra, this finding likely correlates to the plain film lumbar spine study dated 01/05/2019. No evidence of retropulsion into the spinal canal. The right psoas muscle is larger in size than the left and is slightly heterogenous in appearance. These findings raise the question of possible right psoas muscle hematoma. Correlation suggested and additional imaging(MRI and or CT Lumbar spine) may be helpful if clinically indicated. 3. Bilateral renal cysts, a few have CT numbers slightly above water range, may represent complex cysts. Correlation with renal ultrasound. 4. 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 5. Additional findings, please see above. Chest/Abdomen CTA 01/19/19 00:00 IMPRESSION: Findings positive for pulmonary emboli, as above. Emboli associated with left lower lobe arterial segments are chronic, however new areas of filling defect/new PE involving left upper lobe and right lower lobe segments. No large or central pulmonary most. Stable emphysematous changes. Stable bronchiectasis right lung base. New spiculated nodule in the right upper lobe/apex for which neoplasm is not excluded. Consider further assessment with PET/CT. TECHNICAL DOCUMENTATION: Quality ID # [id number]: Final reports with documentation of one or more dose reduction techniques (e.g., Automated exposure control, adjustment of the mA and/or kV according to patient size, use of iterative reconstruction technique) copyright 2011 [employer]- All Rights Reserved Chest X-Ray 01/22/19 00:00 IMPRESSION: NO ACUTE FINDINGS. Status: Imported from PACS Assessment and Plan - Diagnosis (1) Acute and chronic respiratory failure with hypoxia Is this a current diagnosis for this admission?: Yes Plan: Multifactorial; primarily related to pulmonary embolus in setting of COPD and INOCENCIA. Patient's reports the patient was diagnosed with pulmonary embolus approximately 1 week prior to admission. CTA chest (01/19/2019) demonstrates acute and subacute pulmonary embolus; stable emphysema changes, stable bronchiectasis of the right lung base, and a new spiculated nodule to the right upper lobe/apex for which neoplasm cannot be excluded. He is provided supplemental oxygen as needed to maintain saturation >89%, on continuous pulseox Requiring high flow nasal cannula; agreeable to BiPAP support if necessary. Attempt to wean high flow as tolerated Patient does confirm that he is a DNR/DNI. He is provided scheduled and as needed nebulizer treatments. Incentive spirometer and flutter valve to bedside. (2) Pulmonary embolism Qualifiers: Chronicity: acute Is this a current diagnosis for this admission?: Yes Plan: The patient utilizes Coumadin therapy chronically for atrial fibrillation and history of pulmonary embolus. Unfortunately, upon admission he was found to have a psoas muscle hematoma and supratherapeutic INR. His Coumadin was placed on hold at that time. At discharge, his Coumadin was resumed; however, prior to leaving the building the patient developed acute respiratory failure with hypoxia and was found to have a new left upper and lower pulmonary embolus. Initially on Lovenox twice daily for bridge therapy. D/c'd today now that INR is > 2 Continue Coumadin; currently 4 mg nightly. PT/INR daily. The patient's reports that they have had extreme difficulty in obtaining therapeutic INR. She reports that he has had full hematology work-up in the past and has been told he is not a candidate for Eliquis/Xarelto. Remaining management as above. (3) DEYVI (acute kidney injury) Is this a current diagnosis for this admission?: Yes Plan: The patient was admitted with a creatinine of 1.21; elevated to 1.52 today. BUN is increased from 25-57. Patient's weight is increased from 109 kg to 121.9, now down to 114kg Unfortunately, urine output is not well documented. We will optimize cardiac function. Avoid nephrotoxic medications as able. Daily weights and strict I&O's. Daily chemistries. (4) Acute exacerbation of CHF (congestive heart failure) Qualifiers: Heart failure type: unspecified Qualified Code(s): I50.9 - Heart failure, unspecified Is this a current diagnosis for this admission?: Yes Plan: With evidence of fluid volume overload today. Increased oxygen demand and +2 pitting edema. Echocardiogram from 2017 reveals normal LVEF with mild to moderate diastolic dysfunction. Patient is admitted with multiple pulmonary emboli; concern for right-sided heart failure. Troponin is trending down. proBNP is improving 14,200-->10,300 Echocardiogram pending. Stabilized overnight, can downgrade to IMCU today Continue IV furosemide 20 mg every 6 hours. Strict I&O's, daily weights. (5) COPD (chronic obstructive pulmonary disease) Qualifiers: COPD type: unspecified COPD Qualified Code(s): J44.9 - Chronic obstructive pulmonary disease, unspecified Is this a current diagnosis for this admission?: Yes Plan: Not in exacerbation at this time. Patient's reports Hx. of COPD. CTA Chest confirms chronic emphysematous changes. No indications for in antibiotics or steroid therapy at this time. Mucinex twice daily. Remaining management as above. (6) Compression fracture of L3 vertebra Qualifiers: Encounter type: initial encounter Is this a current diagnosis for this admission?: Yes Plan: The patient was diagnosed with an L3 compression fracture on January 05. He is now having pain radiating into the right leg. Found to have psoas muscle hematoma. Continue [place]. Nonpharmacological interventions for pain (repositioning, heat). Consult pain managment; discussed with Dr. Cuellar. Unfortunately, the patient's chronic anticoagulation and frequent PEs precludes him from kyphoplasty. Recommended continued conservative management with [place], Tylenol, and Lidoderm patches. PT/OT consultation. (7) Diabetes Qualifiers: Diabetes mellitus prison insulin use: with prison use Diabetes mellitus complication detail: with nephropathy Is this a current diagnosis for this admission?: Yes Plan: Consistent carb diet. Lantus 20 units in the morning, 30 units every afternoon. Humalog 10 units with meals. Accu-Cheks before meals and at bedtime with Humalog for sliding scale coverage. Hypoglycemia protocol. (8) Elevated troponin Is this a current diagnosis for this admission?: Yes Plan: 0.055-> 0.732-> 0.293 no longer trending Discussed w/ Dr. Hendricks; elevated troponin is secondary to demand ischemia. EKG demonstrated NSR w/o ST segment changes. Patient is chest pain free. (9) GERD (gastroesophageal reflux disease) Is this a current diagnosis for this admission?: Yes Plan: Continue home dose Protonix and Carafate. (10) Iliopsoas muscle hematoma Qualifiers: Encounter type: initial encounter Laterality: right Qualified Code(s): S70.11XA - Contusion of right thigh, initial encounter Is this a current diagnosis for this admission?: Yes Plan: Patient was admitted with psoas muscle hematoma. He also was noted to have a supratherapeutic INR and so his Coumadin therapy was placed on hold. Have resumed Coumadin secondary to recurrent pulmonary embolus. Home dose [place], nonpharmacological interventions for comfort. Pain management consulted; recommend conservative management with [place], Tylenol, heat, Lidoderm patches. (11) Intractable pain Is this a current diagnosis for this admission?: Yes Plan: [place] and Tylenol for discomfort. Trial Lidoderm patches. Nonpharmacological interventions. [place] pain management is consulted. (12) Obesity (BMI 30.0-34.9) Is this a current diagnosis for this admission?: No Plan: Cardiac/consistent carb diet. Dietary discretion is advised. (13) Subtherapeutic anticoagulation Is this a current diagnosis for this admission?: Yes Plan: Resolved INR 1.08-> 1.40-> 1.60-> 1.8-->2.2 On admission he had a supratherapeutic INR of 3.36 with psoas muscle hematoma. His coumadin was placed on hold and resumed 01/19/19. Unfortunately, he developed an acute PE. Lovenox d/c'd now that INR is therapeutic Continue Coumadin 4 mg nightly. Daily PT/INR. We will continue to adjust Coumadin necessary to reach therapeutic goal 2-3 (patient with history of PAF and multiple pulmonary embolus. (Bovine heart valve) (14) Atrial fibrillation Qualifiers: Atrial fibrillation type: chronic Qualified Code(s): I48.2 - Chronic atrial fibrillation Is this a current diagnosis for this admission?: No Plan: Patient with history of PAF. Underwent cardiac ablation in March 2018 EKG currently representing NSR Episode of atrial fibrillation with RVR 2 days ago, briefly on diltiazem drip, started on p.o. metoprolol 12.5mg twice daily Nursing staff reports episode of SVT overnight, increased metoprolol to 25 mg twice daily - Time Time Spent with patient: 15-24 minutes Medications reviewed and adjusted accordingly: Yes Anticipated discharge: SNF Within: within 72 hours - Inpatient Certification Based on my medical assessment, after consideration of the patient's comorbidities, presenting symptoms, or acuity I expect that the services needed warrant INPATIENT care.: Yes I certify that my determination is in accordance with my understanding of [employer] 's requirements for reasonable and necessary INPATIENT services [42 CFR 412.3e].: Yes Medical Necessity: Significant Comorbidiites Make Outpatient Treatment Too Risky, Risk of Complication if Not Cared For in Hospital
[2019-01-24] MEDS ORDERED: HYDROCODONE/ACETAMINOPHEN 7.5-325 MG TABLET PO ONE (15:30)
[2019-01-24] MEDS: METOPROLOL TARTRATE PF/INJ 5 MG/5 ML SDV IV PRN (20:25)
[2019-01-24] MEDS: WARFARIN SODIUM 4 MG TABLET PO SCH (22:45)
[2019-01-24] MEDS: PHARMACY COMMUNICATION ORDER MC SCH (22:45)
[2019-01-25] MEDS: HYDROCODONE/ACETAMINOPHEN 10-325 MG TABLET PO PRN ×4 (00:44→16:34)
[2019-01-25] MEDS: GABAPENTIN 300 MG CAPSULE PO SCH ×4 (00:44→17:15)
[2019-01-25 03:56] LABS: HEMATOCRIT 34.6 % (37.9-51.0); HEMOGLOBIN 11.1 g/dL (13.5-17.0); MEAN CORPUSCULAR HEMOGLOBIN 26.5 pg (27.0-33.4); MEAN CORPUSCULAR VOLUME 83 fl (80-97); PLATELET COUNT 252 10^3/uL (150-450); RED BLOOD COUNT 4.18 10^6/uL (4.35-5.55); WHITE BLOOD COUNT 10.5 10^3/uL (4.0-10.5)
[2019-01-25] MEDS: FUROSEMIDE INJ/PF 20 MG/2 ML SDV IV SCH ×3 (05:42→22:14)
[2019-01-25] MEDS: PANTOPRAZOLE SODIUM 40 MG TABLET.DR PO SCH (05:42)
[2019-01-25] MEDS: IPRATROPIUM/ALBUTEROL 0.5-2.5 MG/3 ML AMPUL NEB SCH ×2 (08:04→20:32)
[2019-01-25] MEDS: INSULIN LISPRO 100 UNIT/ML 3 ML VIAL SUBCUT SCH ×3 (08:25→17:15)
[2019-01-25] MEDS: INSULIN REG, HUMAN 100 UNIT/ML 3 ML VIAL (PYX) SUBCUT SCH ×4 (08:25→22:08)
[2019-01-25] MEDS: INSULIN GLARGINE,HUM.REC.ANLOG 1,000 UNIT/10 ML VIAL SUBCUT SCH ×2 (08:25→17:16)
[2019-01-25] MEDS: TAMSULOSIN HCL 0.4 MG CAP.SR.24H PO SCH (08:46)
[2019-01-25] MEDS: SUCRALFATE 1 GM TABLET PO SCH ×4 (08:46→22:15)
[2019-01-25] MEDS: ACETAMINOPHEN 325 MG TABLET PO PRN ×3 (08:47→20:24)
[2019-01-25 09:03] LABS: ALANINE AMINOTRANSFERASE 17 U/L (21-72); ALBUMIN 2.7 g/dL (3.5-5.0); ALKALINE PHOSPHATASE 205 U/L (38-126); ANION GAP 10 (5-19); ASPARTATE AMINO TRANSFERASE 14 U/L (17-59); BILIRUBIN,DIRECT 0.4 mg/dL (0.0-0.4); BILIRUBIN,TOTAL 0.5 mg/dL (0.2-1.3); BLOOD UREA NITROGEN 60 mg/dL (7-20); CALCIUM 8.5 mg/dL (8.4-10.2); CARBON DIOXIDE 28 mmol/L (22-30); CHLORIDE 105 mmol/L (98-107); POTASSIUM 3.9 mmol/L (3.6-5.0); SODIUM 142.6 mmol/L (137-145); TOTAL PROTEIN 5.6 g/dL (6.3-8.2)
[2019-01-25 09:19] LABS: GLUCOSE 61 mg/dL (75-110)
--- NOTE | 2019-01-25 10:02 | XCELERA REPORT ---
[address] [address] Transthoracic Echocardiogram Report Name: TOMMY CHRISTINA NAGEL JR Age: 83 yrs Gender: Male : 1935 Patient Status: Inpatient Patient Location: ICU^609^A Study Date: 01/22/2019 03:56 PM Height: 72 in Weight: 269 lb BSA: 2.4 m2 Procedure: A two-dimensional transthoracic echocardiogram with color flow and Doppler was performed. Study Quality: Poor. The study was technically difficult with many images being suboptimal in quality. Images were not obtained from all of the standard acoustic windows due to the limited scope of the study. Reason For Study: Hypotension, hypoxia, Hx CHF w/ acute bilateral PE History: CHF. Ordering Physician: AJIT CARMONA Performed By: Sylwia Briscoe Interpretation Summary The left ventricle is grossly normal size. There is normal left ventricular wall thickness. No True apical 2 chamber views obtained.Hence cannot comment on the apical anterior , the basal anterior, the basal inferior and apical inferior adam.The mid anterior , the mid inferior and the rest of the LV adam contract normally. . LVEF is normal and is greater than 60% in the limited views. Doppler measurements suggest impaired left ventricular relaxation, which is associated with grade I/IV or mild diastolic dysfunction There is no thrombus. No ASD ,VSD , or PFO. The right ventricle is mildly dilated. There is mild right ventricular hypertrophy. The right ventricular systolic function is mild to moderately reduced. The right atrium is mildly dilated. The left atrial size is normal. There is no evidence of mitral valve prolapse. There is no vegetation seen on the mitral valve. There is no mitral valve stenosis. There is no mitral regurgitation noted. There is no aortic valvular vegetation. There is no aortic valve stenosis There is aortic sclerosis without aortic stenosis. There is no LVOT obstruction. There is a trace to mild amount of aortic regurgitation There is no tricuspid stenosis. There is a mild to moderate amount of tricuspid regurgitation There is servere pulmonary hypertension by echo RVSP is at least 63 mm of Hg , with RA mean greater than 20. There is no pulmonic valvular stenosis. There is no pulmonic valvular regurgitation. The aortic root is normal size. The inferior vena cava appeared dilated and did not change with respiration (RAP > 20 mmHg) There is no pericardial effusion. MMode/2D Measurements & Calculations RVDd: 4.4 cm LVIDd: 3.9 cm FS: 31.7 % Ao root diam: 3.0 cm IVSd: 1.2 cm LVIDs: 2.7 cm EDV(Teich): 65.9 ml Ao root area: 7.0 cm2 LVPWd: 1.2 cm ESV(Teich): 26.2 ml LA dimension: 4.0 cm EF(Teich): 60.3 % LVOT diam: 2.6 cm LVOT area: 5.2 cm2 Doppler Measurements & Calculations MV E max meño: MV P1/2t max meño: Ao V2 max: LV V1 max P.2 cm/sec 57.8 cm/sec 195.5 cm/sec 3.9 mmHg MV A max meño: MV P1/2t: 76.2 msec Ao max PG: LV V1 mean P.5 cm/sec MVA(P1/2t): 2.9 cm2 15.3 mmHg 2.1 mmHg MV E/A: 0.39 MV dec slope: Ao V2 mean: LV V1 max: 142.5 cm/sec 99.2 cm/sec 222.0 cm/sec2 Ao mean PG: LV V1 mean: MV dec time: 0.24 sec 9.3 mmHg 65.1 cm/sec Ao V2 VTI: 33.6 cmLV V1 VTI: 15.1 cm TJ(I,D): 2.3 cm2 TJ(V,D): 2.6 cm2 SV(LVOT): 78.3 ml PA V2 max: TR max meño: MV P1/2t-pr_phl: 104.6 cm/sec 328.5 cm/sec 76.2 msec PA max P.4 mmHg TR max P.2 mmHg Left Ventricle The left ventricle is grossly normal size. There is normal left ventricular wall thickness. No True apical 2 chamber views obtained.Hence cannot comment on the apical anterior , the basal anterior, the basal inferior and apical inferior adam.The mid anterior , the mid inferior and the rest of the LV adam contract normally. . LVEF is normal and is greater than 60% in the limited views. Doppler measurements suggest impaired left ventricular relaxation, which is associated with grade I/IV or mild diastolic dysfunction. There is no thrombus. No ASD ,VSD , or PFO. Right Ventricle The right ventricle is mildly dilated. There is mild right ventricular hypertrophy. The right ventricular systolic function is mild to moderately reduced. Atria The right atrium is mildly dilated. The left atrial size is normal. Mitral Valve There is no evidence of mitral valve prolapse. There is no vegetation seen on the mitral valve. There is no mitral valve stenosis. There is no mitral regurgitation noted. Aortic Valve There is no aortic valvular vegetation. There is no aortic valve stenosis. There is aortic sclerosis without aortic stenosis. There is no LVOT obstruction. There is a trace to mild amount of aortic regurgitation. Tricuspid Valve There is no tricuspid stenosis. There is a mild to moderate amount of tricuspid regurgitation. There is servere pulmonary hypertension by echo. RVSP is at least 63 mm of Hg , with RA mean greater than 20. Pulmonic Valve There is no pulmonic valvular stenosis. There is no pulmonic valvular regurgitation. Great Vessels The aortic root is normal size. The inferior vena cava appeared dilated and did not change with respiration (RAP > 20 mmHg). Effusions There is no pericardial effusion. : AJIT CARMONA > Angie Vera
[2019-01-25] MEDS: CYANOCOBALAMIN (VITAMIN B-12) 1,000 MCG TABLET PO SCH (11:11)
[2019-01-25] MEDS: FINASTERIDE 5 MG TABLET PO SCH (11:11)
[2019-01-25] MEDS: ESCITALOPRAM OXALATE 10 MG TABLET PO SCH (11:11)
[2019-01-25] MEDS: DOCUSATE SODIUM 100 MG CAPSULE PO SCH ×2 (11:12→17:15)
[2019-01-25] MEDS: GUAIFENESIN 600 MG TABLET.SA PO SCH ×2 (11:12→22:15)
[2019-01-25] MEDS: LIDOCAINE 5% (700 MG) TRANSDERMAL ADH..PATCH TP SCH (11:12)
[2019-01-25] MEDS: MAGNESIUM OXIDE 400 MG TABLET PO SCH (11:12)
[2019-01-25] MEDS: METOPROLOL TARTRATE 25 MG TABLET PO SCH ×2 (11:12→22:15)
--- NOTE | 2019-01-25 21:29 | PDOC PROGRESS REPORT ---
Subjective Progress Note for:: 01/25/19 Subjective:: The patient is an 83-year-old male with a complicated PMH of AFIB, hypercoagulable state, multiple pulmonary embolisms, aortic aneurysm s/p repair, heart valve replacement, COPD, INOCENCIA, IDDM, diastolic CHF, HTN and back pain related to recent L3 compression fracture who was admitted 01/12/2019 for intractable back pain. Plans to be discharged to SNF 01/19/2019. Unfortunately, while preparing to discharge he was found to be in acute respiratory failure with hypoxia. CTA of the chest demonstrated new left upper lobe and right lower lobe PE. The patient was seen this morning on rounds, he is resting comfortably in bed on high flow nasal cannula. He continues to "feels better" everyday. Weaned from high flow NC to 5L NC yesterday. Able to get OOB to chair. Patient SPO2 drops to 70s with any exertion. Currently not ready for SNF, will need to remain inpatient. Reason For Visit: 13 COMPRESSION FRACTURE AND PSOAS MUSCLE HEMATOMA Physical Exam Vital Signs: Temp Pulse Resp BP Pulse Ox 98.0 F 82 22 H 126/67 H 91 L 01/25/19 15:28 01/25/19 19:00 01/25/19 15:28 01/25/19 15:28 01/25/19 17:10 Pulse Oximeter Continuous Start: 01/24/19 08:36 Freq: RTQ4 Status: Active Protocol: Document 01/25/19 17:10 [facility] (Rec: 01/25/19 17:11 [facility] [id number]) Pulse Oximetry Assessment Oxygen Saturation (92-100) 91 Oxygen Flow Rate (L/min) 5 Oxygen Delivery Method Nasal Cannula Fraction of Inspired Oxygen (FIO2) 40 Equipment Usage Equipment in Use Continuous SpO2 Machine # 2 Intake & Output 01/24/19 01/25/19 01/26/19 06:59 06:59 06:59 Intake Total 183 1422 1125 Output Total 2867 9324 950 Balance -2499 -856 175 Weight 114.6 kg 114.9 kg General appearance: PRESENT: obese Head exam: PRESENT: atraumatic Eye exam: PRESENT: conjunctiva pink, PERRLA Mouth exam: PRESENT: moist, tongue midline Neck exam: PRESENT: full ROM Respiratory exam: PRESENT: clear to auscultation dionisio, symmetrical, unlabored Cardiovascular exam: PRESENT: RRR Pulses: PRESENT: normal radial pulses, +1 pedal pulses bilateral Vascular exam: PRESENT: normal capillary refill GI/Abdominal exam: PRESENT: soft. ABSENT: distended, tenderness Rectal exam: PRESENT: deferred Extremities exam: PRESENT: full ROM. ABSENT: pedal edema Musculoskeletal exam: PRESENT: ambulatory - with assistance, full ROM Neurological exam: PRESENT: alert, awake, oriented to person, oriented to place, oriented to time, oriented to situation Psychiatric exam: PRESENT: appropriate affect Skin exam: PRESENT: dry, intact, normal color Results Laboratory Results: 01/25/19 03:42 01/25/19 03:42 01/25/19 01/25/19 03:42 03:42 WBC 10.5 RBC 4.18 L Hgb 11.1 L Hct 34.6 L MCV 83 MCH 26.5 L MCHC 32.0 RDW 16.0 H Plt Count 252 Sodium 142.6 Potassium 3.9 Chloride 105 Carbon Dioxide 28 Anion Gap 10 BUN 60 H Creatinine 1.87 H Est GFR ( Amer) 42 L Est GFR (Non-Af Amer) 35 L Glucose 61 L Calcium 8.5 Total Bilirubin 0.5 AST 14 L ALT 17 L Alkaline Phosphatase 205 H Total Protein 5.6 L Albumin 2.7 L 01/19/19 01/19/19 01/20/19 19:45 19:45 01:40 Creatine Kinase 394 H 279 H CK-MB (CK-2) 1.71 Troponin I 0.055 NT-Pro-B Natriuret Pep 857 H 01/20/19 01/20/19 01/20/19 01:40 06:35 06:35 Creatine Kinase 232 H CK-MB (CK-2) 2.61 2.97 Troponin I 0.472 0.732 NT-Pro-B Natriuret Pep 01/22/19 01/23/19 01/24/19 13:20 03:35 04:35 Creatine Kinase CK-MB (CK-2) Troponin I 0.293 NT-Pro-B Natriuret Pep 42674 H 42803 H 01423 H 01/25/19 03:42 Creatine Kinase CK-MB (CK-2) Troponin I NT-Pro-B Natriuret Pep 9850 H Impressions: Abdomen/Pelvis CT 01/12/19 07:21 IMPRESSION: 1. There are low attenuated areas within the right lower lobe pulmonary artery segmental-subsegmental branches, suggesting emboli. The patient has a known history of pulmonary emboli. 2. Acute-subacute compression fracture involving the L3 vertebra, this finding likely correlates to the plain film lumbar spine study dated 01/05/2019. No evidence of retropulsion into the spinal canal. The right psoas muscle is larger in size than the left and is slightly heterogenous in appearance. These findings raise the question of possible right psoas muscle hematoma. Correlation suggested and additional imaging(MRI and or CT Lumbar spine) may be helpful if clinically indicated. 3. Bilateral renal cysts, a few have CT numbers slightly above water range, may represent complex cysts. Correlation with renal ultrasound. 4. 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 5. Additional findings, please see above. Chest/Abdomen CTA 01/19/19 00:00 IMPRESSION: Findings positive for pulmonary emboli, as above. Emboli associated with left lower lobe arterial segments are chronic, however new areas of filling defect/new PE involving left upper lobe and right lower lobe segments. No large or central pulmonary most. Stable emphysematous changes. Stable bronchiectasis right lung base. New spiculated nodule in the right upper lobe/apex for which neoplasm is not excluded. Consider further assessment with PET/CT. TECHNICAL DOCUMENTATION: Quality ID # [id number]: Final reports with documentation of one or more dose reduction techniques (e.g., Automated exposure control, adjustment of the mA and/or kV according to patient size, use of iterative reconstruction technique) copyright 2011 [employer]- All Rights Reserved Chest X-Ray 01/22/19 00:00 IMPRESSION: NO ACUTE FINDINGS. Status: Imported from PACS Assessment and Plan - Diagnosis (1) Acute and chronic respiratory failure with hypoxia Is this a current diagnosis for this admission?: Yes Plan: Multifactorial; primarily related to pulmonary embolus in setting of COPD and INOCENCIA. Patient's reports the patient was diagnosed with pulmonary embolus approximately 1 week prior to admission. CTA chest (01/19/2019) demonstrates acute and subacute pulmonary embolus; stable emphysema changes, stable bronchiectasis of the right lung base, and a new spiculated nodule to the right upper lobe/apex for which neoplasm cannot be excluded. He is provided supplemental oxygen as needed to maintain saturation >89%, on continuous pulseox Weaned to nasal cannula from high flow NC Patient does confirm that he is a DNR/DNI. He is provided scheduled and as needed nebulizer treatments. Incentive spirometer and flutter valve to bedside. (2) Pulmonary embolism Qualifiers: Chronicity: acute Is this a current diagnosis for this admission?: Yes Plan: The patient utilizes Coumadin therapy chronically for atrial fibrillation and history of pulmonary embolus. Unfortunately, upon admission he was found to have a psoas muscle hematoma and supratherapeutic INR. His Coumadin was placed on hold at that time. At discharge, his Coumadin was resumed; however, prior to leaving the building the patient developed acute respiratory failure with hypoxia and was found to have a new left upper and lower pulmonary embolus. Initially on Lovenox, now bridged to Coumadin; currently 4 mg nightly. PT/INR daily. The patient's reports that they have had extreme difficulty in obtaining therapeutic INR. She reports that he has had full hematology work-up in the past and has been told he is not a candidate for Eliquis/Xarelto. (3) DEYVI (acute kidney injury) Is this a current diagnosis for this admission?: Yes Plan: The patient was admitted with a creatinine of 1.21; elevated to 1.52 today. BUN is increased from 25-57. Patient's weight is increased from 109 kg to 121.9, now down to 114kg Unfortunately, urine output is not well documented. We will optimize cardiac function. Avoid nephrotoxic medications as able. Daily weights and strict I&O's. Daily chemistries. (4) Acute exacerbation of CHF (congestive heart failure) Qualifiers: Heart failure type: unspecified Qualified Code(s): I50.9 - Heart failure, unspecified Is this a current diagnosis for this admission?: Yes Plan: With evidence of fluid volume overload today. Increased oxygen demand and +2 pitting edema. Echocardiogram from 2017 reveals normal LVEF with mild to moderate diastolic dysfunction. Patient is admitted with multiple pulmonary emboli; concern for right-sided heart failure. Troponin is trending down. proBNP is improving 14,200-->10,300-->9,850 Echocardiogram reveals preserved EF but severe pulmonary HTN Continue IV furosemide 20 mg every 6 hours. Strict I&O's, daily weights. (5) COPD (chronic obstructive pulmonary disease) Qualifiers: COPD type: unspecified COPD Qualified Code(s): J44.9 - Chronic obstructive pulmonary disease, unspecified Is this a current diagnosis for this admission?: Yes Plan: Not in exacerbation at this time. Patient's reports Hx. of COPD. CTA Chest confirms chronic emphysematous changes. No indications for in antibiotics or steroid therapy at this time. Mucinex twice daily. Add spiriva and serevent today Remaining management as above. (6) Compression fracture of L3 vertebra Qualifiers: Encounter type: initial encounter Is this a current diagnosis for this admission?: Yes Plan: The patient was diagnosed with an L3 compression fracture on January 05. He is now having pain radiating into the right leg. Found to have psoas muscle hematoma. Continue Pompey. Nonpharmacological interventions for pain (repositioning, heat). Consult pain managment; discussed with Dr. Cuellar. Unfortunately, the patient's chronic anticoagulation and frequent PEs precludes him from kyphoplasty. Recommended continued conservative management with Pompey, Tylenol, and Lidoderm patches. PT/OT consultation. (7) Diabetes Qualifiers: Diabetes mellitus correction insulin use: with ferry terminal agent use Diabetes mellitus complication detail: with nephropathy Is this a current diagnosis for this admission?: Yes Plan: Consistent carb diet. Lantus 20 units in the morning, 30 units every afternoon. Humalog 10 units with meals. Accu-Cheks before meals and at bedtime with Humalog for sliding scale coverage. Hypoglycemia protocol. (8) Elevated troponin Is this a current diagnosis for this admission?: Yes Plan: 0.055-> 0.732-> 0.293 no longer trending Discussed w/ Dr. Hendricks; elevated troponin is secondary to demand ischemia. EKG demonstrated NSR w/o ST segment changes. Patient is chest pain free. (9) GERD (gastroesophageal reflux disease) Is this a current diagnosis for this admission?: Yes Plan: Continue home dose Protonix and Carafate. (10) Iliopsoas muscle hematoma Qualifiers: Encounter type: initial encounter Laterality: right Qualified Code(s): S70.11XA - Contusion of right thigh, initial encounter Is this a current diagnosis for this admission?: Yes Plan: Patient was admitted with psoas muscle hematoma. He also was noted to have a supratherapeutic INR and so his Coumadin therapy was placed on hold. Have resumed Coumadin secondary to recurrent pulmonary embolus. Home dose Pompey, nonpharmacological interventions for comfort. Pain management consulted; recommend conservative management with Pompey, Tylenol, heat, Lidoderm patches. (11) Intractable pain Is this a current diagnosis for this admission?: Yes Plan: Pompey and Tylenol for discomfort. Trial Lidoderm patches. Nonpharmacological interventions. [place] pain management is consulted. (12) Obesity (BMI 30.0-34.9) Is this a current diagnosis for this admission?: No Plan: Cardiac/consistent carb diet. Dietary discretion is advised. (13) Subtherapeutic anticoagulation Is this a current diagnosis for this admission?: Yes Plan: Resolved INR 1.08-> 1.40-> 1.60-> 1.8-->2.2 On admission he had a supratherapeutic INR of 3.36 with psoas muscle hematoma. His coumadin was placed on hold and resumed 01/19/19. Unfortunately, he developed an acute PE. Lovenox d/c'd now that INR is therapeutic Continue Coumadin 4 mg nightly. Daily PT/INR. We will continue to adjust Coumadin necessary to reach therapeutic goal 2-3 (patient with history of PAF and multiple pulmonary embolus. (Bovine heart valve) (14) Atrial fibrillation Qualifiers: Atrial fibrillation type: chronic Qualified Code(s): I48.2 - Chronic atrial fibrillation Is this a current diagnosis for this admission?: No Plan: Patient with history of PAF. Underwent cardiac ablation in March 2018 EKG currently representing NSR Episode of atrial fibrillation with RVR 2 days ago, briefly on diltiazem drip, now on metoprolol 25 mg BID - Time Time Spent with patient: 15-24 minutes Medications reviewed and adjusted accordingly: Yes Anticipated discharge: SNF Within: within 36 hours - Inpatient Certification Based on my medical assessment, after consideration of the patient's comorbidities, presenting symptoms, or acuity I expect that the services needed warrant INPATIENT care.: Yes I certify that my determination is in accordance with my understanding of Medicare's requirements for reasonable and necessary INPATIENT services [42 CFR 412.3e].: Yes Medical Necessity: Need Close Monitoring Due to Risk of Patient Decompensation, Risk of Complication if Not Cared For in Hospital
[2019-01-25] MEDS: WARFARIN SODIUM 4 MG TABLET PO SCH (22:25)
[2019-01-25] MEDS: PHARMACY COMMUNICATION ORDER MC SCH (22:30)
[2019-01-25] MEDS ORDERED: SALMETEROL XINAFOATE DISKUS 50 MCG/1 DOSE 28 DOSE IH ONE (22:45)
[2019-01-25] MEDS: SALMETEROL XINAFOATE DISKUS 50 MCG/1 DOSE 28 DOSE IH SCH (22:53)
[2019-01-26] MEDS: GABAPENTIN 300 MG CAPSULE PO SCH ×5 (01:13→23:59)
[2019-01-26 05:04] LABS: INTERNATIONAL RATION (INR) 1.59; PROTHROMBIN TIME 19.7 SEC (11.4-15.4)
[2019-01-26 05:14] LABS: HEMATOCRIT 33.3 % (37.9-51.0); HEMOGLOBIN 10.7 g/dL (13.5-17.0); MEAN CORPUSCULAR HEMOGLOBIN 26.4 pg (27.0-33.4); MEAN CORPUSCULAR VOLUME 83 fl (80-97); PLATELET COUNT 226 10^3/uL (150-450); RED BLOOD COUNT 4.03 10^6/uL (4.35-5.55); WHITE BLOOD COUNT 9.9 10^3/uL (4.0-10.5)
[2019-01-26] MEDS: PANTOPRAZOLE SODIUM 40 MG TABLET.DR PO SCH (05:17)
[2019-01-26] MEDS: FUROSEMIDE INJ/PF 20 MG/2 ML SDV IV SCH ×2 (05:17→15:00)
[2019-01-26] MEDS: ACETAMINOPHEN 325 MG TABLET PO PRN ×3 (05:20→17:48)
[2019-01-26 05:24] LABS: ALANINE AMINOTRANSFERASE 21 U/L (21-72); ALBUMIN 2.7 g/dL (3.5-5.0); ALKALINE PHOSPHATASE 238 U/L (38-126); ANION GAP 11 (5-19); ASPARTATE AMINO TRANSFERASE 17 U/L (17-59); BILIRUBIN,DIRECT 0.3 mg/dL (0.0-0.4); BILIRUBIN,TOTAL 0.5 mg/dL (0.2-1.3); BLOOD UREA NITROGEN 56 mg/dL (7-20); CALCIUM 8.4 mg/dL (8.4-10.2); CARBON DIOXIDE 27 mmol/L (22-30); CHLORIDE 104 mmol/L (98-107); GLUCOSE 88 mg/dL (75-110); PHOSPHORUS 4.4 mg/dL (2.5-4.5); SODIUM 141.8 mmol/L (137-145); TOTAL PROTEIN 5.3 g/dL (6.3-8.2)
[2019-01-26] MEDS: INSULIN REG, HUMAN 100 UNIT/ML 3 ML VIAL (PYX) SUBCUT SCH ×4 (08:23→21:21)
[2019-01-26] MEDS: TAMSULOSIN HCL 0.4 MG CAP.SR.24H PO SCH (08:25)
[2019-01-26] MEDS: HYDROCODONE/ACETAMINOPHEN 10-325 MG TABLET PO PRN ×3 (08:25→21:23)
[2019-01-26] MEDS: SUCRALFATE 1 GM TABLET PO SCH ×4 (08:25→21:24)
[2019-01-26] MEDS: INSULIN GLARGINE,HUM.REC.ANLOG 1,000 UNIT/10 ML VIAL SUBCUT SCH ×2 (08:26→17:49)
[2019-01-26] MEDS: INSULIN LISPRO 100 UNIT/ML 3 ML VIAL SUBCUT SCH ×3 (08:26→17:49)
[2019-01-26] MEDS: IPRATROPIUM/ALBUTEROL 0.5-2.5 MG/3 ML AMPUL NEB SCH ×2 (08:41→20:10)
[2019-01-26] MEDS ORDERED: TUBERCULIN,PURIF.PROT.DERIV. 5 TU/0.1 ML TEST 1 ML VIAL ID ONE (10:21)
[2019-01-26] MEDS: ESCITALOPRAM OXALATE 10 MG TABLET PO SCH (10:25)
[2019-01-26] MEDS: GUAIFENESIN 600 MG TABLET.SA PO SCH ×2 (10:25→21:24)
[2019-01-26] MEDS: CYANOCOBALAMIN (VITAMIN B-12) 1,000 MCG TABLET PO SCH (10:25)
[2019-01-26] MEDS: METOPROLOL TARTRATE 25 MG TABLET PO SCH ×2 (10:25→21:23)
[2019-01-26] MEDS: DOCUSATE SODIUM 100 MG CAPSULE PO SCH ×2 (10:25→17:49)
[2019-01-26] MEDS: MAGNESIUM OXIDE 400 MG TABLET PO SCH (10:25)
[2019-01-26] MEDS: FINASTERIDE 5 MG TABLET PO SCH (10:26)
[2019-01-26] MEDS: SALMETEROL XINAFOATE DISKUS 50 MCG/1 DOSE 28 DOSE IH SCH ×2 (12:08→21:22)
[2019-01-26] MEDS: LIDOCAINE 5% (700 MG) TRANSDERMAL ADH..PATCH TP SCH (12:08)
[2019-01-26] MEDS: TIOTROPIUM BROMIDE DPI 5 CAP/KIT (18 MCG/CAP) IH SCH (12:09)
--- NOTE | 2019-01-26 20:52 | PDOC PROGRESS REPORT ---
Subjective Progress Note for:: 01/26/19 Subjective:: The patient is an 83-year-old male with a complicated PMH of AFIB, hypercoagulable state, multiple pulmonary embolisms, aortic aneurysm s/p repair, heart valve replacement, COPD, INOCENCIA, IDDM, diastolic CHF, HTN and back pain related to recent L3 compression fracture who was admitted 01/12/2019 for intractable back pain. Plans to be discharged to SNF 01/19/2019. Unfortunately, while preparing to discharge he was found to be in acute respiratory failure with hypoxia. CTA of the chest demonstrated new left upper lobe and right lower lobe PE. The patient was seen this morning on rounds, he is resting comfortably in bed on nasal cannula. He continues to "feels better" everyday. Able to get OOB to chair and participate in PT/OT but patient's SPO2 drops to 70s with any exertion. Today during conversation and while eating the patient's SPO2 was noted to drop to 75%. Patient seen by Dr. Centeno today. He recommends a sputum culture, PPD (to eval. for TB) and continue with long acting inhalers. Currently not ready for SNF, will need to remain inpatient. Reason For Visit: 13 COMPRESSION FRACTURE AND PSOAS MUSCLE HEMATOMA Physical Exam Vital Signs: Temp Pulse Resp BP Pulse Ox 97.6 F 86 20 125/58 L 96 01/26/19 19:23 01/26/19 19:23 01/26/19 19:23 01/26/19 19:23 01/26/19 19:23 Pulse Oximeter Continuous Start: 01/24/19 08:36 Freq: RTQ4 Status: Active Protocol: Document 01/26/19 13:52 [facility] (Rec: 01/26/19 13:53 [facility] [id number]) Pulse Oximetry Assessment Oxygen Saturation (92-100) 95 Oxygen Flow Rate (L/min) 6 Oxygen Delivery Method Venturi Mask Fraction of Inspired Oxygen (FIO2) 40 Equipment Usage Equipment in Use Continuous SpO2 Machine # 2 Intake & Output 01/25/19 01/26/19 01/27/19 06:59 06:59 06:59 Intake Total 1422 1243 1480 Output Total 2024 1340 1800 Balance -603 -97 -320 Weight 114.9 kg 113.4 kg General appearance: PRESENT: obese Head exam: PRESENT: atraumatic Eye exam: PRESENT: conjunctiva pink, PERRLA Mouth exam: PRESENT: moist, tongue midline Neck exam: PRESENT: full ROM Respiratory exam: PRESENT: clear to auscultation dionisio, symmetrical, unlabored, other - SIGNIFICANT HYPOXIA WITH MINIMAL EXERTION Cardiovascular exam: PRESENT: RRR Pulses: PRESENT: normal radial pulses, +1 pedal pulses bilateral Vascular exam: PRESENT: normal capillary refill GI/Abdominal exam: PRESENT: normal bowel sounds, soft. ABSENT: distended, te nderness Rectal exam: PRESENT: deferred Extremities exam: PRESENT: full ROM, pedal edema - TRACE Musculoskeletal exam: PRESENT: ambulatory - MIN 2 PERSON ASSIST WITH WALKER, deformity - MILD SWELLING OF THE R KNEE. TO ERYTHEMA. NOT WARM TO TOUCH OR TTP. LIKELY LOCALIZED INFLAMMATION DUE TO ARTHRITIS., full ROM Neurological exam: PRESENT: alert, awake, oriented to person, oriented to place, oriented to time, oriented to situation Psychiatric exam: PRESENT: appropriate affect Skin exam: PRESENT: dry, intact, normal color Results Laboratory Results: 01/26/19 04:19 01/26/19 04:19 01/26/19 01/26/19 04:19 04:19 WBC 9.9 RBC 4.03 L Hgb 10.7 L Hct 33.3 L MCV 83 MCH 26.4 L MCHC 32.0 RDW 16.0 H Plt Count 226 Sodium 141.8 Potassium 4.0 Chloride 104 Carbon Dioxide 27 Anion Gap 11 BUN 56 H Creatinine 1.66 H Est GFR ( Amer) 48 L Est GFR (Non-Af Amer) 40 L Glucose 88 Calcium 8.4 Phosphorus 4.4 Magnesium 2.1 Total Bilirubin 0.5 AST 17 ALT 21 Alkaline Phosphatase 238 H Total Protein 5.3 L Albumin 2.7 L 01/19/19 01/19/19 01/20/19 19:45 19:45 01:40 Creatine Kinase 394 H 279 H CK-MB (CK-2) 1.71 Troponin I 0.055 NT-Pro-B Natriuret Pep 857 H 01/20/19 01/20/19 01/20/19 01:40 06:35 06:35 Creatine Kinase 232 H CK-MB (CK-2) 2.61 2.97 Troponin I 0.472 0.732 NT-Pro-B Natriuret Pep 01/22/19 01/23/19 01/24/19 13:20 03:35 04:35 Creatine Kinase CK-MB (CK-2) Troponin I 0.293 NT-Pro-B Natriuret Pep 17777 H 32944 H 31764 H 01/25/19 01/26/19 03:42 04:19 Creatine Kinase CK-MB (CK-2) Troponin I NT-Pro-B Natriuret Pep 9850 H 8480 H Impressions: Abdomen/Pelvis CT 01/12/19 07:21 IMPRESSION: 1. There are low attenuated areas within the right lower lobe pulmonary artery segmental-subsegmental branches, suggesting emboli. The pat ient has a known history of pulmonary emboli. 2. Acute-subacute compression fracture involving the L3 vertebra, this finding likely correlates to the plain film lumbar spine study dated 01/05/2019. No evidence of retropulsion into the spinal canal. The right psoas muscle is larger in size than the left and is slightly heterogenous in appearance. These findings raise the question of possible right psoas muscle hematoma. Correlation suggested and additional imaging(MRI and or CT Lumbar spine) may be helpful if clinically indicated. 3. Bilateral renal cysts, a few have CT numbers slightly above water range, may represent complex cysts. Correlation with renal ultrasound. 4. 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 5. Additional findings, please see above. Chest/Abdomen CTA 01/19/19 00:00 IMPRESSION: Findings positive for pulmonary emboli, as above. Emboli associated with left lower lobe arterial segments are chronic, however new areas of filling defect/new PE involving left upper lobe and right lower lobe segments. No large or central pulmonary most. Stable emphysematous changes. Stable bronchiectasis right lung base. New spiculated nodule in the right upper lobe/apex for which neoplasm is not excluded. Consider further assessment with PET/CT. TECHNICAL DOCUMENTATION: Quality ID # [id number]: Final reports with documentation of one or more dose reduction techniques (e.g., Automated exposure control, adjustment of the mA and/or kV according to patient size, use of iterative reconstruction technique) copyright 2011 [employer]- All Rights Reserved Chest X-Ray 01/22/19 00:00 IMPRESSION: NO ACUTE FINDINGS. Status: Imported from PACS Assessment and Plan - Diagnosis (1) Acute and chronic respiratory failure with hypoxia Is this a current diagnosis for this admission?: Yes Plan: Multifactorial; primarily related to pulmonary embolus in setting of COPD and INOCENCIA. Patient's reports the patient was diagnosed with pulmonary embolus a pproximately 1 week prior to admission. CTA chest (01/19/2019) demonstrates acute and subacute pulmonary embolus; stable emphysema changes, stable bronchiectasis of the right lung base, and a new spic ulated nodule to the right upper lobe/apex for which neoplasm cannot be excluded. He is provided supplemental oxygen as needed to maintain saturation >89%, on continuous pulseox Weaned to nasal cannula from high flow NC Patient does confirm that he is a DNR/DNI. He is provided scheduled and as needed nebulizer treatments. Incentive spirometer and flutter valve to bedside. Long acting inhalers Pulmonary consulted, appreciate Dr. Centeno's recommendations (2) Pulmonary embolism Qualifiers: Chronicity: acute Is this a current diagnosis for this admission?: Yes Plan: The patient utilizes Coumadin therapy chronically for atrial fibrillation and history of pulmonary embolus. Unfortunately, upon admission he was found to have a psoas muscle hematoma and supratherapeutic INR. His Coumadin was placed on hold at that time. At discharge, his Coumadin was resumed; however, prior to leaving the building the patient developed acute respiratory failure with hypoxia and was found to have a new left upper and lower pulmonary embolus. Initially on Lovenox, now bridged to Coumadin; currently 4 mg nightly. PT/INR daily. The patient's reports that they have had extreme difficulty in obtaining therapeutic INR. She reports that he has had full hematology work-up in the past and has been told he is not a candidate for Eliquis/Xarelto. (3) DEYVI (acute kidney injury) Is this a current diagnosis for this admission?: Yes Plan: The patient was admitted with a creatinine of 1.21; elevated to 1.66 today. BUN is increased from 25-57. Patient's weight is increased from 109 kg to 121.9, now down to 113kg Unfortunately, urine output is not well documented. We will optimize cardiac function. Avoid nephrotoxic medications as able. Daily weights and strict I&O's. Daily chemistries. (4) Acute exacerbation of CHF (congestive heart failure) Qualifiers: Heart failure type: unspecified Qualified Code(s): I50.9 - Heart failure, unspecified Is this a current diagnosis for this admission?: Yes Plan: With evidence of fluid volume overload today. Requiring supplemental O2 via NC and +1-2 pitting edema. Echocardiogram from 2017 reveals normal LVEF with mild to moderate diastolic dysfunction. Patient is admitted with multiple pulmonary emboli; concern for right-sided heart failure. Troponin is trending down. proBNP is improving 14,200-->10,300-->9,850 Echocardiogram reveals preserved EF but severe pulmonary HTN Changed IV lasix to PO furosemide 40 mg every 12 hours. Strict I&O's, daily weights. (5) COPD (chronic obstructive pulmonary disease) Qualifiers: COPD type: unspecified COPD Qualified Code(s): J44.9 - Chronic obstructive pulmonary disease, unspecified Is this a current diagnosis for this admission?: Yes Plan: Not in exacerbation at this time. Patient's reports Hx. of COPD. CTA Chest confirms chronic emphysematous changes. No indications for antibiotics or steroid therapy at this time. Mucinex twice daily. Continue spiriva and serevent today Pulmonary consulted, Dr. Centeno was able to see the patient today. Appreciate h is recommendations (6) Compression fracture of L3 vertebra Qualifiers: Encounter type: initial encounter Is this a current diagnosis for this admission?: Yes Plan: The patient was diagnosed with an L3 compression fracture on January 05. He is now having pain radiating into the right leg. Found to have psoas muscle hematoma. Continue Mathis. Nonpharmacological interventions for pain (repositioning, heat). Consult pain managment; discussed with Dr. Cuellar. Unfortunately, the patient's chronic anticoagulation and frequent PEs precludes him from kyphoplasty. Recommended continued conservative management with Mathis, Tylenol, and Lidoderm patches. PT/OT consultation. (7) Diabetes Qualifiers: Diabetes mellitus care home insulin use: with care home use Diabetes mellitus complication detail: with nephropathy Is this a current diagnosis for this admission?: Yes Plan: Consistent carb diet. Lantus 20 units in the morning, 30 units every afternoon. Humalog 10 units with meals. Accu-Cheks before meals and at bedtime with Humalog for sliding scale coverage. Hypoglycemia protocol. (8) Elevated troponin Is this a current diagnosis for this admission?: Yes Plan: 0.055-> 0.732-> 0.293 no longer trending Discussed w/ Dr. Hendricks; elevated troponin is secondary to demand ischemia. EKG demonstrated NSR w/o ST segment changes. Patient is chest pain free. (9) GERD (gastroesophageal reflux disease) Is this a current diagnosis for this admission?: Yes Plan: Continue home dose Protonix and Carafate. (10) Iliopsoas muscle hematoma Qualifiers: Encounter type: initial encounter Laterality: right Qualified Code(s): S70.11XA - Contusion of right thigh, initial encounter Is this a current diagnosis for this admission?: Yes Plan: Patient was admitted with psoas muscle hematoma. He also was noted to have a supratherapeutic INR and so his Coumadin therapy was placed on hold. Have resumed Coumadin secondary to recurrent pulmonary embolus. Home dose Mathis, nonpharmacological interventions for comfort. Pain management consulted; recommend conservative management with Mathis, Tylenol , heat, Lidoderm patches. (11) Intractable pain Is this a current diagnosis for this admission?: Yes Plan: Mathis and Tylenol for discomfort. Trial Lidoderm patches. Nonpharmacological interventions. [place] pain management is consulted. (12) Obesity (BMI 30.0-34.9) Is this a current diagnosis for this admission?: No Plan: Cardiac/consistent carb diet. Dietary discretion is advised. (13) Subtherapeutic anticoagulation Is this a current diagnosis for this admission?: Yes Plan: Resolved INR 1.08-> 1.40-> 1.60-> 1.8-->2.2 On admission he had a supratherapeutic INR of 3.36 with psoas muscle hematoma. His coumadin was placed on hold and resumed 01/19/19. Unfortunately, he developed an acute PE. Lovenox d/c'd now that INR is therapeutic Continue Coumadin 4 mg nightly. Daily PT/INR. Goal INR 2-3 for bovine heart valve (14) Atrial fibrillation Qualifiers: Atrial fibrillation type: chronic Qualified Code(s): I48.2 - Chronic atrial fibrillation Is this a current diagnosis for this admission?: No Plan: Patient with history of PAF. Underwent cardiac ablation in March 2018 EKG currently representing NSR Episode of atrial fibrillation with RVR a few days ago, briefly on diltiazem drip, now on metoprolol 25 mg BID - Time Time Spent with patient: 15-24 minutes Medications reviewed and adjusted accordingly: Yes Anticipated discharge: Home - Inpatient Certification Based on my medical assessment, after consideration of the patient's comorbid ities, presenting symptoms, or acuity I expect that the services needed warrant INPATIENT care.: Yes I certify that my determination is in accordance with my understanding of Medicare's requirements for reasonable and necessary INPATIENT services [42 CFR 412.3e].: Yes Medical Necessity: Need For Continuous Telemetry Monitoring, Need for Nebulizer Therapy and Monitoring of Response
[2019-01-26] MEDS: WARFARIN SODIUM 4 MG TABLET PO SCH (21:23)
[2019-01-26] MEDS: PHARMACY COMMUNICATION ORDER MC SCH (21:30)
[2019-01-27] MEDS: ACETAMINOPHEN 325 MG TABLET PO PRN (01:44)
[2019-01-27] MEDS: PANTOPRAZOLE SODIUM 40 MG TABLET.DR PO SCH (05:16)
[2019-01-27] MEDS: GABAPENTIN 300 MG CAPSULE PO SCH ×2 (05:17→12:53)
[2019-01-27] MEDS: HYDROCODONE/ACETAMINOPHEN 10-325 MG TABLET PO PRN ×2 (05:22→10:14)
[2019-01-27] MEDS: INSULIN LISPRO 100 UNIT/ML 3 ML VIAL SUBCUT SCH ×2 (07:54→12:27)
[2019-01-27] MEDS: TAMSULOSIN HCL 0.4 MG CAP.SR.24H PO SCH (07:54)
[2019-01-27] MEDS: SUCRALFATE 1 GM TABLET PO SCH ×2 (07:54→12:53)
[2019-01-27] MEDS: INSULIN REG, HUMAN 100 UNIT/ML 3 ML VIAL (PYX) SUBCUT SCH ×2 (07:55→12:28)
[2019-01-27] MEDS: INSULIN GLARGINE,HUM.REC.ANLOG 1,000 UNIT/10 ML VIAL SUBCUT SCH (07:55)
[2019-01-27] MEDS: IPRATROPIUM/ALBUTEROL 0.5-2.5 MG/3 ML AMPUL NEB SCH (08:12)
[2019-01-27] MEDS: MAGNESIUM OXIDE 400 MG TABLET PO SCH (10:01)
[2019-01-27] MEDS: GUAIFENESIN 600 MG TABLET.SA PO SCH (10:01)
[2019-01-27] MEDS: FINASTERIDE 5 MG TABLET PO SCH (10:02)
[2019-01-27] MEDS: METOPROLOL TARTRATE 25 MG TABLET PO SCH (10:02)
[2019-01-27] MEDS: CYANOCOBALAMIN (VITAMIN B-12) 1,000 MCG TABLET PO SCH (10:02)
[2019-01-27] MEDS: DOCUSATE SODIUM 100 MG CAPSULE PO SCH (10:02)
[2019-01-27] MEDS: ESCITALOPRAM OXALATE 10 MG TABLET PO SCH (10:02)
[2019-01-27] MEDS: SALMETEROL XINAFOATE DISKUS 50 MCG/1 DOSE 28 DOSE IH SCH (10:03)
[2019-01-27] MEDS: LIDOCAINE 5% (700 MG) TRANSDERMAL ADH..PATCH TP SCH (10:03)
[2019-01-27] MEDS: TIOTROPIUM BROMIDE DPI 5 CAP/KIT (18 MCG/CAP) IH SCH (10:04)
[2019-01-27 12:09] VITALS: BP 145/50
--- NOTE | 2019-01-27 12:32 | PDOC TRANSFER SUMMARY ---
General Admission Date/PCP: 01/13/19 12:54 MISTY SANDERS MD Admission Date: 01/22/19 Transfer Date: 01/27/19 Accepting Facility: [facility] Accepting Physician: Dr. Spann Resuscitation Status: Do Not Resuscitate - Transfer Diagnosis (1) Acute and chronic respiratory failure with hypoxia Is this a current diagnosis for this admission?: Yes Diagnosis Summary: Multifactorial; primarily related to pulmonary embolus in setting of COPD and INOCENCIA. Patient's reports the patient was diagnosed with pulmonary embolus approximately 1 week prior to admission. CTA chest (01/19/2019) demonstrates acute and subacute pulmonary embolus; stable emphysema changes, stable bronchiectasis of the right lung base, and a new spiculated nodule to the right upper lobe/apex for which neoplasm cannot be exc luded. Supplemental O2 PRN for >89%, on continuous pulseox Weaned from BIPAP--> high flow NC-->NC Patient does confirm that he is a DNR/DNI. Scheduled and as needed nebulizer treatments. Incentive spirometer and flutter valve to bedside. Long acting inhalers Pulmonary consulted, Dr. Centeno's recommended long acting inhalers (spiriva and serevent), which the patient is already taking (2) Pulmonary embolism Is this a current diagnosis for this admission?: Yes Diagnosis Summary: The patient utilizes Coumadin therapy chronically for atrial fibrillation and history of pulmonary embolus. Unfortunately, upon admission he was found to have a psoas muscle hematoma and supratherapeutic INR. His Coumadin was placed on hold at that time. At discharge, his Coumadin was resumed; however, prior to leaving the building the patient developed acute respiratory distress with hypoxia and was found to have a new left upper and right lower pulmonary embolus. Initially on Lovenox, bridged to Coumadin; currently 4 mg nightly. PT/INR daily. The patient's reports that they have had extreme difficulty in obtaining therapeutic INR. She reports that he has had full hematology work-up in the past and has been told he is not a candidate for Eliquis/Xarelto. (3) DEYVI (acute kidney injury) Is this a current diagnosis for this admission?: Yes Diagnosis Summary: The patient was admitted with a creatinine of 1.21; elevated to 1.66 today. BUN is increased from 25-57. Patient's weight is increased from 109 kg to 121.9, now down to 113kg Unfortunately, urine output is not well documented. Avoid nephrotoxic medications as able. Daily weights and strict I&O's. Daily chemistries. (4) Acute exacerbation of CHF (congestive heart failure) Is this a current diagnosis for this admission?: Yes (5) COPD (chronic obstructive pulmonary disease) Is this a current diagnosis for this admission?: Yes Diagnosis Summary: Patient's reports Hx. of COPD. CTA Chest confirms chronic emphysematous changes. No indications for antibiotics Wheezing noted on exam today, will initiate steroids Mucinex twice daily. Continue spiriva and serevent (6) Compression fracture of L3 vertebra Is this a current diagnosis for this admission?: Yes Diagnosis Summary: The patient was diagnosed with an L3 compression fracture on January 05. Endorses pain radiating into the right leg. Found to have psoas muscle hematoma. PRN [place]. Nonpharmacological interventions for pain (repositioning, heat). Consult pain managment; discussed with Dr. Cuellar. Unfortunately, the patient's chronic anticoagulation and frequent PEs precludes him from kyphoplasty. Recommended continued conservative management with [place], Tylenol, and Lidoderm patches. PT/OT (7) Diabetes Is this a current diagnosis for this admission?: Yes Diagnosis Summary: Consistent carb diet. Lantus 20 units in the morning, 30 units every afternoon. Humalog 10 units with meals. Accu-Cheks before meals and at bedtime with Humalog for sliding scale coverage. Hypoglycemia protocol. (8) Elevated troponin Is this a current diagnosis for this admission?: Yes Diagnosis Summary: 0.055-> 0.732-> 0.293 no longer trending Discussed w/ Dr. Hendricks (cardiology); elevated troponin is secondary to demand ischemia. EKG demonstrated NSR w/o ST segment changes. Patient is chest pain free. (9) GERD (gastroesophageal reflux disease) Is this a current diagnosis for this admission?: Yes Diagnosis Summary: Protonix and carafate (10) Iliopsoas muscle hematoma Is this a current diagnosis for this admission?: Yes Diagnosis Summary: Patient was admitted with psoas muscle hematoma. He also was noted to have a supratherapeutic INR and so his Coumadin therapy was placed on hold. Have resumed Coumadin secondary to recurrent pulmonary emboli Home dose [place], nonpharmacological interventions for comfort. Pain management consulted; recommend conservative management with [place], Tylenol, heat, Lidoderm patches. (11) Intractable pain Is this a current diagnosis for this admission?: Yes Diagnosis Summary: Secondary to L3 fracture (12) Obesity (BMI 30.0-34.9) Is this a current diagnosis for this admission?: No Diagnosis Summary: Cardiac/consistent carb diet. Dietary discretion is advised. (13) Subtherapeutic anticoagulation Is this a current diagnosis for this admission?: Yes Diagnosis Summary: Resolved INR 1.08-> 1.40-> 1.60-> 1.8-->2.2 On admission he had a supratherapeutic INR of 3.36 with psoas muscle hematoma. His coumadin was placed on hold and resumed 01/19/19. Unfortunately, he developed an acute PE. Lovenox d/c'd now that INR is therapeutic Continue Coumadin 4 mg nightly. Daily PT/INR. Goal INR 2-3 for bovine heart valve (14) Atrial fibrillation Is this a current diagnosis for this admission?: Yes Diagnosis Summary: Patient with history of PAF. Underwent cardiac ablation in March 2018 EKG currently representing NSR Episode of atrial fibrillation with RVR a few days ago, briefly on diltiazem drip, now on metoprolol 25 mg BID - Transfer Medications Home Medications: Cyanocobalamin (Vitamin B-12) [Vitamin B-12] 1,000 mcg PO DAILY 12/11/17 Docusate Sodium 100 mg PO Q12 12/11/17 Ergocalciferol (Vitamin D2) [Vitamin D2] 50,000 unit PO TH 12/11/17 Exenatide Microspheres [Bydureon Pen] 2 mg SQ FR 12/11/17 Finasteride 5 mg PO DAILY 12/11/17 Gabapentin 300 mg PO QID 12/11/17 Magnesium Oxide [Magnesium] 400 mg PO DAILY 12/11/17 Tamsulosin HCl [Flomax 0.4 mg Cap.sr] 0.4 mg PO DAILY 12/11/17 Transfer Medications: Current Medications Acetaminophen (Tylenol 325 Mg Tablet) 650 mg PO Q6HP PRN PRN Reason: FOR PAIN OR TEMP Stop: 02/20/19 13:29 Last Admin: 01/27/19 01:44 Dose: 650 mg Documented by: Hydrocodone Bitart/Acetaminophen ([place] 10-325 Mg Tablet) 1 tab PO Q6HP PRN PRN Reason: FOR PAIN Stop: 01/29/19 10:50 Last Admin: 01/27/19 10:14 Dose: 1 tab Documented by: Albuterol/Ipratropium (Duoneb 3 Ml Ampul) 3 ml NEB RTQ12 MCIAELA Stop: 02/19/19 19:59 Last Admin: 01/27/19 08:12 Dose: 3 ml Documented by: Cyanocobalamin (Vitamin B-12 1000 Mcg Tablet) 1,000 mcg PO DAILY MICAELA Stop: 02/12/19 09:59 Last Admin: 01/27/19 10:02 Dose: 1,000 mcg Documented by: Dextrose (Dextrose Inj 50% Syringe (25 Gm/50 Ml)) 12.5 gm IV PRN PRN; Protocol PRN Reason: FOR BG 50-69 IN ALERT PATIENT Stop: 02/11/19 12:29 Dextrose (Dextrose Inj 50% Syringe (25 Gm/50 Ml)) 25 gm IV PRN PRN; Protocol PRN Reason: PER PROTOCOL Stop: 02/11/19 12:29 Last Admin: 01/13/19 16:31 Dose: 25 gm Documented by: Docusate Sodium (Colace 100 Mg Capsule) 100 mg PO BID [facility] Stop: 02/11/19 17:59 Last Admin: 01/27/19 10:02 Dose: 100 mg Documented by: Ergocalciferol (Drisdol 50,000 Unit (1.25mg) Capsule) 50,000 unit PO Th@1000 [facility] Stop: 02/13/19 09:59 Last Admin: 01/21/19 09:20 Dose: 50,000 unit Documented by: Escitalopram Oxalate (Lexapro 10 Mg Tablet) 10 mg PO DAILY [facility] Stop: 02/12/19 09:59 Last Admin: 01/27/19 10:02 Dose: 10 mg Documented by: Finasteride (Proscar 5 Mg Tablet) 5 mg PO DAILY [facility] Stop: 02/12/19 09:59 Last Admin: 01/27/19 10:02 Dose: 5 mg Documented by: Furosemide (Lasix 40 Mg Tablet) 40 mg PO BID [facility] Stop: 02/26/19 17:59 Gabapentin (Neurontin 300 Mg Capsule) 300 mg PO Q6 MICAELA Stop: 02/11/19 17:59 Last Admin: 01/27/19 05:17 Dose: 300 mg Documented by: Glucagon (Glucagen Inj 1 Mg Vial) 1 mg IM PRN PRN; Protocol PRN Reason: Evaluate for BG < 70 Stop: 02/11/19 12:29 Glucose (Glutose 40% Gel 15 Gm Tube) 15 gm PO PRN PRN; Protocol PRN Reason: FOR BG 50-69 IN ALERT PATIENT Stop: 02/11/19 12:29 Glucose (Glutose 40% Gel 15 Gm Tube) 30 gm PO PRN PRN; Protocol PRN Reason: FOR BG < 50 IN ALERT PATIENT Stop: 02/11/19 12:29 Guaifenesin (Mucinex Sr 600 Mg Tablet.Sa) 600 mg PO Q12 [facility] Stop: 02/21/19 21:59 Last Admin: 01/27/19 10:01 Dose: 600 mg Documented by: Insulin Glargine (Lantus Insulin 100 Unit/1 Ml 10 Ml) 30 unit SUBCUT QPM [facility] Stop: 02/16/19 17:59 Last Admin: 01/26/19 17:49 Dose: 30 unit Documented by: Insulin Glargine (Lantus Insulin 100 Unit/1 Ml 10 Ml) 20 unit SUBCUT QAM [facility] Stop: 02/18/19 07:59 Last Admin: 01/27/19 07:55 Dose: 20 unit Documented by: Insulin Human Lispro (Humalog Insulin 100 Unit/1 Ml 3 Ml Vial) 10 unit SUBCUT AC [facility] Stop: 02/17/19 15:59 Last Admin: 01/27/19 07:54 Dose: 10 unit Documented by: Insulin Human Regular (Humulin R (Pyxis) Insulin 100 Unit/Ml 3ml) 0 - 12 [facility]; Protocol Stop: 02/11/19 15:59 Last Admin: 01/27/19 07:55 Dose: Not Given Documented by: Levalbuterol HCl (Xopenex Neb 1.25 Mg/3 Ml Ampul) 1.25 mg NEB RTQ6HP PRN PRN Reason: SHORTNESS OF BREATH Stop: 02/18/19 18:59 Last Admin: 01/23/19 17:28 Dose: 1.25 mg Documented by: Lidocaine (Lidoderm 5% (700 Mg) Transdermal Patch) 1 patch TP DAILY [facility] Stop: 02/20/19 11:59 Last Admin: 01/27/19 10:03 Dose: 1 patch Documented by: Magnesium Oxide (Mag-Ox 400 Mg Tablet) 400 mg PO DAILY MICAELA Stop: 02/12/19 09:59 Last Admin: 01/27/19 10:01 Dose: 400 mg Documented by: Metoprolol Tartrate (Lopressor Inj/Pf 5 Mg/5 Ml Sdv) 5 mg IV Q6HP PRN PRN Reason: hr>100 Stop: 02/18/19 20:05 Last Admin: 01/24/19 20:25 Dose: 5 mg Documented by: Metoprolol Tartrate (Lopressor 25 Mg Tablet) 25 mg PO Q12 MICAELA Stop: 02/22/19 09:59 Last Admin: 01/27/19 10:02 Dose: 25 mg Documented by: Pantoprazole Sodium (Protonix [address] Tablet) 40 mg PO Q6AM MICAELA Stop: 02/12/19 05:59 Last Admin: 01/27/19 05:16 Dose: 40 mg Documented by: Patient Own Medication (Exenatide Microspheres [Bydureon Pen]) 2 mg SQ .FR MICAELA Stop: 02/14/19 08:04 Pharmacy Profile Note (Medication Communication Order) 1 each QHS MICAELA Stop: 02/20/19 21:59 Last Admin: 01/26/19 21:30 Dose: Not Given Documented by: Salmeterol Xinafoate (Serevent Diskus 50 Mcg/Dose 28 Dose/Diskus) 50 mcg IH Q12 MICAELA Stop: 02/24/19 21:59 Last Admin: 01/27/19 10:03 Dose: 50 mcg Documented by: Sucralfate (Carafate 1 Gm Tablet) 1 gm PO ACHS MICAELA Stop: 02/11/19 15:59 Last Admin: 01/27/19 07:54 Dose: 1 gm Documented by: Tamsulosin HCl (Flomax 0.4 Mg Cap.Sr) 0.4 mg PO QAM MICAELA Stop: 02/12/19 07:59 Last Admin: 01/27/19 07:54 Dose: 0.4 mg Documented by: Tiotropium [place] (Spiriva Handihaler 5 Cap/Kit (18 Mcg/Cap)) 1 cap IH DAILY MICAELA Stop: 02/25/19 09:59 Last Admin: 01/27/19 10:04 Dose: 1 cap Documented by: Warfarin Sodium (Coumadin 4 Mg Tablet) 4 mg PO QHS MICAELA Stop: 02/21/19 21:59 Last Admin: 01/26/19 21:23 Dose: 4 mg Documented by: - Allergies Allergies/Adverse Reactions: No Known Allergies Allergy (Verified 12/10/17 11:05) - Diet/Activity Discharge Diet: Diabetic Hospital Course Hospital Course: H&P: 83 y.o. M presented [facility] ED with intractable back pain, radiating down to his testicles and bilateral groin area. Following a recent fall the patient sustained an L3 fracture seen on CT causing a right psoas hematoma. The patient is currently anticoagulated on Coumadin for history of multiple PEs (approximately 5-6), AFIB and s/p aortic valve replacement. Initial INR 3.36. Coumadin placed on hold. The patient currently lives at home with his elderly , he will likely require SNF/rehab placement following hospitalization. HOSPITAL COURSE: The patient is an 83-year-old male with a complicated PMH of AFIB, hypercoagulable state (on coumadin), multiple pulmonary embolisms, aortic aneurysm s/p repair, bovine aortic heart valve replacement, COPD (not on home O2), INOCENCIA (non-compliant with CPAP), IDDM, diastolic CHF, HTN and back pain related to recent L3 compression fracture who was admitted 01/12/2019 for intractable back pain and R psoas hematoma. Plans to be discharged to SNF 01/19/2019. Unfortunately, while preparing to discharge he was found to be in acute respiratory distress with hypoxia. CTA of the chest showed new left upper lobe and right lower lobe PE. The patient was placed on full dose Lovenox. Pro- BNP elevated from 847 to 77594. STAT ECHOcardiogram revealed preserved EF, trace AR and severe pulmonary HTN. His respiratory status is very tenuous, requiring BiPAP. The patient confirmed that he is a DNR/DNI. Eventually, he was weaned from BiPAP to high flow nasal cannula and then to 5L NC. Unfortunately, the patient would frequently become hypoxic with minimal exertional activity. While engaging in conversation or eating, the patient's SPO2 dropped to 75%. He is able to tolerate minimal physical therapy, 2 person max assist ambulating with a walker approximately 10 feet and then the patient will become very short of breath, hypoxic, exhibiting pursed lip breathing. The patient was evaluated by [facility] template fitter, Dr. Centeno, who did not have a great deal of recommendations. Discussed the patient's case with Dr. Spann (Drafter Directional Survey) of [facility] who graciously agreed to accept the patient for evaluation of chronic thromboembolic pulmonary hypertension and possible thrombectomy. Physical Exam Vital Signs: Temp Pulse Resp BP Pulse Ox 97.7 F 82 22 H 140/81 H 91 L 01/27/19 07:25 01/27/19 08:12 01/27/19 08:12 01/27/19 07:25 01/27/19 08:12 Pulse Oximeter Continuous Start: 01/24/19 08:36 Freq: RTQ4 Status: Active Protocol: Document 01/27/19 08:12 LDA (Rec: 01/27/19 10:00 LDA [id number]) Pulse Oximetry Assessment Oxygen Saturation (92-100) 91 Oxygen Flow Rate (L/min) 5 Oxygen Delivery Method Nasal Cannula Fraction of Inspired Oxygen (FIO2) 40 Equipment Usage Equipment in Use Continuous SpO2 Machine # 2 Intake & Output 01/26/19 01/27/19 01/28/19 06:59 06:59 06:59 Intake Total 1243 1480 Output Total 1340 2800 Balance -97 -1320 Weight 113.4 kg 114.6 kg General appearance: PRESENT: mild distress Eye exam: PRESENT: conjunctiva pink, PERRLA Mouth exam: PRESENT: moist, tongue midline Neck exam: PRESENT: full ROM Respiratory exam: PRESENT: prolonged expiratory phas - with minimal exertion, symmetrical, tachypnea - with minimal exertion, wheezes Cardiovascular exam: PRESENT: +S1, +S2 Pulses: PRESENT: normal radial pulses, +1 pedal pulses bilateral Vascular exam: PRESENT: normal capillary refill GI/Abdominal exam: PRESENT: normal bowel sounds, soft. ABSENT: distended, tenderness Rectal exam: PRESENT: deferred Extremities exam: PRESENT: full ROM Musculoskeletal exam: PRESENT: ambulatory - MAX 2 PERSON ASSIST WITH WALKER - BECOMES VERY SOB & HYPOXIC WITHIN 10FT, full ROM Neurological exam: PRESENT: alert, awake, oriented to person, oriented to place, oriented to time, oriented to situation Psychiatric exam: PRESENT: appropriate affect Skin exam: PRESENT: dry, intact, normal color Results Laboratory Results: 01/26/19 04:19 01/26/19 04:19 01/19/19 01/19/19 01/20/19 19:45 19:45 01:40 Creatine Kinase 394 H 279 H CK-MB (CK-2) 1.71 Troponin I 0.055 NT-Pro-B Natriuret Pep 857 H 01/20/19 01/20/19 01/20/19 01:40 06:35 06:35 Creatine Kinase 232 H CK-MB (CK-2) 2.61 2.97 Troponin I 0.472 0.732 NT-Pro-B Natriuret Pep 01/22/19 01/23/19 01/24/19 13:20 03:35 04:35 Creatine Kinase CK-MB (CK-2) Troponin I 0.293 NT-Pro-B Natriuret Pep 96337 H 48472 H 26649 H 01/25/19 01/26/19 03:42 04:19 Creatine Kinase CK-MB (CK-2) Troponin I NT-Pro-B Natriuret Pep 9850 H 8480 H Impressions: Abdomen/Pelvis CT 01/12/19 07:21 IMPRESSION: 1. There are low attenuated areas within the right lower lobe pulmonary artery segmental-subsegmental branches, suggesting emboli. The patient has a known history of pulmonary emboli. 2. Acute-subacute compression fracture involving the L3 vertebra, this finding likely correlates to the plain film lumbar spine study dated 01/05/2019. No evidence of retropulsion into the spinal canal. The right psoas muscle is larger in size than the left and is slightly heterogenous in appearance. These findings raise the question of possible right psoas muscle hematoma. Correlation suggested and additional imaging(MRI and or CT Lumbar spine) may be helpful if clinically indicated. 3. Bilateral renal cysts, a few have CT numbers slightly above water range, may represent complex cysts. Correlation with renal ultrasound. 4. 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 5. Additional findings, please see above. Chest/Abdomen CTA 01/19/19 00:00 IMPRESSION: Findings positive for pulmonary emboli, as above. Emboli associated with left lower lobe arterial segments are chronic, however new areas of filling defect/new PE involving left upper lobe and right lower lobe segments. No large or central pulmonary most. Stable emphysematous changes. Stable bronchiectasis right lung base. New spiculated nodule in the right upper lobe/apex for which neoplasm is not excluded. Consider further assessment with PET/CT. TECHNICAL DOCUMENTATION: Quality ID # [id number]: Final reports with documentation of one or more dose reduction techniques (e.g., Automated exposure control, adjustment of the mA and/or kV according to patient size, use of iterative reconstruction technique) copyright 2011 [employer]- All Rights Reserved Chest X-Ray 01/22/19 00:00 IMPRESSION: NO ACUTE FINDINGS. Status: Imported from PACS Plan Discharge Plan: TRANSFER TO [facility] Time Spent: Greater than 30 Minutes
[2019-01-27] MEDS ORDERED: FUROSEMIDE 40 MG TABLET PO SCH (18:00)
--- NOTE | 2019-01-28 08:53 | PDOC CONSULTATION ---
Consultation Consult Date: 01/26/19 Attending physician:: BE TESFAYE Provider Consulted: MERLINE HAWK Consult reason:: HYPOXIA/PE History of Present Illness Admission Date/PCP: 01/13/19 12:54 MISTY SANDERS MD History of Present Illness: CHRISTINA SANDERS JR is a 83 year old male presented to the emergency room for extraordinary back pain has L3 compression fracture as well as what proved to be a iliopsoas hematoma after sustaining a fall at home he is chronically anticoagulated for atrial fib as well as valve replacement. He has been worked up extensively but he said multiple PEs in the past and was being maintained well on Coumadin until he developed this hematoma at that time Coumadin was stopped and patient was put on Lovenox icepack on Coumadin he has no history of chronic lung disease as a child or adolescent he denies hemoptysis admits to purulent cough this been developed over the last couple of days he has not oxygen at home missed exposure large amounts of passive smoke as a child as well as an adolescent. He is self smoked 1/2 pack a day for approximately 15 years but has not smoked in the last 30 years. He was a marine and retired from that. He also worked 8 "[employer]" in [place] as well as in [place]. He has no pets no recent travel he denies angina-like chest pain sleeps on one pillow no PND rare nocturnal cough no edema. He also carries a diagnosis of obstructive sleep apnea but admits to poor compliance with any therapy Past Medical History Cardiac Medical History: Reports: Atrial Fibrillation - coumadin, Coronary Artery Disease, Hyperlipidema, Hypertension Pulmonary Medical History: Reports: Bronchitis, Chronic Obstructive Pulmonary Disease (COPD), Pneumonia EENT Medical History: Reports: Other - Coagulopathy with numerous DVTs/PEs Neurological Medical History: Reports: Other - Diabetic neuropathy Endocrine Medical History: Reports: Diabetes Mellitus Type 2 Renal/ Medical History: Reports: Other - Renal cysts GI Medical History: Reports: Gastroesophageal Reflux Disease Psychiatric Medical History: Reports: Depression Hematology: Reports: Other - Coagulopathy with numerous DVTs/PEs Past Surgical History Past Surgical History: Reports: Appendectomy, Cardiac Catheterization, Orthopedic Surgery - R Shoulder, Tonsillectomy, Vascular Surgery - AAA Social History Information Source: Patient, Relative, [facility] Records Lives with: Spouse/Significant other Smoking Status: Former Smoker Cigarettes Packs Per Day: 0.5 Number of Years Smokin Last Time Smoked: 1988 Passive smoke exposure as: Both Frequency of Alcohol Use: None Hx Recreational Drug Use: No Hx Prescription Drug Abuse: No Do you have pets?: No Have you had any respiratory illnesses as a child?: No Have you been exposed to any sick contacts recently?: No Have you had any recent respiratory illnesses?: No Have you travelled outside of [place] in the past 12 months?: No - Advance Directive Resuscitation Status: Do Not Resuscitate Family History Family History: CAD, COPD, CVA, DM, Hyperlipidemia, Malignancy Parental Family History Reviewed: Yes Children Family History Reviewed: Yes Sibling(s) Family History Reviewed.: Yes Medication/Allergy Home Medications: Cyanocobalamin (Vitamin B-12) [Vitamin B-12] 1,000 mcg PO DAILY 12/11/17 Docusate Sodium 100 mg PO Q12 12/11/17 Ergocalciferol (Vitamin D2) [Vitamin D2] 50,000 unit PO TH 12/11/17 Exenatide Microspheres [Bydureon Pen] 2 mg SQ FR 12/11/17 Finasteride 5 mg PO DAILY 12/11/17 Gabapentin 300 mg PO QID 12/11/17 Magnesium Oxide [Magnesium] 400 mg PO DAILY 12/11/17 Tamsulosin HCl [Flomax 0.4 mg Cap.sr] 0.4 mg PO DAILY 12/11/17 Finasteride [Proscar 5 mg Tablet] 5 mg PO DAILY tablet 01/19/19 Insulin Glargine,Hum.rec.anlog [Lantus Insulin 100 Unit/1 ml 10 ml] 20 unit SUBCUT QAM unit 01/19/19 Insulin Glargine,Hum.rec.anlog [Lantus Insulin 100 Unit/1 ml 10 ml] 30 unit SUBCUT QPM unit 01/19/19 Insulin Lispro [Humalog Insulin (Lispro) 100 unit/mL] 10 unit SUBCUT AC unit 01/19/19 Insulin Regular, Human [Humulin R (Reg) Insulin 100 unit/mL] 0 - 12 unit SUBCUT ACHS unit 01/19/19 Oxycodone HCl/Acetaminophen [Percocet 5-325 mg Tablet] 2 tab PO Q4HP PRN #20 tablet 01/19/19 Pantoprazole Sodium [Protonix [address] Tablet] 40 mg PO Q6AM tablet.dr 01/19/19 Sucralfate [Carafate 1 gm Tablet] 1 gm PO ACHS tablet 01/19/19 Tamsulosin HCl [Flomax 0.4 mg Cap.sr] 0.4 mg PO QAM cap.sr.24h 01/19/19 Warfarin Sodium [Coumadin 4 mg Tablet] 4 mg PO QHS tablet 01/19/19 Allergies/Adverse Reactions: No Known Allergies Allergy (Verified 12/10/17 11:05) Review of Systems Constitutional: PRESENT: fatigue Eyes: ABSENT: visual disturbances Ears: ABSENT: hearing changes Nose, Mouth, and Throat: PRESENT: vertigo. ABSENT: headache(s), mouth pain, sore throat Cardiovascular: PRESENT: dyspnea on exertion, palpitations. ABSENT: edema, orthropnea Respiratory: PRESENT: cough, dyspnea, sputum. ABSENT: hemoptysis Gastrointestinal: PRESENT: constipation Genitourinary: ABSENT: dysuria, hematuria Musculoskeletal: PRESENT: back pain Integumentary: ABSENT: pruritus Neurological: ABSENT: abnormal speech, confusion, frequent falls, memory loss, numbness Psychiatric: ABSENT: hallucinations, homidical ideation, suicidal ideation Endocrine: ABSENT: cold intolerance, heat intolerance, polydipsia, polyuria Hematologic/Lymphatic: PRESENT: easy bleeding, easy bruising Allergic/Immunologic: PRESENT: seasonal rhinorrhea Physical Exam Vital Signs: Temp Pulse Resp BP Pulse Ox 98.1 F 90 18 125/60 91 L 01/26/19 08:12 01/26/19 08:41 01/26/19 08:41 01/26/19 08:12 01/26/19 08:41 Pulse Oximeter Continuous Start: 01/24/19 08:36 Freq: RTQ4 Status: Active Protocol: Document 01/26/19 08:41 [facility] (Rec: 01/26/19 08:51 [facility] [id number]) Pulse Oximetry Assessment Oxygen Saturation (92-100) 91 Oxygen Flow Rate (L/min) 5 Oxygen Delivery Method Nasal Cannula Equipment Usage Equipment in Use Continuous SpO2 Machine # 2 Intake & Output 01/25/19 01/26/19 01/27/19 06:59 06:59 06:59 Intake Total 1422 1243 Output Total 2024 7400 Balance -603 -97 Weight 114.9 kg 113.4 kg General appearance: PRESENT: no acute distress, cooperative, disheveled, obese Head exam: PRESENT: atraumatic, normocephalic Eye exam: PRESENT: conjunctiva pale, EOMI. ABSENT: nystagmus, periorbital swelling, scleral icterus Mouth exam: PRESENT: dry mucosa, neck supple, tongue midline Teeth exam: PRESENT: edentulous Neck exam: ABSENT: carotid bruit, full ROM, JVD, lymphadenopathy, meningismus, tenderness, thyromegaly, tracheal deviation, tracheostomy, other Respiratory exam: PRESENT: crackles, decreased breath sounds, prolonged expiratory phas, rhonchi, unlabored, wheezes. ABSENT: retraction, stridor, tachypnea Cardiovascular exam: PRESENT: irregular rhythm Pulses: PRESENT: normal radial pulses GI/Abdominal exam: PRESENT: soft Extremities exam: ABSENT: joint swelling, pedal edema, tenderness, +1 edema, +2 edema Musculoskeletal exam: ABSENT: deformity, dislocation Neurological exam: PRESENT: alert, awake Psychiatric exam: PRESENT: flat affect. ABSENT: agitated, anxious Skin exam: PRESENT: dry, warm Results Laboratory Results: 01/26/19 04:19 01/26/19 04:19 01/26/19 01/26/19 04:19 04:19 WBC 9.9 RBC 4.03 L Hgb 10.7 L Hct 33.3 L MCV 83 MCH 26.4 L MCHC 32.0 RDW 16.0 H Plt Count 226 Sodium 141.8 Potassium 4.0 Chloride 104 Carbon Dioxide 27 Anion Gap 11 BUN 56 H Creatinine 1.66 H Est GFR ( Amer) 48 L Est GFR (Non-Af Amer) 40 L Glucose 88 Calcium 8.4 Phosphorus 4.4 Magnesium 2.1 Total Bilirubin 0.5 AST 17 ALT 21 Alkaline Phosphatase 238 H Total Protein 5.3 L Albumin 2.7 L 01/19/19 01/19/19 01/20/19 19:45 19:45 01:40 Creatine Kinase 394 H 279 H CK-MB (CK-2) 1.71 Troponin I 0.055 NT-Pro-B Natriuret Pep 857 H 01/20/19 01/20/19 01/20/19 01:40 06:35 06:35 Creatine Kinase 232 H CK-MB (CK-2) 2.61 2.97 Troponin I 0.472 0.732 NT-Pro-B Natriuret Pep 0501/23/19 01/24/19 13:20 03:35 04:35 Creatine Kinase CK-MB (CK-2) Troponin I 0.293 NT-Pro-B Natriuret Pep 04773 H 52809 H 09011 H 01/25/19 01/26/19 03:42 04:19 Creatine Kinase CK-MB (CK-2) Troponin I NT-Pro-B Natriuret Pep 9850 H 8480 H Impressions: Abdomen/Pelvis CT 01/12/19 07:21 IMPRESSION: 1. There are low attenuated areas within the right lower lobe pulmonary artery segmental-subsegmental branches, suggesting emboli. The patient has a known history of pulmonary emboli. 2. Acute-subacute compression fracture involving the L3 vertebra, this finding likely correlates to the plain film lumbar spine study dated 01/05/2019. No evidence of retropulsion into the spinal canal. The right psoas muscle is larger in size than the left and is slightly heterogenous in appearance. These findings raise the question of possible right psoas muscle hematoma. Correlation suggested and additional imaging(MRI and or CT Lumbar spine) may be helpful if clinically indicated. 3. Bilateral renal cysts, a few have CT numbers slightly above water range, may represent complex cysts. Correlation with renal ultrasound. 4. 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 5. Additional findings, please see above. Chest/Abdomen CTA 01/19/19 00:00 IMPRESSION: Findings positive for pulmonary emboli, as above. Emboli associated with left lower lobe arterial segments are chronic, however new areas of filling defect/new PE involving left upper lobe and right lower lobe segments. No large or central pulmonary most. Stable emphysematous changes. Stable bronchiectasis right lung base. New spiculated nodule in the right upper lobe/apex for which neoplasm is not excluded. Consider further assessment with PET/CT. TECHNICAL DOCUMENTATION: Quality ID # [id number]: Final reports with documentation of one or more dose reduction techniques (e.g., Automated exposure control, adjustment of the mA and/or kV according to patient size, use of iterative reconstruction technique) copyright 2010 [employer], [employer]- All Rights Reserved Chest X-Ray 01/22/19 00:00 IMPRESSION: NO ACUTE FINDINGS. Assessment & Plan - Diagnosis (1) Obstructive sleep apnea (adult) (pediatric) Is this a current diagnosis for this admission?: Yes Plan: Use CPAP from home (2) Acute and chronic respiratory failure with hypoxia Is this a current diagnosis for this admission?: Yes Plan: Acute episode has pretty much resolved patient will need a facemask as a breathing through the amounts particularly when he is asleep (3) Atrial fibrillation Qualifiers: Atrial fibrillation type: chronic Qualified Code(s): I48.2 - Chronic atrial fibrillation Is this a current diagnosis for this admission?: Yes (4) COPD (chronic obstructive pulmonary disease) Qualifiers: COPD type: unspecified COPD Qualified Code(s): J44.9 - Chronic obstructive pulmonary disease, unspecified Is this a current diagnosis for this admission?: Yes (5) Pulmonary embolism Qualifiers: Chronicity: acute Is this a current diagnosis for this admission?: Yes Plan: Warfarin dependent (6) Coagulopathy Is this a current diagnosis for this admission?: Yes Plan: Our second nigel with the patient says this is been worked up in the past and no definitive diagnosis had been obtained (7) History of pulmonary embolism Is this a current diagnosis for this admission?: Yes (8) Hypercoagulable state Is this a current diagnosis for this admission?: Yes (9) Pulmonary hypertension assoc with unclear multi-factorial mechanisms Is this a current diagnosis for this admission?: Yes Plan: Obstructive sleep apnea COPD
== END 2019-01-27 14:55 | disposition short-term general hospital (02) | DRG 551 ==
LOC: ER 07:05 → UNDOADMIN 11:02 → EH 11:02 → INTOOBSV 11:04 → OBSVTOIN 12:54 → INTOOBSV 12:54 → 5 17:51 → OBSVTOIN 01-13 12:54 → 3S 01-19 21:00 → ICU 01-22 15:16 → 3W 01-23 13:58
PROVIDERS: ADMIT Hospitalist; ATTEND Hospitalist
DX: S32.030A Wedge compression fracture of third lumbar vertebra, initial encounter for closed fracture (principal); J96.21 Acute and chronic respiratory failure with hypoxia; I26.99 Other pulmonary embolism without acute cor pulmonale; I50.31 Acute diastolic (congestive) heart failure; N17.9 Acute kidney failure, unspecified; M79.81 Nontraumatic hematoma of soft tissue; Z66 Do not resuscitate; I27.24 Chronic thromboembolic pulmonary hypertension; I48.2 Chronic atrial fibrillation; I25.10 Atherosclerotic heart disease of native coronary artery without angina pectoris; E78.00 Pure hypercholesterolemia, unspecified; I11.0 Hypertensive heart disease with heart failure; J44.9 Chronic obstructive pulmonary disease, unspecified; G58.9 Mononeuropathy, unspecified; E11.42 Type 2 diabetes mellitus with diabetic polyneuropathy; K21.9 Gastro-esophageal reflux disease without esophagitis; N40.0 Benign prostatic hyperplasia without lower urinary tract symptoms; G47.33 Obstructive sleep apnea (adult) (pediatric); E66.9 Obesity, unspecified; Z68.33 Body mass index [BMI] 33.0-33.9, adult; Z79.01 Long term (current) use of anticoagulants; Z79.4 Long term (current) use of insulin; Z79.899 Other long term (current) drug therapy; Z86.711 Personal history of pulmonary embolism
CPT/HCPCS: 36415; 51701; 71045; 71275; 74177; 80048; 80053; 81001; 82550; 82553; 82803; 82962; 83036; 83690; 83735; 83880; 84100; 84484; 85025; 85027; 85610; 85730; 87070; 87205; 93005; 93010; 93306; 94667; 94668; 94762; 94799; 96374; 96375; 99285; G0378; J1170; J1650; J1815; J1940; J2270; J2405; J3490; J7030; J7620